=== PATIENT | female | born 2000 | race Caucasian/White ===

== ENCOUNTER 2021-03-28 09:48 | Emergency (ER) | payer BC, SELFPAY ==
--- NOTE | 2021-03-28 09:53 | ED.ABDPAIN ---
HPI - Abdominal Pain General Chief Complaint: Abdominal Pain Stated Complaint: vomitting, diarrhea and bloating of the Stomach Time Seen by Provider: 03/28/21 09:54 Source: patient and RN notes reviewed History of Present Illness HPI narrative: Patient is a 20-year-old female who presents the urgent care with complaints of 4 loose stools, 2 episodes of vomiting, and abdominal bloating since last night. Patient states that she weighs herself daily and has lost 10 pounds since Thursday morning. Patient states she has taken no new supplements and denies of trying to lose weight. Denies of any increase in activity. States that there is no chance of . Patient states that she has not taken anything for her pain. Denies of any blood in the stool or vomit. Denies of any urinary symptoms. No history of abdominal conditions. No other acute complaints. No acute distress noted. Patient read the plan of care. Some parts of this dictation were generated by voice recognition software and may contain typographical and/or grammatical inaccuracies. Related Data Home Medications Medication Instructions Recorded Confirmed cetirizine [Zyrtec] 10 mg PO DAILY 03/28/21 03/28/21 Allergies Allergy/AdvReac Type Severity Reaction Status Date / Time Sulfa (Sulfonamide Allergy Intermediate Rash Verified 03/28/21 10:07 Antibiotics) Review of Systems Review of Systems: CONSTITUTIONAL: Denies fever, chills, or sweats. EYES: Denies visual changes, redness, or discharge. ENT: Denies rhinorrhea, congestion, sore throat, or otalgia. CARDIOVASCULAR: Denies chest pain, palpitations, or edema. RESPIRATORY: Denies cough or dyspnea. GASTROINTESTINAL: Reports of abdominal bloating, vomiting and diarrhea GENITOURINARY: Denies dysuria or hematuria. SKIN: Denies rash or itching. MUSCULOSKELETAL: Denies back pain, joint pain, or myalgia. NEUROLOGIC: Denies headache, numbness, or weakness. All other systems reviewed are negative, except as documented in HPI. PMFSH Comments At the time of my signature, I reviewed and agree with the nursing past medical, surgical, social, and family history. There is no relevant family history pertinent to the patient complaint. Exam Narrative: GENERAL: This is a well-nourished, well-developed patient, in no apparent distress. HEAD: normocephalic, atraumatic. EYES: PERRL. Sclera clear/white. Vision is grossly intact. EARS: External ears normal NOSE: External nose normal with no obvious nasal discharge, nares without redness, no rhinorrhea. THROAT: Mucous membranes moist NECK: Neck supple CARDIOVASCULAR: Regular rate and rhythm without murmurs, gallops, or rubs. RESPIRATORY: Clear to auscultation. Breath sounds equal bilaterally. No wheezes, rales, or rhonchi. GASTROINTESTINAL: Abdomen soft, mild to moderate tenderness to the upper right quadrant/gallbladder, nondistended. Bowel sounds are active. SKIN: warm, intact with no suspicious lesions or rash, good texture and turgor. NEURO: awake, alert, and oriented to person, place and time. There were no obvious focal neurologic abnormalities. EXTREMITIES: No clubbing, cyanosis, or edema. BACK: Negative CVA tenderness Course Vital Signs Vital signs: Vital Signs Temperature 97.8 F 03/28/21 09:58 Pulse Rate 105 H 03/28/21 09:58 Respiratory Rate 18 03/28/21 09:58 Blood Pressure 142/88 H 03/28/21 09:58 Pulse Oximetry 98 03/28/21 09:58 Temperature 97.8 F 03/28/21 09:58 Pulse Rate 105 H 03/28/21 09:58 Respiratory Rate 18 03/28/21 09:58 Blood Pressure 142/88 H 03/28/21 09:58 Pulse Oximetry 98 03/28/21 09:58 Reviewed-patient is informed that they may have pre-hypertension or hypertension based on a blood pressure reading in the department. I recommend the patient call the primary care provider listed on their discharge instructions or a physician of their choice this week to arrange follow-up for further evaluation of possible pre-hyperte
[2021-03-28 09:58] VITALS: BP 142/88; PULSE 105; RESP 18; TEMP 36.6; O2SAT 98
== END 2021-03-28 10:25 | disposition home or self-care (01) ==
PROVIDERS: Emergency Provider Nurse Practitioner Family
DX: R11.2 Nausea with vomiting, unspecified (principal); R19.7 Diarrhea, unspecified
CPT/HCPCS: 81003; 99212; G0463

== ENCOUNTER → 2022-03-20 07:54 | Outpatient (CLI) | payer BC, SELFPAY ==
--- NOTE | ~2022-03-20 | US_ITS ---
EXAMINATION: US OB <=14 wk fetus w TV DATE: 03/20/2022 08:26 INDICATION: First trimester dating and viability assessment TECHNIQUE: Real-time pelvic transabdominal and transvaginal ultrasound was performed. COMPARISON: None. FINDINGS: The uterus measures 8.8 x 2.9 x 3.5 cm. There is an intrauterine gestational sac. A yolk s ac is identified. The pole is not yet identified. The mean sac diameter measures 6 mm , which c orrelates with an estimated gestational age of 5 weeks and 2 day(s) (+/-) 3 day(s). The right ovary measures 2.3 x 1.6 x 1.3 cm. The left ovary measures 2.8 x 1.7 x 2.2 cm. There is nor mal vascular flow in the ovaries. There is no free fluid in the pelvis. IMPRESSION: 1. Live intrauterine with an estimated gestational age of 5 weeks and 2 day(s) (+/-) 3 day( s) and an estimated delivery date of 11/18/2022 based on mean sac diameter. pole not visualized, likely due to early gestation. Reviewed, dictated and finalized at location A. IMPRESSION: 1. Live intrauterine with an estimated gestational age of 5 weeks and 2 day(s) (+/-) 3 day(s) and an estimated delivery date of 11/18/2022 based on m neto sac diameter. pole not visualized, likely due to early gestation.
== END ==
PROVIDERS: PCP Advanced Practice Midwife; Visit Provider Advanced Practice Midwife
DX: Z36.9 Encounter for antenatal screening, unspecified (principal); Z3A.01 Less than 8 weeks gestation of pregnancy
CPT/HCPCS: 76801; 76817

== ENCOUNTER → 2022-03-28 08:51 | Outpatient (CLI) | payer BC, SELFPAY ==
--- NOTE | ~2022-03-28 | US_ITS ---
EXAMINATION: US OB <=14 wk fetus w TV DATE: 03/28/2022 09:22 INDICATION: Gestational dating. Evaluate viability. TECHNIQUE: Real-time transabdominal and transvaginal obstetric ultrasound. FINDINGS: 03/20/2022 The uterus measures 9.1 x 3.9 x 4.5 cm. There is an intrauterine gestational sac, with pole yasmine ntified. The crown rump length measures 0.52 cm. heart tones are identified measuring 110 BPM. The ovaries are within normal limits. No free fluid in the pelvis.. The ovaries are within normal li mits. No free fluid in the pelvis. IMPRESSION: 1. SL IUP with an EGA of 6 weeks, 2 days (EDC by current ultrasound of 11/19/2022). Reviewed, dictated and finalized at location A. IMPRESSION: 1. SL IUP with an EGA of 6 weeks, 2 days (EDC by current ultrasound of 3).
== END ==
PROVIDERS: PCP Obstetrics & Gynecology Gynecology; Visit Provider Obstetrics & Gynecology Gynecology
DX: Z36.9 Encounter for antenatal screening, unspecified (principal); Z3A.01 Less than 8 weeks gestation of pregnancy
CPT/HCPCS: 76801; 76817

== ENCOUNTER → 2022-06-28 09:34 | Outpatient (CLI) | payer BC, SELFPAY ==
--- NOTE | ~2022-06-28 | US_ITS ---
EXAMINATION: US OB /maternal detail DATE: 06/28/2022 11:09 INDICATION: survey TECHNIQUE: Multiple obstetric sonographic images performed. FINDINGS: No prior studies for comparison. There is a single living fetus in breech presentation. The placenta is posterior without placenta pr evia. Placental margin is 6.6 cm to the cervix. Amniotic fluid volume is subjectively normal. cardiac activity and movement is noted with a heart rate of 158 beats per minute. The following anatomy was identified as normal: 4 chamber heart 3 vessel cord cord insertion kidneys urinary bladder stomach spine diaphragm ventricles cisterna magna cerebellum The following biometric data were obtained: BPD: 44mm corresponds to gestational age 19 weeks 2 days. Head circumference: 169 mm corresponds to gestational age 19 weeks 4 days. Abdominal circumference: 147 mm corresponds to gestational age 20 weeks 0 days. Femur length: 29 mm corresponds to gestational age 20 weeks 0 days. Head circumference to abdominal circumference ratio: 1.15 (normal range for expected gestational age is 1.08-1.26). Estimated weight: 297 grams +/- 44 grams using Hadlock method, 50.9%. IMPRESSION: 1: Single living intrauterine with an estimated gestational age of 19weeks 4days by initial ultrasound measurements, with an EDC of 11/18/2022 in breech presentation. 2. Normal survey. Reviewed, dictated and finalized at location A. RNATIONAL BANKER IMPRESSION: 1: Single living intrauterine with an estimated gestational age of 19 weeks 4days by initial ultrasound measurements, with an EDC of 11/18/2022 in chuckie ech presentation. 2. Normal survey.
== END ==
PROVIDERS: PCP Nurse Practitioner Family; Visit Provider Advanced Practice Midwife
DX: Z36.9 Encounter for antenatal screening, unspecified (principal); Z3A.19 19 weeks gestation of pregnancy
CPT/HCPCS: 76805

== ENCOUNTER 2022-07-11 14:50 | Outpatient (CLI) | payer BC, SELFPAY ==
[2022-07-11] VITALS (26 sets, daily range): BP systolic 110–145; BP diastolic 43–85; PULSE 103–136; RESP 18; TEMP 37.1; O2SAT 98–100
[2022-07-11 16:18] LABS: Appearance Urine Clear (Clear); Bilirubin Urine Negative (Negative); Blood Urine Negative (Negative); Color Urine Yellow (Yellow); Creatinine Urine 37.6 mg/dL; EDCOVIDSCREEN Negative (Negative); Glucose Urine UA Negative (Negative); Ketones Urine Negative (Negative); Leukocyte Esterase Ur Negative LEU/UL (NEGATIVE); Nitrate Urine Negative (Negative); Protein Urine Negative (Negative); Specific Grav Ur 1.015 (1.001-1.035); Total Protein Urine Random 15 mg/dL; Urobilinogen Urine 0.2 mg/dL (<2.0)
[2022-07-11 16:22] LABS: Squamous Epithelial Cell Urine Occasional /hpf (Few); WBC Urine 0-3 /hpf (0-3)
[2022-07-11 16:23] LABS: Basophils Percent Auto 0.2 % (0.2-1.2); Eosinophils Absolute Auto 0.1 K/mm3 (0-0.3); Eosinophils Percent Auto 0.5 % (0-4.4); Hematocrit 35.3 % (37.0-47.0); Hemoglobin 11.7 g/dL (12.0-15.0); Immature Granulocyte Absolute 0.15 K/mm3 (0.00-0.031); Immature Granulocyte Percent A 1.2 % (0-0.5); Lymphocytes Absolute Auto 2.77 K/mm3 (0.9-3.2); Lymphocytes Percent Auto 21.2 % (18.3-44.2); Mean Corpuscular HGB Conc 33.1 g/dl (32-36); Mean Corpuscular Hemoglobin 28.2 pg (26-34); Mean Corpuscular Volume 85.1 fl (80-100); Mean Platelet Volume 9.2 fl (7.4-10.4); Monocytes Absolute Auto 0.7 K/mm3 (0.1-0.6); Neutrophils Absolute Auto 9.4 K/mm3 (1.3-6.7); Neutrophils Percent Auto 71.9 % (45.5-73.1); Platelet Count Result 255 k/mm3 (150-375); Red Blood Count 4.15 M/mm3 (4.2-5.4); Red Cell Distribution Width 13.1 % (11.5-14.5)
[2022-07-11 16:25] LABS: Add Urine Microscopic? YES
[2022-07-11] MEDS: LACTATED RINGERS 1,000 ML 999 ML IV CONT (16:30)
[2022-07-11] MEDS: ACETAMINOPHEN 500 MG TABLET 1000 MG PO (16:30)
[2022-07-11 16:35] LABS: Alanine Aminotransferase 22 U/L (6-35); Albumin Level 3.9 g/dL (3.5-5.1); Alkaline Phosphatase 86 U/L (38-126); Anion Gap 5 mmol/L (8-16); Aspartate Amino Transferase 23 U/L (14-36); Bilirubin,Total 0.3 mg/dL (0.2-1.3); Blood Urea Nitrogen 4 mg/dL (7-17); Carbon Dioxide 25 mmol/L (22-30); Chloride 107 mmol/L (98-107); Estimated Glomerular Filt Rate > 60; Glucose 88 mg/dL (65-110); Sodium 137 mmol/L (137-145); Uric Acid 4.1 mg/dL (2.5-7.5)
--- NOTE | 2022-07-11 16:47 | PC.NURSE ---
1646- Spoke with Carley Nieves, AILYN, labs and HR reviewed. Will come in and evaluate patient shortly.
--- NOTE | 2022-07-11 16:49 | PC.NURSE ---
1542- Spoke with Carley Nieves CNM, orders for PIH workup, iv access, LR 1 L bolus, Tylenol 1 gm PO.
[2022-07-11] MEDS: PROCHLORPERAZINE MALEATE 5 MG TABLET 10 MG PO (18:01)
--- NOTE | 2022-07-11 18:05 | PC.NURSE ---
1745- Per Carley Nieves CNM, orders to give compazine 10 mg PO once now since headache is unresolved.
--- NOTE | 2022-07-11 18:35 | PC.NURSE ---
Headache is decreasing, but pt having some dizziness since taking compazine. No nausea at present. Denies changes in vision, epigastric/RUQ pain. No edema. DTR's 2+ and no clonus. Panaca, fruit cup, and soda given.
--- NOTE | 2022-07-11 19:39 | PC.NURSE ---
Carley Nieves [facility] informed pt's headache is down to a 2 out of 10. Pt had some dizziness after the Compazine that has resolved after eating and pt would like to go home. OK to discharge to home.
--- NOTE | 2022-07-11 20:37 | PM.OBTRLD ---
OB - Triage/Final Diagnosis Visit Information Date of evaluation: 07/11/22 Reason for evaluation: other (headache) Comments/Additional reasons for admission: I have assessed the risk for this patient, Anna Salguero, and determined that she would benefit from observation care. Evaluation Laboratory results: Laboratory Tests 07/11/22 07/11/22 07/11/22 15:53 15:53 15:53 WBC 13.0 H RBC 4.15 L Hgb 11.7 L Hct 35.3 L MCV 85.1 MCH 28.2 MCHC 33.1 RDW 13.1 Plt Count 255 MPV 9.2 Immature Gran % (Auto) 1.2 H Neut % (Auto) 71.9 Lymph % (Auto) 21.2 [place] % (Auto) 5.0 Eos % (Auto) 0.5 Baso % (Auto) 0.2 Lymph # (Auto) 2.77 [place] # (Auto) 0.7 H Eos # (Auto) 0.1 Baso # (Auto) 0.0 Abs Immat Gran (auto) 0.15 H Absolute Neuts (auto) 9.4 H Absolute Nucleated RBC 0.0 Nucleated RBC % 0.0 Sodium Potassium Chloride Carbon Dioxide Anion Gap BUN Creatinine Estim Creat Clear Calc Estimated GFR Glucose Uric Acid Calcium Total Bilirubin AST ALT Alkaline Phosphatase Total Protein Albumin Urine Color Yellow Urine Appearance Clear Urine pH 7.0 Ur Specific [place] 1.015 Urine Protein Negative Urine Glucose (UA) Negative Urine Ketones Negative Ur Blood (Man) Negative Urine Nitrate Negative Urine Bilirubin Negative Urine Urobilinogen 0.2 Ur Leukocyte Esterase Negative Urine WBC 0-3 Ur Squamous Epith Cells Occasional U Random Total Protein 15 Urine Creatinine 37.6 Protein/Creat Ratio 2 0.40 H SARS-CoV-2 IgG/IgM Ag?Rapid 07/11/22 07/11/22 15:53 15:53 WBC RBC Hgb Hct MCV MCH MCHC RDW Plt Count MPV Immature Gran % (Auto) Neut % (Auto) Lymph % (Auto) [place] % (Auto) Eos % (Auto) Baso % (Auto) Lymph # (Auto) [place] # (Auto) Eos # (Auto) Baso # (Auto) Abs Immat Gran (auto) Absolute Neuts (auto) Absolute Nucleated RBC Nucleated RBC % Sodium 137 Potassium 4.0 Chloride 107 Carbon Dioxide 25 Anion Gap 5 L BUN 4 L Creatinine 0.40 L Estim Creat Clear Calc Not Reportable Estimated GFR > 60 Glucose 88 Uric Acid 4.1 Calcium 9.0 Total Bilirubin 0.3 AST 23 ALT 22 Alkaline Phosphatase 86 Total Protein 7.0 Albumin 3.9 Urine Color Urine Appearance Urine pH Ur Specific [place] Urine Protein Urine Glucose (UA) Urine Ketones Ur Blood (Man) Urine Nitrate Urine Bilirubin Urine Urobilinogen Ur Leukocyte Esterase Urine WBC Ur Squamous Epith Cells U Random Total Protein Urine Creatinine Protein/Creat Ratio 2 SARS-CoV-2 IgG/IgM Ag?Rapid Negative Vital signs: Vital Signs - 24 hr 07/11/22 15:16 07/11/22 15:31 07/11/22 15:47 Temperature Pulse Rate 128 H 126 H 132 H Respiratory Rate Blood Pressure 145/65 H 121/85 110/43 L Pulse Oximetry 07/11/22 15:56 07/11/22 16:01 07/11/22 16:06 Temperature Pulse Rate Respiratory Rate Blood Pressure Pulse Oximetry 99 98 99 07/11/22 16:08 07/11/22 16:13 07/11/22 16:18 Temperature Pulse Rate Respiratory Rate Blood Pressure Pulse Oximetry 99 99 98 07/11/22 16:23 07/11/22 16:28 07/11/22 16:33 Temperature Pulse Rate Respiratory Rate Blood Pressure Pulse Oximetry 98 99 99 07/11/22 16:38 07/11/22 16:41 07/11/22 16:46 Temperature Pulse Rate Respiratory Rate Blood Pressure Pulse Oximetry 98 100 100 07/11/22 16:51 07/11/22 16:56 07/11/22 17:01 Temperature Pulse Rate Respiratory Rate Blood Pressure Pulse Oximetry 100 100 100 07/11/22 17:06 07/11/22 17:11 07/11/22 17:16 Temperature Pulse Rate Respiratory Rate Blood Pressure Pulse Oximetry 100 100 100 07/11/22 17:21 07/11/22 17:26 07/11/22 17:31 Temperature Pulse Rate Respiratory Rate Blood Pressu
== END 2022-07-11 19:49 | disposition home or self-care (01) ==
LOC: ANHOBOP 14:58 → ANHOBPP 15:03
PROVIDERS: PCP Nurse Practitioner Family; Visit Provider Advanced Practice Midwife
DX: O13.9 Gestational [pregnancy-induced] hypertension without significant proteinuria, unspecified trimester (principal); Z3A.00 Weeks of gestation of pregnancy not specified
CPT/HCPCS: 80053; 81001; 82570; 84156; 84550; 85025; 87086; 87426; 96360; 99199; A9270; C9803; J7120

== ENCOUNTER 2022-07-25 14:11 | Emergency (ER) | payer BC, SELFPAY ==
--- NOTE | ~2022-07-25 | CT_ITS ---
EXAMINATION: CTA chest PE protocol DATE: 07/25/2022 20:08 INDICATION: Shortness of breath. Elevated d-dimer. TECHNIQUE: Computed tomography angiography (CTA) of the chest was performed with 100 mL Omnipaque-350 intravenous contrast timed to evaluate the pulmonary arteries. Coronal maximum intensity projection 3D-reconstructions were created by the technologist. Automated exposure control and iterative reconst ruction technique were employed. Exam dose: 841.09 mGy-cm total exam DLP. COMPARISON: 07/25/2022 portable AP chest FINDINGS: There is diagnostic contrast enhancement of the pulmonary arteries and no evidence of pulmo nary embolism. No thoracic aortic aneurysm. No hilar or mediastinal mass lesion or lymphadenopathy. Normal heart siz e. No pericardial or pleural effusion. No pulmonary infiltrate or consolidation. Normal morphology of the adrenal glands. Included skeletal structures are unremarkable. IMPRESSION: No pulmonary embolus Reviewed, dictated and finalized at [facility]. Reviewed, dictated and finalized at location A. ZING ROOM WORKER IMPRESSION: No pulmonary embolus
--- NOTE | ~2022-07-25 | XR_ITS ---
Portable chest x-ray Comparison: None Clinical History: Shortness of breath, Covid 19 positive Findings: Lungs are clear, without focal consolidation or pleural effusion. Cardiomediastinal silho uette is unremarkable. Bones and soft tissues are unremarkable. Impression: Normal chest. Reviewed, dictated and finalized at location . LING SUPERVISOR Impression: Normal chest.
[2022-07-25 14:30] VITALS: BP 140/87; PULSE 109; RESP 20; TEMP 36.8; O2SAT 98
--- NOTE | 2022-07-25 14:33 | ECG_ITS ---
Measurements Intervals [place] Rate: 111 P: 28 NC: 133 QRS: 28 QRSD: 85 T: 14 QT: 299 QTc: 408 Interpretive Statements SINUS TACHYCARDIA NONSPECIFIC T-WAVE ABNORMALITY ABNORMAL RHYTHM ECG NO PREVIOUS ECG AVAILABLE FOR COMPARISON Electronically Signed On 07-25-2022 20:07:28 WEB CONTENT COORDINATOR by Colin Bardales M.D.
[2022-07-25 14:47] LABS: Basophils Percent Auto 0.2 % (0.2-1.2); Eosinophils Absolute Auto 0.1 K/mm3 (0-0.3); Eosinophils Percent Auto 1.1 % (0-4.4); Hematocrit 38.3 % (37.0-47.0); Hemoglobin 12.6 g/dL (12.0-15.0); Immature Granulocyte Absolute 0.12 K/mm3 (0.00-0.031); Immature Granulocyte Percent A 1.4 % (0-0.5); Lymphocytes Absolute Auto 2.18 K/mm3 (0.9-3.2); Lymphocytes Percent Auto 24.5 % (18.3-44.2); Mean Corpuscular HGB Conc 32.9 g/dl (32-36); Mean Corpuscular Hemoglobin 28.5 pg (26-34); Mean Corpuscular Volume 86.7 fl (80-100); Mean Platelet Volume 8.9 fl (7.4-10.4); Monocytes Absolute Auto 0.6 K/mm3 (0.1-0.6); Monocytes Percent Auto 7.2 % (2.6-8.5); Neutrophils Absolute Auto 5.8 K/mm3 (1.3-6.7); Neutrophils Percent Auto 65.6 % (45.5-73.1); Platelet Count Result 279 k/mm3 (150-375); Red Blood Count 4.42 M/mm3 (4.2-5.4); Red Cell Distribution Width 13.3 % (11.5-14.5); White Blood Count 8.9 K/mm3 (4.5-10.0)
[2022-07-25 15:00] LABS: Alanine Aminotransferase 26 U/L (6-35); Albumin Level 3.9 g/dL (3.5-5.1); Alkaline Phosphatase 95 U/L (38-126); Anion Gap 7 mmol/L (8-16); Aspartate Amino Transferase 25 U/L (14-36); Bilirubin,Total 0.3 mg/dL (0.2-1.3); Blood Urea Nitrogen 8 mg/dL (7-17); Calcium 9.4 mg/dL (8.4-10.2); Carbon Dioxide 25 mmol/L (22-30); Chloride 105 mmol/L (98-107); Estimated CRCL calculation 185 ml/min; Estimated Glomerular Filt Rate > 60; Glucose 102 mg/dL (65-110); Potassium 3.5 mmol/L (3.4-5.0); Sodium 137 mmol/L (137-145)
--- NOTE | 2022-07-25 17:28 | ED.GENADULT ---
HPI - General Adult General Chief complaint: Shortness of Breath/Dyspnea <Michaela Brandon PA-C - Last Filed: 07/26/22 00:36> Stated complaint: 23 weeks , SOB, COVID+ <Michaela Brandon PA-C - Last Filed: 07/26/22 00:36> Time Seen by Provider: 07/25/22 17:05 <Michaela Brandon PA-C - Last Filed: 07/26/22 00:36> History of Present Illness HPI narrative: Patient is a 22-year-old female who is currently 23 weeks here for evaluation of shortness of breath and cough for the past 3 days. She is COVID-positive. She also notes that her heart rate has been elevated at home. She was seen by OB upon symptom onse; fetus was evaluated and was reassuring. Presents today due to continuation of symptoms. She is a patient of Dr. Shahid. No abdominal pain, vaginal bleeding, decrease in motions, sudden gush of fluids, chest pain, leg swelling or calf pain. <Michaela Brandon PA-C - Last Filed: 07/26/22 00:36> Related Data Home medications: Home Medications Medication Instructions Recorded Confirmed cetirizine 10 mg tablet (Zyrtec) 10 mg PO DAILY 03/28/21 07/11/22 <MADHU Bañuelos Last Filed: 07/26/22 00:36> Allergies/adverse reactions: Allergies Allergy/AdvReac Type Severity Reaction Status Date / Time Sulfa (Sulfonamide Allergy Intermediate Rash Verified 03/28/21 10:07 Antibiotics) <MADHU Bañuelos Last Filed: 07/26/22 00:36> Review of Systems Review of Systems: Gen: Denies fevers or chills Eyes: Denies eye pain or visual change ENT: Denies congestion Respiratory: Reports shortness of breath and cough CV: Denies chest pain or palpitations GI: Denies abdominal pain nausea, emesis or diarrhea : denies burning, urgency, frequency or hematuria Musculoskeletal: Denies back pain or muscle pain Neuro: Denies numbness, tingling, weakness or focal weakness Skin: Denies rash Except as documented, all other systems reviewed and negative <Michaela Brandon PA-C - Last Filed: 07/26/22 00:36> Exam Narrative: APPEARANCE: Well appearing, no pain in distress, well-nourished. Head: Normocephalic and atraumatic. EYES: PERRLA/EOMI, conjunctivae clear NOSE: No nasal drainage EARS: External ear normal in appearance THROAT: Oropharynx is clear. Mucous membranes are moist. NECK: Supple. No adenopathy, no masses. RESPIRATORY: Airway patent, respirations nonlabored. Clear to auscultation bilaterally, no rales, rhonchi, wheezing. CARDIOVASCULAR: Regular rate and rhythm without murmurs, rubs, or gallops. ABDOMINAL: Normoactive bowel sounds. Soft, nontender, nondistended. No rebound tenderness or guarding. MUSCULOSKELETAL: Extremities are warm and well-perfused. Moves all extremities well. No edema. NEURO: Normal speech. No focal neurologic deficits. SKIN: Skin is warm and dry. No rashes. PSYCHIATRIC: Normal affect/mood.. <Michaela Brandon PA-C - Last Filed: 07/26/22 00:36> Course PLUSH DRESSER/PA Physician Supervision For this encounter, I have reviewed the PA documentation, treatment plan and medical decision making: And I have had [id number] time with the patient. Patient tested positive for COVID on Thursday. At this time lungs clear to auscultation bilaterally the heart is regular rate and rhythm without murmur discussed with patient need for follow-up all questions answered patient agreement at this time <Brian Mujica DO - Last Filed: 07/25/22 20:39> Vital Signs Vital signs: Vital Signs Temperature 98.3 F 07/25/22 14:30 Pulse Rate 109 H 07/25/22 14:30 Respiratory Rate 20 07/25/22 14:30 Blood Pressure 140/87 07/25/22 14:30 Pulse Oximetry 98 07/25/22 14:30 Oxygen Delivery Room Air 07/25/22 14:30 Temperature 99.0 F 07/25/22 20:42 Pulse Rate 91 07/25/22 20:42 Respiratory Rate 18 07/25/22 20:42 Blood Pressure 124/79 07/25/22 20:42 Pulse Oximetry 98 07/25/22 20:42 Oxygen Del
[2022-07-25 17:59] LABS: Troponin I < 0.012 ng/mL (0.000-0.034)
[2022-07-25 18:00] VITALS: O2SAT 98
[2022-07-25 18:02] LABS: D Dimer 0.63 ug/mL (<0.48)
[2022-07-25 19:18] VITALS: BP 118/65; PULSE 70; RESP 12; O2SAT 98
[2022-07-25 19:30] VITALS: BP 119/79; PULSE 84; RESP 18; TEMP 36.9; O2SAT 97
[2022-07-25 20:42] VITALS: BP 124/79; PULSE 91; RESP 18; TEMP 37.2; O2SAT 98
== END 2022-07-25 20:44 | disposition home or self-care (01) ==
PROVIDERS: Physician Assistant; Emergency Provider Emergency Medicine; PCP Nurse Practitioner Family
DX: O98.512 Other viral diseases complicating pregnancy, second trimester (principal); U07.1 COVID-19; Z3A.23 23 weeks gestation of pregnancy; O99.891 Other specified diseases and conditions complicating pregnancy; R00.0 Tachycardia, unspecified; R94.31 Abnormal electrocardiogram [ECG] [EKG]
CPT/HCPCS: 36415; 71045; 71275; 80053; 84484; 85025; 85380; 93005; 99284; Q9967

== ENCOUNTER 2022-08-26 18:24 | Observation (INO) | payer BC, SELFPAY ==
[2022-08-26] VITALS (22 sets, daily range): BP systolic 113–171; BP diastolic 51–128; PULSE 60–120; RESP 16–18; TEMP 36.9–37.4; O2SAT 95–98
--- NOTE | 2022-08-26 19:30 | PC.NURSE ---
Pt to hospital with complaints of feelings week/dizzy, anxious and high BP at home wit readings of 168/110 and 178/105. Pt denies HS, blurred vision, RUQ pain, n/v. Pt reports bilateral general leg swelling. Pts T was 99.4 but denies any s/s of sickness, leaking of lfuid/gushes of fluid.
--- NOTE | 2022-08-26 19:36 | PC.NURSE ---
Called Dr. Shahid. Informed her of patients s/s, BPS at home and here at the hospital, and Temperature. Orders for PIH labs and to start a 24 hour urine.
[2022-08-26 20:12] LABS: Basophils Percent Auto 0.3 % (0.2-1.2); Eosinophils Percent Auto 0.3 % (0-4.4); Hematocrit 32.9 % (37.0-47.0); Hemoglobin 11.1 g/dL (12.0-15.0); Immature Granulocyte Absolute 0.13 K/mm3 (0.00-0.031); Lymphocytes Absolute Auto 2.82 K/mm3 (0.9-3.2); Lymphocytes Percent Auto 20.9 % (18.3-44.2); Mean Corpuscular HGB Conc 33.7 g/dl (32-36); Mean Corpuscular Hemoglobin 28.5 pg (26-34); Mean Corpuscular Volume 84.4 fl (80-100); Mean Platelet Volume 9.2 fl (7.4-10.4); Monocytes Absolute Auto 0.6 K/mm3 (0.1-0.6); Monocytes Percent Auto 4.5 % (2.6-8.5); Neutrophils Absolute Auto 9.9 K/mm3 (1.3-6.7); Platelet Count Result 261 k/mm3 (150-375); Red Cell Distribution Width 13.2 % (11.5-14.5); White Blood Count 13.5 K/mm3 (4.5-10.0)
[2022-08-26 20:16] LABS: Appearance Urine Clear (Clear); Bilirubin Urine Negative (Negative); Blood Urine Negative (Negative); Glucose Urine UA Negative (Negative); Ketones Urine Negative (Negative); Leukocyte Esterase Ur 1+ LEU/UL (NEGATIVE); Nitrate Urine Negative (Negative); Protein Urine Negative (Negative); Urobilinogen Urine 0.2 mg/dL (<2.0)
[2022-08-26 20:19] LABS: Creatinine Urine 47.6 mg/dL; Total Protein Urine Random 17 mg/dL; Ur Ttl Prot Creatinine Ratio 0.36 mg/mg (0-0.20)
[2022-08-26 20:22] LABS: Alanine Aminotransferase 17 U/L (6-35); Albumin Level 3.5 g/dL (3.5-5.1); Alkaline Phosphatase 111 U/L (38-126); Anion Gap 6 mmol/L (8-16); Aspartate Amino Transferase 20 U/L (14-36); Bilirubin,Total 0.3 mg/dL (0.2-1.3); Blood Urea Nitrogen 5 mg/dL (7-17); Calcium 8.7 mg/dL (8.4-10.2); Carbon Dioxide 24 mmol/L (22-30); Chloride 103 mmol/L (98-107); Estimated Glomerular Filt Rate > 60; Glucose 113 mg/dL (65-110); Potassium 3.3 mmol/L (3.4-5.0); Sodium 133 mmol/L (137-145); Uric Acid 4.2 mg/dL (2.5-7.5)
[2022-08-26 20:26] LABS: Add Urine Microscopic? YES; Color Urine Light Yellow (Yellow)
[2022-08-26 20:35] LABS: Bacteria Urine Trace /hpf; Squamous Epithelial Cell Urine Few /hpf (Few)
--- NOTE | 2022-08-26 20:49 | PC.NURSE ---
!78/128 Blood pressure, I was at bedside and patient was laughing, talking and moving.
--- NOTE | 2022-08-26 20:52 | PC.NURSE ---
Called Dr. Shahid with lab results and recent BP. Orders to dsicharge patient and have her do a 24 hour urine. Also, orders for patient to come back on Thursday to Dr. Shahid's office for a BP check and to bring her home BP ciff. Orders for patient to be on light duty until Thursday appointment.
--- NOTE | 2022-08-26 21:30 | PC.NURSE ---
Discharge instructions reviewed with patient including when to return, 24 hour urine instructions, and follow up appointment instructions
--- NOTE | 2022-08-28 07:38 | PM.OBTRLD ---
OB - Triage/Final Diagnosis Visit Information Reason for evaluation: other (elevated BP) Comments/Additional reasons for admission: I have assessed the risk for this patient, Anna Salguero, and determined that she would benefit from observation care. Evaluation Laboratory results: Laboratory Tests 08/26/22 08/26/22 08/26/22 20:02 20:02 20:02 WBC 13.5 H RBC 3.90 L Hgb 11.1 L Hct 32.9 L MCV 84.4 MCH 28.5 MCHC 33.7 RDW 13.2 Plt Count 261 MPV 9.2 Immature Gran % (Auto) 1.0 H Neut % (Auto) 73.0 Lymph % (Auto) 20.9 [place] % (Auto) 4.5 Eos % (Auto) 0.3 Baso % (Auto) 0.3 Lymph # (Auto) 2.82 [place] # (Auto) 0.6 Eos # (Auto) 0.0 Baso # (Auto) 0.0 Abs Immat Gran (auto) 0.13 H Absolute Neuts (auto) 9.9 H Absolute Nucleated RBC 0.0 Nucleated RBC % 0.0 Sodium Potassium Chloride Carbon Dioxide Anion Gap BUN Creatinine Estim Creat Clear Calc Estimated GFR Glucose Uric Acid Calcium Total Bilirubin AST ALT Alkaline Phosphatase Total Protein Albumin Urine Color Light yellow Urine Appearance Clear Urine pH 7.0 Ur Specific [place] 1.020 Urine Protein Negative Urine Glucose (UA) Negative Urine Ketones Negative Ur Blood (Man) Negative Urine Nitrate Negative Urine Bilirubin Negative Urine Urobilinogen 0.2 Ur Leukocyte Esterase 1+ H Urine RBC 6-10 H Urine WBC 4-6 H Ur Squamous Epith Cells Few Urine Bacteria Trace U Random Total Protein 17 Urine Creatinine 47.6 Protein/Creat Ratio 2 0.36 H 08/26/22 20:02 WBC RBC Hgb Hct MCV MCH MCHC RDW Plt Count MPV Immature Gran % (Auto) Neut % (Auto) Lymph % (Auto) [place] % (Auto) Eos % (Auto) Baso % (Auto) Lymph # (Auto) [place] # (Auto) Eos # (Auto) Baso # (Auto) Abs Immat Gran (auto) Absolute Neuts (auto) Absolute Nucleated RBC Nucleated RBC % Sodium 133 L Potassium 3.3 L Chloride 103 Carbon Dioxide 24 Anion Gap 6 L BUN 5 L Creatinine 0.40 L Estim Creat Clear Calc Not Reportable Estimated GFR > 60 Glucose 113 H Uric Acid 4.2 Calcium 8.7 Total Bilirubin 0.3 AST 20 ALT 17 Alkaline Phosphatase 111 Total Protein 7.0 Albumin 3.5 Urine Color Urine Appearance Urine pH Ur Specific [place] Urine Protein Urine Glucose (UA) Urine Ketones Ur Blood (Man) Urine Nitrate Urine Bilirubin Urine Urobilinogen Ur Leukocyte Esterase Urine RBC Urine WBC Ur Squamous Epith Cells Urine Bacteria U Random Total Protein Urine Creatinine Protein/Creat Ratio 2
== END 2022-08-26 21:30 | disposition home or self-care (01) ==
PROVIDERS: Admitting Provider Obstetrics & Gynecology Gynecology; PCP Nurse Practitioner Family; Referring Provider Advanced Practice Midwife; Visit Provider Obstetrics & Gynecology Gynecology
DX: O16.9 Unspecified maternal hypertension, unspecified trimester (principal); Z3A.00 Weeks of gestation of pregnancy not specified
CPT/HCPCS: 36415; 59025; 80053; 81001; 82570; 84156; 84550; 85025; 87086; G0378; G0379

== ENCOUNTER 2022-08-27 20:15 | Outpatient (NON) | payer BC, SELFPAY ==
[2022-08-27 21:09] LABS: Collection Time Urine 24 HOURS
[2022-08-27 21:41] LABS: Total Volume 24 Hour Urine 3900 ml
[2022-08-27 21:48] LABS: Patient Weight 286 Lbs
[2022-08-27 21:57] LABS: Creatinine Clearance Urine 248.4 ml/min (75-125); Creatinine Urine 41.4 mg/dL; Total Protein Urine Random 15 mg/dL
[2022-08-27 22:04] LABS: Total Protein Urine 24 Hr 585 mg/24hr (28-141)
== END 2022-08-27 20:16 | disposition home or self-care (01) ==
LOC: ANHOBOP 20:26
PROVIDERS: Advanced Practice Midwife; Visit Provider Obstetrics & Gynecology Gynecology
DX: O13.9 Gestational [pregnancy-induced] hypertension without significant proteinuria, unspecified trimester (principal); Z3A.00 Weeks of gestation of pregnancy not specified
CPT/HCPCS: 81050; 82575; 84156

== ENCOUNTER 2022-08-29 14:05 | Outpatient (RCR) | payer BC, SELFPAY ==
[2022-08-28] MEDS: BETAMETHASONE SOD PHOS/ACETATE 30 MG/5 ML VIAL 12 MG IM (15:11)
[2022-08-29] MEDS: BETAMETHASONE SOD PHOS/ACETATE 30 MG/5 ML VIAL 12 MG IM (14:49)
== END 2022-11-26 23:59 | disposition home or self-care (01) ==
LOC: ANHOBOP 14:05
PROVIDERS: Visit Provider Obstetrics & Gynecology Gynecology
DX: O36.8990 Maternal care for other specified fetal problems, unspecified trimester, not applicable or unspecified (principal); Z3A.00 Weeks of gestation of pregnancy not specified
CPT/HCPCS: 96372; J0702

== ENCOUNTER 2022-09-01 14:19 | Outpatient (CLI) | payer BC, SELFPAY ==
[2022-09-01] VITALS (36 sets, daily range): BP systolic 103–141; BP diastolic 51–75; PULSE 98–119; RESP 14; TEMP 36.8; O2SAT 97–100; BMI 50.5
--- NOTE | ~2022-09-01 | XR_ITS ---
EXAMINATION: XR chest 2V DATE: 09/01/2022 14:49 INDICATION: Shortness of breath TECHNIQUE: PA and lateral views of the chest are obtained. COMPARISON: 07/25/2022 FINDINGS: The lungs are free of acute opacities. No pleural effusion or pneumothorax. The cardiomedia stinal silhouette is normal. The visualized bones and soft tissues are unremarkable. IMPRESSION: 1. No acute cardiopulmonary abnormality. Reviewed, dictated and finalized at location B. ITE DESIGNER
--- NOTE | 2022-09-01 15:07 | OBADM ---
This patient, Anna Salguero, admitted to the OB room OB Post 116 for observation. Patient/family oriented to hospital policies and general routines including ID bracelet, bed and alarms, visiting hours, pain management, procedures, bathroom and other care routines, personal items, smoking policy, room service/diet, and visiting hours. Patient/Family are encouraged to report perceived risks to care and to ask questions if they do not understand what they are told or what they should do.
[2022-09-01 15:16] LABS: Creatinine Urine 45.6 mg/dL; Total Protein Urine Random 18 mg/dL; Ur Ttl Prot Creatinine Ratio 0.39 mg/mg (0-0.20)
[2022-09-01 15:45] LABS: Basophils Absolute Auto 0.1 K/mm3 (0.0-0.1); Basophils Percent Auto 0.4 % (0.2-1.2); Eosinophils Absolute Auto 0.1 K/mm3 (0-0.3); Eosinophils Percent Auto 0.3 % (0-4.4); Hematocrit 36.9 % (37.0-47.0); Immature Granulocyte Absolute 0.42 K/mm3 (0.00-0.031); Immature Granulocyte Percent A 2.3 % (0-0.5); Lymphocytes Absolute Auto 3.38 K/mm3 (0.9-3.2); Lymphocytes Percent Auto 18.9 % (18.3-44.2); Mean Corpuscular HGB Conc 32.5 g/dl (32-36); Mean Corpuscular Volume 86.2 fl (80-100); Mean Platelet Volume 9.1 fl (7.4-10.4); Monocytes Percent Auto 5.4 % (2.6-8.5); Neutrophils Percent Auto 72.7 % (45.5-73.1); Platelet Count Result 303 k/mm3 (150-375); Red Blood Count 4.28 M/mm3 (4.2-5.4); Red Cell Distribution Width 13.4 % (11.5-14.5); White Blood Count 17.9 K/mm3 (4.5-10.0)
[2022-09-01 15:51] LABS: Alanine Aminotransferase 18 U/L (6-35); Albumin Level 4.1 g/dL (3.5-5.1); Alkaline Phosphatase 127 U/L (38-126); Anion Gap 5 mmol/L (8-16); Aspartate Amino Transferase 19 U/L (14-36); Bilirubin,Total 0.4 mg/dL (0.2-1.3); Blood Urea Nitrogen 7 mg/dL (7-17); Calcium 9.1 mg/dL (8.4-10.2); Carbon Dioxide 27 mmol/L (22-30); Chloride 101 mmol/L (98-107); Estimated CRCL calculation 185 ml/min; Estimated Glomerular Filt Rate > 60; Glucose 81 mg/dL (65-110); Potassium 3.6 mmol/L (3.4-5.0); Sodium 133 mmol/L (137-145); Uric Acid 4.1 mg/dL (2.5-7.5)
[2022-09-01] MEDS: ACETAMINOPHEN/BUTALBITAL/CAFFEINE 325-50-40 MG TABLET (FIORICET) 2 TAB PO (16:26)
[2022-09-01] MEDS: FAMOTIDINE 20 MG/2 ML VIAL IV PUSH (16:29)
[2022-09-01 16:40] LABS: Amylase 57 U/L (30-110); Lipase 95 U/L (23-300)
--- NOTE | 2022-09-01 17:29 | PC.NURSE ---
1725--Carley Nieves CNM at to evaluate pt. and discuss POC. Orders for a dose of compazine 10mg po at this time.
[2022-09-01] MEDS: PROCHLORPERAZINE MALEATE 5 MG TABLET 10 MG PO (17:33)
--- NOTE | 2022-09-01 18:19 | PM.OBPNLAB ---
Pain Control Date/time seen: 09/01/22 18:00 Comments: Headache present. Frontal. Denies visual changes. Substernal pain/RUQ pain remains unchanged. Status Comments: NST WNL for gestational age. Baseline 135, moderate variability, 10x10 accels, occasional (rare) variable decelerations consistent with early gestational age. Assessment and Plan Comments: 1. 22 y.o. at 28 weeks 6 days 2. Preeclampsia (diagnosed last week by 24 hour urine protein- 585 on 08/27/22) - BPs WNL/mild range - labs stable. Platelets 303, Creatinine 0.5, AST 19, ALT 18 3. Headache -unrelieved with Tylenol, Fioricet, Compazine. Reports splitting -no visual changes 4. RUQ/substernal pain -liver enzymes WNL -Amylase/lipase WNL 5. Marginal Cord insertion 6. GERD 7. Anxiety and depression 8. 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 Hx Left knee reconstruction
--- NOTE | 2022-09-01 19:06 | PM.TDS ---
Transfer Discharge Sum: Prov Provider Date of admission: 09/01/22 Primary care physician: MID LEVEL NET DEVELOPER PHYSICIAN Attending physician on admission: Jasiel Estevez Attending physician on discharge: Jasiel Estevez Discharging clinician: Sinai Nieves Anticipated date of transfer: 09/01/22 Receiving physician/facility: Dr. Matos at [facility] DS: Admitting Diagnosis Discharge Date 09/01/22 Admitting Diagnosis preeclampsia headache RUQ pain SOB DS: Discharge Diagnosis Discharge Diagnosis (1) Pre-eclampsia affecting , antepartum: Code(s): O14.90 - Unspecified pre-eclampsia, unspecified trimester Status: Acute (2) Headache: Code(s): R51.9 - Headache, unspecified Status: Acute (3) Chest pain: Code(s): R07.9 - Chest pain, unspecified Status: Acute Transfer Discharge Sum: Med Medications Active and Home Medications: Home Medications acetaminophen 325 mg tablet (Tylenol) 650 mg PO Q6H PRN Headache 09/01/22 [History Confirmed 09/01/22] cholecalciferol (vitamin D3) 1,250 mcg (50,000 unit) tablet See Rx Instructions .Route .COMPLEX 09/01/22 [History Confirmed 09/01/22] omeprazole 20 mg capsule,delayed release 20 mg PO DAILY 09/01/22 [History Confirmed 09/01/22] vit no.133-ferrous fumarate 28 mg-folic acid 800 mcg tablet () 1 tablet PO DAILY 09/01/22 [History Confirmed 09/01/22] Active Medications Acetaminophen/Butalbital/Caffeine (Acetaminophen/Butalbital/Caffeine 325-50-40 Mg Tablet (Fioricet)) 2 tab PO Q4H PRN PRN Reason: Pain Rated 4-6 Last Admin: 09/01/22 16:26 Dose: 2 tab Magnesium Sulfate/Dextrose (Magnesium Sulf 1 Gm/D5w 100 Ml) 1 gm in 100 mls @ 100 mls/hr IVPB ONCE ONE Stop: 09/01/22 19:49 Lactated Ringer's (Lr - Lactated Ringers Iv) 1,000 mls @ 125 mls/hr IV CONT .Q8H OREN Transfer Discharge Sum: Hosp Hospital Course Hospital course: Anna Salguero is a 22 year old female Time Spent with Patient Time attestation: Total time spent providing and/or coordinating transfer services: Exam Const: General: no acute distress Resp: Effort & Inspection: normal respiratory effort Auscultation: clear to auscultation bilaterally Cardio: Rate: regular rate GI: GI Palp: Yes Soft to palpation Skin: General skin exam: normal color and no rashes or lesions noted Neuro: General: deep tendon reflexes 2+ bilaterally Speech: normal speech Other: no clonus Extrem: General: normal to inspection and edema Other: trace BLE edema Psych: Mental Status: mental status grossly normal DS: Data Data Completed and Pending Labs on day of discharge: Labs from last 24 hours 09/01/22 09/01/22 09/01/22 14:39 14:39 14:39 WBC RBC Hgb Hct MCV MCH MCHC RDW Plt Count MPV Immature Gran % (Auto) Neut % (Auto) Lymph % (Auto) [place] % (Auto) Eos % (Auto) Baso % (Auto) Lymph # (Auto) [place] # (Auto) Eos # (Auto) Baso # (Auto) Abs Immat Gran (auto) Absolute Neuts (auto) Absolute Nucleated RBC Nucleated RBC % Sodium 133 L Potassium 3.6 Chloride 101 Carbon Dioxide 27 Anion Gap 5 L BUN 7 Creatinine 0.50 L Estim Creat Clear Calc 185 Estimated GFR > 60 Glucose 81 Uric Acid 4.1 Calcium 9.1 Total Bilirubin 0.4 AST 19 ALT 18 Alkaline Phosphatase 127 H Total Protein 8.0 Albumin 4.1 Amylase 57 Lipase 95 U Random Total Protein 18 Urine Creatinine 45.6 Protein/Creat Ratio 2 0.39 H 09/01/22 14:39 WBC 17.9 H RBC 4.28 Hgb 12.0 Hct 36.9 L MCV 86.2 MCH 28.0 MCHC 32.5 RDW 13.4 Plt Count 303 MPV 9.1 Immature Gran % (Auto) 2.3 H Neut % (Auto) 72.7 Lymph % (Auto) 18.9 [place] % (Auto) 5.4 Eos % (Auto) 0.3 Baso % (Auto) 0.4 Lymph # (Auto) 3.38 H [place] # (Auto) 1.0 H Eos # (Auto) 0.1 Baso # (Auto) 0.1 Abs Immat Gran (auto) 0.42 H Absolute Neuts (auto)
--- NOTE | 2022-09-01 19:11 | PM.OBPNLAB ---
Pain Control Date/time seen: 09/01/22 4533 Comments: Spoke with Dr. Matos from [facility] on the telephone. Discussed pt history, and current symptoms/findings. Plan for transfer this evening. Discusses plan of care and pt agreeable.
[2022-09-01] MEDS: MAGNESIUM SULF 1 GM/D5W 100 ML 1 GM/100 ML BAG IVPB (19:30)
[2022-09-01] MEDS: LACTATED RINGERS 1,000 ML 125 ML IV CONT (19:31)
--- NOTE | 2022-09-01 20:35 | PC.NURSE ---
Transport team arrived at 2019. Pt ambulated to [facility]. Report given to and all /medical records given to Ward ONTIVEROS.
== END 2022-09-01 20:30 | disposition home or self-care (01) ==
LOC: ANHOBOP 14:23 → ANHOBPP 14:24
PROVIDERS: Visit Provider Advanced Practice Midwife
DX: O14.90 Unspecified pre-eclampsia, unspecified trimester (principal); R51.9 Headache, unspecified; R07.9 Chest pain, unspecified; Z3A.00 Weeks of gestation of pregnancy not specified
CPT/HCPCS: 36415; 71046; 80053; 82150; 82570; 83690; 84156; 84550; 85025; 96365; 96375; 99199; A9270; J3475; J7120

== ENCOUNTER 2022-09-09 17:54 | Outpatient (CLI) | payer BC, SELFPAY ==
[2022-09-09] VITALS (12 sets, daily range): BP systolic 124–141; BP diastolic 67–82; PULSE 98–111; O2SAT 99–100
[2022-09-09 18:47] LABS: Basophils Percent Auto 0.3 % (0.2-1.2); Eosinophils Absolute Auto 0.1 K/mm3 (0-0.3); Eosinophils Percent Auto 0.4 % (0-4.4); Hematocrit 34.2 % (37.0-47.0); Hemoglobin 11.5 g/dL (12.0-15.0); Immature Granulocyte Absolute 0.13 K/mm3 (0.00-0.031); Lymphocytes Absolute Auto 2.75 K/mm3 (0.9-3.2); Lymphocytes Percent Auto 22.2 % (18.3-44.2); Mean Corpuscular HGB Conc 33.6 g/dl (32-36); Mean Corpuscular Hemoglobin 28.4 pg (26-34); Mean Corpuscular Volume 84.4 fl (80-100); Mean Platelet Volume 9.2 fl (7.4-10.4); Monocytes Absolute Auto 0.7 K/mm3 (0.1-0.6); Monocytes Percent Auto 5.7 % (2.6-8.5); Neutrophils Absolute Auto 8.7 K/mm3 (1.3-6.7); Neutrophils Percent Auto 70.4 % (45.5-73.1); Platelet Count Result 266 k/mm3 (150-375); Red Blood Count 4.05 M/mm3 (4.2-5.4); Red Cell Distribution Width 13.2 % (11.5-14.5); White Blood Count 12.4 K/mm3 (4.5-10.0)
[2022-09-09 18:55] LABS: Alanine Aminotransferase 18 U/L (6-35); Albumin Level 3.7 g/dL (3.5-5.1); Alkaline Phosphatase 120 U/L (38-126); Anion Gap 3 mmol/L (8-16); Appearance Urine Slightly Cloudy (Clear); Aspartate Amino Transferase 18 U/L (14-36); Bilirubin Urine Negative (Negative); Bilirubin,Total 0.3 mg/dL (0.2-1.3); Blood Urea Nitrogen 7 mg/dL (7-17); Blood Urine Negative (Negative); Calcium 9.4 mg/dL (8.4-10.2); Carbon Dioxide 26 mmol/L (22-30); Chloride 100 mmol/L (98-107); Color Urine Light Yellow (Yellow); Estimated Glomerular Filt Rate > 60; Glucose 91 mg/dL (65-110); Glucose Urine UA Negative (Negative); Ketones Urine Negative (Negative); Leukocyte Esterase Ur 1+ LEU/UL (NEGATIVE); Nitrate Urine Negative (Negative); Potassium 3.7 mmol/L (3.4-5.0); Protein Urine Negative (Negative); Sodium 129 mmol/L (137-145); Specific Grav Ur 1.015 (1.001-1.035); Uric Acid 4.3 mg/dL (2.5-7.5); Urobilinogen Urine 0.2 mg/dL (<2.0)
[2022-09-09] MEDS: ACETAMINOPHEN 500 MG TABLET 1000 MG PO (18:55)
[2022-09-09 19:02] LABS: Amorphous Sediment Urine Few; Bacteria Urine Trace /hpf; Squamous Epithelial Cell Urine Moderate /hpf (Few)
[2022-09-09 19:06] LABS: Add Urine Microscopic? YES
--- NOTE | 2022-09-09 19:19 | PC.NURSE ---
called Dr. Shahid notified pt visit for elevated BP. PIH lab and BP reported. discharge order received
[2022-09-09 19:32] LABS: Creatinine Urine 47.6 mg/dL; Total Protein Urine Random 12 mg/dL; Ur Ttl Prot Creatinine Ratio 0.25 mg/mg (0-0.20)
== END 2022-09-09 19:24 | disposition home or self-care (01) ==
LOC: ANHOBOP 18:00 → ANHOBPP 18:02
PROVIDERS: Visit Provider Obstetrics & Gynecology Gynecology
DX: O13.9 Gestational [pregnancy-induced] hypertension without significant proteinuria, unspecified trimester (principal); Z3A.00 Weeks of gestation of pregnancy not specified
CPT/HCPCS: 36415; 59025; 80053; 81001; 82570; 84156; 84550; 85025; 87086; 99199; A9270

== ENCOUNTER 2022-09-12 22:04 | Outpatient (CLI) | payer BC, SELFPAY ==
[2022-09-12 22:30] VITALS: BP 138/78; PULSE 107
[2022-09-12 22:41] LABS: Basophils Absolute Auto 0.1 K/mm3 (0.0-0.1); Basophils Percent Auto 0.4 % (0.2-1.2); Eosinophils Absolute Auto 0.1 K/mm3 (0-0.3); Eosinophils Percent Auto 0.5 % (0-4.4); Hematocrit 34.3 % (37.0-47.0); Hemoglobin 11.4 g/dL (12.0-15.0); Immature Granulocyte Percent A 0.8 % (0-0.5); Lymphocytes Absolute Auto 3.21 K/mm3 (0.9-3.2); Lymphocytes Percent Auto 24.4 % (18.3-44.2); Mean Corpuscular HGB Conc 33.2 g/dl (32-36); Mean Corpuscular Hemoglobin 27.8 pg (26-34); Mean Corpuscular Volume 83.7 fl (80-100); Mean Platelet Volume 9.1 fl (7.4-10.4); Monocytes Absolute Auto 0.8 K/mm3 (0.1-0.6); Monocytes Percent Auto 5.7 % (2.6-8.5); Neutrophils Percent Auto 68.2 % (45.5-73.1); Platelet Count Result 240 k/mm3 (150-375); Red Cell Distribution Width 13.2 % (11.5-14.5); White Blood Count 13.2 K/mm3 (4.5-10.0)
[2022-09-12 22:42] LABS: Appearance Urine Clear (Clear); Bilirubin Urine Negative (Negative); Blood Urine Negative (Negative); Color Urine Yellow (Yellow); Glucose Urine UA Negative (Negative); Ketones Urine Negative (Negative); Leukocyte Esterase Ur 1+ LEU/UL (NEGATIVE); Nitrate Urine Negative (Negative); Protein Urine Negative (Negative); Urobilinogen Urine 0.2 mg/dL (<2.0)
[2022-09-12 22:46] VITALS: BP 133/69; PULSE 96
[2022-09-12 22:48] LABS: Bacteria Urine Trace /hpf; Mucus Urine Rare /lpf; Squamous Epithelial Cell Urine Few /hpf (Few)
[2022-09-12 22:49] LABS: Add Urine Microscopic? YES
[2022-09-12 23:01] VITALS: BP 123/61; PULSE 98
[2022-09-12 23:05] LABS: Creatinine Urine 54.6 mg/dL; Total Protein Urine Random 16 mg/dL; Ur Ttl Prot Creatinine Ratio 0.29 mg/mg (0-0.20)
[2022-09-12 23:08] LABS: Alanine Aminotransferase 16 U/L (6-35); Albumin Level 3.6 g/dL (3.5-5.1); Alkaline Phosphatase 123 U/L (38-126); Anion Gap 4 mmol/L (8-16); Aspartate Amino Transferase 16 U/L (14-36); Bilirubin,Total 0.3 mg/dL (0.2-1.3); Blood Urea Nitrogen 6 mg/dL (7-17); Calcium 9.3 mg/dL (8.4-10.2); Carbon Dioxide 24 mmol/L (22-30); Chloride 106 mmol/L (98-107); Estimated Glomerular Filt Rate > 60; Glucose 90 mg/dL (65-110); Potassium 3.7 mmol/L (3.4-5.0); Sodium 134 mmol/L (137-145)
[2022-09-12 23:16] VITALS: BP 126/68; PULSE 94
[2022-09-12 23:31] VITALS: BP 122/72; PULSE 97
[2022-09-12 23:46] VITALS: BP 109/76; PULSE 96
== END 2022-09-13 | disposition home or self-care (01) ==
LOC: ANHOBOP 22:08 → ANHOBPP 09-17 06:29
PROVIDERS: Visit Provider Obstetrics & Gynecology Gynecology
DX: H53.8 Other visual disturbances (principal)
CPT/HCPCS: 36415; 80053; 81001; 82570; 84156; 84550; 85025; 87086; 87088; 99199

== ENCOUNTER 2022-09-22 12:09 | Outpatient (CLI) | payer BC, SELFPAY ==
[2022-09-22 13:18] LABS: Hematocrit 34.9 % (37.0-47.0); Hemoglobin 11.5 g/dL (12.0-15.0); Mean Corpuscular Hemoglobin 27.5 pg (26-34); Mean Corpuscular Volume 83.5 fl (80-100); Mean Platelet Volume 9.5 fl (7.4-10.4); Platelet Count Result 252 k/mm3 (150-375); Red Blood Count 4.18 M/mm3 (4.2-5.4); Red Cell Distribution Width 13.3 % (11.5-14.5); White Blood Count 10.5 K/mm3 (4.5-10.0)
[2022-09-22 13:30] LABS: Alanine Aminotransferase 16 U/L (6-35); Albumin Level 3.7 g/dL (3.5-5.1); Alkaline Phosphatase 129 U/L (38-126); Anion Gap 6 mmol/L (8-16); Aspartate Amino Transferase 17 U/L (14-36); Bilirubin,Total 0.3 mg/dL (0.2-1.3); Blood Urea Nitrogen 6 mg/dL (7-17); Calcium 8.8 mg/dL (8.4-10.2); Carbon Dioxide 22 mmol/L (22-30); Chloride 106 mmol/L (98-107); Estimated Glomerular Filt Rate > 60; Glucose 114 mg/dL (65-110); Lactate Dehydrogenase 181 U/L (120-246); Potassium 3.4 mmol/L (3.4-5.0); Sodium 134 mmol/L (137-145); Uric Acid 4.2 mg/dL (2.5-7.5)
== END 2022-09-22 12:10 | disposition home or self-care (01) ==
PROVIDERS: Visit Provider Obstetrics & Gynecology Gynecology
DX: O14.03 Mild to moderate pre-eclampsia, third trimester (principal)
CPT/HCPCS: 36415; 80053; 83615; 84550; 85027

== ENCOUNTER 2022-09-24 19:12 | Observation (INO) | payer BC, SELFPAY ==
[2022-09-24 19:46] VITALS: BP 131/50; PULSE 107
[2022-09-24 19:48] VITALS: BP 131/51; PULSE 107
[2022-09-24 20:01] VITALS: BP 138/75; PULSE 109
[2022-09-24 20:35] VITALS: BP 138/75; PULSE 109
--- NOTE | 2022-09-24 21:35 | OBADM ---
This patient, Anna Salguero, admitted to the OB room OB Post 117 for observation. Patient/family oriented to hospital policies and general routines including ID bracelet, bed and alarms, visiting hours, pain management, procedures, bathroom and other care routines, personal items, smoking policy, room service/diet, and visiting hours. Patient/Family are encouraged to report perceived risks to care and to ask questions if they do not understand what they are told or what they should do.
--- NOTE | 2022-09-26 07:46 | PM.OBTRLD ---
OB - Triage/Final Diagnosis Visit Information Reason for evaluation: other (r/o ROM) Comments/Additional reasons for admission: I have assessed the risk for this patient, Anna Misael Salguero, and determined that she would benefit from observation care.
== END 2022-09-24 21:05 | disposition home or self-care (01) ==
PROVIDERS: Admitting Provider Advanced Practice Midwife; PCP Nurse Practitioner Family; Visit Provider Advanced Practice Midwife
DX: O42.913 Preterm premature rupture of membranes, unspecified as to length of time between rupture and onset of labor, third trimester (principal); Z3A.32 32 weeks gestation of pregnancy
CPT/HCPCS: 59025; G0378; G0379

== ENCOUNTER → 2022-09-27 09:36 | Outpatient (CLI) | payer BC, SELFPAY ==
--- NOTE | ~2022-09-27 | US_ITS ---
EXAMINATION: US OB follow up DATE: 09/27/2022 10:23 INDICATION: Size greater than dates. TECHNIQUE: Real-time ultrasound of the pelvis was performed. COMPARISON: Ultrasound 06/28/2022, 03/28/2022, 03/20/2022 FINDINGS: There is a single living fetus in vertex presentation. The placenta is posterior. heart rate i s 141 beats per minute (bpm). The amniotic fluid index is 29.1, which is high (95th percentile is 24. 2 cm). The following biometric data were obtained: Biparietal diameter (BPD): 8.5 cm; head circumference (HC): 29.4 cm; abdominal circumference (AC): 29 .7 cm; femur length (FL): 6.0 cm. These measurements are discordant with high cephalic index and low FL/BPD. Estimated weight is 2067 g +/- 310 g, which correlates with the 49th percentile when 11/18/22 is used as estimated date of delivery. As single measurements, these parameters are each equal to the following estimated gestational ages: BPD: 34 weeks 3 days. HC: 32 weeks 3 days. AC: 33 weeks 5 days. FL: 31 weeks 0 days. estimated gestational age based solely on measurements from this exam is 32 weeks 6 days +/- 2 weeks 2 days. IMPRESSION: 1. Single living fetus in vertex presentation. 2. Estimated weight is 2067 g +/- 310 g, which correlates with the 49th percentile when 3 is used as estimated date of delivery. Note that estimated date of delivery based on the ultrasound from 03/28/2022 would be 11/19/22. 3. Discordant biometrics with high cephalic index and low FL/BPD. 4. Polyhydramnios. Reviewed, dictated and finalized at location A. ONOMY INSTRUCTOR IMPRESSION: 1. Single living fetus in vertex presentation. 2. Estimated weight is 2067 g +/- 310 g, which correlates with the 49th percentile when 11/18/22 is used as estimated date of delivery. Note that estima noman date of delivery based on the ultrasound from 03/28/2022 would be 11/19/22. 3. Discordant biometrics with high cephalic index and low FL/BPD. 4. Polyhydramnios.
== END ==
PROVIDERS: PCP Obstetrics & Gynecology Gynecology; Visit Provider Obstetrics & Gynecology Gynecology
DX: O36.63X0 Maternal care for excessive fetal growth, third trimester, not applicable or unspecified (principal); Z3A.32 32 weeks gestation of pregnancy
CPT/HCPCS: 76816

== ENCOUNTER 2022-09-30 16:01 | Outpatient (CLI) | payer BC, SELFPAY ==
[2022-09-30] VITALS (45 sets, daily range): BP systolic 95–135; BP diastolic 48–95; PULSE 82–133; RESP 18; TEMP 37.2; O2SAT 97–100; BMI 51.6
[2022-09-30 16:38] LABS: Basophils Percent Auto 0.3 % (0.2-1.2); Eosinophils Percent Auto 0.2 % (0-4.4); Hematocrit 36.6 % (37.0-47.0); Hemoglobin 12.1 g/dL (12.0-15.0); Immature Granulocyte Absolute 0.12 K/mm3 (0.00-0.031); Lymphocytes Absolute Auto 2.36 K/mm3 (0.9-3.2); Lymphocytes Percent Auto 19.9 % (18.3-44.2); Mean Corpuscular HGB Conc 33.1 g/dl (32-36); Mean Corpuscular Hemoglobin 27.9 pg (26-34); Mean Corpuscular Volume 84.5 fl (80-100); Mean Platelet Volume 9.4 fl (7.4-10.4); Monocytes Absolute Auto 0.6 K/mm3 (0.1-0.6); Monocytes Percent Auto 5.1 % (2.6-8.5); Neutrophils Absolute Auto 8.7 K/mm3 (1.3-6.7); Neutrophils Percent Auto 73.5 % (45.5-73.1); Platelet Count Result 246 k/mm3 (150-375); Red Blood Count 4.33 M/mm3 (4.2-5.4); Red Cell Distribution Width 13.3 % (11.5-14.5); White Blood Count 11.9 K/mm3 (4.5-10.0)
[2022-09-30 16:48] LABS: Alanine Aminotransferase 17 U/L (6-35); Albumin Level 3.8 g/dL (3.5-5.1); Alkaline Phosphatase 146 U/L (38-126); Anion Gap 7 mmol/L (8-16); Aspartate Amino Transferase 19 U/L (14-36); Bilirubin,Total 0.4 mg/dL (0.2-1.3); Blood Urea Nitrogen 4 mg/dL (7-17); Calcium 9.8 mg/dL (8.4-10.2); Carbon Dioxide 23 mmol/L (22-30); Chloride 104 mmol/L (98-107); Estimated CRCL calculation 228 ml/min; Estimated Glomerular Filt Rate > 60; Glucose 75 mg/dL (65-110); Potassium 3.7 mmol/L (3.4-5.0); Sodium 134 mmol/L (137-145); Uric Acid 4.5 mg/dL (2.5-7.5)
--- NOTE | 2022-09-30 16:48 | PC.NURSE ---
Dr. Shahid on unit and informed of BP's, lab results, NST reactive, but having contractions. informed pt has gotten dizzy and fallen twice this week. informs me pt has also had nausea and vomiting today.
--- NOTE | 2022-09-30 16:54 | PC.NURSE ---
Dr. Shahid in to see pt. offered pt something more for her headache and nausea. OK to send UA.
--- NOTE | 2022-09-30 17:06 | PC.NURSE ---
OK for U/S transducer to come off since NST is reactive. Leaving toco on to monitor contractions. Pt does also have polyhydramnios with an BELLE of 29. Orders received for Demerol and Compazine.
[2022-09-30 17:18] LABS: Appearance Urine Clear (Clear); Bilirubin Urine Negative (Negative); Blood Urine Negative (Negative); Color Urine Yellow (Yellow); Glucose Urine UA Negative (Negative); Ketones Urine 1+ mg/dL (Negative); Leukocyte Esterase Ur Trace LEU/UL (Negative); Nitrate Urine Negative (Negative); Protein Urine Negative (Negative); Urobilinogen Urine 0.2 mg/dL (<2.0)
[2022-09-30 17:29] LABS: Add Urine Microscopic? YES; Bacteria Urine Trace /hpf; Squamous Epithelial Cell Urine Occasional /hpf (Few); WBC Urine 0-3 /hpf
--- NOTE | 2022-09-30 17:30 | PC.NURSE ---
Pt instructed in absolutely no ambulation on own after Demerol and Compazine injection given. Pt verbalizes understanding. Call light within reach.
[2022-09-30] MEDS: MEPERIDINE HCL INJ (*CRX) 50 MG/ML AMPUL IM ×2 (17:34→19:15)
[2022-09-30] MEDS: PROCHLORPERAZINE EDISYLATE 10 MG/2 ML VIAL IM (17:34)
--- NOTE | 2022-09-30 18:05 | PC.NURSE ---
Patient calls out to nurses station and states she is having trouble breathing. This RN and CWeber RN to bedside. Pulse oximeter applied and WNL. Lung sounds clear and equal bilaterally. Patient states that she feels like her air is getting stuck at her chest when she breathes. Patient states that she is starting to feel anxious and TV volume turned down. Patient states she is still having her headache and the floater in her right eye.
--- NOTE | 2022-09-30 18:20 | PC.NURSE ---
[place], chips, jello, apple sause, slice of cheese, and pudding brought to patient at this time with water refill
--- NOTE | 2022-09-30 18:54 | PC.NURSE ---
Dr Shahid called via mortgage or loan underwriter and informed of patient's pain going from 5/10 to 3/10 with her headache but contractions have remained at 5/10 and are more regular now every 2-6 minutes with irritability, after getting up to bathroom they space out. Lab results given to provider and update on patient eating and drinking and stating that it isn't helping. Orders received for a second dose of Demerol 50mg IM and to perform a SVE
--- NOTE | 2022-09-30 19:15 | PC.NURSE ---
SVE closed/thick/high
--- NOTE | 2022-09-30 20:24 | PC.NURSE ---
Dr. Shahid called via telegraphic typewriter installer and informed of patient rating headache pain 1/10 and contractions feel further apart but still the same strength when she feels them , monitor picking up 2-3 in the last hour. Dr Shahid orders for patient to be discharged to home and to keep her regularly scheduled NST.
--- NOTE | 2022-09-30 20:29 | PC.NURSE ---
Pre-eclampsia and labor precautions give to patient at this time and questions are asked and answered. Patient is laughing with visitors and seems to feel much better at this time. Patient discharged to home.
== END 2022-09-30 20:30 | disposition home or self-care (01) ==
LOC: ANHOBOP 16:04 → ANHLDR 16:06
PROVIDERS: Visit Provider Obstetrics & Gynecology Gynecology
DX: O14.90 Unspecified pre-eclampsia, unspecified trimester (principal)
CPT/HCPCS: 36415; 59025; 80053; 81001; 84550; 85025; 96372; 99199; J0780; J2175

== ENCOUNTER 2022-10-02 11:24 | Observation (INO) | payer BC, SELFPAY ==
--- NOTE | ~2022-10-02 | US_ITS ---
US OB limited 10/02/2022 10:22 Indication: Evaluate placenta. Status post fall. Procedure: High-resolution Limited obstetrical ultrasound Comparison: Ultrasound dated 09/27/2022 Findings: There is a single living intrauterine in vertex presentation. Placenta is posteri or. The placenta is grossly normal, without suggestion of placenta abruption. However, ultrasound is not diagnostic of abruption since acute hemorrhage can be isoechoic to be placenta. Recommend clini les correlation. Amniotic fluid volume is subjectively normal. heart rate is 140 BPM. Impression: 1: Single living intrauterine in vertex presentation. 2: The placenta is grossly normal, without suggestion of placenta abruption. However, ultrasound is not diagnostic of abruption since acute hemorrhage can be isoechoic to be placenta. Recommend clinic al correlation. Reviewed, dictated and finalized at location L. ER ASSISTANT Impression: 1: Single living intrauterine in vertex presentation. 2: The placenta is grossly normal, without suggestion of placenta abruption. H owever, ultrasound is not diagnostic of abruption since acute hemorrhage can be isoechoic to be placenta. Recommend clinical correlation.
[2022-10-02 09:46] VITALS: BP 140/87; PULSE 117
--- NOTE | 2022-10-02 09:56 | PC.NURSE ---
Paged Dr. Shahid at [phone]. Returned call at [phone]. Patient fell around 0830 this morning when her legs became tangled in her dog's lead. Patient states she fell on her stomach and hit her head on concrete. Patient's head has no swelling or bruising and is not tender to touch. Patient complains of 3/10 pain with abdominal cramping that started as soon as she stood up from the fall and is persisting. Updated Dr. Sahhid on patient and status. Verbal orders given for placental ultrasound and to monitor baby for a couple hours. NST is reactive so no BPP ordered. Patient's blood type is B+ so no Rhogam necessary.
[2022-10-02 10:01] VITALS: BP 119/69; PULSE 105
[2022-10-02 10:06] VITALS: BMI 51.6
--- NOTE | 2022-10-02 10:07 | LDADM ---
This patient, Anna Salguero, was admitted to OB Post 116 on 10/02/22 at 09:31. Plans for labor, pain management and were discussed with patient. Patient/family oriented to hospital policies and general routines including ID bracelet, bed and alarms, visiting hours, pain management, procedures, bathroom and other care routines, personal items, smoking policy, room service/diet and guest tray routines, security routines, and visiting hours. Patient/Family are encouraged to report perceived risks to care and to ask questions if they do not understand what they are told or what they should do. See OBIX for further documentation.
[2022-10-02 11:31] VITALS: BP 141/82; PULSE 92
[2022-10-02 11:46] VITALS: BP 126/52; PULSE 101
[2022-10-02 12:02] VITALS: BP 108/53; PULSE 100
--- NOTE | 2022-10-02 12:16 | PC.NURSE ---
Spoke with Dr. Shahid at 1206 regarding patient's normal ultrasound results and FHT strip. Per toco and palpation, patient has occasional mild contractions. Patient states she feels occasional contractions in her lower back and rates them 2/10 on the pain scale. Patient states this is a reoccurring event and the contractions always dissipate. Dr. Shahid updated on status and verbal orders for discharge placed. Patient to follow up with Dr. Shahid at her regular scheduled appointment on 10/03/2022.
--- NOTE | 2022-10-06 07:54 | PM.OBTRLD ---
OB - Triage/Final Diagnosis Visit Information Reason for evaluation: other ( status post fall) Comments/Additional reasons for admission: I have assessed the risk for this patient, Anna Misael Salguero, and determined that she would benefit from observation care.
== END 2022-10-02 12:15 | disposition home or self-care (01) ==
PROVIDERS: Admitting Provider Obstetrics & Gynecology Gynecology; PCP Nurse Practitioner Family; Visit Provider Obstetrics & Gynecology Gynecology
DX: Z04.3 Encounter for examination and observation following other accident (principal); Z3A.33 33 weeks gestation of pregnancy
CPT/HCPCS: 76815; G0378; G0379

== ENCOUNTER 2022-10-07 01:48 | Observation (INO) | payer BC, SELFPAY ==
[2022-10-07] VITALS (7 sets, daily range): BP systolic 122–141; BP diastolic 45–69; PULSE 85–113; RESP 18; TEMP 36.7
--- NOTE | 2022-10-07 02:48 | PC.NURSE ---
Spoke with Abilio. She wants to monitor contractions for 1 hour while patient pushes button to note when she is having them. If <5 contractions, she can be discharged. If more than 5 in the hour she would like to be called back with further orders.
--- NOTE | 2022-10-07 03:30 | PC.NURSE ---
Pt reports she has not felt any contractions since 249
--- NOTE | 2022-10-07 04:00 | PC.NURSE ---
Pt. reports she has not been feeling any contractions.
--- NOTE | 2022-10-07 07:58 | PM.OBTRLD ---
OB - Triage/Final Diagnosis Visit Information Reason for evaluation: threatened labor Comments/Additional reasons for admission: I have assessed the risk for this patient, Anna Salguero, and determined that she would benefit from observation care. Evaluation Vital signs: Vital Signs - 24 hr 10/07/22 02:16 10/07/22 02:16 10/07/22 02:31 Temperature Pulse Rate 97 113 H Respiratory Rate Blood Pressure 122/60 130/65 Oxygen Delivery Room Air 10/07/22 02:46 10/07/22 03:02 10/07/22 03:17 Temperature Pulse Rate 92 96 85 Respiratory Rate Blood Pressure 136/45 L 141/68 H 131/56 L Oxygen Delivery 10/07/22 03:31 10/07/22 02:53 Temperature 98.1 F Pulse Rate 91 Respiratory Rate 18 Blood Pressure 127/69 Oxygen Delivery
== END 2022-10-07 04:03 | disposition home or self-care (01) ==
PROVIDERS: Admitting Provider Advanced Practice Midwife; PCP Nurse Practitioner Family; Visit Provider Advanced Practice Midwife
DX: O47.03 False labor before 37 completed weeks of gestation, third trimester (principal); Z3A.33 33 weeks gestation of pregnancy
CPT/HCPCS: G0378; G0379

== ENCOUNTER 2022-10-09 16:23 | Outpatient (RCR) | payer BC, SELFPAY ==
[2022-08-29 14:50] VITALS: BP 115/55; PULSE 97
--- NOTE | ~2022-10-09 | US_ITS ---
EXAMINATION: US OB BPP wo non-stress DATE: 10/09/2022 17:43 INDICATION: Nonreactive nonstress test on in office exam during third trimester TECHNIQUE: Real-time pelvic ultrasound was performed. The interpreting radiologist was not present fo r the study. COMPARISON: 03/12/2023 FINDINGS: There is a single living fetus in vertex presentation. The placenta is posterior. heart rate i s 138 beats per minute (bpm). Amniotic fluid volume appears subjectively normal. The cervix is not vi sualized. Biophysical profile performed by the technologist: breathing (30 sec sustained breathing in 30 minutes): 2 out of 2 movement (3 gross body movements in 30 minutes): 2 out of 2 tone (one episode of cznkzyz-qfkshuccc-coseobd limb movement): 2 out of 2 Amniotic fluid pocket (2 cm): 2 out of 2 Total score: 8 out of 8 IMPRESSION: 1. Single living fetus in vertex presentation with heart rate of 138 bpm. 2. Biophysical profile 8 out of 8. Reviewed, dictated and finalized at location A. RONMENTAL ENGINEER SCIENTIST
[2022-10-09 17:47] VITALS: BP 118/55
== END 2022-11-21 15:11 | disposition home or self-care (01) ==
LOC: ANHOBOP 16:23
PROVIDERS: Visit Provider Obstetrics & Gynecology Gynecology
DX: O14.93 Unspecified pre-eclampsia, third trimester (principal); Z3A.28 28 weeks gestation of pregnancy; O26.893 Other specified pregnancy related conditions, third trimester; Z3A.34 34 weeks gestation of pregnancy
CPT/HCPCS: 59025; 76819

== ENCOUNTER 2022-10-13 16:19 | Outpatient (CLI) | payer BC, SELFPAY ==
[2022-10-13 16:48] LABS: Hemoglobin 11.9 g/dL (12.0-15.0); Mean Corpuscular HGB Conc 33.1 g/dl (32-36); Mean Corpuscular Hemoglobin 27.9 pg (26-34); Mean Corpuscular Volume 84.3 fl (80-100); Mean Platelet Volume 9.6 fl (7.4-10.4); Platelet Count Result 231 k/mm3 (150-375); Red Blood Count 4.27 M/mm3 (4.2-5.4); Red Cell Distribution Width 13.6 % (11.5-14.5); White Blood Count 10.7 K/mm3 (4.5-10.0)
[2022-10-13 16:53] LABS: Alanine Aminotransferase 16 U/L (6-35); Albumin Level 3.8 g/dL (3.5-5.1); Alkaline Phosphatase 162 U/L (38-126); Anion Gap 4 mmol/L (8-16); Aspartate Amino Transferase 17 U/L (14-36); Bilirubin,Total 0.4 mg/dL (0.2-1.3); Blood Urea Nitrogen 4 mg/dL (7-17); Calcium 9.2 mg/dL (8.4-10.2); Carbon Dioxide 23 mmol/L (22-30); Chloride 104 mmol/L (98-107); Estimated Glomerular Filt Rate > 60; Glucose 76 mg/dL (65-110); Potassium 3.6 mmol/L (3.4-5.0); Sodium 131 mmol/L (137-145)
== END 2022-10-13 16:20 | disposition home or self-care (01) ==
PROVIDERS: PCP Nurse Practitioner Family; Visit Provider Obstetrics & Gynecology
DX: O14.03 Mild to moderate pre-eclampsia, third trimester (principal)
CPT/HCPCS: 36415; 80053; 85027

== ENCOUNTER 2022-10-22 06:02 | Inpatient (IN) | payer BC, SELFPAY ==
[2022-10-22] VITALS (76 sets, daily range): BP systolic 96–156; BP diastolic 55–97; PULSE 81–138; TEMP 36.3–37; O2SAT 93–100; BMI 51.6
[2022-10-22] MEDS: miSOPROStol 25 MCG TABLET VAGINAL ×2 (06:59→11:01)
[2022-10-22 07:03] LABS: Basophils Percent Auto 0.2 % (0.2-1.2); Eosinophils Absolute Auto 0.1 K/mm3 (0-0.3); Eosinophils Percent Auto 0.5 % (0-4.4); Hematocrit 32.4 % (37.0-47.0); Hemoglobin 10.9 g/dL (12.0-15.0); Immature Granulocyte Absolute 0.07 K/mm3 (0.00-0.031); Immature Granulocyte Percent A 0.7 % (0-0.5); Lymphocytes Absolute Auto 2.52 K/mm3 (0.9-3.2); Lymphocytes Percent Auto 24.5 % (18.3-44.2); Mean Corpuscular HGB Conc 33.6 g/dl (32-36); Mean Corpuscular Hemoglobin 27.1 pg (26-34); Mean Corpuscular Volume 80.6 fl (80-100); Monocytes Absolute Auto 0.6 K/mm3 (0.1-0.6); Monocytes Percent Auto 5.7 % (2.6-8.5); Neutrophils Percent Auto 68.4 % (45.5-73.1); Platelet Count Result 231 k/mm3 (150-375); Red Blood Count 4.02 M/mm3 (4.2-5.4); Red Cell Distribution Width 13.5 % (11.5-14.5); White Blood Count 10.3 K/mm3 (4.5-10.0)
--- NOTE | 2022-10-22 07:09 | LDADM ---
This patient, Anna Salguero, was admitted to Labor/Delivery/Recovery 105 on 10/22/22 at 06:02. Plans for labor, pain management and were discussed with patient. Patient/family oriented to hospital policies and general routines including ID bracelet, bed and alarms, visiting hours, pain management, procedures, bathroom and other care routines, personal items, smoking policy, room service/diet and guest tray routines, infant security routines, and visiting hours. Patient/Family are encouraged to report perceived risks to care and to ask questions if they do not understand what they are told or what they should do. See OBIX for further documentation.
[2022-10-22 07:15] LABS: Alanine Aminotransferase 17 U/L (6-35); Albumin Level 3.4 g/dL (3.5-5.1); Alkaline Phosphatase 166 U/L (38-126); Anion Gap 4 mmol/L (8-16); Aspartate Amino Transferase 19 U/L (14-36); Bilirubin,Total 0.4 mg/dL (0.2-1.3); Blood Urea Nitrogen 7 mg/dL (7-17); Carbon Dioxide 23 mmol/L (22-30); Chloride 107 mmol/L (98-107); Estimated Glomerular Filt Rate > 60; Glucose 100 mg/dL (65-110); Potassium 3.4 mmol/L (3.4-5.0); Sodium 134 mmol/L (137-145)
--- NOTE | 2022-10-22 08:22 | WPDOBADMIT ---
Obstetrics - Admit Note Admission Note: record reviewed. No pertinent additions to the history and/or any subsequent changes in the physical findings that are not consistent with the expected course of the were found. Additions to the history and/or subsequent changes in the physical findings follow. None.
[2022-10-22 09:25] LABS: Uric Acid 4.8 mg/dL (2.5-7.5)
[2022-10-22 10:33] LABS: Rapid Plasma Reagin Non-Reactive (NonReactive)
[2022-10-22 11:50] LABS: Glucose Point of Care 82 mg/dl (65-105)
[2022-10-22 16:20] LABS: Glucose Point of Care 90 mg/dl (65-105)
[2022-10-22] MEDS: busPIRone HCL 5 MG TABLET PO (16:46)
[2022-10-22] MEDS: LACTATED RINGERS 1,000 ML 125 ML IV CONT ×2 (16:59→19:53)
[2022-10-22] MEDS: OXYTOCIN 30 UNITS/NS 500 ML 30 UNITS/500 ML BAG IV CONT (16:59)
--- NOTE | 2022-10-22 17:01 | PM.OBPNLAB ---
Pain Control Date/time seen: 10/22/22 1640 Pain control: tolerating well Comments: Feeling more consistent contractions but able to tolerate. Pelvic Exam Dilation (cm): 1 Effacement (%): 50 station: -3 Amniotic membrane status: Intact Contractions Monitor mode: External Contraction frequency: 3 Contraction pattern: Irregular Contraction phase: Contraction Contraction intensity: Mild Status status: Category l Assessment and Plan Comments: CNM to bedside. Discussed plan of care with patient and her family. Discussed option to place Ontiveros balloon for cervical ripening prior to rupturing membranes due to current cervical exam. Discussed risks, benefits, expectations. Patient agreeable. Patient placed in lithotomy position, Ontiveros catheter easily inserted through the cervical os using a stylet. Stylet removed and catheter inflated with 60 mL sterile saline. Tubing secured patient's thigh. Patient tolerated procedure very well. Plan to start Pitocin and titrate as needed to achieve adequate contraction pattern. Recommend gentle traction on the Ontiveros catheter at least once hourly. Will consider amniotomy after Ontiveros balloon expelled. Dr. Shahid updated. Anticipate vaginal
--- NOTE | 2022-10-22 17:06 | PM.OBPRVD ---
OB - Delivery Note Procedure Events: Gestational Diabetes, Polyhydramnios and Preeclampsia w/o severe features Induction method: Per Misoprostol Protocol
--- NOTE | 2022-10-22 17:11 | PM.OBDSVD ---
DS: Admitting Diagnosis Admitting Diagnosis 22 y.o. at 36weeks 0 days Preeclampsia [id number] Marginal Cord Insertion Hypothyroidism GERD Anxiety/Depression Covid infection during OB - DS: Summary OB Procedures : NST, PIH Mgmt and Ultrasound Time Spent with Patient Time attestation: Total time spent providing and/or coordinating discharge services: DS: Data Data Completed and Pending Labs on day of discharge: Labs from last 24 hours 10/22/22 10/22/22 10/22/22 16:18 11:47 06:29 WBC RBC Hgb Hct MCV MCH MCHC RDW Plt Count MPV Immature Gran % (Auto) Neut % (Auto) Lymph % (Auto) [place] % (Auto) Eos % (Auto) Baso % (Auto) Lymph # (Auto) [place] # (Auto) Eos # (Auto) Baso # (Auto) Abs Immat Gran (auto) Absolute Neuts (auto) Absolute Nucleated RBC Nucleated RBC % Sodium 134 L Potassium 3.4 Chloride 107 Carbon Dioxide 23 Anion Gap 4 L BUN 7 Creatinine 0.40 L Estim Creat Clear Calc Not Reportable Estimated GFR > 60 Glucose 100 POC Capillary Glucose 90 82 Uric Acid 4.8 Calcium 9.0 Total Bilirubin 0.4 AST 19 ALT 17 Alkaline Phosphatase 166 H Total Protein 6.0 L Albumin 3.4 L RPR Blood Type Antibody Screen 10/22/22 10/22/22 10/22/22 06:26 06:26 06:26 WBC 10.3 H RBC 4.02 L Hgb 10.9 L Hct 32.4 L MCV 80.6 MCH 27.1 MCHC 33.6 RDW 13.5 Plt Count 231 MPV 10.0 Immature Gran % (Auto) 0.7 H Neut % (Auto) 68.4 Lymph % (Auto) 24.5 [place] % (Auto) 5.7 Eos % (Auto) 0.5 Baso % (Auto) 0.2 Lymph # (Auto) 2.52 [place] # (Auto) 0.6 Eos # (Auto) 0.1 Baso # (Auto) 0.0 Abs Immat Gran (auto) 0.07 H Absolute Neuts (auto) 7.0 H Absolute Nucleated RBC 0.0 Nucleated RBC % 0.0 Sodium Potassium Chloride Carbon Dioxide Anion Gap BUN Creatinine Estim Creat Clear Calc Estimated GFR Glucose POC Capillary Glucose Uric Acid Calcium Total Bilirubin AST ALT Alkaline Phosphatase Total Protein Albumin RPR Non-reactive Blood Type B Positive Antibody Screen Negative Discharge Plan Discharge Attending physician on discharge: Elsy Shahid Discharging Clinician: Sinai Nieves Patient Disposition: Home, Self-Care Activity: may shower Diet: regular Wound Care Instructions: follow printed instructions Discharge Instructions: Continue taking your vitamin and any other supplements as previously directed (Examples: Iron, Vitamin D). You may take Tylenol 1000mg over the counter every 6 hours as needed for pain. Do not exceed 4000mg of Tylenol daily. You may continue using tucks pads and dermoplast spray if needed for a few more days. Patient Instructions: Antibiotic Form Stand Alone Forms: General Discharge Information Follow-up/Referrals: Sinai Nieves, CNM [Certified Nurse Microbiology Analyst] - (1 week BP check in the office 6 week post exam (Call to make these appointments)) Discharge Medications: No Action aspirin 81 mg Tablet 81 mg PO DAILY omeprazole 20 mg Capsule,Delayed Release(Dr/Ec) 20 mg PO DAILY cholecalciferol (vitamin D3) 1,250 mcg (50,000 unit) Tablet 50,000 unit PO WEEKLY Rx Instructions: Takes every Thursday 28-800 mg-mcg Tablet 1 tablet PO DAILY buspirone 5 mg tablet 5 mg PO BID acetaminophen 500 mg Tablet 1,000 mg PO Q6H PRN (Reason: Headache or Pain) levothyroxine 125 mcg tablet 125 mcg PO DAILY metoclopramide HCl 10 mg tablet 10 mg PO Q6H PRN (Reason: Nausea) atenhdpopa-fnklvqrknsgih-aekr 50-300-40 mg capsule 1 cap PO PRN Date of admission: 10/22/22 06:02 Primary Care Provider: Lauren,Marianne Barber Admitting Provider: Elsy Shahid Attending physician on admission: Mario
--- NOTE | 2022-10-22 19:19 | WPDANESEPP ---
Anes - Eval Pre Procedure Procedure: Labor epidural Date/Time: 10/22/22 19:19 Pre Op Diagnosis: IOL Patient Data Age: 22 Gender: F Height: 1.57 m Weight: 128 kg Last Vital Signs Temp 36.5 C 10/22/22 17:30 Pulse 91 10/22/22 17:04 BP 155/88 H 10/22/22 17:04 O2 Del Method Room Air 10/22/22 07:07 Allergies Allergy/AdvReac Type Severity Reaction Status Date / Time Sulfa (Sulfonamide Allergy Intermediate Rash Verified 10/07/22 02:11 Antibiotics) Home Medications Medication Instructions Recorded Confirmed Type cholecalciferol (vitamin D3) 1,250 50,000 unit PO WEEKLY 09/01/22 10/17/22 History mcg (50,000 unit) tablet omeprazole 20 mg capsule,delayed 20 mg PO DAILY 09/01/22 10/22/22 History release vit no.133-ferrous 1 tablet PO DAILY 09/01/22 10/07/22 History fumarate 28 mg-folic acid 800 mcg tablet () acetaminophen 500 mg tablet 1,000 mg PO Q6H PRN Headache or 09/30/22 10/22/22 History Pain buspirone 5 mg tablet 5 mg PO BID 09/30/22 10/17/22 History levothyroxine 125 mcg tablet 125 mcg PO DAILY 09/30/22 10/17/22 History metoclopramide HCl 10 mg tablet 10 mg PO Q6H PRN Nausea 09/30/22 10/22/22 History aspirin 81 mg tablet 81 mg PO DAILY 10/02/22 10/17/22 History qucvjhutza-tonfliderthgv-icastzic 1 cap PO PRN headache 10/07/22 10/22/22 History 50 mg-300 mg-40 mg capsule Laboratory Tests 10/22/22 10/22/22 10/22/22 06:26 06:26 06:26 WBC 10.3 K/mm3 H K/mm3 (4.5-10.0) RBC 4.02 M/mm3 L M/mm3 (4.2-5.4) Hgb 10.9 g/dL L g/dL (12.0-15.0) Hct 32.4 % L % (37.0-47.0) MCV 80.6 fl fl (80-100) MCH 27.1 pg pg (26-34) MCHC 33.6 g/dl g/dl (32-36) RDW 13.5 % % (11.5-14.5) Plt Count 231 k/mm3 k/mm3 (150-375) MPV 10.0 fl fl (7.4-10.4) Immature Gran % (Auto) 0.7 % H % (0-0.5) Neut % (Auto) 68.4 % % (45.5-73.1) Lymph % (Auto) 24.5 % % (18.3-44.2) [place] % (Auto) 5.7 % % (2.6-8.5) Eos % (Auto) 0.5 % % (0-4.4) Baso % (Auto) 0.2 % % (0.2-1.2) Lymph # (Auto) 2.52 K/mm3 K/mm3 (0.9-3.2) [place] # (Auto) 0.6 K/mm3 K/mm3 (0.1-0.6) Eos # (Auto) 0.1 K/mm3 K/mm3 (0-0.3) Baso # (Auto) 0.0 K/mm3 K/mm3 (0.0-0.1) Abs Immat Gran (auto) 0.07 K/mm3 H K/mm3 (0.00-0.031) Absolute Neuts (auto) 7.0 K/mm3 H K/mm3 (1.3-6.7) Absolute Nucleated RBC 0.0 K/mm3 K/mm3 (0.0-0.012) Nucleated RBC % 0.0 % % (0.0-0.2) Sodium Potassium Chloride Carbon Dioxide Anion Gap BUN Creatinine Estim Creat Clear Calc Estimated GFR Glucose POC Capillary Glucose Uric Acid Calcium Total Bilirubin AST ALT Alkaline Phosphatase Total Protein Albumin RPR Non-reactive (NonReactive) Blood Type B Positive Antibody Screen Negative 10/22/22 10/22/22 10/22/22 06:29 11:47 16:18 WBC RBC Hgb Hct MCV MCH MCHC RDW Plt Count MPV Immature Gran % (Auto) Neut % (Auto) Lymph % (Auto) [place] % (Auto) Eos % (Auto) Baso % (Auto) Lymph # (Auto) [place] # (Auto) Eos # (Auto) Baso # (Auto) Abs Immat Gran (auto) Absolute Neuts (auto) Absolute Nucleated RBC Nucleated RBC % Sodium 134 mmol/L L mmol/L (137-145) Potassium 3.4 mmol/L mmol/L (3.4-5.0) Chloride 107 mmol/L mmol/L (98-
[2022-10-22] MEDS: fentaNYL CITRATE INJ (*CRX) 100 MCG/2 ML VIAL 50 MCG IV PUSH (19:40)
[2022-10-22 21:00] LABS: Glucose Point of Care 87 mg/dl (65-105)
[2022-10-22] MEDS: FAMOTIDINE 20 MG/2 ML VIAL (23:20)
[2022-10-23] VITALS (234 sets, daily range): BP systolic 101–161; BP diastolic 49–123; PULSE 75–170; RESP 18–19; TEMP 36.3–38.5; O2SAT 96–100
[2022-10-23 00:46] LABS: Glucose Point of Care 95 mg/dl (65-105)
[2022-10-23 03:37] LABS: Glucose Point of Care 90 mg/dl (65-105)
--- NOTE | 2022-10-23 04:02 | PM.OBPNLAB ---
Pain Control Date/time seen: 10/23/22 0355 Pain control: tolerating well and epidural Comments: Denies pain Pelvic Exam Dilation (cm): 4 Effacement (%): 70 station: -3 Amniotic membrane status: Intact Comments: Cervix positioned to pt's right side. Contractions Monitor mode: External Contraction frequency: 2 Contraction pattern: Regular Contraction phase: Contraction Contraction intensity: Moderate Status status: Category l Assessment and Plan Assessment: induction ongoing Plan: continuous present management Comments: CNM to bedside. Discussed plan of care an option for amniotomy and IUPC placement. Discussed risks, benefits, and expectations of breaking water. Patient is agreeable. Amniotomy performed and there was a moderate return of clear amniotic fluid. An IUPC was easily inserted and clear fluid was returned in the catheter. Patient tolerated procedure well. Plan to titrate pitocin as needed to achieve adequate contraction pattern. Encouraged frequent repositioning due to the position of her cervix. Anticipate vaginal .
[2022-10-23] MEDS: LACTATED RINGERS 1,000 ML 125 ML IV CONT ×2 (04:09→15:33)
[2022-10-23] MEDS: ACETAMINOPHEN 500 MG TABLET 1000 MG PO ×3 (05:40→20:30)
--- NOTE | 2022-10-23 07:10 | PM.OBPNLAB ---
Pain Control Date/time seen: 10/23/22 07:10 Pelvic Exam Dilation (cm): 4 Effacement (%): 70 station: -3 Amniotic membrane status: Intact Comments: Cervix remains far to pt's right side. Contractions Monitor mode: Internal Contraction frequency: 2 (1.5-3) Contraction pattern: Regular Contraction phase: Contraction Contraction intensity: Moderate Intrauterine tone measurement: 150 Status status: Category l Assessment and Plan Assessment: induction ongoing Plan: continuous present management Comments: Bedside ultrasound performed due to asymetric SVE. Fetus is vertex presentation, OP position. Recommend increasing pitocin as needed to achieve adequate contraction pattern. Recommend frequent position changes to allow for optimal positioning.
[2022-10-23 09:02] LABS: Glucose Point of Care 81 mg/dl (65-105)
[2022-10-23] MEDS: busPIRone HCL 5 MG TABLET PO (09:02)
[2022-10-23] MEDS: LEVOTHYROXINE SODIUM 125 MCG TABLET PO (09:02)
[2022-10-23 11:45] LABS: Glucose Point of Care 68 mg/dl (65-105)
[2022-10-23] MEDS: ONDANSETRON INJ 4 MG/2 ML VIAL IV PUSH ×2 (11:52→20:31)
[2022-10-23 12:47] LABS: Glucose Point of Care 71 mg/dl (65-105)
[2022-10-23 16:55] LABS: Glucose Point of Care 63 mg/dl (65-105)
[2022-10-23] MEDS: fentaNYL CITRATE INJ (*CRX) 100 MCG/2 ML VIAL IV PUSH (17:26)
[2022-10-23] MEDS: OXYTOCIN 30 UNITS/NS 500 ML 30 UNITS/500 ML BAG IV CONT (17:27)
[2022-10-23 18:22] LABS: Glucose Point of Care 93 mg/dl (65-105)
[2022-10-23] MEDS: CALCIUM CARBONATE (TUMS) 500 MG (200 MG ELEMENTAL) 400 MG PO (20:00)
[2022-10-23 20:26] LABS: Glucose Point of Care 64 mg/dl (65-105)
[2022-10-23] MEDS: AMPICILLIN 2 GM/NS 100 ML 2 GM/100 ML BAG IVPB (21:33)
--- NOTE | 2022-10-23 21:49 | PM.IMHP ---
H&P: HPI History of Present Illness Date/Time: 10/23/22 21:49 Chief Complaint: failure to progress Narrative: 22 yo G1 at 36 2/7 wks here for MIL secondary to preeclampsia. Patient with no change for last 5 hours. Recommend as soon as able with staffing to proceed with primary csection. Patient agrees. Now with chorioamnionitis and Amp/Gent and Tylenol ordered at time of fever spike. complicated by preeclampsia diagnosed at 28 weeks, GDMA1, polyhydramnios, and +COVID at 24 wks. labs: B+, Rubella immune, RPR -, HIV -, HBSAg -, GBS -. Review of Systems Review of Systems: not repeated day of surgery; patient states no changes in status [facility] Past Medical History Medical History (Updated 10/23/22 @ 22:00 by Elsy Shahid MD) Anxiety and depression GERD (gastroesophageal reflux disease) Hypothyroid Morbid obesity Surgical History Surgical History (Updated 10/23/22 @ 21:57 by Elsy Shahid MD) H/O left knee surgery History of strabismus surgery Family History Family History (Updated 10/23/22 @ 21:57 by Elsy Shahid MD) Father Hypertension Mother Hypertension Social History Social History Smoking status: Never smoker Substance use: never Lack of Transportation: No Lack of Food: Never True Current Housing: I Have Housing Concerned About Future Housing: No Difficulty Paying Gas/Electric Bills: No Difficulty Paying for Meds: No Currently Unemployed: No Education: Associate Degree Difficulty w/ Childcare or Family Care: No Spiritual care concerns: No Meds Home Medications and Allergies Home Medications Medication Instructions Recorded Confirmed Type cholecalciferol (vitamin D3) 1,250 50,000 unit PO WEEKLY 09/01/22 10/17/22 History mcg (50,000 unit) tablet omeprazole 20 mg capsule,delayed 20 mg PO DAILY 09/01/22 10/22/22 History release vit no.133-ferrous 1 tablet PO DAILY 09/01/22 10/23/22 History fumarate 28 mg-folic acid 800 mcg tablet () acetaminophen 500 mg tablet 1,000 mg PO Q6H PRN Headache or 09/30/22 10/22/22 History Pain buspirone 5 mg tablet 5 mg PO BID 09/30/22 10/17/22 History levothyroxine 125 mcg tablet 125 mcg PO DAILY 09/30/22 10/17/22 History metoclopramide HCl 10 mg tablet 10 mg PO Q6H PRN Nausea 09/30/22 10/22/22 History aspirin 81 mg tablet 81 mg PO DAILY 10/02/22 10/17/22 History daxxpjyhmo-wchgqyuxiqdlc-mvrclmyg 1 cap PO PRN headache 10/07/22 10/22/22 History 50 mg-300 mg-40 mg capsule Allergies Allergy/AdvReac Type Severity Reaction Status Date / Time Sulfa (Sulfonamide Allergy Intermediate Rash Verified 10/07/22 02:11 Antibiotics) Vital Signs Vital Signs - 24 hr 10/22/22 21:51 10/22/22 21:56 10/22/22 22:01 Temperature Pulse Rate 106 H Blood Pressure 115/69 Pulse Oximetry 96 97 98 10/22/22 22:06 10/22/22 22:11 10/22/22 22:16 Temperature Pulse Rate 94 Blood Pressure 123/70 Pulse Oximetry 96 96 96 10/22/22 22:21 10/22/22 22:26 10/22/22 22:31 Temperature Pulse Rate 88 Blood Pressure 117/76 Pulse Oximetry 95 95 95 10/22/22 22:36 10/22/22 22:39 10/22/22 22:44 Temperature Pulse Rate Blood Pressure Pulse Oximetry 94 100 99 10/22/22 22:46 10/22/22 22:00 10/22/22 22:49 Temperature 97.6 F Pulse Rate 88 Blood Pressure 115/58 L Pulse Oximetry 99 10/22/22 22:54 10/22/22 22:59 10/22/22 23:01 Temperature Pulse Rate 91 Blood Pressure 96/55 L Pulse Oximetry 98 97 10/22/22 23:04 10/22/22 23:09 10/22/22 23:14 Temperature Pulse Rate Blood Pressure Pulse Oximetry 98 97 100 10/22/22 23:15 10/22/22 23:31 10/22/22 23:46 Temperature Pulse Rate 110 H 107 H 102 H Blood Pressure 115/73 121/74 120/73 Pulse Oximetry 10/23/22 00:01 10/23/22 00:16 10/23/22 00:31 Temperature Pulse Rate 98 104 H 102 H Blood Pressure 123/68 111/64 114/61 Pulse Oximetry
[2022-10-23] MEDS: GENTAMICIN 80MG/SOD CHL 50 ML 80 MG/50 ML BAG 100 MG IVPB (21:50)
--- NOTE | 2022-10-23 23:07 | P.OP_ITS ---
Procedure Note - Detailed Date of Procedure 10/23/22 Pre-op Diagnosis at 36 and 2 7th weeks preeclampsia failure to progress chorioamnionitis tachycardia Post-op Diagnosis Same Procedure Performed primary low-transverse section Surgeon Elsy Shahid MD Anesthesia Epidural Findings female infant 6lb 3oz with asynclitic presentation normal-appearing tubes, ovaries mid fundal fibroid 2cm Description of Procedure The patient is taken to the operating room and placed under anesthesia in the dorsal supine position with a leftward tilt. Once anesthesia was deemed adequate, she was prepped and draped in the usual sterile fashion. Trexi retractor was placed. A Pfannenstiel skin incision was made with a scalpel and carried down to the underlying layer of fascia which was nicked in the midline. The incision was extended laterally using Reddy scissors. Ochsner was used to tent the fascia which was then dissected off using sharp and blunt dissection. The peritoneum was tented and entered with Metzenbaum scissors. The incision was extended with blunt traction. The bladder blade is placed and the vesicouterine peritoneum grasped with a Peon. The bladder flap was created with Metzenbaum and blunt dissection. The lower uterine segment was incised in a transverse fashion with the scalpel and extended laterally with blunt traction. The membranes had previously been ruptured and clear fluid is noted. The infant's head was brought up into the incision and delivered while the assistant import manager applied fundal pressure. Once the infant was fully delivered the delayed cord clamping for [id number] was performed. The cord was then clamped and cut and the infant handed to the waiting nursery nurse. The had heart tones in the 150s, good tone, color, and crying on the abdomen. The plac enta was removed using manual traction after cord gases and cord blood were taken. The uterus is cleared of all clots and debris and exteriorized. The uterine incision was closed using 0 Monocryl in a running locked fashion. Same suture was used to imbricate. Good hemostasis is noted. The cul-de-sac is irrigated and the uterus was returned to the abdomen. The gutters were irrigated. The incision was again inspected noted to be hemostatic. The fascia was closed using 0 Vicryl in a running fashion. Subcutaneous tissues were irrigated and made hemostatic using Bovie cautery. Skin is closed using 4-0 Vicryl in a subcuticular fashion. Dermaflex and Mepilex dressing are placed. Sponge, needle, and instrument counts are correct per the OR staff. The patient was taken to recovery in stable condition. The patient had just been given ampicillin and gentamicin prior to arriving in the operating room for a temperature to 101.3. Estimated Blood Loss 360 Drains Yes ( Ontiveros catheter) Packing No Pathology Yes ( placenta) Complications No immediate complications Condition Stable Disposition Floor
--- NOTE | 2022-10-23 23:13 | PM.OBDSVD ---
DS: Admitting Diagnosis Discharge Date 10/26/2022 <Jasiel Estevez MD - Last Filed: 10/26/22 11:32> Admitting Diagnosis intrauterine at 36 weeks for medical induction of labor preeclampsia gestational diabetes diet controlled polyhydramnios <Elsy Shahid MD - Last Filed: 10/27/22 08:03> intrauterine at 36 weeks for medical induction of labor preeclampsia gestational diabetes diet controlled polyhydramnios <Jasiel Estevez MD - Last Filed: 10/26/22 11:32> DS: Discharge Diagnosis Discharge Diagnosis (1) delivery delivered: Code(s): O82 - Encounter for delivery without indication <Elsy Shahid MD - Last Filed: 10/27/22 08:03> Status: Acute <Elsy Shahid MD - Last Filed: 10/27/22 08:03> (2) Preeclampsia: Code(s): O14.90 - Unspecified pre-eclampsia, unspecified trimester <Elsy Shahid MD - Last Filed: 10/27/22 08:03> Status: Acute <Elsy Shahid MD - Last Filed: 10/27/22 08:03> (3) Chorioamnionitis: Code(s): O41.1290 - Chorioamnionitis, unspecified trimester, not applicable or unspecified <Elsy Shahid MD - Last Filed: 10/27/22 08:03> Status: Acute <Elsy Shahid MD - Last Filed: 10/27/22 08:03> (4) Failure to progress in first stage of labor: Status: Acute <Elsy Shahid MD - Last Filed: 10/27/22 08:03> (5) GDM, class A1: Code(s): O24.410 - Gestational diabetes mellitus in , diet controlled <Elsy Shahid MD - Last Filed: 10/27/22 08:03> Status: Acute <Elsy Shahid MD - Last Filed: 10/27/22 08:03> (6) Tachycardia: Code(s): R00.0 - Tachycardia, unspecified <Elsy Shahid MD - Last Filed: 10/27/22 08:03> Status: Acute <Elsy Shahid MD - Last Filed: 10/27/22 08:03> OB - DS: Summary OB Procedures : NST and PIH Mgmt <Elsy Shahid MD - Last Filed: 10/27/22 08:03> OB Procedures Intrapartum: low cervical, transverse <Elsy Shahid MD - Last Filed: 10/27/22 08:03> OB Procedures: : None <Elsy Shahid MD - Last Filed: 10/27/22 08:03> Peripartum Data Infant Delivery Method: Section <Elsy Shahid MD - Last Filed: 10/27/22 08:03> Procedures: Procedures Operation Date: 10/23/22 22:00 <No data on this case meets the specified criteria> <Elsy Shahid MD - Last Filed: 10/27/22 08:03> complications: none <Elsy Shahid MD - Last Filed: 10/27/22 08:03> Status at Discharge Functional status at discharge: independent ambulation <Elsy Shahid MD - Last Filed: 10/27/22 08:03> Overall status at discharge: patient is progressing back to baseline <Elsy Shahid MD - Last Filed: 10/27/22 08:03> Time Spent with Patient Time attestation: Total time spent providing and/or coordinating discharge services: <Elys Shahid MD - Last Filed: 10/27/22 08:03> Exam Const: General: cooperative <Jasiel Estevez MD - Last Filed: 10/26/22 11:32> Orientation/consciousness: oriented to person, oriented to place and oriented to time <Jasiel Estevez MD - Last Filed: 10/26/22 11:32> HENMT: Face/Nose/Sinus: Normal external nose present <Jasiel Estevez MD - Last Filed: 10/26/22 11:32> Eyes: General: appearance normal, both eyes and all related structures <Jasiel Estevez MD - Last Filed: 10/26/22 11:32> Resp: Effort & Inspection: normal respiratory effort <Jasiel Estevez MD - Last Filed: 10/26/22 11:32> GI: Inspection: normal to inspection <Jasiel Estevez MD - Last Filed: 10/26/22 11:32> Other: dressing intact <Jasiel Estevez MD - Last Filed: 10/26/22 11:32> Skin: General skin exam: normal color <MD Jd Cassidy La
[2022-10-23] MEDS: MORPHINE SULFATE INJ (*CRX) 10 MG/ML AMP 3 MG IV PUSH (23:51)
[2022-10-24] VITALS (43 sets, daily range): BP systolic 109–139; BP diastolic 57–77; PULSE 95–133; RESP 18–20; TEMP 36.4–37.6; O2SAT 95–100
[2022-10-24] MEDS: MORPHINE SULFATE INJ (*CRX) 10 MG/ML AMP 3 MG IV PUSH (00:39)
--- NOTE | 2022-10-24 01:56 | PC.NURSE ---
Report given to RAMA Obrien
--- NOTE | 2022-10-24 02:09 | OBPPTRN ---
Patient transferred to post room #278 via stretcher. Support person present. Oriented to unit, room, information board, rooming in, admission packet and security measures. Patient verbalizes understanding.
[2022-10-24] MEDS: HYDROcodone/acetaminophen (*CRX) 10-325 MG TABLET 1 TAB PO ×3 (03:22→17:21)
[2022-10-24 05:06] LABS: Basophils Percent Auto 0.2 % (0.2-1.2); Immature Granulocyte Absolute 0.14 K/mm3 (0.00-0.031); Immature Granulocyte Percent A 0.6 % (0-0.5); Lymphocytes Percent Auto 7.8 % (18.3-44.2); Mean Corpuscular HGB Conc 32.4 g/dl (32-36); Mean Corpuscular Volume 83.5 fl (80-100); Mean Platelet Volume 10.5 fl (7.4-10.4); Monocytes Absolute Auto 1.1 K/mm3 (0.1-0.6); Monocytes Percent Auto 4.9 % (2.6-8.5); Neutrophils Absolute Auto 18.8 K/mm3 (1.3-6.7); Neutrophils Percent Auto 86.5 % (45.5-73.1); Platelet Count Result 218 k/mm3 (150-375); Red Blood Count 4.07 M/mm3 (4.2-5.4); Red Cell Distribution Width 13.4 % (11.5-14.5); White Blood Count 21.7 K/mm3 (4.5-10.0)
[2022-10-24] MEDS: LEVOTHYROXINE SODIUM 125 MCG TABLET PO (06:05)
[2022-10-24] MEDS: IBUPROFEN 600 MG TABLET PO ×3 (06:05→19:35)
[2022-10-24] MEDS: DEXTROSE 5%/0.45% SOD CHL 1,000 ML 125 ML IV CONT (06:59)
--- NOTE | 2022-10-24 07:53 | P.PNOB_ITS ---
OB - PN: Subj Subjective Date/time seen: 10/24/22 07:53 Patient comments: no complaints and pain well controlled baby status: doing well (had choking episode with feeding last pm so in nursery) OB - PN: Obj Data Labs 10/24/22 03:43 10/22/22 06:29 Labs: Laboratory Results - last 24 hr 10/23/22 10/23/22 10/23/22 08:03 11:42 12:44 WBC RBC Hgb Hct MCV MCH MCHC RDW Plt Count MPV Immature Gran % (Auto) Neut % (Auto) Lymph % (Auto) [place] % (Auto) Eos % (Auto) Baso % (Auto) Lymph # (Auto) [place] # (Auto) Eos # (Auto) Baso # (Auto) Abs Immat Gran (auto) Absolute Neuts (auto) Absolute Nucleated RBC Nucleated RBC % POC Capillary Glucose 81 68 71 10/23/22 10/23/22 10/23/22 16:52 18:17 20:18 WBC RBC Hgb Hct MCV MCH MCHC RDW Plt Count MPV Immature Gran % (Auto) Neut % (Auto) Lymph % (Auto) [place] % (Auto) Eos % (Auto) Baso % (Auto) Lymph # (Auto) [place] # (Auto) Eos # (Auto) Baso # (Auto) Abs Immat Gran (auto) Absolute Neuts (auto) Absolute Nucleated RBC Nucleated RBC % POC Capillary Glucose 63 L 93 64 L 10/24/22 03:43 WBC 21.7 H RBC 4.07 L Hgb 11.0 L Hct 34.0 L MCV 83.5 MCH 27.0 MCHC 32.4 RDW 13.4 Plt Count 218 MPV 10.5 H Immature Gran % (Auto) 0.6 H Neut % (Auto) 86.5 H Lymph % (Auto) 7.8 L [place] % (Auto) 4.9 Eos % (Auto) 0.0 Baso % (Auto) 0.2 Lymph # (Auto) 1.70 [place] # (Auto) 1.1 H Eos # (Auto) 0.0 Baso # (Auto) 0.0 Abs Immat Gran (auto) 0.14 H Absolute Neuts (auto) 18.8 H Absolute Nucleated RBC 0.0 Nucleated RBC % 0.0 POC Capillary Glucose OB - PN A/P Assessment and Plan (1) Preeclampsia: Code(s): O14.90 - Unspecified pre-eclampsia, unspecified trimester Status: Acute Assessment and Plan: VSS no symptoms i/o's matched overnight Plan day: 1 Plan: routine care Time Spent With Patient Time: Total time spent is greater than 50% in coordination of care (as documented) at patient's floor/unit and/or counseling patient: Exam Narrative: bandage intact : Bimanual exam- vagina & uterus: other (Uterus firm, nt @U)
[2022-10-24] MEDS: DOCUSATE SODIUM 100 MG CAPSULE PO ×2 (09:20→17:20)
[2022-10-24] MEDS: MULTIVIT/MIN/PREN/FOL AC/IRON TABLET 1 TAB PO (09:20)
[2022-10-24] MEDS: busPIRone HCL 5 MG TABLET PO ×2 (09:20→17:20)
--- NOTE | 2022-10-24 09:59 | WPDANLDPN2 ---
Anes-Prog Note L&D Date/Time: 10/24/22 09:59 Comfortable throughout: labor and section Neuraxial method: epidural Epidural/Spinal procedure site: clean & non-tender Neuro status: Neuro function grossly intact. Cardiovascular status: normal Respiratory status: normal Airway patency: baseline Mental status: baseline Post-Op hydration status: normal Vital Signs: Last Vital Signs Temp 97.6 F 10/24/22 07:25 Pulse 125 H 10/24/22 07:30 Resp 18 10/24/22 07:30 BP 121/64 10/24/22 07:25 Pulse Ox 96 10/24/22 07:30 O2 Del Method Room Air 10/24/22 07:30 Pain score (VAS): 0 I/O: Intake & Output 10/23/22 10/24/22 10/24/22 23:59 07:59 15:59 Intake Total 500 540 Output Total 360 1965 Balance 140 -1425 Post-procedural complaints: none Patient feedback: Patient satisfied with anesthetic care.
--- NOTE | 2022-10-24 10:01 | WPDANLDNPN2 ---
Anes-Prog Note L&D-Neuraxial Date/Time: 10/24/22 10:01 Neuraxial medications: epidural PF morphine Opiod-related complaints: none Patient feedback: Patient satisfied with post-operative pain management.
[2022-10-24] MEDS: SIMETHICONE 80 MG TAB.CHEW PO ×2 (12:02→17:21)
--- NOTE | 2022-10-24 12:49 | PC.NURSE ---
[id number] Introductions were made, then consulted with patient to assess needs related to pumping related to separation with her infant. Mother led the conversation with her?plans to feed?her infant and the?experience so far. Resources provided for inpatient and outpatient services with the feeding sheet, mom/baby guide, business card and name written on the white board. Mother voiced understanding of information and is pumping now with her personal pump. RN visualizes that the right flange is too small and the left flange barrel is not centered on the nipple. Pumping session was interrupted. 1200 - Patient was brought a Symphony pump to use here at the hospital. Breast pump provided due to separation. Instructions given on cleaning, care, usage, that there should be no pain, pumping schedule for milk production, collection, and storage of human milk. Mother is encouraged to record pumping schedule on the pumping log. Patient was assessed for correct placement, flange size (28mm), to pump for comfort and nipple stretching/stimulation for adequate milk production every 3 hours (8 times in 24 hours) 1-2 times at night. Mother voiced understanding of the education shared along with mom and baby guide for additional resource information. Reported to the primary RN.
[2022-10-25] MEDS: HYDROcodone/acetaminophen (*CRX) 5-325 MG TABLET 1 TAB PO ×3 (00:20→08:00)
[2022-10-25] MEDS: IBUPROFEN 600 MG TABLET PO ×3 (00:21→15:47)
[2022-10-25 00:34] VITALS: BP 127/51
[2022-10-25] MEDS: SIMETHICONE 80 MG TAB.CHEW PO ×4 (03:59→20:20)
[2022-10-25] MEDS: LEVOTHYROXINE SODIUM 125 MCG TABLET PO (08:00)
[2022-10-25] MEDS: DOCUSATE SODIUM 100 MG CAPSULE PO ×2 (08:00→17:15)
[2022-10-25] MEDS: busPIRone HCL 5 MG TABLET PO ×2 (08:00→20:20)
[2022-10-25] MEDS: MULTIVIT/MIN/PREN/FOL AC/IRON TABLET 1 TAB PO (09:00)
[2022-10-25 10:00] VITALS: BP 129/82; PULSE 121; RESP 14; TEMP 36.6; O2SAT 96
--- NOTE | 2022-10-25 11:58 | PM.OBPNVD ---
OB - PN: Subj Subjective Date/time seen: 10/25/22 11:58 Interval history: She states adequate pain control, tolerating regular food, no nausea, no flatus, no leg pain. She is ambulating without problems. Denies headache, scotomata or RUQ pain. baby status: doing well OB - PN: Obj Data Labs 10/24/22 03:43 10/22/22 06:29 OB - PN A/P Assessment and Plan (1) delivery delivered: Code(s): O82 - Encounter for delivery without indication Status: Acute Assessment and Plan: POD2-s/p c/s induced for pre-e. Blood pressures stable, no pre- e symptoms, good diuresis. Encourage ambulation. Continue routine post c/s care. Time Spent With Patient Time: Total time spent is greater than 50% in coordination of care (as documented) at patient's floor/unit and/or counseling patient: Exam Const: General: comfortable and no acute distress Resp: Effort & Inspection: normal respiratory effort Auscultation: clear to auscultation bilaterally Cardio: Rate: regular rate Rhythm: regular rhythm GI: Inspection: normal to inspection Other: hypoactive bowel sounds present, dressing clean dry Extrem: General: normal to inspection and no calf tenderness bilaterally Psych: Mental Status: mental status grossly normal Affect: normal affect
[2022-10-25] MEDS: HYDROcodone/acetaminophen (*CRX) 10-325 MG TABLET 1 TAB PO ×3 (12:15→20:20)
[2022-10-25 17:43] VITALS: BP 117/63; PULSE 130; RESP 18; TEMP 36.6; O2SAT 99
[2022-10-25 20:20] VITALS: BP 135/84; PULSE 130; RESP 18; TEMP 36.7; O2SAT 99
[2022-10-25] MEDS: BISACODYL 10 MG SUPPOSITORY RECTAL (21:10)
[2022-10-26 00:05] VITALS: BP 126/85; PULSE 124
[2022-10-26] MEDS: HYDROcodone/acetaminophen (*CRX) 5-325 MG TABLET 1 TAB PO ×3 (00:05→09:15)
[2022-10-26] MEDS: SIMETHICONE 80 MG TAB.CHEW PO ×3 (00:05→09:15)
[2022-10-26] MEDS: IBUPROFEN 600 MG TABLET PO ×2 (00:05→09:15)
[2022-10-26 05:00] VITALS: BP 115/72; PULSE 120
[2022-10-26 09:15] VITALS: BP 123/73; PULSE 132; RESP 18; TEMP 36.9; O2SAT 100
[2022-10-26] MEDS: MULTIVIT/MIN/PREN/FOL AC/IRON TABLET 1 TAB PO (09:15)
[2022-10-26] MEDS: LEVOTHYROXINE SODIUM 125 MCG TABLET PO (09:15)
[2022-10-26] MEDS: busPIRone HCL 5 MG TABLET PO (09:15)
[2022-10-26] MEDS: DOCUSATE SODIUM 100 MG CAPSULE PO (09:15)
--- NOTE | 2022-10-26 11:06 | PM.OBPNVD ---
OB - PN: Subj Subjective Date/time seen: 10/26/22 11:06 Interval history: She states adequate pain control, tolerating regular food, no nausea, pos flatus, pos BM. Denies chest pain. She is ambulating well. OB - PN: Obj Data Labs 10/24/22 03:43 10/22/22 06:29 OB - PN A/P Assessment and Plan (1) delivery delivered: Code(s): O82 - Encounter for delivery without indication Status: Acute Assessment and Plan: POD3. She is doing well post op. Discharge precautions discussed. (2) Preeclampsia: Code(s): O14.90 - Unspecified pre-eclampsia, unspecified trimester Status: Acute Assessment and Plan: No pre-e symptoms. Blood pressures stable. (3) Tachycardia: Code(s): R00.0 - Tachycardia, unspecified Status: Acute Assessment and Plan: EKG reviewed from Jul. Pulse consistent 120 -130. Will order EKG. I discussed her with Cardiology, Dr. Bardales and if EKG shows arrhythmia then will get consult, if just tachycardia, then she can be further evaluated outpatient. Time Spent With Patient Time: Total time spent is greater than 50% in coordination of care (as documented) at patient's floor/unit and/or counseling patient: Exam Const: General: comfortable and no acute distress Eyes: General: appearance normal, both eyes and all related structures Resp: Effort & Inspection: normal respiratory effort Auscultation: clear to auscultation bilaterally Cardio: Rate: tachycardic GI: Other: soft, nontender, dressing intact
--- NOTE | 2022-10-26 11:07 | ECG_ITS ---
Measurements Intervals [place] Rate: 137 P: 43 NE: 138 QRS: 22 QRSD: 88 T: 34 QT: 369 QTc: 558 Interpretive Statements SINUS TACHYCARDIA VOLTAGE CRITERIA FOR LVH MINIMAL Q WAVES- INF/LAT LEADS NONSPECIFIC ST & T-WAVE ABNORMALITY- INFERIOR LEADS BASELINE WANDER- AVF, V1-V3, V5-V6 ABNORMAL ECG COMPARED TO ECG 07/25/2022 14:42:02 HEART RATE HAS INCREASED Electronically Signed On 10-26-2022 15:51:43 CDT by Omar Downey D.O.
--- NOTE | 2022-10-26 11:25 | ECG_ITS ---
Measurements Intervals [place] Rate: 120 P: 60 DE: 133 QRS: 64 QRSD: 91 T: 2 QT: 299 QTc: 423 Interpretive Statements SINUS TACHYCARDIA NONSPECIFIC ST & T-WAVE ABNORMALITY- ANT/INF LEADS BASELINE WANDER- II, III, AVR, AVF, V1-V3, V5-V6 ABNORMAL ECG COMPARED TO ECG 10/26/2022 11:21:22 NO SIGNIFICANT CHANGES Electronically Signed On 10-26-2022 15:53:27 CDT by Omar Downey D.O.
[2022-10-27 10:35] VITALS: BP 107/60; PULSE 134; RESP 18; TEMP 38.7; O2SAT 100
== END 2022-10-26 12:05 | disposition home or self-care (01) | DRG 786 ==
LOC: ANHLDR 17:15 → ANHOB2 10-24 02:25
PROVIDERS: Advanced Practice Midwife; Admitting Provider Obstetrics & Gynecology Gynecology; PCP Nurse Practitioner Family; Visit Provider Obstetrics & Gynecology Gynecology
PROC: 10D00Z1 Extraction of Products of Conception, Low, Open Approach (ICD-10-PCS; CPT 59514; principal; 2022-10-23 22:00)
DX: O14.94 Unspecified pre-eclampsia, complicating childbirth (principal); O41.1230 Chorioamnionitis, third trimester, not applicable or unspecified; Z37.0 Single live birth; Z3A.36 36 weeks gestation of pregnancy; O24.420 Gestational diabetes mellitus in childbirth, diet controlled; O40.3XX0 Polyhydramnios, third trimester, not applicable or unspecified; O99.344 Other mental disorders complicating childbirth; F41.8 Other specified anxiety disorders; O99.284 Endocrine, nutritional and metabolic diseases complicating childbirth; E03.9 Hypothyroidism, unspecified; O62.0 Primary inadequate contractions
CPT/HCPCS: 36415; 80053; 82948; 84550; 85025; 86592; 86850; 86900; 86901; 88307; 93005; A9270; J0290; J1580; J2270; J2274; J2405; J2590; J2795; J3010; J7120

== ENCOUNTER 2022-10-30 09:52 | Inpatient (IN) | payer BC, SELFPAY ==
[2022-10-30] VITALS (37 sets, daily range): BP systolic 92–151; BP diastolic 43–83; PULSE 114–144; RESP 16–32; TEMP 36.5–36.9; O2SAT 91–100
--- NOTE | ~2022-10-30 | CT_ITS ---
EXAMINATION: CT abdomen pelvis w con DATE: 10/30/2022 11:11 INDICATION: Abdominal wall wound. TECHNIQUE: Computed tomography (CT) of the abdomen and pelvis was performed with 100 mL Omnipaque 350 intravenous contrast. Automated exposure control and iterative reconstruction technique were employe d. The dose-length product was 1645.65 mGy-cm. COMPARISON: None. FINDINGS: The visualized portions of the lung bases demonstrate mild atelectasis. No pleural effusion . The heart size is normal. No pericardial effusion. There is periportal edema in the liver. The gall bladder is distended, likely secondary to fasting. The spleen, pancreas, adrenal glands, and right ki dney are normal. There are 2 stones in left kidney measuring up to 3 mm. There are no dilated loops o f bowel. The appendix is not visualized. There are changes of recent section with gas and fa t stranding in the incision site in the lower anterior uterine segment. The endometrial complex is th ickened at 15 mm, and there is gas in the endometrial complex. There is gas and fat stranding extendi ng from the low anterior uterine segment superiorly in the retroperitoneum. There is extensive fat st randing and skin thickening in the lower anterior abdominal wall with infiltrating soft tissue gas. T here is mild retroperitoneal lymphadenopathy. There is trace ascites. There is mild chronic height lo ss of multiple thoracic vertebral bodies. There are Schmorl's nodes at multiple levels. There is a be nign bone island in T9. IMPRESSION: 1. Soft tissue inflammation/infection involving the lower anterior abdominal wall, area of the low an terior uterine incision, and in the retroperitoneum. No drainable abscess. Infiltrating soft tissue g as may be secondary to recent surgery, but necrotizing fasciitis cannot be excluded. I discussed this result with Dr. Matos at 11:20 AM. 2. Thickened endometrial complex suspicious for endometritis and/or retained products of conception. 3. Mild retroperitoneal lymphadenopathy, likely reactive. Reviewed, dictated and finalized at location A. IMPRESSION: 1. Soft tissue inflammation/infection involving the lower anterior abdominal wa ll, area of the low anterior uterine incision, and in the retroperitoneum. No d rainable abscess. Infiltrating soft tissue gas may be secondary to recent surge ry, but necrotizing fasciitis cannot be excluded. I discussed this result with Dr. Matos at 11:20 AM. 2. Thickened endometrial complex suspicious for endometritis and/or retained pr oducts of conception. 3. Mild retroperitoneal lymphadenopathy, likely reactive.
--- NOTE | ~2022-10-30 | CT_ITS ---
EXAMINATION: CT abdomen pelvis w con DATE: 11/04/2022 09:01 INDICATION: Abdominal infection. TECHNIQUE: Computed tomography (CT) of the abdomen and pelvis was performed with 100 mL Omnipaque 350 intravenous contrast. Automated exposure control and iterative reconstruction technique were employe d. The dose-length product was 1660.88 mGy-cm. COMPARISON: CT abdomen pelvis 10/30/2022 FINDINGS: The visualized portions of the lung bases demonstrate dependent airspace opacities with vol ume loss. There is hypoenhancement of the airspace opacities in right lower lobe, consistent with pne umonia. There are small pleural effusions. The heart size is normal. No pericardial effusion. There i s periportal edema in the liver. The gallbladder, spleen, pancreas, adrenal glands, and right kidney are normal. There are approximately 3 stones in left kidney measuring up to 3 mm. There is a Ontiveros ca theter in expected position. There are no dilated loops of bowel. The appendix is normal. There is a small volume of ascites. There are changes of section. There is gas and fluid adjacent to th e lower uterine segment with tracking of the fluid and gas superiorly in the retroperitoneum. There i s gas in the endometrial complex. There is mild retroperitoneal lymphadenopathy, likely reactive. The re is extensive fat stranding in the anterior abdominal wall. There has been resection of some of the subcutaneous fat with packing. There is mild thoracic and lumbar spondylosis. There is a benign bone island in T9. IMPRESSION: 1. Right lower lobe pneumonia. 2. Small pleural effusions. 3. Endometritis with fluid and gas tracking from the lower uterine segment superiorly in the retroper itoneum. 4. Small volume of ascites. 5. Widespread edema and inflammation of the body wall with large area of resection of anterior subcut aneous fat. Reviewed, dictated and finalized at location A. IMPRESSION: 1. Right lower lobe pneumonia. 2. Small pleural effusions. 3. Endometritis with fluid and gas tracking from the lower uterine segment supe riorly in the retroperitoneum. 4. Small volume of ascites. 5. Widespread edema and inflammation of the body wall with large area of resect ion of anterior subcutaneous fat.
--- NOTE | ~2022-10-30 | XR_ITS ---
CORRECTED REPORT order [id number] added to report 11/03/2022 [facility] [place] This report was recreated on 11/03/2022. Original report was EXAMINATION: XR chest PICC line INDICATION: PICC insertion TECHNIQUE: Portable AP chest at 2057 hours and 2102 hours COMPARISON: 1249 hours FINDINGS: Sequential images demonstrate positioning of a left upper extremity PICC which ends with its tip at the superior cavoatrial junction on the final radiograph. There are patchy opacities throughout all lung zones with slight improvement in the upper lung zones. No pleural effusion or pneumothorax. The cardiomediastinal silhouette is normal. IMPRESSION: 1. Left upper showed a PICC ending with its tip in the distal superior vena cava. 2. Diffuse lung disease with slight improvement in the upper lung zones, consistent with atelectasis versus pneumonia. Reviewed, dictated and finalized at location F. MTDD IMPRESSION: 1. Left upper showed a PICC ending with its tip in the distal superior vena cav a. 2. Diffuse lung disease with slight improvement in the upper lung zones, consis tent with atelectasis versus pneumonia.
--- NOTE | ~2022-10-30 | XR_ITS ---
EXAMINATION: XR chest 1V portable DATE: 10/31/2022 12:57 INDICATION: Shortness of breath. Cough. TECHNIQUE: A single frontal view of the chest was obtained. COMPARISON: Chest 2 views 09/01/22, CT abdomen and pelvis 10/30/2022 FINDINGS: The chest demonstrates clear lungs without pneumonia, pleural effusion, or pneumothorax. Th e heart size is normal. IMPRESSION: 1. No acute cardiopulmonary disease. Reviewed, dictated and finalized at location A.
[2022-10-30 10:33] LABS: Hematocrit 27.9 % (37.0-47.0); Hemoglobin 8.9 g/dL (12.0-15.0); Mean Corpuscular HGB Conc 31.9 g/dl (32-36); Mean Corpuscular Hemoglobin 26.6 pg (26-34); Mean Corpuscular Volume 83.5 fl (80-100); Mean Platelet Volume 9.5 fl (7.4-10.4); Platelet Count Result 297 k/mm3 (150-375); Red Blood Count 3.34 M/mm3 (4.2-5.4); Red Cell Distribution Width 14.2 % (11.5-14.5)
[2022-10-30] MEDS: SODIUM CHLORIDE 0.9% IV 1,000 ML 999 ML IV CONT ×2 (10:33→12:09)
[2022-10-30] MEDS: MORPHINE SULFATE (*CRX) 4 MG/ML INJ IV PUSH ×2 (10:33→11:47)
--- NOTE | 2022-10-30 10:38 | ECG_ITS ---
Measurements Intervals [place] Rate: 131 P: 40 NC: 147 QRS: 28 QRSD: 96 T: -3 QT: 256 QTc: 378 Interpretive Statements SINUS TACHYCARDIA NONSPECIFIC ST & T-WAVE ABNORMALITY- DIFFUSE LEADS ABNORMAL ECG COMPARED TO ECG 10/26/2022 11:33:23 NO SIGNIFICANT CHANGES Electronically Signed On 10-30-2022 11:15:06 CDT by Omar Downey D.O.
[2022-10-30 10:40] LABS: Lactic Acid Reflex 1.4 mmol/L (0.7-2.0)
[2022-10-30 10:46] LABS: Alanine Aminotransferase 15 U/L (6-35); Albumin Level 2.8 g/dL (3.5-5.1); Alkaline Phosphatase 205 U/L (38-126); Anion Gap 13 mmol/L (8-16); Aspartate Amino Transferase 24 U/L (14-36); Bilirubin,Total 0.8 mg/dL (0.2-1.3); Blood Urea Nitrogen 32 mg/dL (7-17); Calcium 8.2 mg/dL (8.4-10.2); Carbon Dioxide 21 mmol/L (22-30); Chloride 99 mmol/L (98-107); Estimated CRCL calculation 99 ml/min; Estimated Glomerular Filt Rate > 60; Glucose 76 mg/dL (65-110); Lipase 12 U/L (23-300); Potassium 3.3 mmol/L (3.4-5.0); Sodium 133 mmol/L (137-145)
[2022-10-30 11:09] LABS: Band Neutrophils Percent 29 % (0-6); Monocytes Percent Manual 4 % (3-9); Neutrophils Percent Manual 61 % (46-73); Schistocytes None Seen (NORMAL); Total Cells Counted 100
[2022-10-30 11:10] LABS: Burr Cells 1+ (NORMAL); Platelet Estimate Adequate (Adequate)
--- NOTE | 2022-10-30 11:24 | ED.WOUNDLAC ---
HPI - Wound/Laceration General Chief Complaint: Wound/Laceration Stated Complaint: post op complications - Time Seen by Provider: 10/30/22 10:00 History of Present Illness HPI narrative: Patient is a 22-year-old female who presents ER with abdominal wall infection. Patient underwent a section 1 week ago. She began having a fever 4 days ago with subsequent redness of her scar. She was placed on Keflex. Her fever increased on 10/28/2022 and patient was on clarithromycin as well. Patient was evaluated in office today and referred to the ER for further evaluation. Patient has an area of necrosis over central abdomen and a lot of drainage from around her surgical incision. She has pain and edema to her abdomen. Patient is currently breast-feeding. Pain is worsened with any type of movement. Prior to having her baby patient's was complicated by preeclampsia. Related Data Home Medications Medication Instructions Recorded Confirmed omeprazole 20 mg capsule,delayed 20 mg PO DAILY 09/01/22 10/30/22 release vit no.133-ferrous 1 tablet PO DAILY 09/01/22 10/30/22 fumarate 28 mg-folic acid 800 mcg tablet () acetaminophen 500 mg tablet 1,000 mg PO Q6H PRN Pain (Scale 09/30/22 10/30/22 Score 1-3) buspirone 5 mg tablet 5 mg PO BID 09/30/22 10/30/22 levothyroxine 125 mcg tablet 125 mcg PO DAILY 09/30/22 10/30/22 vjadgbeknv-dbfxowvzrtmca-kvfalwid 1 cap PO PRN headache 10/07/22 10/30/22 50 mg-300 mg-40 mg capsule Allergies Allergy/AdvReac Type Severity Reaction Status Date / Time Sulfa (Sulfonamide Allergy Intermediate Rash Verified 10/07/22 02:11 Antibiotics) Review of Systems Review of Systems: All systems reviewed & are unremarkable except as noted in HPI and below Constitutional: Constitutional: Reports chills, Reports fatigue and Reports fever(s) ENT: Denies nasal congestion and Denies sore throat Cardiovascular: Cardiovascular: Denies chest pain and Denies rapid heart rate Respiratory: Respiratory: Denies cough and Denies dyspnea Gastrointestinal: Gastrointestinal: Reports abdominal pain, Denies diarrhea, Denies nausea and Denies vomiting Genitourinary: Genitourinary: Denies abnormal vaginal bleeding, Denies nocturia, Denies dysuria, Denies flank pain and Denies vaginal discharge Integumentary/Breasts: Skin/Breast: Reports erythema and Reports skin ulcer PMFSH Past Medical History Medical History Anxiety and depression GERD (gastroesophageal reflux disease) Hypothyroid Morbid obesity Surgical History Surgical History H/O left knee surgery History of strabismus surgery Family History Family History Father Hypertension Mother Hypertension Social History Social History Smoking status: Never smoker Alcohol intake: current Drinks per week: 1 Substance use: never Lack of Transportation: No Lack of Food: Never True Current Housing: I Have Housing Concerned About Future Housing: No Difficulty Paying Gas/Electric Bills: No Difficulty Paying for Meds: No Currently Unemployed: No Education: Associate Degree Difficulty w/ Childcare or Family Care: No Spiritual care concerns: No Exam Narrative: GENERAL: Uncomfortable-appearing, well-nourished, and in no acute distress. HEAD: Normocephalic, atraumatic. EYES: PERRL and EOMI. ENT: Mucous membranes moist. NECK: Supple. CHEST: Clear to auscultation. No respiratory distress. HEART: Tachycardic and regular. No murmur. Normal peripheral pulses. ABDOMEN: Soft, nondistended. Lower abdomen location pannus indurated. There is a central area of black necrotic appearing tissue. When the pannus is lifted up the surgical site along the abdominal fol
[2022-10-30 11:25] LABS: CRP 44.5 mg/dL (<1.0)
[2022-10-30 11:37] LABS: Erythrocyte Sedimentation Rate > 140 mm/hr (0-20)
[2022-10-30] MEDS: CLINDAMYCIN 900 MG/D5W 50 ML 900 MG/50 ML PIGGYBACK 50 MG IVPB ×2 (11:38→22:50)
--- NOTE | 2022-10-30 14:12 | ADMGEN ---
This patient, Anna Salguero, was admitted to IMU Room 214-01. Patient/family oriented to hospital policies and general routines including ID bracelet, bed and alarms, visiting hours, pain management, procedures, bathroom and other care routines, personal items, smoking policy, room service/diet, and visiting hours. Information on how to activate the Rapid Response Team has been discussed. Patient/Family are encouraged to report perceived risks to care and to ask questions if they do not understand what they are told or what they should do.
[2022-10-30] MEDS: SODIUM CHLORIDE 0.9% IV 1,000 ML 125 ML IV CONT (14:33)
--- NOTE | 2022-10-30 16:28 | WPDHPUPDATE1 ---
History and Physical Update Update Date/Time: 10/30/22 16:28 History and Physical has been reviewed, including an updated exam of the patient. Patient discharged post csection and had temp at her hospital visit of 101 so she was sent to office where I evaluated her for infection. Her exam at that itme was normal except for a mild errythema of her midabdomen on top of her pannus. She was given Keflex 500 mg TID and told to call if any new symptoms developed. Patient paged me at 0300 on 10/29 with complaint of darker pink and spread up higher on her abdomen and continued fever. She had clarithromycin 500 mg BID added to her regimen. Patient called this am for an update and she said hematoma had developed and was draining foul odor. She was brought to office and seen. PE: general-tearful abdomen- central skin on top of panus with 3 necrotic area open with foul odor. Surrounding black tissue of about 5 cm. Panus with continued edema and orange peel effect. A/P 1. Post op infection with necrosis-started on Imipenem, clinda, and Vanc. IV hydrated. Dr. Norwood consulted and called by me with details of case. may need debridement. He will also have wound nurse evaluate. 2. Tachycardia-upon review of labs, noted anemia new from discharge Hb down 2 points. Will discuss blood with patient and consult hospitalist. 3. Preeclampsia diagnosed at 28 weeks now delivered. May need ECHO.
--- NOTE | 2022-10-30 17:42 | PM.CNGS ---
Assessment and Plan Assessment and plan (1) Necrotizing soft tissue infection: Code(s): M79.89 - Other specified soft tissue disorders Status: Acute Assessment and Plan: the patient has evidence of a severe infection involving her suprapubic and lower abdominal region. She appears to have a dehiscence of the scar with purulence drainage coming from the wound and also has necrotic soft tissue developing in the subcutaneous region of her lower abdomen and pannus. She is in need of emergent incision and drainage and debridement of the infection. She has been placed on clindamycin and imipenem which should cover most of the likely infectious organisms. Discussed with patient that this will be a large open wound and will take time to gain control of the infection. I am not sure if there is any further deep organ space infection yet but this could possibly even require deeper exploration to clean out any deeper infection. I have discussed this with Dr. Shahid and will be planning to proceed with surgery emergently. (2) Sepsis: Code(s): A41.9 - Sepsis, unspecified organism Status: Acute (3) Post-operative infection: Code(s): T81.40XA - Infection following a procedure, unspecified, initial encounter Status: Acute History of Present Illness Consult details Consult date: 10/30/22 Reason for consult: other (wound care) Requesting physician: Elsy Shahid MD Narrative: This is a 22-year-old woman who I am asked to see for a wound infection near her scar. She just had a 1 week ago and states that about 4 days ago she began experiencing fevers. She was placed on Keflex but she has now noticed worsening swelling and drainage from her wound and just above that area. She has an area of black skin on her abdominal skin just superior to the scar. She presented to the emergency department today and was found to have a very high white blood count and tachycardia. A CT of her abdomen and pelvis was obtained which showed signs concerning for wound infection. She was then admitted and placed on broad-spectrum IV antibiotics. Review of Systems Review of Systems: All systems reviewed & are unremarkable except as noted in HPI and below Constitutional: Constitutional: Reports fever(s) Eyes: Eyes: Denies change in vision ENT: Denies hearing loss, Denies neck pain and Denies sore throat Cardiovascular: Cardiovascular: Denies chest pain and Denies dyspnea Respiratory: Respiratory: Denies cough, Denies dyspnea and Denies wheezing Gastrointestinal: Gastrointestinal: Reports as per HPI Genitourinary: Genitourinary: Denies hematuria and Denies dysuria Musculoskeletal: Musculoskeletal: Denies arthralgias, Denies joint swelling and Denies neck pain Integumentary/Breasts: Skin/Breast: Reports as per HPI Allergic/Immunologic: Allergic/Immunologic: Denies wheezing FOR[facility]LY [facility] Past Medical History Medical History Anxiety and depression GERD (gastroesophageal reflux disease) Hypothyroid Morbid obesity Surgical History Surgical History H/O left knee surgery History of strabismus surgery Family History Family History Father Hypertension Mother Hypertension Social History Social History Smoking status: Never smoker Alcohol intake: current Drinks per week: 1 Substance use: never Lack of Transportation: No Lack of Food: Never True Current Housing: I Have Housing Concerned About Future Housing: No Difficulty Paying Gas/Electric Bills: No Difficulty Paying for Meds: No Currently Unemployed: No Education: Associate Degree Difficulty w/ Childcare or Family Care: No Spiritual care concerns: No Me
--- NOTE | 2022-10-30 19:07 | WPDHPUPDATE1 ---
History and Physical Update Update Date/Time: 10/30/22 19:07 History and Physical has been reviewed, including an updated exam of the patient. There are NO changes in the patient's condition. Risks, benefits, and alternatives have been discussed and questions answered. Patient agrees to proceed with procedure.
[2022-10-30] MEDS: LACTATED RINGERS 1,000 ML 30 ML IV CONT ×2 (20:22→20:23)
--- NOTE | 2022-10-30 20:24 | WPDANESEPPF ---
Anes - Initial Pre Proc Eval Procedure: Operation Date: 10/30/22 19:30 Proposed Procedures p Incision and Drainage of Abdominal Wall with Debridement of Necrotizing Soft Tissue - Lawrence Norwood DO Date/Time: 10/30/22 20:24 Surgeon: Elsy Shahid MD Pre Op Diagnosis: Post-operative Wound Infection Patient Data Age: 22 Gender: F Height: 1.57 m Weight: 128.3 kg Last Vital Signs Temp 36.5 C 10/30/22 16:00 Pulse 137 H 10/30/22 18:00 Resp 16 10/30/22 16:00 BP 123/62 10/30/22 16:00 Pulse Ox 95 10/30/22 16:00 O2 Del Method Room Air 10/30/22 16:00 Allergies Allergy/AdvReac Type Severity Reaction Status Date / Time Sulfa (Sulfonamide Allergy Intermediate Rash Verified 10/07/22 02:11 Antibiotics) Home Medications Medication Instructions Recorded Confirmed Type omeprazole 20 mg capsule,delayed 20 mg PO DAILY 09/01/22 10/30/22 History release vit no.133-ferrous 1 tablet PO DAILY 09/01/22 10/30/22 History fumarate 28 mg-folic acid 800 mcg tablet () acetaminophen 500 mg tablet 1,000 mg PO Q6H PRN Pain (Scale 09/30/22 10/30/22 History Score 1-3) buspirone 5 mg tablet 5 mg PO BID 09/30/22 10/30/22 History levothyroxine 125 mcg tablet 125 mcg PO DAILY 09/30/22 10/30/22 History nleqrtahqz-drsniutlerruc-zvkqalaf 1 cap PO PRN headache 10/07/22 10/30/22 History 50 mg-300 mg-40 mg capsule hydrocodone 5 mg-acetaminophen 325 1 tablet PO Q4H PRN pain #14 tabs 10/26/22 10/30/22 Rx mg tablet Laboratory Tests 10/30/22 10/30/22 10/30/22 10:21 10:21 10:21 WBC 30.0 K/mm3 H K/mm3 (4.5-10.0) RBC 3.34 M/mm3 L M/mm3 (4.2-5.4) Hgb 8.9 g/dL L g/dL (12.0-15.0) Hct 27.9 % L % (37.0-47.0) MCV 83.5 fl fl (80-100) MCH 26.6 pg pg (26-34) MCHC 31.9 g/dl L g/dl (32-36) RDW 14.2 % % (11.5-14.5) Plt Count 297 k/mm3 k/mm3 (150-375) MPV 9.5 fl fl (7.4-10.4) Immature Gran % (Auto) Not Reportable Neut % (Auto) Not Reportable Lymph % (Auto) Not Reportable Pitt % (Auto) Not Reportable Eos % (Auto) Not Reportable Baso % (Auto) Not Reportable Lymph # (Auto) Not Reportable Pitt # (Auto) Not Reportable Eos # (Auto) Not Reportable Baso # (Auto) Not Reportable Abs Immat Gran (auto) Not Reportable Absolute Neuts (auto) Not Reportable Absolute Nucleated RBC Not Reportable Total Counted 100 Neutrophils % (Manual) 61 % % (46-73) Band Neutrophils % 29 % H % (0-6) Lymphocytes % (Manual) 6.0 % L % (18-44) Monocytes % (Manual) 4 % % (3-9) Nucleated RBC % Not Reportable Abs Neuts (Manual) 27.00 K/mm3 H K/mm3 (1.7-7.2) Abs Lymphs (Manual) 1.80 K/mm3 K/mm3 (1.1-4.5) Abs Monocytes (Manual) 1.20 K/mm3 H K/mm3 (0.1-0.90) Platelet Estimate Adequate (Adequate) York Cells 1+ (NORMAL) Schistocytes None seen (NORMAL) ESR > 140 mm/hr H mm/hr (0-20) Sodium 133 mmol/L L mmol/L (137-145) Potassium 3.3 mmol/L L mmol/L (3.4-5.0) Chloride 99 mmol/L mmol/L (98-107) Carbon Dioxide 21 mmol/L L mmol/L (22-30) Anion Gap 13 mmol/L mmol/L (8-16) BUN 32 mg/dL H D mg/dL (7-17) Creatinine 1.00 mg/dL mg/dL (0.7-1.0) Estim Creat Clear Calc 99 ml/min ml/min Estimated GFR > 60 (59 - ) Glucose 76 mg/dL mg/dL (65-110) Lactic Acid 1.4 mmol/L mmol/L (0.7-2.0) Calcium 8.2 mg/dL L mg/dL (8.4-10.2) Total Bilirubin 0.8 mg/dL mg/dL (0.2-1.3) AST 24 U/L U/L (14-36) ALT 15 U/L U/L (6-35) Alkaline Phosphatase 205 U/L
--- NOTE | 2022-10-30 20:31 | W.PM.PROC2 ---
Procedure Note - Detailed Date of Procedure 10/30/22 Pre-op Diagnosis Necrotizing soft tissue infection of abdominal wall, postoperative wound infection, abdominal wall abscess, sepsis Post-op Diagnosis Same Procedure Performed 1. sharp excisional debridement of necrotizing soft tissue infection of abdomen including skin and subcutaneous adipose tissue measuring 20 cm x 20 cm 2. incision and drainage of complex abdominal wall abscess 3. repair of fascial dehiscence of wound Surgeon Lawrence Norwood DO [employer] Elsy Shahid MD Anesthesia General Indications This is a 22-year-old woman who presented with redness, swelling, and drainage involving her wound from 1 week ago. She had extension of the infection cephalad onto the abdominal wall and this was causing a necrotizing soft tissue infection. She 1st noted fevers about 4 days ago, but was not having any significant signs of wound infection at that time. Since then she has had progressive redness and swelling in the region and also began developing a bruised area just superior to her scar. She presented to the emergency department today with worsening symptoms. Upon assessing the wound this afternoon, there was drainage from the scar and this appeared to be developing a wound dehiscence. She had significant evidence of necrosis to the skin just cephalad to this area and was in need of emergent incision and drainage and debridement. Findings The scar was opened and a significant amount of foul-smelling liquid and purulence fluid was drained. Cultures were taken for aerobic and anaerobic culture and sensitivity. The wound was then extended cephalad to the necrotic area on the more cephalad abdominal wall skin. Sharp excisional debridement was performed using a 10 blade scalpel and curved Reddy scissors. Debridement area measured 20 cm x 20 cm and included skin and subcutaneous adipose tissue. There also appeared to be a fascial dehiscence the anterior rectus sheath with visible rectus muscle. The fascia and muscle appeared healthy and viable. The fascia was closed using 0 PDS running absorbable suture. A Pulsavac was used to irrigate the abdominal infection after adequate debridement. Total of 3 L were used for irrigation. All loculations were broken up and majority of the necrotic tissue was adequately debrided. Wound was then packed with Betadine-soaked Kerlix gauze. Description of Procedure Procedure as well as risks, benefits, and alternatives were discussed with the patient. Written consent was obtained and placed in chart prior to procedure. Patient was brought back to surgical suite. She was placed supine on operating table. Time-out was done to confirm patient and procedure. She was then intubated by the anesthesia department. Her abdomen was prepped and draped in sterile fashion using Betadine prep. There was a 1 cm opening along the scar that had copious amounts of clear liquid foul-smelling drainage. This was opened then throughout the length of the scar using a 10 blade scalpel. The area of infection extended cephalad up to an area of necrotic skin along the lower abdominal wall. An incision was made cephalad from the scar up to the necrotic skin and then the necrotic skin was excised with a 10 blade scalpel. Electrocautery was then used for hemostasis the viable skin edges. Curved Reddy scissors were then used to excise all of the necrotic appearing subcutaneous fat. Sharp excisional debridement with curved Reddy scissors was carried out way to healthy viable appearing bleeding tissue. There were several areas of loculation out to the lateral wall broken up using blunt dissection. Hemostasis was then achieved with electrocautery. Wound bed was then irrigated with a Pulsavac with 3 L of sterile saline. Then carefully inspected the subcutaneous region any further for any signs of further necrotic tiss
[2022-10-30] MEDS: HYDROmorphone HCL INJ (*CRX) 1 MG/ML SYR 0.5 MG IV PUSH ×4 (20:34→22:03)
[2022-10-30] MEDS: MIDAZOLAM HCL (*CRX) 2 MG/2 ML VIAL IV PUSH (20:37)
--- NOTE | 2022-10-30 21:54 | SUR.PHASEI ---
2144: Tried to call report to floor RN and was on hold for 8 minutes.
[2022-10-30] MEDS: hydrOXYzine pamoate 25 MG CAPSULE PO (23:55)
[2022-10-31] VITALS (59 sets, daily range): BP systolic 102–136; BP diastolic 47–102; PULSE 100–122; RESP 7–30; TEMP 35.7–37; O2SAT 95–100
[2022-10-31] MEDS: SODIUM CHLORIDE 0.9% IV 1,000 ML 125 ML IV CONT ×3 (00:09→08:53)
[2022-10-31] MEDS: SODIUM CHLORIDE 0.9% IV 250 ML 30 ML IV CONT (00:10)
[2022-10-31] MEDS: TUBING, BLOOD PLUM PUMP TUBING 1 EACH XX (00:10)
[2022-10-31] MEDS: HYDROmorphone HCL INJ (*CRX) 1 MG/ML SYR IV PUSH ×2 (03:39→16:46)
[2022-10-31] MEDS: CLINDAMYCIN 900 MG/D5W 50 ML 900 MG/50 ML PIGGYBACK 50 MG IVPB ×3 (05:32→21:50)
--- NOTE | 2022-10-31 07:55 | PM.OBPNVD ---
OB - PN: Subj Subjective Date/time seen: 10/31/22 07:55 Interval history: feeling better no complaints Patient comments: pain well controlled [place] baby status: other (pumping) OB - PN: Obj Data Labs 10/30/22 10:21 10/30/22 10:21 Labs: Laboratory Results - last 24 hr 10/30/22 10/30/22 10/30/22 10:21 10:21 10:21 WBC 30.0 H RBC 3.34 L Hgb 8.9 L Hct 27.9 L MCV 83.5 MCH 26.6 MCHC 31.9 L RDW 14.2 Plt Count 297 MPV 9.5 Immature Gran % (Auto) Not Reportable Neut % (Auto) Not Reportable Lymph % (Auto) Not Reportable [place] % (Auto) Not Reportable Eos % (Auto) Not Reportable Baso % (Auto) Not Reportable Lymph # (Auto) Not Reportable [place] # (Auto) Not Reportable Eos # (Auto) Not Reportable Baso # (Auto) Not Reportable Abs Immat Gran (auto) Not Reportable Absolute Neuts (auto) Not Reportable Absolute Nucleated RBC Not Reportable Total Counted 100 Neutrophils % (Manual) 61 Band Neutrophils % 29 H Lymphocytes % (Manual) 6.0 L Monocytes % (Manual) 4 Nucleated RBC % Not Reportable Abs Neuts (Manual) 27.00 H Abs Lymphs (Manual) 1.80 Abs Monocytes (Manual) 1.20 H Platelet Estimate Adequate [place] Cells 1+ Schistocytes None seen ESR > 140 H Sodium 133 L Potassium 3.3 L Chloride 99 Carbon Dioxide 21 L Anion Gap 13 BUN 32 H D Creatinine 1.00 Estim Creat Clear Calc 99 Estimated GFR > 60 Glucose 76 Lactic Acid 1.4 Calcium 8.2 L Total Bilirubin 0.8 AST 24 ALT 15 Alkaline Phosphatase 205 H C-Reactive Protein 44.5 H Total Protein 6.0 L Albumin 2.8 L Lipase 12 L Blood Type Antibody Screen Crossmatch 10/30/22 17:45 WBC RBC Hgb Hct MCV MCH MCHC RDW Plt Count MPV Immature Gran % (Auto) Neut % (Auto) Lymph % (Auto) [place] % (Auto) Eos % (Auto) Baso % (Auto) Lymph # (Auto) [place] # (Auto) Eos # (Auto) Baso # (Auto) Abs Immat Gran (auto) Absolute Neuts (auto) Absolute Nucleated RBC Total Counted Neutrophils % (Manual) Band Neutrophils % Lymphocytes % (Manual) Monocytes % (Manual) Nucleated RBC % Abs Neuts (Manual) Abs Lymphs (Manual) Abs Monocytes (Manual) Platelet Estimate Josiah Cells Schistocytes ESR Sodium Potassium Chloride Carbon Dioxide Anion Gap BUN Creatinine Estim Creat Clear Calc Estimated GFR Glucose Lactic Acid Calcium Total Bilirubin AST ALT Alkaline Phosphatase C-Reactive Protein Total Protein Albumin Lipase Blood Type B Positive Antibody Screen Negative Crossmatch See Detail Imaging Radiologist's impression: Impressions Abdomen/Pelvis CT 10/30/22 12:18 IMPRESSION: 1. Soft tissue inflammation/infection involving the lower anterior abdominal wall, area of the low anterior uterine incision, and in the retroperitoneum. No drainable abscess. Infiltrating soft tissue gas may be secondary to recent surgery, but necrotizing fasciitis cannot be excluded. I discussed this result with Dr. Matos at 11:20 AM. 2. Thickened endometrial complex suspicious for endometritis and/or retained products of conception. 3. Mild retroperitoneal lymphadenopathy, likely reactive. OB - PN A/P Assessment and Plan (1) Necrotizing soft tissue infection: Code(s): M79.89 - Other specified soft tissue disorders Status: Acute Assessment and Plan: wound to be reassessed by Dr. Norwood today continue antibiotics (2) Sepsis: Code(s): A41.9 - Sepsis, unspecified organism Status: Acute Time Spent With Patient Time: Total time spent is greater than 50% in coordination of care (as documented) at patient's floor/unit and/or counseling patient: Exam Narrative: bandage intact Const: General: comfortable and no acute distress
[2022-10-31] MEDS: busPIRone HCL 10 MG TABLET PO ×2 (08:48→21:50)
[2022-10-31] MEDS: HYDROmorphone HCL INJ (*CRX) 1 MG/ML SYR 0.5 MG IV PUSH (08:53)
[2022-10-31 09:27] LABS: Hematocrit 29.6 % (37.0-47.0); Hemoglobin 9.6 g/dL (12.0-15.0); Mean Corpuscular HGB Conc 32.4 g/dl (32-36); Mean Corpuscular Hemoglobin 26.8 pg (26-34); Mean Corpuscular Volume 82.7 fl (80-100); Platelet Count Result 285 k/mm3 (150-375); Red Blood Count 3.58 M/mm3 (4.2-5.4); Red Cell Distribution Width 14.1 % (11.5-14.5); White Blood Count 25.9 K/mm3 (4.5-10.0)
[2022-10-31 09:45] LABS: Anion Gap 10 mmol/L (8-16); Blood Urea Nitrogen 23 mg/dL (7-17); Calcium 7.6 mg/dL (8.4-10.2); Carbon Dioxide 20 mmol/L (22-30); Chloride 107 mmol/L (98-107); Estimated CRCL calculation 122 ml/min; Estimated Glomerular Filt Rate > 60; Glucose 108 mg/dL (65-110); Potassium 2.9 mmol/L (3.4-5.0); Sodium 137 mmol/L (137-145)
--- NOTE | 2022-10-31 10:05 | PM.PNGS ---
Progress Note: A&P Assessment and Plan (1) Necrotizing soft tissue infection: Code(s): M79.89 - Other specified soft tissue disorders Status: Acute Assessment and Plan: Wound gram stain showing gram positive cocci and gram negative bacilli. Continue broad spectrum antibiotics. Will plan to take back to OR today for re-exploration, washout, and possible further debridement. HR improved and WBC slightly better. Will continue local wound care until wound is stable for wound vac placement. (2) Sepsis: Code(s): A41.9 - Sepsis, unspecified organism Status: Acute Subjective Subjective Date/Time Seen: 10/31/22 10:05 Interval history: Patient still having pain. No fevers. Exam GI: Other: Mild erythema around lower abdomen, serous drainage around bandage Objective Data Vital Signs Vital Signs: Vital Signs - 24 hr 10/30/22 10:12 10/30/22 10:15 10/30/22 10:30 Temperature Pulse Rate 131 H 131 H 129 H Respiratory Rate 30 H 29 H 26 H Blood Pressure Pulse Oximetry Oxygen Delivery Oxygen Flow Rate 10/30/22 10:31 10/30/22 10:45 10/30/22 10:47 Temperature Pulse Rate 127 H 139 H 127 H Respiratory Rate 29 H 20 28 H Blood Pressure 117/56 L 121/67 Pulse Oximetry Oxygen Delivery Oxygen Flow Rate 10/30/22 10:48 10/30/22 11:00 10/30/22 11:01 Temperature Pulse Rate 129 H 129 H Respiratory Rate 32 H 28 H Blood Pressure 103/49 L Pulse Oximetry Oxygen Delivery Oxygen Flow Rate 10/30/22 11:23 10/30/22 11:32 10/30/22 11:45 Temperature Pulse Rate 129 H 126 H 131 H Respiratory Rate 29 H 24 H 32 H Blood Pressure Pulse Oximetry Oxygen Delivery Oxygen Flow Rate 10/30/22 11:46 10/30/22 12:00 10/30/22 12:01 Temperature Pulse Rate 132 H 138 H 137 H Respiratory Rate 29 H 20 30 H Blood Pressure 114/44 L 92/80 L Pulse Oximetry Oxygen Delivery Oxygen Flow Rate 10/30/22 12:02 10/30/22 12:15 10/30/22 12:16 Temperature Pulse Rate 139 H 142 H 141 H Respiratory Rate 32 H 29 H 20 Blood Pressure Pulse Oximetry Oxygen Delivery Oxygen Flow Rate 10/30/22 12:35 10/30/22 12:50 10/30/22 13:00 Temperature Pulse Rate 141 H 131 H 132 H Respiratory Rate 24 H 25 H 23 H Blood Pressure 119/68 121/71 Pulse Oximetry Oxygen Delivery Oxygen Flow Rate 10/30/22 13:01 10/30/22 13:27 10/30/22 13:32 Temperature Pulse Rate 132 H 144 H 142 H Respiratory Rate 28 H 32 H 23 H Blood Pressure Pulse Oximetry Oxygen Delivery Oxygen Flow Rate 10/30/22 13:49 10/30/22 16:00 10/30/22 14:00 Temperature Pulse Rate 140 H 140 H Respiratory Rate 18 Blood Pressure 121/71 Pulse Oximetry 99 Oxygen Delivery Room Air Oxygen Flow Rate 10/30/22 16:00 10/30/22 16:00 10/30/22 18:00 Temperature 36.5 C Pulse Rate 129 H 129 H 137 H Respiratory Rate 16 Blood Pressure 123/62 Pulse Oximetry 95 Oxygen Delivery Oxygen Flow Rate 10/30/22 20:22 10/30/22 20:35 10/30/22 20:50 Temperature 36.9 C Pulse Rate 124 H 118 H 121 H Respiratory Rate 20 24 H 25 H Blood Pressure 151/83 H 131/62 124/70 Pulse Oximetry 100 100 100 Oxygen Delivery Simple Face Mask Room Air Simple Face Mask Oxygen Flow Rate 6 6 10/30/22 21:05 10/30/22 21:20 10/30/22 21:35 Temperature Pulse Rate 121 H 119 H 119 H Respiratory Rate 25 H 20 20 Blood Pressure 118/54 L 121/55 L 131/50 L Pulse Oximetry 97 93 91 Oxygen Delivery Nasal Cannula Nasal Cannula Nasal Cannula Oxygen Flow Rate 2 2 2 10/30/22 21:50 10/30/22 22:00 10/31/22 00:05 Temperature 36.4 C Pulse Rate 120 H 114 H 117 H Respiratory Rate 20 19 20 Blood Pressure 127/43 L 131/50 L 116/47 L Pulse Oximetry 93 93 95 Oxygen Delivery Nasal Cannula Nasal Cannula Oxygen Flow Rate 2 2 10/31/22 00:23 10/31/22 00:01 10/31/22 01:23 Temperature 35.7 C L 36.4 C 36.2 C L Pulse Rate 119 H 120 H 117 H Respiratory
[2022-10-31] MEDS: POTASSIUM CHLORIDE 20 MEQ TABLET 40 MEQ PO (10:28)
[2022-10-31] MEDS: BETAMETHASONE/CLOTRIMAZOLE CR 15 GM TUBE 1 APPLIC TOPICAL ×2 (10:28→21:50)
--- NOTE | 2022-10-31 13:21 | PC.NURSE ---
Called Dr. Shahid to clarify some details in her note. At this point she does not want an ECHO, since the patient's heart rate came down after receiving blood. She also does not currently want to consult the hospitalist, since she would rather receive calls with questions considering she has a greater experience with preeclampsia.
[2022-10-31] MEDS: LACTATED RINGERS 1,000 ML 30 ML IV CONT (13:40)
--- NOTE | 2022-10-31 13:43 | WPDHPUPDATE1 ---
History and Physical Update Update Date/Time: 10/31/22 13:43 History and Physical has been reviewed, including an updated exam of the patient. There are NO changes in the patient's condition. Risks, benefits, and alternatives have been discussed and questions answered. Patient agrees to proceed with procedure.
--- NOTE | 2022-10-31 14:02 | PC.NURSE ---
0842 - Kristy RN was called earlier in the day and RN reported findings of the patient's medication as it relates to the patient pumping her breast milk. Resource used https://www.ncbi.nlm.nih.gov/books/LIB658167/ to reviewed the risks and benefits of collecting the breast milk with the medications the patient has had ordered. 1016 - RN made introductions to the unit and Primary RN is in another patient room at this time. Introductions were made to the patient. Patient is having difficulty staying awake. Visitor states she is heavily medicated . Patient is unable to stay awake to have a conversation or have a discussion at this time. Primary RN is in another patient's room and it was offered to have her call the office if she had any further questions regarding patient's medication as it relates to pumping her breast milk. Discussed with my director Noemi.
--- NOTE | 2022-10-31 14:23 | P.PNAN_ITS ---
Anes - Eval Final PreProcedure Day of Procedure 10/31/22 14:23 Patient weight: morbidly obese Heart: tachycardia Lungs: decreased breath sounds Airway: Mallampati scale class II Neurological: alert and oriented ASA classification: IV Emergent: no Anesthetic plan: proceed Anesthesia type and monitoring: general ETT and standard monitoring Results Review: All pre-operative results and documents have been reviewed as part of the pre- operative evaluation. Informed Consent: The patient's anesthetic plan and its attendant risks and benefits were discussed with the patient/family/POA. Questions were solicited and answers p rovided to the satisfaction of the patient/family/POA.
--- NOTE | 2022-10-31 16:15 | PC.NURSE ---
Pt. arrived to ICU 6 from OR via bed accompanied by STUDIO CONTROL OPERATOR and OYSTER SORTER. Bedside report received.
--- NOTE | 2022-10-31 16:29 | W.PM.PROC2 ---
Procedure Note - Detailed Date of Procedure 10/31/22 Pre-op Diagnosis Necrotizing soft tissue infection, sepsis Post-op Diagnosis Same Procedure Performed 1. Sharp excisional debridement of necrotizing soft tissue infection of abdominal wall measuring 40 cm by 20 cm including skin and subcutaneous adipose tissue 2.Placement of wound VAC Surgeon Lawrence Norwood DO Anesthesia General Indications This is a 22-year-old woman who presented to the emergency department on 10/30/2022 with a necrotizing soft tissue infection after undergoing 1 week ago. Surgical debridement was performed yesterday and she now is in need of removal of the packing and re-examination of the wound with further debridement. Findings The abdominal wound was carefully inspected and the packing was removed. Much of the abdominal tissue along the midline portion appeared healthy and viable, but there still appeared to be necrotizing subcutaneous adipose tissue extending laterally on both sides. This extended slightly further to the left lateral abdomen but also extended some to the right. The infection was going down to the fascia, but the fascia appeared healthy and viable. Sharp excisional debridement was performed using a 10 blade scalpel and curved Reddy scissors. The necrotic tissue included skin and subcutaneous adipose tissue and the total area measured about 40 cm x 20 cm. After significant debridement, appeared to be minimal residual tissue. The abdomen was irrigated copiously again with sterile saline and Dakin solution. Decision was then made to place a wound VAC over the open wound. Six pieces of black foam were placed within the subcutaneous space and the wound VAC appliance was secured. No specimens were obtained for pathology. Description of Procedure Procedure as well as risks, benefits, and alternatives were discussed with the patient. Written consent was obtained and placed in chart prior to procedure. Patient was brought back to surgical suite. She was placed supine on operating table. Time-out was done to confirm patient and procedure. She was then intubated by the anesthesia department. Her abdomen was prepped and draped in sterile fashion using Betadine prep. The open abdominal wound was carefully inspected. The lateral edges of the wound were palpated and carefully inspected and there appeared to be further necrotic tissue the lateral edges. The skin incision had to be extended about 10 cm to the left lateral abdomen using a 10 blade scalpel. There was also some necrotic skin and subcutaneous tissue within this area that was excised with the 10 blade scalpel. The necrotic fat was then further excised using curved Reddy scissors. Hemostasis was then achieved with electrocautery. I then dissected further along the right lateral abdomen as well and found further necrotic tissue. The incision was extended about 8-10 cm to the right lateral abdomen and the necrotic tissue was further excised with curved Reddy scissors. There is also was some extension further cephalad towards the umbilicus and this necrotic tissue was also excised with scissors. After most of the necrotic tissue was adequately debrided, I then inspected for hemostasis and hemostasis was achieved with electrocautery. A Pulsavac with sterile saline was then used to irrigate the abdominal wound. I then used Dakin solution to further irrigate out the wound. Inspection was made around the area and no other significant abnormalities were noted. Then chose to place a VAC to wound management. The black sponges were placed along the subcutaneous space and the open and then the clear occlusive dressing was carefully placed over the sponges. The suction tubing was then applied over the dressing and this was secured to device with-125 mm Hg suction. The wound VAC appeared to have an adequate seal. The patient was then awakened from anesthesia, extubated, and transferred to the ICU. Estimated Blo
[2022-10-31] MEDS: LACTATED RINGERS 1,000 ML 100 ML IV CONT ×2 (17:18→23:30)
[2022-10-31 17:46] LABS: Hematocrit 28.9 % (37.0-47.0); Hemoglobin 9.8 g/dL (12.0-15.0); Mean Corpuscular HGB Conc 33.9 g/dl (32-36); Mean Corpuscular Hemoglobin 28.3 pg (26-34); Mean Corpuscular Volume 83.5 fl (80-100); Platelet Count Result 302 k/mm3 (150-375); Red Blood Count 3.46 M/mm3 (4.2-5.4); Red Cell Distribution Width 14.6 % (11.5-14.5); White Blood Count 27.9 K/mm3 (4.5-10.0)
[2022-10-31 18:13] LABS: Anion Gap 11 mmol/L (8-16); Blood Urea Nitrogen 23 mg/dL (7-17); Calcium 7.6 mg/dL (8.4-10.2); Carbon Dioxide 19 mmol/L (22-30); Chloride 109 mmol/L (98-107); Estimated CRCL calculation 138 ml/min; Estimated Glomerular Filt Rate > 60; Glucose 91 mg/dL (65-110); Potassium 3.1 mmol/L (3.4-5.0); Sodium 139 mmol/L (137-145)
[2022-10-31] MEDS: POTASSIUM CHLORIDE INJ 40 MEQ in SODIUM CHLORIDE 0.9% IV 500 ML 130 MEQ IVPB (18:24)
[2022-10-31] MEDS: HYDROmorphon 0.2MG/ML PCA(*CRX 6 MG/30 ML PCA.VIAL IV CONT (18:34)
[2022-11-01] VITALS (37 sets, daily range): BP systolic 110–136; BP diastolic 60–83; PULSE 102–122; RESP 17–26; TEMP 36.2–38.6; O2SAT 92–100
[2022-11-01 00:57] LABS: Vancomycin Trough 11.5 ug/mL (10.0-20.0)
[2022-11-01 04:29] LABS: Hematocrit 24.8 % (37.0-47.0); Hemoglobin 8.2 g/dL (12.0-15.0); Mean Corpuscular HGB Conc 33.1 g/dl (32-36); Mean Corpuscular Volume 84.6 fl (80-100); Mean Platelet Volume 9.3 fl (7.4-10.4); Platelet Count Result 259 k/mm3 (150-375); Red Blood Count 2.93 M/mm3 (4.2-5.4); Red Cell Distribution Width 14.8 % (11.5-14.5); White Blood Count 22.9 K/mm3 (4.5-10.0)
[2022-11-01] MEDS: CLINDAMYCIN 900 MG/D5W 50 ML 900 MG/50 ML PIGGYBACK 50 MG IVPB ×3 (05:14→21:53)
[2022-11-01 05:43] LABS: Alanine Aminotransferase 11 U/L (6-35); Albumin Level 1.9 g/dL (3.5-5.1); Alkaline Phosphatase 82 U/L (38-126); Anion Gap 8 mmol/L (8-16); Aspartate Amino Transferase 18 U/L (14-36); Bilirubin,Total 0.5 mg/dL (0.2-1.3); Blood Urea Nitrogen 19 mg/dL (7-17); Calcium 7.2 mg/dL (8.4-10.2); Carbon Dioxide 19 mmol/L (22-30); Chloride 110 mmol/L (98-107); Estimated CRCL calculation 159 ml/min; Estimated Glomerular Filt Rate > 60; Glucose 92 mg/dL (65-110); Magnesium 2.1 mg/dL (1.6-2.3); Potassium 4.6 mmol/L (3.4-5.0); Sodium 137 mmol/L (137-145)
[2022-11-01 05:54] LABS: Anisocytosis 2+ (NORMAL); Band Neutrophils Percent 18 % (0-6); Blastocytes 1 %; Macrocytosis 2+ (NORMAL); Metamyelocytes Percent 1 %; Microcytosis 2+ (NORMAL); Monocytes Absolute Manual 0.45 K/mm3 (0.1-0.90); Monocytes Percent Manual 2 % (3-9); Neutrophils Absolute Manual 20.38 K/mm3 (1.7-7.2); Neutrophils Percent Manual 71 % (46-73); Platelet Estimate Adequate (Adequate); Poikilocytosis 2+ (NORMAL); Total Cells Counted 100
[2022-11-01 05:55] LABS: Burr Cells 2+ (NORMAL); Crenated RBC 2+ (NORMAL); Hypochromasia 2+ (NORMAL); Schistocytes Rare (NORMAL); Smudge Cells PRESENT; Target Cells 1+ (NORMAL); Tear Drop Cells 1+ (NORMAL)
--- NOTE | 2022-11-01 09:05 | WPDCNINT ---
Assessment and Plan Assessment and plan (1) Sepsis: Code(s): A41.9 - Sepsis, unspecified organism Status: Acute Assessment and Plan: Secondary to necrotizing soft tissue infection in a morbidly base patient CT 10/30 IMPRESSION: 1. Soft tissue inflammation/infection involving the lower anterior abdominal wall, area of the low anterior uterine incision, and in the retroperitoneum. No drainable abscess. Infiltrating soft tissue gas may be secondary to recent surgery, but necrotizing fasciitis cannot be excluded. I discussed this result with Dr. Matos at 11:20 AM. 2. Thickened endometrial complex suspicious for endometritis and/or retained products of conception. 3. Mild retroperitoneal lymphadenopathy, likely reactive. Status post 10/30 1. sharp excisional debridement of necrotizing soft tissue infection of abdomen including skin and subcutaneous adipose tissue measuring 20 cm x 20 cm 2. incision and drainage of complex abdominal wall abscess 3. repair of fascial dehiscence of woun Status post 10/31 1. Sharp excisional debridement of necrotizing soft tissue infection of abdominal wall measuring 40 cm by 20 cm including skin and subcutaneous adipose tissue 2.Placement of wound VAC Wound cultures growing Gram-positive cocci Blood cultures are negative till now Continue vancomycin clindamycin and imipenem WBC improved and patient afebrile overnight Blood pressure adequate. Patient has received good amount of IV fluid Decrease IV fluid but continue for now until p.o. intake is adequate General surgery plans to take patient back to OR in near future for evaluation of the wound (2) Necrotizing soft tissue infection: Code(s): M79.89 - Other specified soft tissue disorders Status: Acute Assessment and Plan: See above (3) Pain: Code(s): R52 - Pain, unspecified Status: Acute Assessment and Plan: Continue Dilaudid PULP MAKING PLANT OPERATOR pump (4) GERD (gastroesophageal reflux disease): Code(s): K21.9 - Gastro-esophageal reflux disease without esophagitis Status: Acute Assessment and Plan: Resume PPI (5) Hypothyroid: Code(s): E03.9 - Hypothyroidism, unspecified Status: Acute Assessment and Plan: Resume levothyroxine Plan DVT prophylaxis -Lovenox Stress ulcer prophylaxis -on PPI for GERD Nutrition -advance diet Code Status - Full Code Incentive spirometry Patient had poor IV access due to morbid obesity. 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 She began having a fever 4 days prior with subsequent redness of her scar.? She was placed on Keflex as an outpatient.? Her fever increased on 10/28/2022 and patient was switched to clarithromycin as well.? Patient was evaluated in office on that day and sent to ER. She was admitted and started on broad-spectrum antibiotics. 10/30 1.?sharp excisional debridement of necrotizing soft tissue infection of abdomen including skin and subcutaneous adipose tissue measuring 20 cm x 20 cm 2. incision and drainage of complex abdominal wall abscess 3. repair of fascial dehiscence of wound Patient was taken back to the operating room on 10/31 1. Sharp excisional debridement of necrotizing soft tissue infection of abdominal wall measuring 40 cm by 20 cm including skin and subcutaneous adipose tissue 2.Placement of wound VAC Postop patient to was admitted to ICU for further evaluation management and better control of pain and closer monitor. She was given fluids, antibiotics were continue, wound VAC was in place, Dilaudid PULP MAKING PLANT OPERATOR was started fo
[2022-11-01] MEDS: busPIRone HCL 10 MG TABLET PO ×2 (09:17→20:09)
[2022-11-01] MEDS: BETAMETHASONE/CLOTRIMAZOLE CR 15 GM TUBE 1 APPLIC TOPICAL ×2 (09:17→20:09)
[2022-11-01] MEDS: ENOXAPARIN 40 MG/0.4 ML SYRINGE SUB-Q (09:17)
[2022-11-01] MEDS: PANTOPRAZOLE 40 MG TABLET PO (09:50)
[2022-11-01] MEDS: LEVOTHYROXINE SODIUM 125 MCG TABLET PO (09:50)
[2022-11-01] MEDS: LACTATED RINGERS 1,000 ML 50 ML IV CONT (10:37)
--- NOTE | 2022-11-01 11:37 | PM.PNGS ---
Progress Note: A&P Assessment and Plan (1) Necrotizing soft tissue infection: Code(s): M79.89 - Other specified soft tissue disorders Status: Acute Assessment and Plan: Wound gram stain showing gram positive cocci and gram negative bacilli. Continue broad spectrum antibiotics. Wound vac functioning. WBC slightly improved and remaining afebrile. Will continue monitoring wound vac over weekend. Probably plan for wound vac change in OR Thursday. Will eventually get Plastic Surgery involved once infection better controlled. (2) Sepsis: Code(s): A41.9 - Sepsis, unspecified organism Status: Acute Subjective Subjective Date/Time Seen: 11/01/22 11:37 Interval history: Pain a little better controlled. No fevers. Exam GI: Other: Wound vac in place with mostly serosanguinous drainage. Mild erythema to surrounding skin. Tender to palpation along lateral abdomen Objective Data Vital Signs Vital Signs: Vital Signs - 24 hr 10/31/22 12:00 10/31/22 12:00 10/31/22 11:51 Temperature 36.3 C L Pulse Rate 113 H 118 H Respiratory Rate 20 Blood Pressure 110/63 Pulse Oximetry 99 98 Oxygen Delivery Nasal Cannula Oxygen Flow Rate 2 10/31/22 14:00 10/31/22 16:15 10/31/22 16:00 Temperature 37.0 C 36.8 C Pulse Rate 100 115 H 112 H Respiratory Rate 16 30 H Blood Pressure 119/54 L 129/79 Pulse Oximetry 96 100 Oxygen Delivery Room Air Oxygen Flow Rate 10/31/22 18:00 10/31/22 17:00 10/31/22 18:00 Temperature 36.6 C Pulse Rate 105 H 107 H 105 H Respiratory Rate 24 H 20 Blood Pressure 129/79 129/77 Pulse Oximetry 100 100 Oxygen Delivery Oxygen Flow Rate 10/31/22 16:57 10/31/22 18:34 10/31/22 19:00 Temperature Pulse Rate 109 H Respiratory Rate 20 19 Blood Pressure 116/57 L Pulse Oximetry 95 99 95 Oxygen Delivery Nasal Cannula Oxygen Flow Rate 2 10/31/22 20:00 11/01/22 00:00 10/31/22 20:00 Temperature Pulse Rate 112 H Respiratory Rate Blood Pressure Pulse Oximetry 99 99 Oxygen Delivery Nasal Cannula Nasal Cannula Oxygen Flow Rate 2 2 11/01/22 00:00 11/01/22 02:00 10/31/22 22:00 Temperature Pulse Rate 105 H 104 H 110 H Respiratory Rate Blood Pressure Pulse Oximetry Oxygen Delivery Oxygen Flow Rate 10/31/22 12:10 10/31/22 13:10 10/31/22 14:01 Temperature Pulse Rate 111 H 103 H 104 H Respiratory Rate Blood Pressure Pulse Oximetry Oxygen Delivery Oxygen Flow Rate 10/31/22 16:29 10/31/22 16:31 10/31/22 17:00 Temperature Pulse Rate 114 H 114 H 108 H Respiratory Rate 17 11 L Blood Pressure 114/102 H Pulse Oximetry 100 100 100 Oxygen Delivery Oxygen Flow Rate 10/31/22 17:01 10/31/22 18:00 10/31/22 18:10 Temperature Pulse Rate 106 H 108 H 105 H Respiratory Rate 9 L 18 17 Blood Pressure 129/77 119/69 Pulse Oximetry 100 100 100 Oxygen Delivery Oxygen Flow Rate 10/31/22 18:16 10/31/22 18:32 10/31/22 18:46 Temperature Pulse Rate 105 H 111 H 111 H Respiratory Rate 19 23 H 18 Blood Pressure 119/74 106/63 114/58 L Pulse Oximetry 99 100 95 Oxygen Delivery Oxygen Flow Rate 10/31/22 19:00 10/31/22 19:01 10/31/22 19:16 Temperature 36.4 C Pulse Rate 108 H 106 H 107 H Respiratory Rate 18 17 17 Blood Pressure 116/57 L 110/55 L Pulse Oximetry 95 95 96 Oxygen Delivery Oxygen Flow Rate 10/31/22 19:31 10/31/22 19:46 10/31/22 20:03 Temperature Pulse Rate 103 H 122 H 118 H Respiratory Rate 17 23 H 7 L Blood Pressure 113/58 L 121/68 Pulse Oximetry 97 98 99 Oxygen Delivery Oxygen Flow Rate 10/31/22 21:00 10/31/22 21:17 10/31/22 21:31 Temperature Pulse Rate 112 H 121 H 114 H Respiratory Rate 25 H 23 H 29 H Blood Pressure 118/75 114/78 Pulse Oximetry 98 98 98 Oxygen Delivery Oxygen Flow Rate 10/31/22 21:46 10/31/22 22:00 10/31/22 22:01 Temperature 36.7 C Pulse Rate 115 H 109
[2022-11-01] MEDS: HYDROmorphon 0.2MG/ML PCA(*CRX 6 MG/30 ML PCA.VIAL IV CONT (12:06)
[2022-11-01] MEDS: CENTRAL LINE FLUSH 10 ML IV PUSH ×2 (13:41→22:03)
--- NOTE | 2022-11-01 16:50 | PC.NURSE ---
This patient, Anna Salguero, was received from ICU6 on 11/01/22 at 1651. Patient/family oriented to unit policies and routines
--- NOTE | 2022-11-01 16:51 | WPDANESPN ---
Anes - Prog Note Post-Op Date/Time: 11/01/22 16:51 Cardiovascular status: normal Respiratory status: normal Airway patency: baseline Mental status: baseline Post-Op hydration status: normal Vital Signs: Last Vital Signs Temp 38.6 C H 11/01/22 14:18 Pulse 116 H 11/01/22 16:00 Resp 0 L 11/01/22 16:00 BP 121/65 11/01/22 16:00 Pulse Ox 97 11/01/22 16:00 O2 Del Method Nasal Cannula 11/01/22 16:00 O2 Flow Rate 2 11/01/22 16:00 Pain Score (VAS): 10/10 I/O: Intake & Output 11/01/22 11/01/22 11/01/22 07:59 15:59 23:59 Intake Total 1050 1330 Output Total 1210 1575 Balance -160 1330 -1575 Laboratory Tests 11/01/22 04:17 11/01/22 04:17 10/31/22 10/31/22 10/31/22 17:38 17:38 23:45 WBC 27.9 H RBC 3.46 L Hgb 9.8 L Hct 28.9 L MCV 83.5 MCH 28.3 D MCHC 33.9 RDW 14.6 H Plt Count 302 MPV 9.0 Immature Gran % (Auto) Neut % (Auto) Lymph % (Auto) Ada % (Auto) Eos % (Auto) Baso % (Auto) Lymph # (Auto) Ada # (Auto) Eos # (Auto) Baso # (Auto) Abs Immat Gran (auto) Absolute Neuts (auto) Absolute Nucleated RBC Total Counted Neutrophils % (Manual) Band Neutrophils % Lymphocytes % (Manual) Monocytes % (Manual) Metamyelocytes % Nucleated RBC % Abs Neuts (Manual) Abs Lymphs (Manual) Abs Monocytes (Manual) Blast Cells Smudge Cells Platelet Estimate Hypochromasia Poikilocytosis Anisocytosis Microcytosis Macrocytosis Target Cells Tear Drop Cells [place] Cells Crenated Cell Schistocytes Sodium 139 Potassium 3.1 L Chloride 109 H Carbon Dioxide 19 L Anion Gap 11 BUN 23 H Creatinine 0.70 Estim Creat Clear Calc 138 Estimated GFR > 60 Glucose 91 Calcium 7.6 L Magnesium Total Bilirubin AST ALT Alkaline Phosphatase Total Protein Albumin Vancomycin Trough 11.5 10/31/22 11/01/22 11/01/22 23:45 04:17 04:17 WBC 22.9 H RBC 2.93 L Hgb 8.2 L Hct 24.8 L MCV 84.6 MCH 28.0 MCHC 33.1 RDW 14.8 H Plt Count 259 MPV 9.3 Immature Gran % (Auto) Not Reportable Neut % (Auto) Not Reportable Lymph % (Auto) Not Reportable Ada % (Auto) Not Reportable Eos % (Auto) Not Reportable Baso % (Auto) Not Reportable Lymph # (Auto) Not Reportable Ada # (Auto) Not Reportable Eos # (Auto) Not Reportable Baso # (Auto) Not Reportable Abs Immat Gran (auto) Not Reportable Absolute Neuts (auto) Not Reportable Absolute Nucleated RBC Not Reportable Total Counted 100 Neutrophils % (Manual) 71 Band Neutrophils % 18 H Lymphocytes % (Manual) 7.0 L Monocytes % (Manual) 2 L Metamyelocytes % 1 Nucleated RBC % Not Reportable Abs Neuts (Manual) 20.38 H Abs Lymphs (Manual) 1.60 Abs Monocytes (Manual) 0.45 Blast Cells 1 Smudge Cells Present Platelet Estimate Adequate Hypochromasia 2+ Poikilocytosis 2+ Anisocytosis 2+ Microcytosis 2+ Macrocytosis 2+ Target Cells 1+ Tear Drop Cells 1+ Josiah Cells 2+ Crenated Cell 2+ Schistocytes Rare Sodium 137 Potassium Pending 4.6 Chloride 110 H Carbon Dioxide 19 L Anion Gap 8 BUN 19 H Creatinine 0.60 L Estim Creat Clear Calc 159 Estimated GFR > 60 Glucose 92 Calcium 7.2 L Magnesium 2.1 Total Bilirubin 0.5 AST 18 ALT 11 Alkaline Phosphatase 82 Total Protein 5.0 L Albumin 1.9 L Vancomycin Trough Microbiology 10/30/22 19:32 Abscess Anaerobic Culture - Preliminary 10/30/22 19:32 Abscess Aerobic Culture - Preliminary Streptococcus anginosus 10/30/22 10:47 Abscess Wound Culture - Preliminary Escherichia Coli Post-procedural complaints: none Patient Feedback: Patient satisfied with anesthetic care.
--- NOTE | 2022-11-01 17:02 | PC.NURSE ---
This patient, Anna Salguero, was transferred to [facility] on 11/01/22 at 1629. Personal belongings sent with patient. Report given to Iris ONTIVEROS. Appropriate documentation sent with patient.
[2022-11-01] MEDS: ONDANSETRON INJ 4 MG/2 ML VIAL IV PUSH (17:49)
[2022-11-02] VITALS (15 sets, daily range): BP systolic 125–156; BP diastolic 59–85; PULSE 102–116; RESP 20–22; TEMP 36.4–37.4; O2SAT 95–100
[2022-11-02] MEDS: HYDROmorphon 0.2MG/ML PCA(*CRX 6 MG/30 ML PCA.VIAL IV CONT ×2 (04:43→18:38)
[2022-11-02] MEDS: HYDROmorphone HCL INJ (*CRX) 1 MG/ML SYR IV PUSH ×2 (04:50→18:12)
[2022-11-02 04:59] LABS: Hematocrit 25.7 % (37.0-47.0); Hemoglobin 8.4 g/dL (12.0-15.0); Mean Corpuscular HGB Conc 32.7 g/dl (32-36); Mean Corpuscular Hemoglobin 27.9 pg (26-34); Mean Corpuscular Volume 85.4 fl (80-100); Mean Platelet Volume 9.1 fl (7.4-10.4); Platelet Count Result 223 k/mm3 (150-375); Red Blood Count 3.01 M/mm3 (4.2-5.4); Red Cell Distribution Width 15.2 % (11.5-14.5); White Blood Count 21.7 K/mm3 (4.5-10.0)
[2022-11-02 05:10] LABS: Alanine Aminotransferase 16 U/L (6-35); Alkaline Phosphatase 79 U/L (38-126); Anion Gap 5 mmol/L (8-16); Aspartate Amino Transferase 31 U/L (14-36); Bilirubin,Total 0.7 mg/dL (0.2-1.3); Blood Urea Nitrogen 14 mg/dL (7-17); Calcium 7.2 mg/dL (8.4-10.2); Carbon Dioxide 24 mmol/L (22-30); Chloride 106 mmol/L (98-107); Estimated CRCL calculation 159 ml/min; Estimated Glomerular Filt Rate > 60; Glucose 72 mg/dL (65-110); Potassium 4.8 mmol/L (3.4-5.0); Sodium 135 mmol/L (137-145)
[2022-11-02] MEDS: CLINDAMYCIN 900 MG/D5W 50 ML 900 MG/50 ML PIGGYBACK 50 MG IVPB ×3 (05:36→22:03)
[2022-11-02] MEDS: CENTRAL LINE FLUSH 10 ML IV PUSH ×3 (05:49→22:03)
[2022-11-02] MEDS: LEVOTHYROXINE SODIUM 125 MCG TABLET PO (06:26)
[2022-11-02] MEDS: ENOXAPARIN 40 MG/0.4 ML SYRINGE SUB-Q (08:38)
[2022-11-02] MEDS: PANTOPRAZOLE 40 MG TABLET PO (08:38)
[2022-11-02] MEDS: busPIRone HCL 10 MG TABLET PO ×2 (08:38→22:03)
[2022-11-02] MEDS: BETAMETHASONE/CLOTRIMAZOLE CR 15 GM TUBE 1 APPLIC TOPICAL ×2 (08:51→22:04)
--- NOTE | 2022-11-02 10:28 | PM.PNGS ---
Progress Note: A&P Assessment and Plan (1) Necrotizing soft tissue infection: Code(s): M79.89 - Other specified soft tissue disorders Status: Acute Assessment and Plan: E coli and Streptococcus culture results. Continue broad spectrum antibiotics to cover multi-organism infection. WBC slowly improving. Plan for wound exploration and wound vac change, possible debridement tomorrow. MiraLax started today to prevent constipation due to immobility and narcotics Will order PT/OT eval for tomorrow. 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 Passing flatus, no BM. Fever yesterday afternoon, but she did not feel feverish. No other new complaints. Exam GI: Other: Wound vac in place and functioning. Serosanguinous output. Minimal surrounding erythema. Objective Data Vital Signs Vital Signs: Vital Signs - 24 hr 11/01/22 11:00 11/01/22 12:06 11/01/22 12:06 Temperature Pulse Rate 119 H Respiratory Rate 24 H 24 H Blood Pressure 134/81 Pulse Oximetry 99 100 100 Oxygen Delivery Oxygen Flow Rate 11/01/22 12:00 11/01/22 12:00 11/01/22 13:00 Temperature Pulse Rate 121 H 120 H Respiratory Rate Blood Pressure 134/71 114/61 Pulse Oximetry 97 98 97 Oxygen Delivery Nasal Cannula Oxygen Flow Rate 2 11/01/22 14:00 11/01/22 14:00 11/01/22 12:00 Temperature Pulse Rate 122 H 117 H 112 H Respiratory Rate Blood Pressure 114/61 Pulse Oximetry 98 Oxygen Delivery Oxygen Flow Rate 11/01/22 12:00 11/01/22 14:18 11/01/22 15:00 Temperature 38.6 C H Pulse Rate 117 H Respiratory Rate Blood Pressure Pulse Oximetry 97 99 Oxygen Delivery Nasal Cannula Oxygen Flow Rate 2 11/01/22 15:01 11/01/22 16:00 11/01/22 16:00 Temperature Pulse Rate 116 H 115 H Respiratory Rate Blood Pressure 110/65 121/65 Pulse Oximetry 99 100 97 Oxygen Delivery Nasal Cannula Oxygen Flow Rate 2 11/01/22 16:00 11/01/22 16:55 11/01/22 18:00 Temperature Pulse Rate 116 H 114 H Respiratory Rate Blood Pressure Pulse Oximetry 100 Oxygen Delivery Nasal Cannula Oxygen Flow Rate 2 11/01/22 18:00 11/01/22 20:00 11/01/22 20:00 Temperature 37.7 C H 36.6 C Pulse Rate 118 H 120 H 118 H Respiratory Rate 26 H 20 Blood Pressure 126/69 136/60 Pulse Oximetry 92 98 Oxygen Delivery Oxygen Flow Rate 11/01/22 20:00 11/01/22 22:00 11/01/22 23:49 Temperature 36.2 C L Pulse Rate 114 H 116 H Respiratory Rate 20 Blood Pressure 124/69 Pulse Oximetry 98 98 Oxygen Delivery Nasal Cannula Oxygen Flow Rate 2 11/02/22 00:00 11/02/22 00:00 11/02/22 02:00 Temperature Pulse Rate 112 H 109 H Respiratory Rate Blood Pressure Pulse Oximetry 100 Oxygen Delivery Nasal Cannula Oxygen Flow Rate 2 11/02/22 04:00 11/02/22 04:00 11/02/22 04:00 Temperature 36.6 C Pulse Rate 108 H 105 H Respiratory Rate 20 Blood Pressure 156/59 H Pulse Oximetry 98 98 Oxygen Delivery Room Air Oxygen Flow Rate 11/02/22 04:43 11/02/22 06:00 11/02/22 08:38 Temperature 36.5 C Pulse Rate 108 H 110 H Respiratory Rate 22 H 20 Blood Pressure 138/74 Pulse Oximetry 98 95 Oxygen Delivery Oxygen Flow Rate 11/02/22 08:00 11/02/22 08:00 Temperature Pulse Rate 113 H Respiratory Rate Blood Pressure Pulse Oximetry Oxygen Delivery Room Air Oxygen Flow Rate Intake/Output Intake/Output: Intake & Output 10/30/22 10/31/22 11/01/22 11/02/22 23:59 23:59 23:59 23:59 Intake Total 5100 6600 3330 1320 Output Total 2850 3700 3085 1200 Balance 2250 2900 245 120 Meds/Results Medications: Active Medications Generic Name Dose Route Start Last Admin Trade Name Freq PRN Reason Stop Dose Admin Hydrocodone Bitart/Acetaminophen 1 tab 10/03
--- NOTE | 2022-11-02 10:56 | PCPTNOTE ---
Patient has order for PT/OT eval, but patient still has bed rest orders and MD note states to start tomorrow 11/03/22
--- NOTE | 2022-11-02 11:17 | PCOTNOTE ---
Patient has order for PT/OT evaluations, but patient still has bed rest orders and MD note states to start tomorrow 11/03/22.
[2022-11-02] MEDS: polyethylene glycoL 3350 17 GM POWD.PACK PO (11:37)
[2022-11-02] MEDS: LACTATED RINGERS 1,000 ML 50 ML IV CONT (12:34)
[2022-11-02 13:25] LABS: Vancomycin Trough 15.4 ug/mL (10.0-20.0)
[2022-11-03] VITALS (19 sets, daily range): BP systolic 132–145; BP diastolic 66–76; PULSE 90–115; RESP 17–32; TEMP 36.8–37.3; O2SAT 93–100
[2022-11-03] MEDS: HYDROmorphone HCL INJ (*CRX) 1 MG/ML SYR IV PUSH ×5 (02:53→21:02)
[2022-11-03] MEDS: CENTRAL LINE FLUSH 10 ML IV PUSH ×3 (06:00→22:09)
[2022-11-03] MEDS: LEVOTHYROXINE SODIUM 125 MCG TABLET PO (07:21)
[2022-11-03] MEDS: CLINDAMYCIN 900 MG/D5W 50 ML 900 MG/50 ML PIGGYBACK 50 MG IVPB ×3 (07:26→22:09)
--- NOTE | 2022-11-03 08:25 | PCPTNOTE ---
Called Dr. Norwood office to get bedrest orders removed. Messaged left. Will see pt once bedrest orders are removed.
[2022-11-03] MEDS: BETAMETHASONE/CLOTRIMAZOLE CR 15 GM TUBE 1 APPLIC TOPICAL ×2 (08:45→21:02)
[2022-11-03] MEDS: LACTATED RINGERS 1,000 ML 50 ML IV CONT (09:05)
[2022-11-03] MEDS: HYDROmorphone HCL INJ (*CRX) 1 MG/ML SYR 0.5 MG IV PUSH ×2 (09:06→11:23)
[2022-11-03] MEDS: LACTATED RINGERS 1,000 ML 30 ML IV CONT (09:15)
[2022-11-03 10:02] LABS: Hematocrit 29.3 % (37.0-47.0); Hemoglobin 9.5 g/dL (12.0-15.0); Mean Corpuscular HGB Conc 32.4 g/dl (32-36); Mean Corpuscular Hemoglobin 28.3 pg (26-34); Mean Corpuscular Volume 87.2 fl (80-100); Mean Platelet Volume 9.5 fl (7.4-10.4); Platelet Count Result 203 k/mm3 (150-375); Red Blood Count 3.36 M/mm3 (4.2-5.4); Red Cell Distribution Width 15.1 % (11.5-14.5); White Blood Count 34.9 K/mm3 (4.5-10.0)
--- NOTE | 2022-11-03 10:14 | PM.OBPNVD ---
OB - PN: Subj Subjective Date/time seen: 11/03/22 10:14 Interval history: feeling better more anxious today- it is all hitting me Patient comments: pain well controlled Upper Tract baby status: doing well OB - PN: Obj Data Labs 11/03/22 09:17 11/02/22 04:44 Labs: Laboratory Results - last 24 hr 11/02/22 11/03/22 13:04 09:17 WBC 34.9 H RBC 3.36 L Hgb 9.5 L Hct 29.3 L MCV 87.2 MCH 28.3 MCHC 32.4 RDW 15.1 H Plt Count 203 MPV 9.5 Vancomycin Trough 15.4 Imaging Radiologist's impression: Impressions Chest X-Ray 10/31/22 21:29 IMPRESSION: 1. Left upper showed a PICC ending with its tip in the distal superior vena cava. 2. Diffuse lung disease with slight improvement in the upper lung zones, consistent with atelectasis versus pneumonia. OB - PN A/P Assessment and Plan (1) Sepsis: Code(s): A41.9 - Sepsis, unspecified organism Status: Acute Assessment and Plan: Continue antibiotics. Wound cultures sensitive to current regimen. Blood cultures negative. (2) Necrotizing soft tissue infection: Code(s): M79.89 - Other specified soft tissue disorders Status: Acute Assessment and Plan: Going for wound vac change and possible debridement per Dr. Mata this am. Time Spent With Patient Time: Total time spent is greater than 50% in coordination of care (as documented) at patient's floor/unit and/or counseling patient: Exam Const: General: no acute distress, alert, awake and anxious (tearful) Orientation/consciousness: patient oriented x3
--- NOTE | 2022-11-03 10:23 | PCOTNOTE ---
Pt. currently has bedrest orders and is in surgery. PT has called regarding activity orders. Pt. to be seen when available and appropriate. Nursing aware.
[2022-11-03] MEDS: ENOXAPARIN 40 MG/0.4 ML SYRINGE SUB-Q (11:24)
[2022-11-03] MEDS: hydrOXYzine pamoate 25 MG CAPSULE PO (11:24)
[2022-11-03] MEDS: busPIRone HCL 10 MG TABLET PO ×2 (11:25→21:02)
[2022-11-03] MEDS: PANTOPRAZOLE 40 MG TABLET PO (11:25)
[2022-11-03 12:36] LABS: Hemoglobin 9.2 g/dL (12.0-15.0); Mean Corpuscular HGB Conc 31.7 g/dl (32-36); Mean Corpuscular Hemoglobin 27.5 pg (26-34); Mean Corpuscular Volume 86.8 fl (80-100); Mean Platelet Volume 9.6 fl (7.4-10.4); Platelet Count Result 195 k/mm3 (150-375); Red Blood Count 3.34 M/mm3 (4.2-5.4); Red Cell Distribution Width 14.6 % (11.5-14.5); White Blood Count 34.7 K/mm3 (4.5-10.0)
--- NOTE | 2022-11-03 13:56 | WPDHPUPDATE1 ---
History and Physical Update Update Date/Time: 11/03/22 13:56 History and Physical has been reviewed, including an updated exam of the patient. There are NO changes in the patient's condition. Risks, benefits, and alternatives have been discussed and questions answered. Patient agrees to proceed with procedure.
[2022-11-03] MEDS: SCOPOLAMINE 1.5 MG PATCH TRANSDERM (14:00)
--- NOTE | 2022-11-03 14:01 | SUR.PREOP ---
1030: SURGERY DELAY UNTIL 1500 OR LATER. PT TAKEN BACK TO IMU TO WAIT IN ROOM R/T EXTENDED DELAY. RAMA KRAUS MADE AWARE. 1330: PT BROUGHT BACK TO [facility] HOLDING FOR SURGERY. NO CHANGES SINCE INITIAL TRANSPORT TO [facility] TODAY.
--- NOTE | 2022-11-03 14:07 | WPDANESEPPF ---
Anes - Initial Pre Proc Eval Procedure: Operation Date: 10/30/22 19:30 Proposed Procedures p Incision and Drainage of Abdominal Wall with Debridement of Necrotizing Soft Tissue - Lawrence Norwood DO Operation Date: 10/31/22 14:30 Proposed Procedures p Abdominal Wound Washout, Possible Debridement - Lawrence Norwood DO Operation Date: 11/03/22 10:30 Proposed Procedures p Abdominal Wound Exploration and Debridement, Wound Vac Change - Lawrence Norwood DO Date/Time: 11/03/22 14:07 Surgeon: Elsy Shahid MD Pre Op Diagnosis: Post-operative Wound Infection Patient Data Age: 22 Gender: F Height: 1.57 m Weight: 128.3 kg Last Vital Signs Temp 37.0 C 11/03/22 08:38 Pulse 113 H 11/03/22 08:38 Resp 20 11/03/22 08:38 BP 145/76 H 11/03/22 08:38 Pulse Ox 94 11/03/22 08:38 O2 Del Method Room Air 11/03/22 12:00 O2 Flow Rate 2 11/02/22 00:00 Allergies Allergy/AdvReac Type Severity Reaction Status Date / Time Sulfa (Sulfonamide Allergy Intermediate Rash Verified 11/03/22 09:45 Antibiotics) Home Medications Medication Instructions Recorded Confirmed Type omeprazole 20 mg capsule,delayed 20 mg PO DAILY 09/01/22 10/30/22 History release vit no.133-ferrous 1 tablet PO DAILY 09/01/22 10/30/22 History fumarate 28 mg-folic acid 800 mcg tablet () acetaminophen 500 mg tablet 1,000 mg PO Q6H PRN Pain (Scale 09/30/22 10/30/22 History Score 1-3) buspirone 5 mg tablet 5 mg PO BID 09/30/22 10/30/22 History levothyroxine 125 mcg tablet 125 mcg PO DAILY 09/30/22 10/30/22 History dfqzoldklc-nirqtjximihgo-bvzhbpnn 1 cap PO PRN headache 10/07/22 10/30/22 History 50 mg-300 mg-40 mg capsule hydrocodone 5 mg-acetaminophen 325 1 tablet PO Q4H PRN pain #14 tabs 10/26/22 10/30/22 Rx mg tablet Laboratory Tests 11/03/22 11/03/22 11/03/22 09:17 11:45 11:52 WBC 34.9 K/mm3 H K/mm3 34.7 K/mm3 H K/mm3 (4.5-10.0) (4.5-10.0) RBC 3.36 M/mm3 L M/mm3 3.34 M/mm3 L M/mm3 (4.2-5.4) (4.2-5.4) Hgb 9.5 g/dL L g/dL 9.2 g/dL L g/dL (12.0-15.0) (12.0-15.0) Hct 29.3 % L % 29.0 % L % (37.0-47.0) (37.0-47.0) MCV 87.2 fl fl 86.8 fl fl (80-100) (80-100) MCH 28.3 pg pg 27.5 pg pg (26-34) (26-34) MCHC 32.4 g/dl g/dl 31.7 g/dl L g/dl (32-36) (32-36) RDW 15.1 % H % 14.6 % H % (11.5-14.5) (11.5-14.5) Plt Count 203 k/mm3 k/mm3 195 k/mm3 k/mm3 (150-375) (150-375) MPV 9.5 fl fl 9.6 fl fl (7.4-10.4) (7.4-10.4) Sodium Pending Potassium Pending Chloride Pending Carbon Dioxide Pending Anion Gap Pending BUN Pending Creatinine Pending Estim Creat Clear Calc Pending Estimated GFR Pending Glucose Pending Calcium Pending Magnesium Pending Total Bilirubin Pending AST Pending ALT Pending Alkaline Phosphatase Pending Total Protein Pending Albumin Pending Patient hx anesthesia problems: none Family hx anesthesia problems: none Results Review: All pre-operative results and documents have been reviewed as part of the pre-operative evaluation. [facility] Past Medical History Medical History (Updated 11/01/22 @ 09:06 by Obey Fuentes MD) Anxiety and depression GERD (gastroesophageal reflux disease) GERD (gastroesophageal reflux disease) Hypothyroid Morbid obesity PCOS (polycystic ovarian syndrome) Sepsis Surgical History Surgical History H/O left knee surgery History of strabismus surgery Family History Family History Father Hypertension Mother Hypertension Grandparent Alcoholism Social History Social History (Reviewed 11/01/22 @ 09:05 b
[2022-11-03 14:13] LABS: Alanine Aminotransferase 29 U/L (6-35); Alkaline Phosphatase 99 U/L (38-126); Anion Gap 4 mmol/L (8-16); Aspartate Amino Transferase 44 U/L (14-36); Bilirubin,Total 0.6 mg/dL (0.2-1.3); Blood Urea Nitrogen 11 mg/dL (7-17); Calcium 7.3 mg/dL (8.4-10.2); Carbon Dioxide 26 mmol/L (22-30); Chloride 104 mmol/L (98-107); Estimated CRCL calculation 159 ml/min; Estimated Glomerular Filt Rate > 60; Glucose 81 mg/dL (65-110); Potassium 3.2 mmol/L (3.4-5.0); Sodium 134 mmol/L (137-145)
[2022-11-03] MEDS: fentaNYL CITRATE INJ (*CRX) 100 MCG/2 ML VIAL 50 MCG IV PUSH (15:20)
--- NOTE | 2022-11-03 15:42 | W.PM.PROC2 ---
Procedure Note - Detailed Date of Procedure 11/03/22 Pre-op Diagnosis Necrotizing soft tissue infection of abdomen, sepsis Post-op Diagnosis Same Procedure Performed 1. Abdominal wound exploration with sharp excisional debridement of skin and subcutaneous adipose tissue measuring 10 cm x 5 cm 2. Placement of wound VAC Surgeon Lawrence Norwood DO Anesthesia General Indications This is a 22-year-old woman with a necrotizing soft tissue infection involving her abdomen. She has previously undergone 2 prior debridements in the OR. She has had a wound VAC on since 10/31/2022. She now was in need of repeat abdominal exploration possible debridement and wound VAC change. Findings The wound VAC was removed and the abdominal wound was carefully explored. Most of the surrounding subcutaneous tissue appeared healthy and viable. I did not identify any new areas of tunneling. There did appear to be some purulent drainage right at the suture line from the . The fascia appeared intact, but the suture line appeared slightly loose along the left anterior rectus sheath. There were a few rectus muscle fibers visible but no evidence of fascial dehiscence. There was 1 small corner of the skin and subcutaneous fat that appeared necrotic measuring about 10 cm x 5 cm that was excised. This was excised with electrocautery. The remaining tissue appeared healthy and viable. The wound was irrigated with sterile saline and a new wound VAC was placed with irrigation. Description of Procedure Procedure as well as risks, benefits, and alternatives were discussed with the patient. Written consent was obtained and placed in chart prior to procedure. Patient was brought back to surgical suite. She was placed supine on operating table. Time-out was done to confirm patient and procedure. She was then intubated by the anesthesia department. The wound VAC was removed along with all of the black foam. Her abdomen was prepped and draped in sterile fashion using Betadine prep. The abdominal wound was carefully inspected. The entire area was inspected for any further signs of necrotic tissue or any loculations. The lower midline did have 1 pocket of purulence fluid within subcutaneous space just superior to the fascial suture line. There did not appear to be any deep tunneling and the fascia appeared to be intact except for a small area of visible rectus muscle along the left rectus sheath. The wound was irrigated with sterile saline. There did appear to be some necrotic tissue within the subcutaneous space along the left lower part of the wound. The skin also appeared dusky in this region. The section of the skin and subcutaneous fat was excised with electrocautery. The remainder of the area appeared about 90-95% healthy and viable. After 1 final inspection was made and the area was irrigated with sterile saline. Decision was then made to replace the wound VAC. white foam was placed over the area of the suture line along the anterior rectus sheath fascia. The Veraflo black foam was then placed along the wound bed and the clear occlusive dressing was placed over top. A hole was then cut in the central portion of the dressing and the suction tubing was applied. This was then attached to the wound VAC system and the wound VAC was turned on to -125 mm Hg. The wound VAC appeared to have adequate function. The patient was then awakened from anesthesia, extubated, and transferred to recovery. Estimated Blood Loss 20 Urine Output 850 Complications No immediate complications Condition Stable Disposition Floor ([facility]) [facility] Billing Surgery - Charge Forward: Surgery Billing
[2022-11-03] MEDS: HYDROmorphon 0.2MG/ML PCA(*CRX 6 MG/30 ML PCA.VIAL IV CONT (21:43)
[2022-11-04] VITALS (12 sets, daily range): BP systolic 140–153; BP diastolic 65–78; PULSE 76–99; RESP 17–20; TEMP 36.1–36.4; O2SAT 96–100
[2022-11-04] MEDS: CENTRAL LINE FLUSH 10 ML IV PUSH ×2 (04:57→15:12)
[2022-11-04] MEDS: CLINDAMYCIN 900 MG/D5W 50 ML 900 MG/50 ML PIGGYBACK 50 MG IVPB ×2 (05:08→15:11)
[2022-11-04] MEDS: LEVOTHYROXINE SODIUM 125 MCG TABLET PO (05:08)
[2022-11-04 05:20] LABS: Hematocrit 25.8 % (37.0-47.0); Hemoglobin 8.1 g/dL (12.0-15.0); Mean Corpuscular HGB Conc 31.4 g/dl (32-36); Mean Corpuscular Hemoglobin 27.1 pg (26-34); Mean Corpuscular Volume 86.3 fl (80-100); Mean Platelet Volume 9.1 fl (7.4-10.4); Platelet Count Result 184 k/mm3 (150-375); Red Blood Count 2.99 M/mm3 (4.2-5.4); Red Cell Distribution Width 14.4 % (11.5-14.5); White Blood Count 39.8 K/mm3 (4.5-10.0)
[2022-11-04 05:33] LABS: Alanine Aminotransferase 44 U/L (6-35); Albumin Level 1.9 g/dL (3.5-5.1); Alkaline Phosphatase 95 U/L (38-126); Anion Gap 5 mmol/L (8-16); Aspartate Amino Transferase 58 U/L (14-36); Bilirubin,Total 0.4 mg/dL (0.2-1.3); Blood Urea Nitrogen 10 mg/dL (7-17); Calcium 6.9 mg/dL (8.4-10.2); Carbon Dioxide 26 mmol/L (22-30); Chloride 103 mmol/L (98-107); Estimated CRCL calculation 188 ml/min; Estimated Glomerular Filt Rate > 60; Glucose 94 mg/dL (65-110); Magnesium 1.9 mg/dL (1.6-2.3); Potassium 3.6 mmol/L (3.4-5.0); Sodium 134 mmol/L (137-145)
--- NOTE | 2022-11-04 07:54 | PM.OBPNVD ---
OB - PN: Subj Subjective Date/time seen: 11/04/22 07:54 Interval history: Feeling better this am. Anxiety is down. No vaginal burning, puritis. Vaginal bleeding stopped a few days ago. Patient comments: pain well controlled baby status: doing well OB - PN: Obj Data Labs 11/04/22 05:07 11/04/22 05:07 Labs: Laboratory Results - last 24 hr 11/03/22 11/03/22 11/03/22 09:17 11:52 12:35 WBC 34.9 H 34.7 H RBC 3.36 L 3.34 L Hgb 9.5 L 9.2 L Hct 29.3 L 29.0 L MCV 87.2 86.8 MCH 28.3 27.5 MCHC 32.4 31.7 L RDW 15.1 H 14.6 H Plt Count 203 195 MPV 9.5 9.6 Sodium 134 L Potassium 3.2 L Chloride 104 Carbon Dioxide 26 Anion Gap 4 L BUN 11 Creatinine 0.60 L Estim Creat Clear Calc 159 Estimated GFR > 60 Glucose 81 Calcium 7.3 L Magnesium 2.0 Total Bilirubin 0.6 AST 44 H ALT 29 Alkaline Phosphatase 99 Total Protein 5.0 L Albumin 2.0 L 11/04/22 11/04/22 05:07 05:07 WBC 39.8 H RBC 2.99 L Hgb 8.1 L Hct 25.8 L MCV 86.3 MCH 27.1 MCHC 31.4 L RDW 14.4 Plt Count 184 MPV 9.1 Sodium 134 L Potassium 3.6 Chloride 103 Carbon Dioxide 26 Anion Gap 5 L BUN 10 Creatinine 0.50 L Estim Creat Clear Calc 188 Estimated GFR > 60 Glucose 94 Calcium 6.9 L Magnesium 1.9 Total Bilirubin 0.4 AST 58 H ALT 44 H Alkaline Phosphatase 95 Total Protein 4.0 L Albumin 1.9 L Imaging Radiologist's impression: Impressions Chest X-Ray 10/31/22 21:29 IMPRESSION: 1. Left upper showed a PICC ending with its tip in the distal superior vena cava. 2. Diffuse lung disease with slight improvement in the upper lung zones, consistent with atelectasis versus pneumonia. OB - PN A/P Assessment and Plan (1) Necrotizing soft tissue infection: Code(s): M79.89 - Other specified soft tissue disorders Status: Acute Assessment and Plan: s/p 3 debridements with significant improvement at yesterdays surgery. WBC continue to increase. Consider repeat CT scan to look for intraabdominal signs of infection (2) Sepsis: Code(s): A41.9 - Sepsis, unspecified organism Status: Acute Assessment and Plan: continue current antibiotics Time Spent With Patient Time: Total time spent is greater than 50% in coordination of care (as documented) at patient's floor/unit and/or counseling patient: Exam : External Female Exam: normal external appearance (except edema) Speculum Exam - Vagina: other (Discharge on internal exam consistent with lochia-no foul odor, nontender)
[2022-11-04] MEDS: PANTOPRAZOLE 40 MG TABLET PO (10:11)
[2022-11-04] MEDS: polyethylene glycoL 3350 17 GM POWD.PACK PO (10:12)
[2022-11-04] MEDS: busPIRone HCL 10 MG TABLET PO (10:12)
[2022-11-04] MEDS: ENOXAPARIN 40 MG/0.4 ML SYRINGE SUB-Q (10:12)
[2022-11-04] MEDS: BETAMETHASONE/CLOTRIMAZOLE CR 15 GM TUBE 1 APPLIC TOPICAL (10:12)
[2022-11-04] MEDS: LACTATED RINGERS 1,000 ML 50 ML IV CONT (10:25)
--- NOTE | 2022-11-04 10:55 | PCPTNOTE ---
Attempted PT evaluation, per wound care pt is not able to get out of bed at this time due to wound vac. Pt refused also due to pain. Will contact Dr. Norwood office to verify
[2022-11-04] MEDS: HYDROmorphon 0.2MG/ML PCA(*CRX 6 MG/30 ML PCA.VIAL IV CONT (12:06)
--- NOTE | 2022-11-04 12:14 | WPDCN ---
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 Will follow for planned reconstruction in the future. Today I had a lengthy discussion about options, the process. Made sure I answered all her and her family's questions. Will follow. Plan Today's visit including review of records, discussion, and charting was 48 minutes. HPI Data of Consult Date/Time: 11/04/22 12:14 Requesting Physician: Elsy Shahid MD Primary Care Provider: Marianne Aguilar, MILK VENDOR Consult Narrative Reason for consult: Open wound abdomen. Narrative: This is a 22 year old woman who I was consulted by general surgery regarding an abdominal wound infection.? She had a section on 10/23/2022 and approximately 4 days post-operatively began experience fevers.? Was placed on Keflex; however, had increasing drainage for her wound with black skin on her abdomen just superior to the scar.? She was admitted and placed on broad spectrum IV antibiotics and taken to the operating room on 10/30/2022 for debridement of necrotizing infection of abdominal wall and repair of fascial dehiscence of wound.? Returned to OR for additional debridement on 10/31/2022.? On 11/03/2022 returned to the OR for additional debridement and placement of VAC with anticipated return to OR on 11/05/2022 for VAC evaluation / VAC changing. WBC was decreased to 21.7 now increased to 39.8. Review of Systems Review of Systems: All systems reviewed & are unremarkable except as noted in HPI and below PMFSH Past Medical History Medical History (Updated 11/01/22 @ 09:06 by Obey Fuentes MD) Anxiety and depression GERD (gastroesophageal reflux disease) GERD (gastroesophageal reflux disease) Hypothyroid Morbid obesity PCOS (polycystic ovarian syndrome) Sepsis Surgical History Surgical History H/O left knee surgery History of strabismus surgery Family History Family History Father Hypertension Mother Hypertension Grandparent Alcoholism Social History Social History Smoking status: Never smoker Alcohol intake: current Drinks per week: 1 Substance use: never Lack of Transportation: No Lack of Food: Never True Current Housing: I Have Housing Concerned About Future Housing: No Difficulty Paying Gas/Electric Bills: No Difficulty Paying for Meds: No Currently Unemployed: No Education: Associate Degree Difficulty w/ Childcare or Family Care: No Spiritual care concerns: No Meds Home Medications and Allergies Home Medications Medication Instructions Recorded Confirmed Type omeprazole 20 mg capsule,delayed 20 mg PO DAILY 09/01/22 10/30/22 History release vit no.133-ferrous 1 tablet PO DAILY 09/01/22 10/30/22 History fumarate 28 mg-folic acid 800 mcg tablet () acetaminophen 500 mg tablet 1,000 mg PO Q6H PRN Pain (Scale 09/30/22 10/30/22 History Score 1-3) buspirone 5 mg tablet 5 mg PO BID 09/30/22 10/30/22 History levothyroxine 125 mcg tablet 125 mcg PO DAILY 09/30/22 10/30/22 History lshcinojkr-vwoxccqjlbssk-mwiaqwmn 1 cap PO PRN headache 10/07/22 10/30/22 History 50 mg-300 mg-40 mg capsule hydrocodone 5 mg-acetaminophen 325 1 tablet PO Q4H PRN pain #14 tabs 10/26/22 10/30/22 Rx mg tablet Allergies Allergy/AdvReac Type Severity Reaction Status Date / Time Sulfa (Sulfonamide Allergy Intermediate Rash Verified 11/03/22 09:45 Antibiotics) Vital Signs Vital Signs - 24 hr 11/03/22 15:14 11/03/22 15:30 11/03/22 15:45 Temperature 37.1 C Pulse Rate 106 H 101 H 97 Respiratory Rate 32 H 25 H 24 H Blood Pressure
--- NOTE | 2022-11-04 12:58 | PM.OBPNVD ---
OB - PN: Subj Subjective Date/time seen: 11/04/22 12:58 Interval history: OB - PN: Obj Data Labs 11/04/22 05:07 11/04/22 05:07 Labs: Laboratory Results - last 24 hr 11/03/22 11/04/22 11/04/22 12:35 05:07 05:07 WBC 39.8 H RBC 2.99 L Hgb 8.1 L Hct 25.8 L MCV 86.3 MCH 27.1 MCHC 31.4 L RDW 14.4 Plt Count 184 MPV 9.1 Sodium 134 L 134 L Potassium 3.2 L 3.6 Chloride 104 103 Carbon Dioxide 26 26 Anion Gap 4 L 5 L BUN 11 10 Creatinine 0.60 L 0.50 L Estim Creat Clear Calc 159 188 Estimated GFR > 60 > 60 Glucose 81 94 Calcium 7.3 L 6.9 L Magnesium 2.0 1.9 Total Bilirubin 0.6 0.4 AST 44 H 58 H ALT 29 44 H Alkaline Phosphatase 99 95 Total Protein 5.0 L 4.0 L Albumin 2.0 L 1.9 L Imaging Radiologist's impression: Impressions Abdomen/Pelvis CT 11/04/22 09:05 IMPRESSION: 1. Right lower lobe pneumonia. 2. Small pleural effusions. 3. Endometritis with fluid and gas tracking from the lower uterine segment superiorly in the retroperitoneum. 4. Small volume of ascites. 5. Widespread edema and inflammation of the body wall with large area of resection of anterior subcutaneous fat. OB - PN A/P Assessment and Plan (1) Sepsis: Code(s): A41.9 - Sepsis, unspecified organism Status: Acute (2) Necrotizing soft tissue infection: Code(s): M79.89 - Other specified soft tissue disorders Status: Acute Assessment and Plan: CT scan reviewed with Dr. Mata and with patient (and her aunt). Discussed with more complications and possible need for hysterectomy, recommend transfer to tertiary care center. Case discussed with Dr. Nazario Martell, ASSOCIATE DIRECTOR OF NURSING-ONC at [facility] and he is willing to accept patient. [facility] transfer call center notified and will call nursing staff on IMU floor when bed ready and to arrange transport with staffing. Time Spent With Patient Time: Total time spent is greater than 50% in coordination of care (as documented) at patient's floor/unit and/or counseling patient:
--- NOTE | 2022-11-04 13:02 | PM.DS ---
DS: Admitting Diagnosis Discharge Date 11/04/22 Admitting Diagnosis Post op csection preeclampsia-delivered Sepsis necrotizing subcutaneous infection DS: Discharge Diagnosis Discharge Diagnosis (1) Sepsis: Code(s): A41.9 - Sepsis, unspecified organism Status: Acute (2) Necrotizing soft tissue infection: Code(s): M79.89 - Other specified soft tissue disorders Status: Acute DS: Summary Hospital Course Reason for hospitalization: post op infection with necrotizing subcutaneous infection and sepsis Hospital Course: The patient was admitted after being seen in the office and sent to the emergency room for necrotic superficial tissue and infection of the subcutaneous tissue. The patient underwent a section on 10/23 for failure to progress after protracted labor. Patient did have 1 temp during labor consistent with chorioamnionitis and was given gentamicin and ampicillin. The patient shortly thereafter went for delivery. Patient did well postoperatively and had no further fevers so antibiotics were discontinued. The patient was seen at [facility] for her postop visit 10/27 where her pannus had a very slight pink discoloration and an otherwise normal exam. Patient was given Keflex 500mg 3 times daily for 7 days. The patient called [id number] later with complaint of the pannus having a deeper red color. Biaxin was added. The patient was called the following morning to update and she noted a hemorrhagic area on her abdomen that was now open and draining. Patient was brought back to the office and was noted to have a necrotizing skin infection and with foul odor. She was sent to the emergency room with a request for a surgical consult. Dr. Mata evaluated the patient and decision was made to proceed with debridement in the operating room. Please see the operative note for the extensive debridement done on 10/30, 10/31, and for 11/03. The wound VAC was placed on 10/31 and replaced on 11/03. since arriving at the emergency room the patient was started on clindamycin, Imipenem, and vancomycin. The patient's white count initially was trending down but now has elevated. Given the improvement of the wound on 11/03 yet continuing to have an significantly elevated white count a CT scan was ordered this morning. CT scan reveals an area in the right upper quadrant suspicious for a spread of her subcutaneous infection. CT scan also reveals gas and fluid in the uterine cavity suspicious for infection. Given the new findings on CT scan, it was discussed with that a tertiary care center transfer may now be in order. He was in agreement. Discussions with the patient and her aunt and she was also in agreement with the plan. The case was discussed with Dr. Nazario Martell, gynecological oncologist at [facility], and he has agreed to accept the patient in transfer. [facility] transfer call center was notified and they will arrange transfer with the IMU floor staff. Status at Discharge Functional status at discharge: bed bound Overall status at discharge: patient is not back to baseline Time Spent with Patient Time attestation: Total time spent providing and/or coordinating discharge services: Time spent: Less than 30 minutes DS: Data Data Completed and Pending Completed studies during hospitalization: Pending at discharge 10/30/22 19:52 Surgical [PTH] Routine Labs on day of discharge: Labs from last 24 hours 11/04/22 11/04/22 11/03/22 05:07 05:07 12:35 WBC 39.8 H RBC 2.99 L Hgb 8.1 L Hct 25.8 L MCV 86.3 MCH 27.1 MCHC 31.4 L RDW 14.4 Plt Count 184 MPV 9.1 Sodium 134 L 134 L Potassium 3.6 3.2 L Chloride 103 104 Carbon Dioxide 26 26 Anion Gap 5 L 4 L BUN 10 11 Creatinine 0.50 L 0.60 L Estim Creat Clear Calc 188 159 Estimated GFR > 60 > 60 Glucose 94 81 Calcium 6.9 L 7.3 L
--- NOTE | 2022-11-04 13:11 | PM.PNGS ---
Progress Note: A&P Assessment and Plan (1) Necrotizing soft tissue infection: Code(s): M79.89 - Other specified soft tissue disorders Status: Acute Assessment and Plan: WBC trending up to 39k today. Repeat CT abdomen/pelvis w contrast ordered this morning. Reviewed the CT with the Radiologist. There is a significant amount of inflammation up along the right body wall away from the area that was previously debrided. This is concerning for a new additional area of infection and possible abscess. CT also showed RLL pneumonia. Discussed CT and plan with Dr. Norwood who has also spoke with RIVET PASSER. Plan is to transfer patient to a tertiary care facility for further management. She has been accepted to [facility]. In the meantime, I also discussed the case with our ID pharmacist who recommended adding doxycycline to cover for atypical pathogens in case this is hospital-acquired pneumonia rather than CAP. Continue broad-spectrum IV antibiotics and irrigating wound vac for now. Hopefully, the patient will have bed placement and transfer this afternoon, but if she does not transfer tonight, then she will need to be taken to the OR for wound exploration, possible debridement, and wound vac change tomorrow. (2) Sepsis: Code(s): A41.9 - Sepsis, unspecified organism Status: Acute Plan I have discussed the patient's case and plan of care with Dr. Norwood. Subjective Subjective Date/Time Seen: 11/04/22 11:11 Patient reports: still having pain, tolerating a regular diet (in small amounts), flatus, no bowel movement (since ) and afebrile Interval history: Patient seen this morning with the wound care nurse. Nursing was having issues with her irrigating wound vac and the wound care nurse was exchanging the wound vac device to try and troubleshoot the problem. The new wound vac is working while I am in the room now. The patient is having some more pain at this time while they are working with the wound vac. She otherwise has no new complaints overnight. Patient reports a productive cough. Denies chest pain or shortness of breath and O2 sats are stable on room air. Review of Systems Constitutional: Constitutional: Reports no additional constitutional complaints and Denies fever(s) Respiratory: Respiratory: Reports as per HPI, Reports no additional respiratory complaints and Reports cough Gastrointestinal: Gastrointestinal: Reports no additional gastrointestinal complaints, Reports abdominal pain (lower abdomen at the location of the wound vac), Reports constipation (last BM but passing lots of flatus today), Denies nausea (was having some nausea but this has improved) and Denies vomiting Exam Const: General: no acute distress and awake Nutritional Appearance: obese Orientation/consciousness: patient oriented x3 GI: Inspection: obesity GI Palp: Yes Tenderness to palpation present (GI) (across the lower abdomen near wound) Auscultation: normal bowel sounds Other: Irrigating wound vac in place with dressing dry and intact, serosanguineous drainage in canister Objective Data Vital Signs Vital Signs: Vital Signs - 24 hr 11/03/22 15:14 11/03/22 15:30 11/03/22 15:45 Temperature 98.7 F Pulse Rate 106 H 101 H 97 Respiratory Rate 32 H 25 H 24 H Blood Pressure 135/69 141/74 H 142/74 H Pulse Oximetry 100 100 100 Oxygen Delivery Simple Face Mask Simple Face Mask Simple Face Mask Oxygen Flow Rate 8 8 8 11/03/22 16:00 11/03/22 16:16 11/03/22 14:00 Temperature Pulse Rate 96 101 H 106 H Respiratory Rate 21 H 17 Blood Pressure 132/75 134/66 Pulse Oximetry 100 93 Oxygen Delivery Simple Face Mask Room Air Oxygen Flow Rate 8 11/03/22 18:00 11/03/22 20:00 11/03/22 20:34 Temperature 98.2 F Pulse Rate 99 104 H Respiratory Rate 20 Blood Pressure 138/76 Pulse Oximetry 98 98 Oxygen Delivery Room Air Oxygen Flow Rate 11/03/22 21:43 11/03/22 21:43 11/03/22 20:00 Temperatu
--- NOTE | 2022-11-04 13:21 | WPDANESPN ---
Anes - Prog Note Post-Op Date/Time: 11/04/22 13:21 Cardiovascular status: normal Respiratory status: normal Airway patency: baseline Mental status: baseline Post-Op hydration status: normal Vital Signs: Last Vital Signs Temp 36.4 C L 11/04/22 12:52 Pulse 87 11/04/22 12:52 Resp 17 11/04/22 12:52 BP 140/67 11/04/22 12:52 Pulse Ox 99 11/04/22 12:52 O2 Del Method Room Air 11/04/22 12:00 O2 Flow Rate 8 11/03/22 16:00 Pain Score (VAS): 3 I/O: Intake & Output 11/03/22 11/04/22 11/04/22 23:59 07:59 15:59 Intake Total 1580 1000 1030 Output Total 880 2225 1000 Balance 700 -1225 30 Laboratory Tests 11/04/22 05:07 11/04/22 05:07 11/03/22 11/04/22 11/04/22 12:35 05:07 05:07 WBC 39.8 H RBC 2.99 L Hgb 8.1 L Hct 25.8 L MCV 86.3 MCH 27.1 MCHC 31.4 L RDW 14.4 Plt Count 184 MPV 9.1 Sodium 134 L 134 L Potassium 3.2 L 3.6 Chloride 104 103 Carbon Dioxide 26 26 Anion Gap 4 L 5 L BUN 11 10 Creatinine 0.60 L 0.50 L Estim Creat Clear Calc 159 188 Estimated GFR > 60 > 60 Glucose 81 94 Calcium 7.3 L 6.9 L Magnesium 2.0 1.9 Total Bilirubin 0.6 0.4 AST 44 H 58 H ALT 29 44 H Alkaline Phosphatase 99 95 Total Protein 5.0 L 4.0 L Albumin 2.0 L 1.9 L Microbiology 10/30/22 19:32 Abscess Anaerobic Culture - Preliminary 10/30/22 19:32 Abscess Aerobic Culture - Final Streptococcus anginosus Post-procedural complaints: none Patient Feedback: Patient satisfied with anesthetic care.
[2022-11-04] MEDS: DOXYCYCLINE 100 MG/NS 100 ML 100 MG/100 ML BAG IVPB (15:11)
[2022-11-04] MEDS: HYDROmorphone HCL INJ (*CRX) 1 MG/ML SYR IV PUSH (16:20)
--- NOTE | 2022-11-04 16:39 | PCOTNOTE ---
Per PT and nursing, wound care stated, pt. is not able to get out of bed at this time due to wound vac. Will contact Dr. Norwood office to verify.
--- NOTE | 2022-11-04 17:02 | PC.NURSE ---
Pt transferred to [facility] room 5210 via [facility]. Wound vac clamped at 1700. RAMA Bernal notified at 1703 of wound vac being clamped at 1700. Family at bedside
== END 2022-11-04 17:00 | disposition short-term general hospital (02) | DRG 769 ==
LOC: ANHED 10:31 → ANHIMU 13:28 → ANHICU 10-31 16:03 → ANHIMU 11-01 16:14
PROVIDERS: Internal Medicine; Surgery; Admitting Provider Obstetrics & Gynecology Gynecology; Emergency Provider Emergency Medicine; PCP Nurse Practitioner Family; Visit Provider Obstetrics & Gynecology Gynecology
PROC: 0JB80ZZ Excision of Abdomen Subcutaneous Tissue and Fascia, Open Approach (ICD-10-PCS; principal; 2022-10-30 19:30)
DX: O86.03 Infection of obstetric surgical wound, organ and space site (principal); O86.04 Sepsis following an obstetrical procedure; J18.9 Pneumonia, unspecified organism; I96 Gangrene, not elsewhere classified; L02.211 Cutaneous abscess of abdominal wall; O90.0 Disruption of cesarean delivery wound; F41.9 Anxiety disorder, unspecified; K21.9 Gastro-esophageal reflux disease without esophagitis; E03.9 Hypothyroidism, unspecified; Z88.2 Allergy status to sulfonamides
CPT/HCPCS: 36415; 36430; 36569; 71045; 74177; 80048; 80053; 80202; 83605; 83690; 83735; 84132; 85025; 85027; 85652; 86140; 86850; 86900; 86901; 86923; 87040; 87070; 87075; 87077; 87186; 87205; 88304; 93005; 96361; 96365; 96367; 96375; 96376; 99284; A9270; C1751; J0131; J0171; J0330; J0743; J1100; J1170; J1650; J2250; J2270; J2405; J2704; J3010; J3370; J3480; J7030; J7040; J7050; J7120; P9016; Q9967

== ENCOUNTER 2022-11-28 11:56 | Emergency (ER) | payer BC, SELFPAY ==
[2022-11-28] VITALS (11 sets, daily range): BP systolic 138–154; BP diastolic 87–97; PULSE 67–102; RESP 13–24; O2SAT 94–98
--- NOTE | ~2022-11-28 | CT_ITS ---
EXAMINATION: CT abdomen pelvis w con INDICATION: Abdominal pain TECHNIQUE: Computed tomographic images of the abdomen and pelvis were obtained after the administrati on of 100 cc of Omnipaque 350 intravenous contrast. The dose-length product (DLP) was 1372.00 mGy-cm. Automated exposure control and iterative reconstruction technique were employed. COMPARISON: 11/04/2022 FINDINGS: The previously described right lower lobe pneumonia has resolved. No pleural effusion or pn eumothorax. The heart size is normal. The spleen, pancreas, gallbladder, and adrenal glands are isabel l. There is persistent but improved periportal edema of the liver. Again noted are three nonobstructi ng stones of the left kidney measuring up to 3 mm. The right kidney is unremarkable. The Ontiveros cathet er is been removed. A moderate volume of colonic stool is present. The appendix is normal. There is a persistent but decreased volume of ascites. Previously described endometritis is no longer evident. Diffuse anasarca persists but has also improved. A large area of resection of the anterior subcutaneo us fat is again noted. There is an approximately 5.8 x 1.9 cm fluid collection in the subcutaneous ti ssues in the low left lower quadrant (image 153). A bone island is again noted and T9. IMPRESSION: 1. Persistent but improved diffuse anasarca. 2. Small fluid collection in the subcutaneous tissues of the left lower anterior abdominal wall. 3. Resolved right lower lobe pneumonia. 4. Resolved endometritis. 5. Small volume of persistent ascites. Reviewed, dictated and finalized at location B. IMPRESSION: 1. Persistent but improved diffuse anasarca. 2. Small fluid collection in the subcutaneous tissues of the left lower anterio r abdominal wall. 3. Resolved right lower lobe pneumonia. 4. Resolved endometritis. 5. Small volume of persistent ascites.
--- NOTE | 2022-11-28 12:07 | ECG_ITS ---
Measurements Intervals [place] Rate: 77 P: 34 [place]: 161 QRS: 36 QRSD: 93 T: 41 QT: 397 QTc: 450 Interpretive Statements SINUS RHYTHM NONSPECIFIC ST AND T WAVE ABNORMALITY COMPARED TO ECG 10/30/2022 10:23:10 SINUS RHYTHM NOW PRESENT Electronically Signed On 11-28-2022 13:02:17 CDT by Pj Jarrett M.D.
[2022-11-28 12:42] LABS: Basophils Percent Auto 0.6 % (0.2-1.2); Eosinophils Absolute Auto 0.3 K/mm3 (0-0.3); Eosinophils Percent Auto 3.5 % (0-4.4); Hemoglobin 10.9 g/dL (12.0-15.0); Immature Granulocyte Absolute 0.03 K/mm3 (0.00-0.031); Immature Granulocyte Percent A 0.4 % (0-0.5); Lymphocytes Absolute Auto 2.14 K/mm3 (0.9-3.2); Lymphocytes Percent Auto 30.3 % (18.3-44.2); Mean Corpuscular HGB Conc 31.1 g/dl (32-36); Mean Corpuscular Hemoglobin 26.3 pg (26-34); Mean Corpuscular Volume 84.5 fl (80-100); Mean Platelet Volume 8.7 fl (7.4-10.4); Monocytes Absolute Auto 0.5 K/mm3 (0.1-0.6); Monocytes Percent Auto 7.4 % (2.6-8.5); Neutrophils Absolute Auto 4.1 K/mm3 (1.3-6.7); Neutrophils Percent Auto 57.8 % (45.5-73.1); Platelet Count Result 322 k/mm3 (150-375); Red Blood Count 4.14 M/mm3 (4.2-5.4); White Blood Count 7.1 K/mm3 (4.5-10.0)
[2022-11-28 12:57] LABS: Alanine Aminotransferase 21 U/L (6-35); Albumin Level 3.8 g/dL (3.5-5.1); Alkaline Phosphatase 88 U/L (38-126); Anion Gap 6 mmol/L (8-16); Aspartate Amino Transferase 43 U/L (14-36); Bilirubin,Total 0.7 mg/dL (0.2-1.3); Blood Urea Nitrogen 12 mg/dL (7-17); Carbon Dioxide 30 mmol/L (22-30); Chloride 107 mmol/L (98-107); Estimated Glomerular Filt Rate > 60; Glucose 83 mg/dL (65-110); Potassium 3.2 mmol/L (3.4-5.0); Sodium 143 mmol/L (137-145)
[2022-11-28] MEDS: SODIUM CHLORIDE 0.9% IV 1,000 ML 999 ML IV CONT (13:30)
--- NOTE | 2022-11-28 15:01 | ED.DIZZY ---
HPI - Dizziness General Chief Complaint: Dizziness Stated Complaint: lethargic Time Seen by Provider: 11/28/22 12:43 History of Present Illness HPI Narrative: 22-year-old female presented to the emergency department for evaluation after having an episode of lightheaded and dizziness. Patient did have a with complications and surgical resection on October 23. Patient is currently getting IV antibiotics through a PICC line. Patient states that last night she was having some increased abdominal pain and ended up taking a [place] for pain control. This morning the patient was getting her IV antibiotics and had an episode of bradycardia and dizziness and lightheadedness. Upon arrival to the emergency department patient states she does feel improved but does still have some generalized weakness. Patient denies any worsening abdominal pain but does have some persistent abdominal tenderness. Related Data Home Medications Medication Instructions Recorded Confirmed omeprazole 20 mg capsule,delayed 20 mg PO DAILY 09/01/22 10/30/22 release vit no.133-ferrous 1 tablet PO DAILY 09/01/22 10/30/22 fumarate 28 mg-folic acid 800 mcg tablet () acetaminophen 500 mg tablet 1,000 mg PO Q6H PRN Pain (Scale 09/30/22 10/30/22 Score 1-3) buspirone 5 mg tablet 5 mg PO BID 09/30/22 10/30/22 levothyroxine 125 mcg tablet 125 mcg PO DAILY 09/30/22 10/30/22 gxldwqvejx-nogrexpuqqcyh-tuuurxkf 1 cap PO PRN headache 10/07/22 10/30/22 50 mg-300 mg-40 mg capsule Allergies Allergy/AdvReac Type Severity Reaction Status Date / Time Sulfa (Sulfonamide Allergy Intermediate Rash Verified 11/28/22 12:40 Antibiotics) Review of Systems Review of Systems: All systems reviewed & are unremarkable except as noted in HPI and below PMFSH Past Medical History Medical History (Updated 11/28/22 @ 18:45 by Panchito Hardwick MD) Anxiety and depression GERD (gastroesophageal reflux disease) GERD (gastroesophageal reflux disease) Hypothyroid Morbid obesity PCOS (polycystic ovarian syndrome) Sepsis Surgical History Surgical History H/O left knee surgery History of strabismus surgery Family History Family History Father Hypertension Mother Hypertension Grandparent Alcoholism Social History Social History Smoking status: Never smoker Alcohol intake: current Drinks per week: 1 Substance use: never Lack of Transportation: No Lack of Food: Never True Current Housing: I Have Housing Concerned About Future Housing: No Difficulty Paying Gas/Electric Bills: No Difficulty Paying for Meds: No Currently Unemployed: No Education: Associate Degree Difficulty w/ Childcare or Family Care: No Spiritual care concerns: No Exam Narrative: APPEARANCE: Well appearing, no pain, no distress, well-nourished. HEAD: normocephalic, atraumatic. EYES: PERRLA/EOMI, conjunctivae clear. NOSE: Normal no drainage NECK: Supple. No adenopathy, no masses. RESPIRATORY: Airway patent, respirations nonlabored. Clear to auscultation bilaterally, no rales, rhonchi, wheezing. CARDIOVASCULAR: Regular rate and rhythm without murmurs rubs or gallops. ABDOMINAL: Soft, nontender, nondistended, normal bowel sounds MUSCULOSKELETAL: Moves all extremities. Strength/ROM intact, No edema, No calf tenderness. NEURO: Alert. Cranial nerves II through XII intact. Grossly intact SKIN: Well-appearing surgical incision. Patient does have some granulated area of the wound that is well-appearing. No active purulent discharge and no significant erythema. Course Course Emergency Course: 22-year-old female with recent surgical complications secondary to a presenting to the ED for complaints of not feeling well. Patient describes a vasovagal episode while she was getting her I
[2022-11-28] MEDS: POTASSIUM CHLORIDE 20 MEQ PACKET (FOR LIQUID) 40 MEQ PO (16:36)
[2022-11-28] MEDS: HYDROmorphone HCL INJ (*CRX) 1 MG/ML SYR 0.5 MG IV PUSH (16:57)
== END 2022-11-28 17:05 | disposition home or self-care (01) ==
PROVIDERS: Emergency Provider Emergency Medicine; PCP Nurse Practitioner Family
DX: O86.03 Infection of obstetric surgical wound, organ and space site (principal); O99.893 Other specified diseases and conditions complicating puerperium; R42 Dizziness and giddiness; R55 Syncope and collapse; E03.9 Hypothyroidism, unspecified; E28.2 Polycystic ovarian syndrome; K21.9 Gastro-esophageal reflux disease without esophagitis; F41.9 Anxiety disorder, unspecified; F32.A Depression, unspecified; E66.01 Morbid (severe) obesity due to excess calories; R94.31 Abnormal electrocardiogram [ECG] [EKG]
CPT/HCPCS: 36415; 74177; 80053; 81025; 85025; 93005; 96361; 96374; 99284; A9270; J1170; J7030; Q9967

== ENCOUNTER 2024-04-12 14:02 | Outpatient (CLI) | payer OTHER, SELFPAY ==
--- NOTE | ~2024-04-12 | MR_ITS ---
EXAMINATION: MR knee LT wo con DATE: 04/12/2024 14:48 INDICATION: S83.005A - Unspecified dislocation of left patella, initi... TECHNIQUE: Magnetic resonance imaging (MRI) of the left knee was performed without intravenous contra st. Sequences included axial PD-weighted FS FSE, coronal PD-weighted FSE and PD-weighted FS FSE, sagi ttal PD-weighted FSE, and sagittal T2-weighted FS FSE. COMPARISON: 04/10/2018. FINDINGS: Medial compartment: Apical blunting of the posterior horn and body of the medial meniscus. Mild medial extrusion. Undersu rface meniscal fraying. Cartilage intact. Lateral compartment: Meniscus intact. Mild cartilage thinning on the LFC. Patellofemoral compartment: Full-thickness cartilaginous fissure along the lateral facet. Cartilage thinning and irregularity on the lateral margin of the lateral femoral groove. Type III patella. Status post medial retinacular re pair. Shallow femoral groove. Mild lateral patellar subluxation. Ligaments and tendons: The ACL, PCL, MCL, and LCL are intact. Remaining flexor and extensor tendons are intact. Fluid: Small Akers's cyst. Osseous/other: No suspicious focal or diffuse marrow signal. IMPRESSION: Apical blunting of the body and posterior horn of the medial meniscus. Mild medial meniscal extrusion . Undersurface fraying. Mild degenerative cartilage loss on the LFC. Mild lateral patellar subluxation of the type III patella, within a shallow femoral groove. 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 Reviewed, dictated and finalized at location K. IMPRESSION: Apical blunting of the body and posterior horn of the medial meniscus. Mild med ial meniscal extrusion. Undersurface fraying. Mild degenerative cartilage loss on the LFC. Mild lateral patellar subluxation of the type III patella, within a shallow fem oral groove. Chondromalacia patella cartilaginous fissure on the lateral facet.
== END 2024-04-12 14:03 | disposition home or self-care (01) ==
LOC: ANHIMG 14:08
PROVIDERS: PCP Physician Assistant; Visit Provider Orthopaedic Surgery
DX: S83.012A Lateral subluxation of left patella, initial encounter (principal); M23.8X2 Other internal derangements of left knee; M22.42 Chondromalacia patellae, left knee; X58.XXXA Exposure to other specified factors, initial encounter
CPT/HCPCS: 73721

== ENCOUNTER 2025-06-25 17:47 | Emergency (ER) | payer OTHER, MEDICAID, SELFPAY ==
--- NOTE | ~2025-06-25 | US_ITS ---
EXAMINATION: US pelvic complete INDICATION: Right lower quadrant pain Comparison:No prior studies for comparison. TECHNIQUE: Multiple transabdominal and endovaginal sonographic images of the pelvis performed. FINDINGS: The uterus measures 8.8 x 2 x 4.6 cm. There is an IUD present in the endometrium. The endometrial complex measures 6 mm. The right ovary measures 2.2 x 1.2 x 1.8 cm and the left ovary measures 2.5 x 1.4 x 2.6 cm. There are small follicles in each ovary. Normal doppler signal in both ovaries. There is no free fluid in the pelvis. There are no abnormal masses seen on either side. IMPRESSION: 1. Unremarkable pelvic ultrasound. Reviewed, dictated and finalized at location O. T OPERATOR
--- NOTE | ~2025-06-25 | CT_ITS ---
CT abdomen pelvis w con Clinical History: RLQ Pain, N/V . Comparison: 11/28/2022 Technique: Axial images lung bases to symphysis pubis 100 mL Omnipaque 350 Coronal, sagittal reformats CT images acquired with automatic exposure control for dose reduction DLP: 1501 mGy-cm Findings: Lung bases: Clear. Visualized heart and pericardium: Unremarkable. Liver: Enlarged. Steatosis. Gallbladder: Unremarkable. Spleen: Unremarkable. Pancreas: Unremarkable. Adrenal glands: Unremarkable. Kidneys: Right kidney- No hydronephrosis. No renal stones. Left kidney- No hydronephrosis. No renal stones. Distal esophagus/stomach: Mild distal esophageal fluid. Small bowel loops: Normal caliber and wall thickness. Colon: Normal caliber and wall thickness. Normal RLQ appendix. Nodes: No enlarged nodes. Peritoneum: No ascites. No free air. Urinary bladder: Unremarkable. Uterus: IUD. Adnexa: No masses. Bones: No acute bony abnormality. Soft tissues: Unremarkable. Aorta: No aneurysm or dissection. IVC: Unremarkable. Main portal vein/SMV/splenic vein: Patent. IMPRESSION: 1. No acute findings. Reviewed, dictated and finalized at location R. IT COLLECTIONS REP IMPRESSION: 1. No acute findings.
--- OUTSIDE RECORDS SUMMARY | 2025-06-25 17:49 | XMS_ITS | Encounter Summary ---
Author Organization [facility] Address [facility] [place] [address] Care Team Providers Care Proofreader Name Role Phone Marianne Aguilar NP Primary Care Provider Yanira MohrC Primary Care Provider [phone]- [phone] Encounter Details Date Type Department Care Team (Late st Contact Info) Description 06/23/2022 AlwaysFashion Message [facility] Patient Accounts [address] [place] [address] [facility], [facility] Provider Monthly Credit Card Payment Social History Tobacco Use Types Packs/Day Years Used Date Smoking Tobacco: Former Cigarettes 0 0 08/03/2020 - 08/03/2020 Smokeless Tobacco: Never Alcohol Use Standard Drinks/Week Comments Yes 0 (1 standard drink = 0.6 oz pur e alcohol) socially AUDIT-C Answer Date Recorded Frequency of Alcohol Consumption Monthly or less 07/20/2018 Average Number of Drinks Not on file 018 Frequency of Binge Drinking Not on file 07/03 PHQ-2 Answer Date Recorded PHQ-2 Score - If the patient scores above 3, please move on to questions 3-9 2 07/16/2021 Comments No Sex and Gender Information Value Date Recorded Sex Assigned at Female 09/19/2024 8:29 AM AUTO ENGINE MECHANIC Legal Sex Female 9:31 PM CDT Gender Identity Not on file Sexual Orientation Not on file documented as of this encounter Plan of Treatment Not on file documented as of this encounter Visit Diagnoses Not on filedocumented in this encounter Additional Health Concerns Infection Onset Date Last Indicated Resolved Time COVID-19 Rule Out 07/01/2023 07/01/202307/0107/01/2023 1:27 PM AUTO ENGINE MECHANIC Assessment Noted Time PHQ-9 Depression Total Score: 2 07/16/20 21 8:14 AM AUTO ENGINE MECHANIC documented as of this encounter Care Teams Proofreader Relationship Specialty Start Date End Date Marianne Aguilar NP PCP - General NURSE PRACTITIONER 04/19/21 12/30/23 Yanira Woo PA-C [address] [place] [address] [phone] PCP - General PHYSICIAN DEMOLITION HAMMER OPERATOR 12/31/23 documented as of this encounter
--- OUTSIDE RECORDS SUMMARY | 2025-06-25 17:49 | XMS_ITS | Encounter Summary ---
Author Organization [facility] Address [facility] [place] [address] Care Team Providers Care Senior Media Buyer Name Role Phone Marianne Aguilar NP Primary Care Provider Yanira MohrC Primary Care Provider [phone]- [phone] Encounter Details Date Type Department Care Team (Late st Contact Info) Description 03/26/2022 Leiyoo Message [facility] Patient Accounts [address] [place] [address] [place] Provider Monthly Credit Card Payment Social [...] Sex Assigned at Female 09/19/2024 8:29 AM VAMP LINER Legal Sex Female 9:31 PM CDT Gender Identity Not on file Sexual Orientation Not on file documented as of this encounter Plan of Treatment Not on file documented as of this encounter Visit Diagnoses Not on filedocumented in this encounter Additional Health Concerns Infection Onset Date Last Indicated Resolved Time COVID-19 Rule Out 07/01/2023 07/01/202307/0107/01/2023 1:27 PM VAMP LINER Assessment Noted Time PHQ-9 Depression Total Score: 2 07/16/20 21 8:14 AM VAMP LINER documented as of this encounter Care Teams Senior Media Buyer Relationship Specialty Start Date End Date Marianne Aguilar NP PCP - General NURSE PRACTITIONER 04/19/21 12/30/23 Yanira Woo PA-C [address] [place] [address] [phone] PCP - General PHYSICIAN MAINTENANCE OF WAY CLERK 12/31/23 documented as of this encounter
--- OUTSIDE RECORDS SUMMARY | 2025-06-25 17:49 | XMS_ITS | Encounter Summary ---
Author Organization [facility] Address [facility] [place] [address] Care Team Providers Care Hedis Analyst Name Role Phone Ora Garcia Primary Care Provider [phone] Modesta Nash Primary Care Provider [phone] Marianne Aguilar NP Primary Care Provider Yanira MohrC Primary Care Provider +- [phone] Encounter Details Date Type Department Care Team (Latest Contact Info) Description 04/10/2018 Abstract [facility] Francisco Pinzon MD Social History Tobacco Use Types Packs/Day Years Used Date Smoking Tobacco: Never Assessed Comments Unknown Sex and Gender Information Value Date Recorded Sex Assigned at Female 09/19/2024 8:29 AM GEOGRAPHIC INFORMATION SYSTEMS ENGINEER Legal Sex Female 9:31 PM CDT Gender Identity Not on file Sexual Orientation Not on file documented as of this encounter Plan of Treatment Not on file documented as of this encounter Visit Diagnoses Not on filedocumented in this encounter Additional Health Concerns Infection Onset Date Last Indicated Resolved Time COVID-19 Rule Out 07/01/2023 07/01/2023 07/01/2023 1:27 PM GEOGRAPHIC INFORMATION SYSTEMS ENGINEER documented as of this encounter Care Teams Hedis Analyst Relationship Specialty Start Date End Date Ora Garcia FNP [address] [place] [address] PCP - General Nurse Practitioner Family 07/20/1809/04 [place] [address] [place] [address] PCP - General PHYSICIAN FORENSIC INVESTIGATOR 09/05/20 04/18/21 [place] [address] [place] [address] PCP - General NURSE PRACTITIONER 04/19/21 12/30/23 Yanira Woo PA-C [address] [place] [address] PCP - General PHYSICIAN FORENSIC INVESTIGATOR 12/31/23 documented as of this encounter
--- OUTSIDE RECORDS SUMMARY | 2025-06-25 17:49 | XMS_ITS | Encounter Summary ---
Author Organization [facility] Address [address] [place] [address] Care Team Providers Care Vice President Of Operations Name Role Phone Marianne Aguilar NP Primary Care Provider Yanira Mohr PA-C Primary Care Provider [phone] Encounter Details Date Type Department Care Team (Latest Contact Info) Description 06/29/2023 MiNeeds Message Enc [facility] Multispecialty Care - [facility] [address] [facility], [address] [place] [id number] Román Butcher MD [address] [place], [place] [id number] Appointment today Social History Tobacco Use Types Packs/Day Years Used Date Smoking Tobacco: Former Cigarettes 0 0 08/03/2020 - 08/03/2020 Passive Smoke Exposure: Past Smokeless Tobacco: Never Alcohol Use Standard Drinks/Week Comments Yes 0 (1 standard drink = 0.6 oz pur e alcohol) Social Humiliation, Afraid, Rape, and Kick questionnair e Answer Date Recorded Within the last year, have y ou been afraid of your partner or ex-partner? No 02/27/2023 Within the last year, have y ou been humiliated or emotionally abused in other ways by your partner or ex-partner? No Within the last year, have y ou been kicked, hit, slapped, or otherwise physically hurt by your partner or ex-partner? No 02/27/2023 Within the last year, have y ou been raped or forced to have any kind of sexual activity by your partner or ex-partner? No 02/27/2023 Social Connection and Isolation Panel Answer Date Recorded In a typical week, how many times do you talk on the phone with family, friends, or neighbors? More than three times a week 12/11/2022 How often do you get togethe r with friends or relatives? More than three times a week 12/11/2022 How often do you attend chur ch or faith services? Never 12/11/2022 Do you belong to any clubs o r organizations such as orthodoxy groups, unions, fraternal or athletic groups, or school groups? No 12/11/2022 How often do you attend meet ings of the clubs or organizations you belong to? Never 12/11/2022 Marital Status Not on file 12/11/2022 AUDIT-C Answer Date Recorded Q1: How often do you have a drink containing alc ohol? Monthly or less 12/11/2022 Q2: How many drinks containi ng alcohol do you have on a typical day when you are drinking? 1 or 2 12/11/2022 Q3: How often do you have si x or more drinks on one occasion? Never 12/11/2022 Overall Financial Resource Strain (CARDIA) Answe r Date Recorded How hard is it for you to pa y for the very basics like food, housing, medical care, and heating? Not hard at all 02/27/2023 PHQ-2 Answer Date Recorded Patient Health Questionnaire-2 Score 3 05/05/2023 [facility] - Occupational Stress Questionnaire Answer Date Recorded Do you feel stress - tense, restless, nervous, or anxious, or unable to sleep at night because your mind is troubled all the time - these days? Only a little 12/11/2022 Exercise Vital Sign Answer Date Recorde d On average, how many days pe r week do you engage in moderate to strenuous exercise (like a brisk walk)? 0 days 12/11/2022 On average, how many minutes do you engage in exercise at this level? 0 min 12/11/2022 Hunger Vital Sign Answer Date Recorded Within the past 12 months, y ou worried that your food would run out before you got the money to buy more. Never true 02/28/20 23 Within the past 12 months, t he food you bought just didn't last and you didn't have money to get more. Never true 02/27/2023 PRAPARE - Transportation Answer Date Re corded In the past 12 months, has l ack of transportation kept you from medical appointments or from getting medications? No 02/01 In the past 12 months, has l ack of transportation kept you from meetings, work, or from getting things needed for daily living? No 02/27/2023 Housing Stability Vital Sign Answer Zac e Recorded In the last 12 months, was t here a time when you were not able to pay the mortgage or rent on time? No 02/27/2023 In the last 12 months, how many places have you lived? 1 02/27/2023 In the last 12 months, was t here a time when you did not have a steady place to sleep or slept in a [place] facility (including now)? No 02/27/2023 Depression Answer Date Recor ded Last EPDS Total Score 25 12/02/2022 Last EPDS Self Harm Result Unrecognized value Comments No Sex and Gender Information Value Date Recorded Sex Assigned at Female 09/19/2024 8:29 AM WHITEWATER RAFTING GUIDE Legal Sex Female 9:31 PM CDT Gender Identity Not on file Sexual Orientation Not on file documented as of this encounter Functional Status * Are you deaf or do you have serious difficulty hearing Answer Date of Assessment Author Status No 03/03/2023 10:00 PM JOELLET Tommy Hale RN Active * Are you blind or do you have serious difficulty seeing, even when wearing glasses? Answer Date of Assessment Author Status No 03/03/2023 10:00 PM JOELLET Tommy Hale RN Active * Do you have serious difficulty walking or climbing stairs? Answer Date of Assessment Author Status No 03/03/2023 10:00 PM Tommy Cardona RN Active * Do you have difficulty dressing or bathing? Answer Date of Assessment Author Status No 03/03/2023 10:00 PM Tommy Cardona RN Active * Because of a physical, mental, or emotional condition, do you have difficulty doing errands alone such as visiting a doctor's office or shopping? Answer Date of Assessment Author Status No 03/03/2023 10:00 PM CDT Tommy Hale RN Active documented as of this encounter Mental Status * Because of a physical, mental, or emotional condition, do you have serious difficulty concentrating, remembering, or making decisions? Answer Entry Date Author Status No 03/03/2023 10:00 PM CDT Tommy Hale RN Active documented in this encounter Plan of Treatment Not on file documented as of this encounter Goals Goal Patient Goal Type Associated Problems Recent Progress Patient-Stated? Author Patient will return to prior living situation and remain independent in ADLs upon discharge from hospital Lifestyle No Kandi Clifton RN documented as of this encounter Visit Diagnoses Not on filedocumented in this encounter Additional Health Concerns Infection Onset Date Last Indicated Resolved Time COVID-19 Rule Out 07/01/2023 07/01/2023 07/01/2023 1:27 PM WHITEWATER RAFTING GUIDE Assessment Noted Time PHQ-9 Depression Total Score: 7 05/05/20 23 7:57 AM CDT documented as of this encounter Care Teams Vice President Of Operations Relationship Specialty Start Date End Date Marianne Aguilar NP PCP - General NURSE PRACTITIONER 04/19/21 12/30/23 Yanira Woo PA-C [address] [place] [address] PCP - General PHYSICIAN FOOD SERVICE 12/31/23 documented as of this encounter
--- OUTSIDE RECORDS SUMMARY | 2025-06-25 17:49 | XMS_ITS | Encounter Summary ---
Author Organization [facility] Address [facility] [place] [address] Care Team Providers Care Transfer Table Operator Helper Name Role Phone Marianne Aguilar APPAREL SALES LEADER Primary Care Provider Yanira Mohr PA-C Primary Care Provider [phone]- [phone] Encounter Details Date Type Department Care Team (Late st Contact Info) Description 02/20/2022 uniRow Message Enc [facility] Family Medicine [facility] [address] [place] [address] Marianne Aguilar, APPAREL SALES LEADER Possible infection from cat scratch Social History Tobacco Use Types Packs/Day Years [...] Sex Assigned at Female 09/19/2024 8:29 AM SILVER DESIGNER Legal Sex Female 9:31 PM CDT Gender Identity Not on file Sexual Orientation Not on file documented as of this encounter Progress Notes * Richard Howard MA - 02/20/2022 11:50 AM CDT Pt is scheduled today for 340PM. * Richard Howard MA - 02/20/2022 9:26 AM CDT Please advise. documented in this encounter Plan of Treatment Not on file documented as of this encounter Visit Diagnoses Not on filedocumented in this encounter Additional Health Concerns Infection Onset Date Last Indicated Resolved Time COVID-19 Rule Out 07/01/2023 07/01/2023 07/01/2023 1:27 PM SILVER DESIGNER Assessment Noted Time PHQ-9 Depression Total Score: 2 07/16/20 21 8:14 AM SILVER DESIGNER documented as of this encounter Care Teams Transfer Table Operator Helper Relationship Specialty Start Date End Date Marianne Aguilar NP PCP - General NURSE PRACTITIONER 04/19/21 12/30/23 Yanira Woo, PAJdC [address] [place] [address] PCP - General PHYSICIAN CHEMICALS FERMENTATION OPERATOR 12/31/23 documented as of this encounter
--- OUTSIDE RECORDS SUMMARY | 2025-06-25 17:49 | XMS_ITS | Encounter Summary ---
Author Organization [facility] Address [facility] [place] [address] Care Team Providers Care Commissary Representative Name Role Phone Marianne Aguilar FILTER TENDER Primary Care Provider Yanira Mohr PA-C Primary Care Provider [phone]- [phone] Encounter Details Date Type Department Care Team (Late st Contact Info) Description 07/05/2023 Joroto Message Enc [facility] Family Medicine [address] [address] Marianne Aguilar NP Return to work letter Social History Tobacco Use Types Packs/Day Years [...] often do you attend chur ch or quaker services? Never 12/11/2022 Do you belong to any clubs o r organizations such as mormonism groups, unions, fraternal or athletic groups, or [...] Recorded Patient Health Questionnaire-2 Score 3 05/05/2023 [facility] Occupat ional Health - Occupational Stress [...] place to sleep or slept in a assisted (including now)? No 02/27/2023 Depression Answer Date Recor ded Last EPDS Total Score 25 12/02/2022 Last EPDS Self Harm Result Unrecognized value Comments No Sex and Gender Information Value Date Recorded Sex Assigned at Female 09/19/2024 8:29 AM SOLAR INSTALLER TECHNICIAN Legal Sex Female 9:31 PM CDT Gender [...] Cardona RN Active * Do you have serious [...] 10:00 PM Tommy Cardona RN Active * Calculated C-SSRS Risk Score (Lifetime/Recent) Answer Date of Assessment Author Status No Risk Indicated 07/05/2023 4:10 PM SOLAR INSTALLER TECHNICIAN Presley Sotomayor RN Active * [place] Suicide Severity Rating Scale (Screener/Recent Self-Report) Question Answer Date of Assessment Author Status 1. Wish to be (Past 1 Month) No 07/05/2023 4:10 PM SOLAR INSTALLER TECHNICIAN Presley Sotomayor RN Active 6. Suicidal Behavior (Lifetime) No 07/05/2023 4:10 PM SOLAR INSTALLER TECHNICIAN Presley Sotomayor RN Active documented as of this encounter Mental Status * Because of a physical, mental, or emotional condition, do you have serious difficulty concentrating, remembering, or making decisions? Answer Entry Date Author Status No 03/03/2023 10:00 PM CDT Tommy Hale RN Active documented in this encounter Progress Notes * Flori Horne RN - 07/06/2023 9:13 AM CST It looks like Charleen has taken care of this. R INSTALLER TECHNICIAN documented in this encounter Plan of Treatment Not on file documented as of this encounter Goals Goal Patient Goal Type Associated Problems Recent Progress Patient-Stated? Author Patient will return to prior living situation and remain independent in ADLs upon discharge from hospital Lifestyle No Kandi Clifton RN documented as of this encounter Visit Diagnoses Not on filedocumented in this encounter Additional Health Concerns Assessment Noted Time PHQ-9 Depression Total Score: 7 05/05/20 23 7:57 AM CDT documented as of this encounter Care Teams Commissary Representative Relationship Specialty Start Date End Date Marianne Aguilar NP PCP - General NURSE PRACTITIONER 04/19/21 12/30/23 Yanira Woo PA-C [address] [place] [address]. [place] [address] PCP - General PHYSICIAN SHOTBLAST EQUIPMENT OPERATOR 12/31/23 documented as of this encounter
--- OUTSIDE RECORDS SUMMARY | 2025-06-25 17:49 | XMS_ITS | Encounter Summary ---
Author Organization [facility] Address [facility] [place] [address] Care Team Providers Care Turner In Name Role Phone Marianne Aguilar SUPERVISOR PAPER COATING Primary Care Provider Yanira MohrC Primary Care Provider [phone]- [phone] Encounter Details Date Type Department Care Team (Late st Contact Info) Description 06/16/2021 Really Simplet Message Enc [facility] Family Medicine [facility] [address] [place] [address] Marianne Aguilar, SUPERVISOR PAPER COATING UTI Social History Tobacco Use Types Packs/Day Years Used Date Smoking Tobacco: Former Cigarettes Q uit: 08/03/2020 Smokeless Tobacco: Never Alcohol Use Standard [...] 3, please move on to questions 3-9 1 05/16/2021 Comments No Sex and Gender Information Value Date Recorded Sex Assigned at Female 09/19/2024 8:[address] GANG SUPERVISOR Legal Sex Female 9:31 PM CDT Gender Identity Not on file Sexual Orientation Not on file COVID-19 Exposure Response Date Recorded In the last month, have you been in contact with someone who was confirmed or suspected to have Coronavirus / COVID-19? No / Unsure 06/03/2021 7:48 AM CDT documented as of this encounter Progress Notes * Richard Howard MA - 06/17/2021 10:28 AM CST Spoke to Marianne and she said to add the pt to Charleen's schedule today. GANG SUPERVISOR documented in this encounter Plan of Treatment Not on file documented as of this encounter Visit Diagnoses Not on filedocumented in this encounter Additional Health Concerns Infection Onset Date Last Indicated Resolved Time COVID-19 Rule Out 07/01/2023 07/01/2023 07/01/2023 1:[address] GANG SUPERVISOR Assessment Noted Time PHQ-9 Depression Total Score: 5 05/16/20 21 3:18 PM CDT documented as of this encounter Care Teams Turner In Relationship Specialty Start Date End Date Marianne Aguilar, ANDREW PCP - General NURSE PRACTITIONER 04/19/21 12/30/23 Yanira Woo, PAJdC [address] [place] [id number] PCP - General PHYSICIAN RIG SITE ENGINEER 12/31/23 documented as of this encounter
--- OUTSIDE RECORDS SUMMARY | 2025-06-25 17:49 | XMS_ITS | Encounter Summary ---
Author Organization [facility] Address [facility] [place] [address] Care Team Providers Care Seed Potato Cutter Name Role Phone Marianne Aguilar SCOUT PROFESSIONAL SPORTS Primary Care Provider Yanira Mohr PA-C Primary Care Provider [phone]- [phone] Encounter Details Date Type Department Care Team (Late st Contact Info) Description 05/15/2023 InPronto Message Enc [facility] Family Medicine [facility] [address] [place] [address] Marianne Aguilar, ANDREW Swelling/pain in neck/jaw area Social History Tobacco Use Types Packs/Day Years [...] often do you attend chur ch or scientologist services? Never 12/11/2022 Do you belong to any clubs o r organizations such as caodaism groups, unions, fraternal or athletic groups, or [...] Recorded Patient Health Questionnaire-2 Score 3 05/05/2023 [facility] of Occupat ional Health - [...] place to sleep or slept in a senior living (including now)? No 02/27/2023 Depression Answer Date Recor ded Last EPDS Total Score 25 12/02/2022 Last EPDS Self Harm Result Unrecognized value Comments No Sex and Gender Information Value Date Recorded Sex Assigned at Female 09/19/2024 8:29 AM SOD CUTTER Legal Sex Female 9:31 PM CDT Gender [...] of Assessment Author Status No Risk Indicated 05/15/2023 5:10 PM CDT Neto Jones RN Active * [place] Suicide Severity Rating Scale (Screener/Recent Self-Report) Question Answer Date of Assessment Author Status 1. Wish to be (Past 1 Month) No 05/15/2023 5:10 PM CDT Veronica Jones, RN Acti ve 2. Non-Specific Active Suicidal Thoughts (Past 1 Month) No 05/15/2023 5:10 PM CDT Veronica Jones, RN Acti ve 6. Suicidal Behavior (Lifetime) No 05/15/2023 5:10 PM CDT Veronica Jones, RN Acti ve documented as of this encounter Mental Status * Because of a physical, mental, or emotional condition, do you have serious difficulty concentrating, remembering, or making decisions? Answer Entry Date Author Status No 03/03/2023 10:00 PM CDT Tommy Hale RN Active documented in this encounter Progress Notes * Richard Howard MA - 05/15/2023 2:33 PM CDT Please advise. documented in this encounter [...] Rule Out 07/01/2023 07/01/2023 07/01/2023 1:27 PM SOD CUTTER Assessment Noted Time PHQ-9 Depression Total Score: 7 05/05/20 23 7:57 AM CDT documented as of this encounter Care Teams Seed Potato Cutter Relationship Specialty Start Date End Date Marianne Aguilar NP PCP - General NURSE PRACTITIONER 04/19/21 12/30/23 Yanira Woo PA-C [address] [place] [id number] PCP - General PHYSICIAN FORGE HEATER 12/31/23 documented as of this encounter
--- OUTSIDE RECORDS SUMMARY | 2025-06-25 17:49 | XMS_ITS | Encounter Summary ---
Author Organization [facility] Address [facility] [place] [address] Care Team Providers Care Car Salesperson Name Role Phone Yanira Woo PA-C Primary Care Provider [phone] Encounter Details Date Type Department Care Team (Late st Contact Info) Description 11/08/2024 MyChart Message Enc [facility] Group Family Medicine - [address] [address] Yanira Woo PA-C [address] [place] [address] UTI Social History Tobacco Use Types Packs/Day Years Used Date Smoking Tobacco: Former Cigarettes 0.2 4.9 S tarted: 08/03/2020 Passive Smoke Exposure: Past Smokeless Tobacco: [...] often do you attend chur ch or advent services? Never 12/11/2022 Do you belong to any clubs o r organizations such as adventist groups, unions, fraternal or athletic groups, or [...] Answer Date Recorded Patient Health Questionnaire-2 Score 0 08/04/2024 [facility] - Occupational Stress Questionnaire Answer Date Recorded [...] place to sleep or slept in a intermediate (including now)? No 02/27/2023 Depression Answer Date Recor ded Last EPDS Total Score 25 12/02/2022 Last EPDS Self Harm Result Unrecognized value Comments No Sex and Gender Information Value Date Recorded Sex Assigned at Female 09/19/2024 8:29 AM SCREEN PRINTING STENCIL PREPARER Legal Sex Female 9:31 PM CDT Gender [...] Author Status No 03/03/2023 10:00 PM CDT Alexia, Tommy, RN Active documented as of this encounter [...] documented as of this encounter Care Teams Car Salesperson Relationship Specialty Start Date End Date Yanira Woo PA-C [address] [place] [address] PCP - General PHYSICIAN PLATFORM ARCHITECT 12/31/23 documented as of this encounter
--- OUTSIDE RECORDS SUMMARY | 2025-06-25 17:49 | XMS_ITS | Data Portability ---
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 Plan of Treatment Reminders Order Date Submit Date Provider Last Modified By Organization Details Last Modified Time Details Appointments None recorded. Lab unlisted lab - sureswab(R) advanced vaginitis plus, tma 2024 025 [facility] [employer] [facility], [address] [place], [address], 5 18:00:56 bacterial vaginosis + vaginitis panel, vaginal 2024 025 [facility], [address] [place], [address], 5 14:03:47 bacterial vaginosis + vaginitis panel, vaginal 2023 024 [employer] Nate, [address] [place], [address], 4 13:59:46 culture, urine 2023 024 [facility] [facility], [address] [place], [address], 5 15:10:02 insulin, serum 2022 023 [email or web address] [employer] [facility], [address] [place], [address], 3 09:30:45 CMP, serum or plasma 2022 023 [facility], [address] [facility], [place], [address], 3 15:26:25 Referral None recorded. Procedures None recorded. Surgeries None recorded. Imaging US, transvagina l 2024 025 HUGO Not available 5 14:14:32 US, transvagina l 2023 024 HUGO Not available 09:16:11 Medication Orders Diflucan 150 mg tablet [address]/Pharmacy #2713, [address], [place], [address], 5 17:24:46 metronidazo le 500 mg tablet 2023 025 [facility]/Pharmacy #2713, [address], [place], [address], 5 19:04:11 fluconazole 150 mg tablet [email or web address]/Pharmacy #2713, [address], [place], [address], 5 17:24:46 phentermine 37.5 mg tablet [email or web address]/Pharmacy #2713, [address], [place], [address], 4 19:15:35 Prometrium 200 mg capsule [email or web address]/Pharmacy #2713, [address], [place], [address], 4 19:15:53 phentermine 37.5 mg tablet 2022 023 [facility]/Pharmacy #2713, [address], [place], [address], 4 19:15:35 Procardia XL 30 mg tablet,exte nded release 2022 023 [facility]/Pharmacy #2713, [address], [place], [address], 4 19:15:11 cyclobenzap rine 10 mg tablet 2022 023 [email or web address]/Pharmacy #2713, [address], [place], [address], 3 14:10:16 metronidazo le 500 mg tablet 2022 023 [facility]/Pharmacy #2713, [address], [place], [address], 5 19:04:08 Patient TargetsNo targets recorded. Patient Instructions Encounter Date Encounter Id Patient Instructions Last Modified By Organization Details Last Modified Time 07/15/2024 [id number] vaginitis: care instructions [email or web address] Not available 07/15/2024 19:11:10 Reason for Referral None Reported. Results Created Date Observation Date Name Description Value Unit Range Abnormal Flag Note LastModifiedBy Organization Detail LastModifiedTime 07/15/20 24 07/20/2024 VAGIN ITIS PLUS STD PANEL bacterial vaginosis BV POS negati ve abnormal Not Available [facility] [address] [place], [address], 07/20/2024 13:59:46 07/15/20 24 07/20/2024 VAGIN ITIS PLUS STD PANEL kristian species C. spp neg negati ve normal Not Available [facility] [address] [place], [address], 07/20/2024 13:59:46 07/15/20 24 07/20/2024 VAGIN ITIS PLUS STD PANEL kristian glabrata C. gla neg negati ve normal Not Available [facility] [address] [place], [address], 07/20/2024 13:59:46 07/15/20 24 07/20/2024 VAGIN ITIS PLUS STD PANEL trichomonas vaginalis CV/TV TRICH neg negati ve normal Not Available [facility] [address] [place] [address], [address], 07/20/2024 13:59:46 07/15/20 24 07/20/2024 VAGIN ITIS PLUS STD PANEL chlamydia trachomatis CT neg negati ve normal This repor t is inten ded for us in clini les monit oring and manag ement of patie nts. It is not inten ded for use in medic al-le gal appli catio n. Not Available [facility] [address] [place] [address], [address], 07/20/2024 13:59:46 07/15/20 24 07/20/2024 VAGIN ITIS PLUS STD PANEL neisseria gonorrhoeae GC neg negati ve normal This repor t is inten ded for us in clini les monit oring and manag ement of patie nts. It is not inten ded for use in medic al-le gal appli catio n. Not Available [facility] [address] [place] [address], [address], 07/20/2024 13:59:46 01/17/20 25 01/18/2025 VAGIN ITIS PLUS STD PANEL bacterial vaginosis BV neg negati ve normal Not Available [facility] [address] [place], [address], 01/18/2025 14:03:47 01/17/20 25 01/18/2025 VAGIN ITIS PLUS STD PANEL kristian species C. spp neg negati ve normal Not Available [facility] [facility] [address] [place], [address], 01/18/2025 14:03:47 01/17/20 25 01/18/2025 VAGIN ITIS PLUS STD PANEL kristian glabrata C. gla neg negati ve normal Not Available [address], [address], 01/18/2025 14:03:47 01/17/20 25 01/18/2025 VAGIN ITIS PLUS STD PANEL trichomonas vaginalis CV/TV TRICH neg negati ve normal Not Available [address], [address], 01/18/2025 14:03:47 01/17/20 25 01/18/2025 VAGIN ITIS PLUS STD PANEL chlamydia trachomatis CT neg negati ve normal This repor t is inten ded for us in clini les monit oring and manag ement of patie nts. It is not inten ded for use in medic al-le gal appli catio n. Not Available [address], [address], 01/18/2025 14:03:47 01/17/20 25 01/18/2025 VAGIN ITIS PLUS STD PANEL neisseria gonorrhoeae GC neg negati ve normal This repor t is inten ded for us in clini les monit oring and manag ement of patie nts. It is not inten ded for use in medic al-le gal appli catio n. Not Available [address], [address], 01/18/2025 14:03:47 01/20/20 25 01/20/2025 MYCOP LASMA GENIT ALIUM , RRNA, TMA mycoplasma genitalium, rrna,tma NOT DETECT ED not detect ed normal Not Available [employer] [facility] [address] [place], [address], 01/20/2025 17:19:35 05/26/20 25 05/27/2025 SURES WAB(R ) ADVAN AMY VAGIN ITIS PLUS, TMA sureswab(R) adv bacterial vaginosis (bv), tma NEGATI VE negati ve normal Not Available [address], [address], 05/27/2025 18:00:56 05/26/2005/27/2025 SURES WAB(R ) ADVAN AMY VAGIN ITIS PLUS, TMA kristian species NOT DETECT ED not detect ed normal Not Available [facility] [address], [address], 05/27/2025 18:00:56 05/26/2005/27/2025 SURES WAB(R ) ADVAN AMY VAGIN ITIS PLUS, TMA kristian glabrata NOT DETECT ED not detect ed normal Radha da speci es C. albic ans, C. tropi calis , C. parap piedad is, and/o r C. dubli niens is can be detec noman, but not diffe renti ated, in the Radha da spp. resul t. Not Available [address], [address], 05/27/2025 18:00:56 05/26/2005/27/2025 SURES WAB(R ) ADVAN AMY VAGIN ITIS PLUS, TMA trichomonas vaginalis (TV), tma NOT DETECT ED not detect ed normal Not Available [address], [address], 05/27/2025 18:00:56 05/26/2005/27/2025 SURES WAB(R ) ADVAN AMY VAGIN ITIS PLUS, TMA chlamydia trachomatis RNA, tma, urogenital NOT DETECT ED not detect ed normal Not Available [facility] [address], [address], 05/27/2025 18:00:56 05/26/2005/27/2025 SURES WAB(R ) ADVAN AMY VAGIN ITIS PLUS, TMA neisseria gonorrhoeae RNA, tma, urogenital NOT DETECT ED not detect ed normal For addit ional infor matio n, pleas e refer to https ://ed ucati on.khadijah [email or web address] com/f aq/FA Q154 (This link is being provi ded for infor hari howard/ jennifer velez ses only. ) Not Available [facility] [employer] [facility] [address] [address], [place], [address], 05/27/2025 18:00:56 07/16/20 24 07/15/2024 US, trans vagin al No observ ation record ed. Suzanne [address], [place], [address], 07/16/2024 13:24:07 05/27/2005/26/2025 US, trans vagin al No observ ation record ed. [email or web address] Suzanne [address], [place], [address], 05/27/2025 20:18:03 Result Notes None recorded. Problems Name Problem SNOMED Code Status Onset Date Resolution Date Notes Provider Name and Address Organization Details Recorded Time Premenstrual dysphoric disorder 195404 Active 022 Kassie aBIZinaBOX null, [facility] IV 3 15:41:05 Problem Notes None recorded. Procedures Surgical History Date Name Laterality Status Provider Name and Address Organization Details Recorded Time 3 procedure on wound completed [facility] 05/06/2023 15:43:03 3 delivery completed Colin Cavazos MD [address] [place], [address], [facility] IV 02/17/2023 17:43:46 2 Date of Last Pap Smear completed [facility] IV 05/06/2023 15:42:03 Imaging Results None recorded. Procedure Notes None recorded. Medical Equipment None Reported. Allergies Allergen ID Allergen Name Allergen Category Reaction Reaction Severity Criticality Documentation Date Start Date Code Code System Note Provider Name and Address Organization Details Recorded Time 253116 Substance with sulfonami de structure and antibacte rial mechanism of action (substanc e) medicatio n Not available Not available Not available 01/01/2022 28516 8003 SNOMED Kassie Gregory [facility], [place] [facility] IV 2 17:22:08 [id number] vancomyci n medicatio n rash Not available high 06/14/20252022 80821 RxNorm Can handl e for a few days with benad ryl Can handl e for a few days with benad ryl Not Available [employer] - 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 06/08 completed Not Available Not Available Not Available methocarbam ol 500 mg tablet 02/17 completed Not Available Not Available Not Available buspirone 5 mg tablet TAKE 1 TABLET BY MOUTH TWICE A DAY 07/15 completed Not Available Not Available Not Available labetalol 200 mg tablet TAKE 1 TABLET BY MOUTH TWICE A DAY 02/17 completed Not Available Not Available Not Available trazodone 50 mg tablet TAKE 1 TABLET BY MOUTH EVERYDAY AT BEDTIME active Not Available Not Available No t Available cefpodoxime 200 mg tablet TAKE 1 TABLET (200 MG TOTAL) BY MOUTH TWICE A DAY FOR 7 DAYS 01/16 completed Not Available Not Available Not Available azithromyci n 250 mg tablet TAKE 2 TABLETS BY MOUTH TODAY, THEN TAKE 1 TABLET DAILY FOR 4 DAYS DIRECTED 07/15 completed Not Available Not Available Not Available ibuprofen 800 mg tablet TAKE 1 TABLET BY MOUTH 3 TIMES A DAY FOR 7 DAYS. active Not Available Not Available No t Available fluconazole 150 mg tablet TAKE 1 TABLET BY MOUTH NOW AND REPEAT DOSE IN 3 DAYS IF SYMPTOMAT IC 05/26 completed Not Available Not Available Not Available benzonatate 200 mg capsule TAKE 1 CAPSULE (200 MG TOTAL) BY MOUTH 3 (THREE) TIMES DAILY NEEDED FOR COUGH. 07/15 completed Not Available Not Available Not Available clarithromy fareed 500 mg tablet TAKE 1 TABLET BY MOUTH TWICE DAILY 02/17 completed Not Available Not Available Not Available hydrocodone 5 mg-acetamin ophen 325 mg tablet TAKE 1 TABLET BY MOUTH EVERY 6 (SIX) HOURS NEEDED FOR PAIN active Not Available Not Available No t Available prazosin 1 mg capsule TAKE 1 CAPSULE BY MOUTH EVERYDAY AT BEDTIME active Not Available Not Available No t Available prednisone 20 mg tablet TAKE 1 TABLET BY MOUTH DAILY FOR 7 DAYS 05/26 completed Not Available Not Available Not Available propranolol ER 60 mg capsule,24 hr,extended release TAKE 1 CAPSULE BY MOUTH EVERY DAY active Not Available Not Available No t Available phentermine 15 mg capsule TAKE 1 CAPSULE BY MOUTH ONCE DAILY 01/01 completed Not Available Not Available Not Available potassium chloride ER 10 mEq tablet,exte nded release PLEASE SEE ATTACHED FOR DETAILED DIRECTION S 02/17 completed Not Available Not Available Not Available metronidazo le 500 mg tablet Take 1 tablet every 12 hours by oral route for 7 days. 01/16 completed Not Available Not Available Not Available nizatidine 150 mg capsule TAKE 1 CAPSULE (150 MG TOTAL) BY MOUTH NIGHTLY AT BEDTIME. 02/17 completed Not Available Not Available Not Available phentermine 37.5 mg tablet Take 0.5 tablets twice a day by oral route. 07/15 completed Not Available Not Available Not Available acetaminoph en 500 mg tablet TAKE 2 (TWO) TABLETS BY MOUTH EVERY 6 HOURS FOR 14 DAYS 02/17 completed Not Available Not Available Not Available butalbital- acetaminoph en-caffeine 50 mg-325 mg-40 mg tablet TAKE 1 TABLET BY MOUTH EVERY 6 HOURS NEEDED FOR PAIN 05/26 completed Not Available Not Available Not Available lamotrigine 25 mg tablet TAKE 2 TABLETS BY MOUTH EVERY DAY 01/16 completed Not Available Not Available Not Available levothyroxi ne 75 mcg tablet TAKE 1 TABLET BY MOUTH EVERY DAY IN THE MORNING 01/16 completed Not Available Not Available Not Available Euthyrox 25 mcg tablet TAKE 1 TABLET BY MOUTH EVERY MORNING 01/01 completed Not Available Not Available Not Available lorazepam 0.5 mg tablet TAKE 1 TABLET BY ORAL ROUTE DAILY NEEDED FOR SEVERE ANXIETY/P ANIC active Not Available Not Available No t Available estradiol 1 mg tablet TAKE 1 TABLET TWICE A DAY BY ORAL ROUTE DIRECTED 07/15 completed Not Available Not Available Not Available doxycycline monohydrate 100 mg capsule TAKE 1 (ONE) CAPSULE BY MOUTH EVERY 12 HOURS FOR 14 DAYS 02/17 completed Not Available Not Available Not Available levothyroxi ne 50 mcg tablet TAKE 1 TABLET BY MOUTH EVERY DAY IN THE MORNING 05/26 completed Not Available Not Available Not Available cephalexin 500 mg capsule TAKE 1 CAPSULE BY MOUTH THREE TIMES A DAY FOR 7 DAYS 07/15 completed Not Available Not Available Not Available pantoprazol e 40 mg tablet,renard yed release TAKE 1 TABLET BY MOUTH EVERY DAY active Not Available Not Available No t Available levothyroxi ne 125 mcg tablet 02/17 completed Not Available Not Available Not Available nystatin 100,000 unit/gram topical cream 05/06 completed Not Available Not Available Not Available progesteron e micronized 200 mg capsule TAKE 1 CAPSULE EVERY 2 MONTHS BY ORAL ROUTE DIRECTED FOR 12 DAYS. 07/15 completed Not Available Not Available Not Available docusate sodium 100 mg capsule TAKE 1 CAPSULE BY MOUTH EVERY DAY 02/17 completed Not Available Not Available Not Available buspirone 7.5 mg tablet TAKE 1 TABLET BY MOUTH EVERY DAY active Not Available Not Available No t Available omeprazole 20 mg capsule,del ayed release TAKE 2 CAPSULES BY MOUTH EVERY DAY 01/16 completed Not Available Not Available Not Available gabapentin 100 mg capsule 02/17 completed Not Available Not Available Not Available ergocalcife rol (vitamin D2) 1,250 mcg (50,000 unit) capsule TAKE 1 CAPSULE BY MOUTH 2 TIMES A WEEK 01/16 completed Not Available Not Available Not Available methylpredn isolone 4 mg tablets in a dose pack TAKE 6 TABLETS ON DAY 1 DIRECTED ON PACKAGE AND DECREASE BY 1 TAB EACH DAY FOR A TOTAL OF 6 DAYS 07/15 completed Not Available Not Available Not Available colchicine 0.6 mg tablet TAKE 1 TABLET (0.6 MG TOTAL) BY MOUTH 2 (TWO) TIMES A DAY FOR 3 DOSES 05/26 completed Not Available Not Available Not Available norethindro ne (contracept sae) 0.35 mg tablet TAKE 1 TABLET BY MOUTH EVERY DAY 02/17 completed Not Available Not Available Not Available propranolol 20 mg tablet TAKE 1 TABLET BY MOUTH THREE TIMES A DAY 07/15 completed Not Available Not Available Not Available nifedipine ER 60 mg tablet,exte nded release TAKE 1 TABLET BY MOUTH EVERY DAY 06/08 completed Not Available Not Available Not Available ondansetron 4 mg disintegrat ing tablet TAKE 1 TABLET BY MOUTH EVERY 8 HOURS NEEDED FOR NAUSEA 01/16 completed Not Available Not Available Not Available fluoxetine 20 mg capsule TAKE 1 CAPSULE BY MOUTH EVERY DAY 02/17 completed Not Available Not Available Not Available lamotrigine 100 mg tablet TAKE 1 TABLET BY MOUTH EVERY DAY active Not Available Not Available No t Available phentermine 37.5 mg capsule TAKE 1 CAPSULE (37.5 MG TOTAL) BY MOUTH BEFORE BREAKFAST . 01/16 completed Not Available Not Available Not Available naproxen 500 mg tablet TAKE 1 TABLET BY MOUTH TWICE A DAY WITH MEALS 05/26 completed Not Available Not Available Not Available metoclopram yasmine 10 mg tablet TAKE 1 TABLET BY MOUTH 4 TIMES A DAY NEEDED 02/17 completed Not Available Not Available Not Available amoxicillin 875 mg-potassiu m clavulanate 125 mg tablet TAKE 1 TABLET BY MOUTH 2 TIMES DAILY FOR 5 DAYS. 07/15 completed Not Available Not Available Not Available oxycodone 5 mg tablet TAKE 1 TABLET BY MOUTH EVERY 6 HOURS NEEDED FOR PAIN 02/17 completed Not Available Not Available Not Available nitrofurant oin monohydrate /macrocryst als 100 mg capsule TAKE 1 CAPSULE BY MOUTH TWICE A DAY FOR 7 DAYS active Not Available Not Available No t Available Multivitami ns 01/16 completed Not Available Not Available Not Available levetiracet am 1,000 mg tablet TAKE 1 TABLET BY MOUTH TWICE A DAY 01/16 completed Not Available Not Available Not Available oxycodone 10 mg tablet 02/17 completed Not Available Not Available Not Available butalbital- acetaminoph en-caffeine 50 mg-300 mg-40 mg capsule TAKE 1-2 CAPSULES BY MOUTH EVERY 4 HOURS NEEDED FOR HEADACHE 05/06 completed Not Available Not Available Not Available sodium,pota ssium,mag sulfates 17.5 gram-3.13 gram-1.6 gram oral soln TAKE 177 MLS BY MOUTH EVERY 12 (TWELVE) HOURS. PER GI INSTRUCTI ONS 07/15 completed Not Available Not Available Not Available Sindy 30 mg tablet 01/01 completed Not Available Not Available Not Available OneTouch Verio test strips USE 1 STRIP TO TEST 4 TIMES A DAY 02/17 completed Not Available Not Available Not Available FC2 Female Condom 05/06 completed Not Available Not Available Not Available OneTouch Delica Plus Lancet 33 gauge USE TO TEST 4 TIMES A DAY 02/17 completed Not Available Not Available Not Available OneTouch Verio Reflect Meter GLUCOMETE R AND LANCETS AND STRIPS TO TEST 4 TIMES A DAY 02/17 completed Not Available Not Available Not Available Nextstellis 3 mg-14.2 mg (28) tablet Take 1 tablet every day by oral route. 06/08 completed Not Available Not Available Not Available Vitals Date Recorded Body height Body mass index (BMI) Body weight Systolic And Diastolic Provider Name and Address Organization Details Last Updated DateTime 01/16/2025 157.48 cm 47.1 kg/m2 370766.39 g 120/80 mm[Hg] [facility] IV 01/16/2025 19:03:05 Date Recorded Body height Body mass index (BMI) Body weight Body temperature Systolic And Diastolic Provider Name and Address Organization Details Last Updated DateTime 05/06/2023 157.48 cm 44.3 kg/m2 747737. 07 g 98.2 [degF] 128/82 mm[Hg] [facility] IV 15:37:27 Date Recorded Body height Provider Name an d Address Organization Details Last Updated DateTime 05/26/2025 157.48 cm [facility] 05/26/2025 17:19:00 Date Recorded Body height Body mass index (BMI) Body weight Body temperature Systolic And Diastolic Provider Name and Address Organization Details Last Updated DateTime 06/08/2023 157.48 cm 43.9 kg/m2 804855. 45 g 97.8 [degF] 126/82 mm[Hg] [facility] IV 14:09:50 Date Recorded Body height Body mass index (BMI) Body weight Systolic And Diastolic Provider Name and Address Organization Details Last Updated DateTime 07/15/2024 157.48 cm 49.2 kg/m2 487371.07 g 130/80 mm[Hg] Geovanni Mckinnon [facility] IV 07/15/2024 19:21:40 Social History Question Answer Notes LastModified by [employer] Details LastModified Time Tobacco Smoking Status Former Smoker Kassie Skinnertracy rosa, [facility] IV 01/01/2022 17:22:08 How Many Years Have You Consumed Alcohol? 2 Information not available 01/01/2022 Are You Blind Or Do You Have Difficulty Seeing? No Information not available 01/01/2022 Are You Deaf Or Do You Have Serious Difficulty Hearing? No Information not available 01/01/2022 What Type Of Diet Are You Following? REGULAR Information not available 01/01/2022 When Did You Quit Smoking? 1-5yearssince lastcigarette Information not available 07/15/2024 How Many Children Do You Have? 1 Information not available 05/06/2023 What Is Your Relationship Status? Information not available 01/01/2022 Are You Sexually Active? Yes Information not available 01/01/2022 How Much Tobacco Do You Smoke? 0.5 PPD Information not available 07/15/2024 Sex: Unknown Functional Status Question Answer Note LastModified by [email or web address] Details LastModified Time How many times per week do you consume alcohol? Less than 1 time per week Information not available 01/16/2025 Do you use any illicit or recreational drugs? No Information not available 01/01/2022 Do you or have you ever used any other forms of tobacco or nicotine? No Information not available 01/01/2022 What is your level of alcohol consumption? Occasional Information not available 01/01/2022 Are you currently employed? 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 Current user of electronic cigarettes Information not available 01/01/2022 What is your exercise level? Occasional Information not available 01/01/2022 Mental Status None recorded. Family History Relationship Description Onset Age of this Age Resolved Age Notes LastModified by Organization Details LastModified Time Maternal Grandmother Depressive disorder [email or web address] Not available 2021 17:22:08 Father Hypercholest erolemia kbritsch Not available 2021 17:22:08 Father Hypertensive disorder [email or web address] Not available 2021 17:22:08 Unspecified Relation Hypothyroidi sm kbritsch Not available 2021 17:22:08 Sister Depressive disorder kbritsch Not available 2021 17:22:08 Medical History Condition Response Anxiety Disorder Y MRSA Y Depression Y Hypothyroidism Y GERD (reflux) Y Gynecological History Statement/Question Response Flow Moderate Frequency of Cycle (Q days) 31 Date of LMP 06/29/2024 HPV Vaccine N Date of Last Pap Smear 01/02/2022 Duration of Flow (days) 9 Current Control Method IUD Age at Menarche 11 Obstetrics History GPAL:G 3 P 1 0 2 1 Type Value Full Term 1 Spontaneous 2 Living 1 Total 3 Past Encounters Encounter ID Performer Location Encounter Start Date Encounter Closed Date Diagnosis/Indication Diagnosis SNOMED-CT Code Diagnosis ICD10 Code Diagnosis IMO Codes Diagnosis Note [id number] LEONIDES Green [facility] [address] [place] [address] 01/01/2022 17:15:20 01/02/2022 10:07:29 Depression screening 934822953 Z13.31 negative Gynecologi c examination 90055545 Z01.419 WWE completedP ap obtainedST I screening today.[employer] 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 Screening includes the Pap test and, for some women, testing for a virus called human papillomav irus (HPV).The main cause of cervical cancer is infection with HPV. There are many types of HPV. Some types have been linked to cancer of the cervix, vulva, vagina, anus, and penis. Some also can cause cancer of the head and neck. These types of HPV are known as h igh-risk types. Most cases of cervical cancer are caused by just two high-risk types of HPV t ype 16 and type 18. Cells that are infected with HPV appear different from normal cells under a microscope . Abnormal changes can be mild, or they can be more serious. The more serious changes can lead to cancer if not treated Surveillan ce of contraception 178712538 Z30.40 Premenstru al dysphoric disorder 545201 F32.81 Discussed treatment options- first-line SSRIs. R/B/ARs of meds explained and timing of administra tion.Expla ined ext. cycle COCPs may be tried if SSRIs not effective, but may cause depression /mood issues in some people.Enc ouraged to keep mood diary.Rosanna watson wants to start an SSRI for PMDD symptoms- take 2 weeks prior to period, during luteal phase of cycle. Rx for Prozac sent.F/U in 3 months. [id number] Colin Cavazos MD [facility] [address] [place] [address] 12/24/2022 15:14:27 12/25/2022 12:40:02 state [id number] Z39.2 discussed breast feeding and control and minipill and also any progestero ne type and will switch to combinatio n pill after breast feedingwil l see in 10-12 months for yearly or sooner if neededalso discussed timing of second and waiting 15 months before atttemptin g to get prgnant for medical reasons which were discussed with the patient Reactive d epression (situational) [id number] F32.A and on buspar and 20 and 40mg prozac and she is seeing a psychiatri st and support system and she lives by herself and mom and GM are close by FOB not involved Contracept ion care management [id number] Z30.9 [id number] Colin Cavazos MD [facility] [address] [place] [address] 02/17/2023 16:34:12 02/17/2023 18:00:44 Irregular periods [id number] N92.6 discussed atrophic bleeding and we can have her try estradiol 1 -2 mg bid x 5 days prn for bleeding more than 5 days and she may take 1 po qd last 7 days of her control pills as well and randall third option is to take 1mg daily while on the control pill and we will try stopping nexstellis and giving estradiol 1 mg bid x 5 days [id number] Colin Cavazos MD [facility] [address] [place] [address] 05/06/2023 15:13:55 05/07/2023 08:51:16 Pain in pelvis [id number] R10.2 Low back pain [id number] M54.50 COUNSELING was provided today regarding the following topics: healthy eating habits. Patient education given on weight management . , regular exercise. Patient handout given on Fitness, and Kegel excercise .RECOMMEND ATIONS given include: heat therapy and discussed anti inflammato luh such as ibuprofen 800mg po q 6hours for three days with food and then 800mg po q 8hours prn(or 1-2 aleve every 8 hours with food for 3 days and then 1-2 pills twice per day) if prescripti ons called in we could try toradol (needs to stop any other antiinflam matories while taking this) and /or we could call in flexeril or other muscle relaxant as well .REFERRALS : Referral initiated to physical therapy ( for evaluation of Lyubov at [facility] physical therapy or one of her female physical therapists especially if significan t piriformit is with dyspareuni a ) . go to Dr Jane goins for 7 si joint pain stretches and exercisesF OLLOW-UP: Advised to call if there is no improvemen t 4 weeks . discussed heat as well as epsom salt baths . Bacterial vaginosis [id number] N76.0 Body mass index 40+ - severely obese [id number] Z68.41 COUNSELING was provided today regarding the following topics: healthy eating habits. Patient education given on weight management ., regular exercise. Patient handout given on Fitness, crossfit exercise emphasized . Instructed to strictly limit food calories to 12 oz/day and processed starches., and Instructed to stop the prescribed medication immediatel y if you experience chest pain or shortness of breath.. RECOMMENDA TIONS given include: a graduated exercise program ( 4-5 days per week ), stress reduction, You should follow the recommenda tions for fluid calories, limit processed starches, and diet caloric intake recommenda tions., and Encouraged at least 6 hours of sleep per night.. stressed importance of weight loss. Download cognitive therapy APPs (CBT Coordinator Of Health Services, Aminah)TANYA OW-UP: Schedule a follow-up visit in 1 month. Past pregn any history of pre-eclampsia [id number] 56065 Z87.59 Menometrorrhagia 8419877 08 N92.1 We will have her stop her control pill and then we will have her do the oral estrogen once a day for 2 weeks and if she is stop bleeding we will have her discontinu e that I think this is just atrophic bleeding and we will manage her expectantl y [id number] Colin Cavazos MD [facility] [address] [place] [address] 06/08/2023 14:03:04 06/08/2023 17:16:42 Pain in pelvis 56192640 R10.2 doing better Body mass index 40+ - severely obese [id number] Z68.41 COUNSELING was provided today regarding the following topics: healthy eating habits. Patient education given on weight management ., regular exercise. Patient handout given on Fitness, crossfit exercise emphasized . Instructed to strictly limit food calories to 12 oz/day and processed starches., and Instructed to stop the prescribed medication immediatel y if you experience chest pain or shortness of breath.. RECOMMENDA TIONS given include: a graduated exercise program ( 4-5 days per week ), stress reduction, You should follow the recommenda tions for fluid calories, limit processed starches, and diet caloric intake recommenda tions., and Encouraged at least 6 hours of sleep per night.. stressed importance of weight loss. Download cognitive therapy APPs (CBT Coordinator Of Health Services, Aminah)TANYA OW-UP: Schedule a follow-up visit in 1 month. Secondary amenorrhea [id number] N91.1 We discussed continuing with the estradiol daily and we will do the Prometrium 200 mg days 1 through 12 on the even months [id number] Jodie Castorena CNM [facility] [address] [place] [address] 07/15/2024 19:04:12 07/15/2024 19:48:17 Vaginal discharge [id number] N89.8 N76.0 Pelvic and perineal pain 768569193 R10.2 [id number] Pt reports pelvic pain for the past week. Right moderately severe tenderness on pelvic exam; mild on left side. Normal US findings. IUD stem appears to be at C/S scar. Will monitor closely for pain resolution . F/u if no improvemen t in pain after antibiotic completion or if experienci ng increased pain. Pt agreeable to plan [id number] LEONIDES EISENBERG [facility] [address] [place] [address] 01/16/2025 18:44:57 01/23/2025 14:24:16 Vaginal discharge [id number] N89.8 [id number] Discussed baking soda soaks to help discharge/ irritation Discussed vulvar hygiene recommenda tions Candidiasis of vagina 72 [id number] B37.31 [id number] Yeast appearing vaginal discharge with itching- vaginitis/ STI swab sent-Rx for Diflucan [id number] Jodie Castorena CNM [facility] [address] [place] [address] 05/26/2025 16:47:07 05/26/2025 19:16:03 Break-through bleeding 95559987 N92.1 Z97.5 [id number] Pt reports intermitte nt spotting and breakthrou gh bleeding for the past 3 wks. Occasional ly bleeding is heavy. Has IUD since 2021.US shows IUD in correct position.D iscussed management option w/short course of estrogen to stabilize bleeding over the next few weeks. Pt willing to try.No absolute or relative contraindi cations to estrogen use were identified .ACHES discussedf /u as needed Health Concerns Section Related Observation LastModified by Organization Detai ls LastModified Time None Recorded Concern Status LastModified by Organization Details LastModified Time None Recorded Advance Directives Directive None Recorded Payers Insurance Date Sequence Insurance Name Policy Number Policy Mckenzie Covered Member ID Mckenzie Member ID Guarantor Name 03/01/2025 2 SIMA (PPO) [id number] Anna [id number] [facility] 09/29/2024 1 [place] [id number] [facility] [id number] [place] 06/14/2025 1 [id number] [facility] 05/09/2025 PAYMENT PLAN [facility] Notes Date Note Type Note Provider Name and Address Organization Details Recorded Time 05/06/2023 text/html Anna states she is having pelvic pain the goes to her backHaving discharge , that will be black in colorShe states rectal bleedingCycles have painful, having fevers on and offThe symptoms have increased last weekthe discharge has been around for months 0 Colin Cavazos MD [address] [place] [address], [place], [address], [facility] IV 05/06/2023 16:46:40 06/08/2023 text/html Anna presents to follow up on having pelvic pain the goes to her backdischarge has approved but states she has been getting yeast infectionsShe states rectal bleedingCycles have painful, cycle has stopped recentlypelvic pain has been about samehad been bleeding 4-6 time s a month and she stopped the bc pill and she is taking estradiol and no bleeding Colin Cavazos MD [address] [place] [address], [place], [address], [employer] [facility] 06/08/2023 14:55:55 07/15/2024 text/html Vaginal/Vulvar ProblemReported by PatientHPIFor location, patient reportsvagina. For duration, patient reportspresent for 1-7 days. For severity, patient reportsmild. For context, patient reportssexually active. For alleviating factors, patient reportsnone. For aggravating factors, patient reportsnone.ROS as noted in the HPI Anna is here for yeast infectionpatient c/o discharge and pain from her right side of her pelvic for 1 week Jodie Castorena CNM [address] [facility], [place], [address], [facility] 07/15/2024 19:48:10 01/16/2025 text/html ROS as noted in the HPI Anna is here for vaginal problems, dx with bv in ER On 01/02 completed treatment then started having yeast symptoms she treated herself with OTC monistat which made symptoms worse LEONIDES EISENBERG [address] [facility], [place], [address], [facility] [employer] [facility] 01/20/2025 15:40:47 05/26/2025 text/html Abnormal BleedingReported by PatientHPIFor quality, patient reportsheavy. For onset/timing, patient reportsnew onset bleeding. For severity, patient reportsrequires double protection.Patient c/o pelvic pain, brown discharge for 3 weeksPatient has the IUD as control useROS as noted in the HPI Jodie Castorena CNM [address] [facility], [place], [address], [facility] [employer] [facility] 05/27/2025 20:10:26 OBGyn Episode Ob Episode Information Episode Created Date Number of Fetuses Patient Bloodtype Patient rh Status Prepregnancy Weight lbs Domestic Partner Domestic Partner Phone Father Name Purchasing Administrator Status 12/25/19 23 1 CLOSED Fetus Data First Name Last Name Admitted to NICU Weight (g) Sex Living Outcome Pediatric Complications Fetus ID Race Codes Race Delivery Type 2806.37 [id number] F Full Term [id number] Primary Phillip Calculation Initial Phillip Date Initial Exam Date Initial Exam Provider Initial Ultrasound Date Last Menstrual Period Date Ultra Sound Weeks Gestation 0 Eighteen To Twenty Week Phillip Update Ultra Sound Date Fundal Height At Umbil Quickening Date Ultra Sound Latest Weeks Gestation Final Phillip Confirmed By Final Phillip Confirmed Date Final Phillip Date Ultra Sound Latest Days Gestation 0 0 Menstrual History Last Menstrual Date Menses Monthly On Bcp Conception Prior Menses Frequency Hcg Plus Date Menarche Onset Age Delivery Information Delivery Date Delivery Type Labor Anesthesia Weeks Gestation Incision Type Labor Labor Length Hrs Delivered By Post Complications Tubal Sterilization Discharge Date Comments 3 Regional-Sp inal 36 true Discharge Information Feeding Method Contraceptive Method Maternal HG B and HCT Levels
--- OUTSIDE RECORDS SUMMARY | 2025-06-25 17:49 | XMS_ITS | Encounter Summary ---
Author Organization [facility] Address [facility] [place] [address] Care Team Providers Care Sliver Lap Tender Name Role Phone Marianne Aguilar PATENT LEGAL ASSISTANT Primary Care Provider Yanira Mohr PA-C Primary Care Provider [phone] Encounter Details Date Type Department Care Team (Late st Contact Info) Description 09/22/2023 [employer] Message Enc [facility] Family Medicine [address] [address] Marianne Aguilar NP Worsened symptoms Social History Tobacco Use Types Packs/Day Years [...] any clubs o r organizations such as synagogue groups, unions, fraternal or athletic groups, or [...] Recorded Patient Health Questionnaire-2 Score 3 05/05/2023 [facility] - [...] place to sleep or slept in a custodial (including now)? 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 Wish to be (Past 1 Month) No 09/22/2023 9:31 AM Yennifer Palacios RN Act sae 2. Non-Specific Active Suicidal Thoughts (Past 1 Month) No 09/22/2023 9:31 AM Yennifer Palacios RN Act sae 6. Suicidal Behavior (Lifetime) No 09/22/2023 9:31 AM Yennifer Palacios RN Act sae documented as of this encounter Mental Status * Because of a physical, mental, or emotional condition, do you have serious difficulty concentrating, remembering, or making decisions? Answer Entry Date Author Status No 03/03/2023 10:00 PM CDT Tommy Hale RN Active documented in this encounter Progress Notes * Marianne Aguilar NP - 09/22/2023 3:06 PM CST Patient was seen in a walk in clinic today. ING MACHINE OPERATOR documented in this encounter Plan of Treatment [...] documented as of this encounter Care Teams Sliver Lap Tender Relationship Specialty Start Date End Date Marianne Aguilar NP PCP - General NURSE PRACTITIONER 04/19/21 12/30/23 Yanira Woo PA-C [address] [place] [address]. [place] [address] PCP - General PHYSICIAN LINE PATROLMAN 12/31/23 documented as of this encounter
--- OUTSIDE RECORDS SUMMARY | 2025-06-25 17:49 | XMS_ITS | Encounter Summary ---
Author Organization [facility] Address [facility] [place] [address] Care Team Providers Care Cross Cut Sawyer Name Role Phone Marianne Aguilar CONVENTION SERVICES DIRECTOR Primary Care Provider Yanira Mohr PA-C Primary Care Provider [phone] Encounter Details Date Type Department Care Team (Late st Contact Info) Description 09/16/2023 [facility] Message Enc [facility] Family Medicine [address] [address] Marianne Aguilar NP Sinus infection Social History Tobacco Use Types Packs/Day Years [...] often do you attend chur ch or taoist services? Never 12/11/2022 Do you belong to any clubs o r organizations such as roman catholic groups, unions, fraternal or athletic groups, or [...] Recorded Patient Health Questionnaire-2 Score 3 05/05/2023 [facility] - Occupational [...] place to sleep or slept in a longterm (including now)? No 02/27/2023 Depression Answer Date Recor ded Last EPDS Total Score 25 12/02/2022 Last EPDS Self Harm Result Unrecognized value Comments No Sex and Gender Information Value Date Recorded Sex Assigned at Female 09/19/2024 8:29 AM STORAGE GARAGE ATTENDANT Legal Sex Female 9:31 PM CDT Gender [...] 03/03/2023 10:00 PM Tommy Cardona RN Active documented as of this encounter [...] documented as of this encounter Care Teams Cross Cut Sawyer Relationship Specialty Start Date End Date Marianne Aguilar NP PCP - General NURSE PRACTITIONER 04/19/21 12/30/23 Yanira Woo, PAJdC [address] [place] [id number] PCP - General PHYSICIAN CAN RECONDITIONER 12/31/23 documented as of this encounter
--- OUTSIDE RECORDS SUMMARY | 2025-06-25 17:49 | XMS_ITS | Clinical Summary ---
Author Organization [facility] Address [address] [place] [address] Care Team Providers Care Neonatal Icu Coordinator Name Role Phone Yanira Woo Primary Care Provider [phone] Allergies Active Allergy Reactions Criticality Noted Date Comments Sulfa (Sulfonamide Antibiotics) Hives,Shortness of breath High 08/29/2022 Vancomycin Other (See comments) Low 04/15/2023 Red man's Medications busPIRone (BUSPAR) 5 mg tablet Take 1.5 tablets (7.5 mg total) by mouth 2 (two) times a day 3 Active ergocalciferol (VITAMIN D) 50,000 unit capsule Take 1 capsule (50,000 Units total) by mouth 2 (two) times a week 3 Active FLUoxetine (PROzac) 40 mg capsule Take 1 capsule (40 mg total) by mouth daily 3 Active levothyroxine (SYNTHROID) 75 mcg tablet Take 1 tablet (75 mcg total) by mouth bartacker before breakfast 3 Active propranolol LA (INDERAL LA) 60 mg 24 hr capsule Take by mouth daily 3 Active lamoTRIgine (LaMICtal) 100 mg tablet Take 1 tablet (100 mg total) by mouth daily Active traZODone (DESYREL) 50 mg tablet Take 1 tablet (50 mg total) by mouth nightly as needed for sleep Active colchicine (COLCRYS) 0.6 mg tablet Take 1 tablet (0.6 mg total) by mouth 2 (two) times a day for 3 doses 3 tablet [address] (PROTONIX) 40 mg EC tabletIndication s:Mucositis Prophylaxis Take 1 tablet (40 mg total) by mouth daily 30 tablet 5 03/22/20 26 Active Hospital, Clinic, or Other Facility Administered Medication Ordered Dose Route Frequency Start Date End Date Status levonorgestreL (MIRENA) 21 mcg/24 hours (8 yrs) 52 mg IUDIndications:Preg mikey Contraception intrauterine Continuous (implanted device) 07/22/2023 8 Active Active Problems Problem Noted Date Diagnosed Date Acute chest pain 03/20/2025 Chronic pelvic pain in female 11/19/2023 Dysmenorrhea, unspecified 11/19/2023 Abnormal uterine bleeding (AUB) 11/19/2023 Anemia of acute infection 11/13/2022 Cough 11/13/2022 Abdominal infection 11/05/2022 Pneumonia due to infectious organism 11/05/2022 Wound infection after surgery 11/05/2022 Preeclampsia, severe, third trimester 09/01/2022 Premenstrual dysphoric disorder 01/01/2022 Surgical History Surgery Date Site/Laterality Comments EYE SURGERY KNEE ARTHROCENTESIS 02/25/2019 Left ASPIRATION OF ABSCESS HEMATOMA CYST 1999 fluid removed from hydrocepalis CYST REMOVAL 12/20/2015 Left left leg SECTION 08/03/2022 - 08/02/2023 Medical History Medical History Date Comments Seizures (HCC) Family History Medical History Relation Name Comments Hypertension Father Breast cancer Neg Hx Ovarian cancer Neg Hx Uterine cancer Neg Hx Relation Name Status Comments Father Alive Mother Alive Social History Tobacco Use Types Packs/Day Years Used Date Smoking Tobacco: Former Cigarettes Comments:Smoked from 2016- 18 Social Connection and Isolation Panel Answer Date Recorded In a typical week, how many times do you talk on the phone with family, friends, or neighbors? More than three times a week 09/03/2022 How often do you get togethe r with friends or relatives? More than three times a week 09/03/2022 How often do you attend chur or orthodoxy services? Never 09/03/2022 Do you belong to any clubs o r organizations such as catholic groups, unions, fraternal or athletic groups, or school groups? No 09/03/2022 How often do you attend meet ings of the clubs or organizations you belong to? Never 09/03/2022 Are you , , di vorced, , never , or living with a partner? Never 09/03/2022 AUDIT-C Answer Date Recorded Q1: How often do you have a drink containing alc ohol? 2-4 times a month 07/16/2023 Q2: How many drinks containi ng alcohol do you have on a typical day when you are drinking? 1 or 2 07/16/2023 Q3: How often do you have si x or more drinks on one occasion? Never 07/16/2023 Overall Financial Resource Strain (CARDIA) Answe r Date Recorded How hard is it for you to pa y for the very basics like food, housing, medical care, and heating? Not very hard 09/03/2022 Hunger Vital Sign Answer Date Recorded Within the past 12 months, y ou worried that your food would run out before you got the money to buy more. Never true 09/03/19 23 Within the past 12 months, t he food you bought just didn't last and you didn't have money to get more. Never true 09/03/2022 PRAPARE - Transportation Answer Date Re corded In the past 12 months, has l ack of transportation kept you from medical appointments or from getting medications? No 08/2022 In the past 12 months, has l ack of transportation kept you from meetings, work, or from getting things needed for daily living? No 09/03/2022 Housing Stability Vital Sign Answer Zac e Recorded In the last 12 months, was t here a time when you were not able to pay the mortgage or rent on time? No 09/03/2022 In the last 12 months, how many places have you lived? 1 09/03/2022 In the last 12 months, was t here a time when you did not have a steady place to sleep or slept in a [place] [facility] [place] (including now)? No 09/03/2022 Personal Safety Answer Date Recorded Have you ever been in or are you currently in a harmful physical or emotional relationship or is someone making you feel afraid or unsafe? 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 Gender Identity Not on file Sexual Orientation Not on file Obstetrics History Para Term AB IAB SAB Ectopic Multiple Livin g Live Births 4 1 1 3 3 1 1 Date Outcome GA Total Labor Labor/2nd/3rd Weight Sex Type Anes PTL Arminda A1 A5 Name Clin 2017 SAB 2021 36w 0d F CS-Un spec Living 2022 SAB Last Filed Vital Signs Vital Sign Reading Time Taken Comments Blood Pressure 125/95 03/22/2025 7:23 AM CDT Pulse 80 03/22/2025 9:54 AM CDT Temperature 36.8 C (98.2 F) 03/22/2025 7:23 AM CDT Respiratory Rate 18 03/22/2025 7:23 AM CDT Oxygen Saturation 96% 03/22/2025 7:23 AM CDT Inhaled Oxygen Concentration - - Weight 116.2 kg (256 lb 2.8 oz) 03/20/2025 8:47 PM CDT Height 157.5 cm (5' 2) 03/20/2025 8:47 PM CDT Body Mass Index 46.85 03/20/2025 8:47 PM CDT Plan of Treatment Health Maintenance Due Date Last Done Comments Depression Screening 1999 Hepatitis C Screening 1999 Varicella Vaccines (2 of 2 - 2-dose childhood series) 2003 05/11/2000 DTaP/Tdap/Td Vaccine (5 - Tdap) 2010 01/12/2001, 1999, 1999, Additional history exists Regular Well Visit/Exam 18-64 2017 HPV Vaccines (3 - 3-dose series) 08/12/2018 03/15/2018, 02/09/2018 Cervical Cancer Screening 06/08/2024 06/08/2023 Covid-19 Vaccine ( season) 2025 06/17/2021, 05/27/2021 Influenza Vaccine (#1) 2025 , 04/24/2020, 07/06/2018, Additional history exists Hepatitis B Screening Completed 01/23/2000 , 1999, 1999 Pneumococcal vaccine <65 Aged Out 01/12/2001 No longer eligible based on patient's age to complete this topic Procedures Procedure Name Priority Date/Time Associated Diagnosis Comments PAP WITH REFLEX TO HIGH RISK HPV Routine 06/08/2023 3:25 PM WILDLIFE CONSERVATION PROFESSOR Cervical cancer screening from Last 3 Months or Most Recently Relevant to Health Maintenance Results * Pap with reflex to High Risk HPV and Genotyping (Cytology Component) (06/08/2023 3:25 PM WILDLIFE CONSERVATION PROFESSOR) Thin prep (Pap test) 06/08/2023 3:25 PM WILDLIFE CONSERVATION PROFESSOR 06/11/2023 11:22 AM WILDLIFE CONSERVATION PROFESSOR Narrative PATHOLOGY [facility] - 06/17/2023 3:31 PM WILDLIFE CONSERVATION PROFESSOR EPIC results best viewed via link to PDF [facility] [place] [address] Note to Patients: This report may contain a detailed description of human tissue sent by a health care provider to the laboratory for pathologic evaluation. The content of this report is essential for diagnosis and may provide important critical findings. This information may be unfamiliar to patients to review without a medical professional present. It is advised that the patient review this report in the presence of a health care provider who can answer questions and explain the details. CYTOPATHOLOGY REPORT FINAL Patient Name: ANNA SALGUERO Gender: F : 2000 (Age: 23) Address: [address] [place] [address] Hospital #: [id number] Service: DEFAULT Location: Patient Type: [facility] SPECIMEN Taken: 06/08/2023 Received: 06/11/2023 Accessioned: 06/11/2023 Reported: 06/17/2023 Physician(s): Darline Ordonez M.D. FINAL INTERPRETATION SOURCE OF SPECIMEN Liquid based Thin Prep pap with HPV: STATEMENT OF ADEQUACY - Satisfactory for evaluation - Endocervical cells/transformation zone sample absent GENERAL CATEGORIZATION: - Negative for squamous intraepithelial lesion or malignancy ml/06/17/2023 15:31 Andria Nieto MS, CT (ASCP) Report Electronically Reviewed and Signed Out By Andria Nieto MS, CT (ASCP) 06/17/2023 15:31:48 Cervicovaginal Cytology (Pap Test) Disclaimer: The Pap test is a screening test used to detect cervical cancer and its precursors; it is not a diagnostic procedure. False negative and false positive results do occur. Pap test results should be interpreted in the context of pertinent clinical information and biopsy results as indicated. [facility] Clinical Laboratory Improvement Amendments (CLIA) mandate that cytologic and histologic results be correlated for laboratory supplier quality & improvement standards. FOR ALL HIGH-GRADE CASES we request submission of follow-up histological material and/or reports that have not been previously provided so that we may fulfill said required standards. Gross Description A. Liquid based Thin Prep pap with reflex HPV: Cervical/vaginal - Screening ThinPrep Clinical Diagnosis and History Last Menstrual Period: irregular Menstrual History: Irregular Cycles The patient is a 23 year old female with screening. Report Images and scanned documents, if included only viewable in PDF version The performance characteristics of some immunohistochemical stains, in-situ hybridization and fluorescence in-situ hybridization tests and immunophenotyping by flow cytometry cited in this report (if any) were determined by the Surgical Pathology Department at [facility] as part of an ongoing clinical quality manager program and in compliance with federally mandated regulations drawn from the Clinical Laboratory Improvement Act of 1988 (CLIA '88). Some of these tests rely on the use of analyte specific reagents and are subject to specific labeling requirements by the US Food and Drug Administration. Such diagnostic tests may only be performed in a facility that is certified by the Department of Health and Human Services as a high complexity laboratory under CLIA '88. The FDA has determined that such clearance or approval is not necessary. This test is used for clinical purposes. It should not be regarded as investigational or for research. Nevertheless, federal rules concerning the medical use of analyte specific reagents require that the following disclaimer be attached to the report: This test was developed and its performance characteristics determined by the Surgical Pathology Department of [facility]. It has not been cleared or approved by the U. S. Food and Drug Administration. Darline Ordonez MD LAB CYTOLOGY ORDERABLES F inal Result PATHOLOGY [facility] from Last 3 Months or Most Recently Relevant to Health Maintenance Insurance BLUE ACCESS OOS [employer] [facility] CHOICE PLUS [facility] HMO/PPO Address: [address] [address] [place] [address] [facility] [address] [place] [address] Member Subscriber Plan / Payer (Ef fective 2024-Present) Name:Anna Salguero Member ID:[id number] Relation to Subscriber:Self Name:Anna Salguero Subscriber ID:[id number] Payer ID:[id number] (NAIC) Type:AETNA HMO/PPO Address: [place] [phone] Advance Directives For more information, please contact: [phone] * Full Code (Latest Code Status on File) Date Activated Date Inactivated Comments 03/20/2025 9:00 PM 03/22/2025 3:11 PM * Full Code Date Activated Date Inactivated Comments 09/01/2022 9:37 PM 09/04/2022 6:54 PM Care Teams Neonatal Icu Coordinator Relationship Specialty Start Date End Date Yanira Woo PA [address] [place] [id number] PCP - General Physician Management Assistant 03/20/25
--- OUTSIDE RECORDS SUMMARY | 2025-06-25 17:50 | XMS_ITS | Clinical Summary ---
Author Organization [facility] Address [address] [place] [address] Care Team Providers Care Mail Agent Name Role Phone Yanira Woo PA-C Primary Care Provider [phone]- [phone] Allergies Active Allergy Reactions Criticality Noted Date Comments Sulfa Antibiotics Hives,Rash High 04/09/2016 Vancomycin Rash Low 11/13/2022 Can handle for a few days with benadryl Medications FLUoxetine (PROZAC) 40 MG capsuleIndications :Anxiety and depression TAKE 1 CAPSULE (40 MG TOTAL) BY MOUTH DAILY FOR DEPRESSION 90 capsule 06/09/20 23 Active propranolol LA (INDERAL LA) 60 MG 24 hr capsule Take 1 capsule (60 mg total) by mouth daily. 09/29/19 24 Active Multiple Vitamin (MULTIVITAMINS OR) A ctive pantoprazole EC (PROTONIX) 40 MG tabletIndications: Gastroesophageal reflux disease, unspecified whether esophagitis present,Dysphagia, unspecified type Take 1 tablet (40 mg total) by mouth daily. 30 tablet 2 10/11/19 25 Active levothyroxine (SYNTHROID) 50 MCG tabletIndications: Acquired hypothyroidism Take 1 tablet (50 mcg total) by mouth every morning. 90 tablet 1 02/24/20 25 Active Additional Information Patient not taking.Reported on 03/29/2025 lamoTRIgine (LAMICTAL) 100 MG tablet Take 1 tablet (100 mg total) by mouth daily. Active busPIRone (BUSPAR) 7.5 MG tablet Take 1 tablet (7.5 mg total) by mouth 2 (two) times daily. Active colchicine 0.6 MG tablet Take 1 tablet (0.6 mg total) by mouth 2 (two) times daily. 03/22/20 25 Active levonorgestrel (MIRENA) 20 MCG/DAY IUD 1 Intra Uterine Device by Intrauterine route once. Active Active Problems Problem Noted Date Diagnosed Date History of seizure 03/29/2025 Thyroid nodule 03/17/2025 Family history of gastric cancer 02/17/2024 Acquired hypothyroidism 02/01/2024 Current moderate episode of major depressive disorder without prior episode 02/01/2024 PCOS (polycystic ovarian syndrome) 02/01/2024 Vitamin D deficiency, unspecified 02/01/2024 Difficulty swallowing 02/09/2018 Dysmenorrhea 02/09/2018 Obesity, morbid, BMI 40.0-49.9 05/04/2017 Anxiety 04/28/2017 GERD (gastroesophageal reflux disease) 7 Irregular menses 04/28/2017 Resolved Problems Problem Noted Date Diagnosed Date Resolved Date Hypomagnesemia 03/20/2025 03/29/2025 Hematochezia 02/17/2024 03/29/2025 Seizures 02/27/2023 02/01/2024 Surgical site infection 12/12/2022 07/0 08/2023 Pre-eclampsia in period 12/02/2022 02/01/2024 Suicidal ideation 12/02/2022 02/01/2024 Wound infection following ce sarean section, 12/02/2022 02/01/2024 Encounter for physical exami nation related to employment 09/05/2020 09/10/2020 Encounters Date Type Department Care Team Description 03/29/2025 1:40 PM CDT Office Visit [address] [address] Yanira Woo PA-C TCM (Pericarditis ) 03/29/2025 Travel 03/29/[address] [address] Yanira Woo PA-C Medication 03/28/2025 9:34 AM CDT - 03/28/2025 11:59 PM CDT Hospital Encounter [facility] [place] [place] [address] Yanira Woo PA-C Discharge Disposition: Home or Self Care (Routine Discharge) 03/28/2025 Travel from Last 3 Months Immunizations Immunization Administration Dates Next Due DTaP/Hib (TriHIbit) 01/12/2001, 0,1999,1999 Dtap 01/12/2001, 0,1999,1999 Fluzone Adult - >Age 3 (Pref illed Syringe) 07/06/2018 HPV GARDASIL 9-VALENT 09/16/2018,03/15/2018,01/31 Hepatitis B Pediatric 01/23/2000,1999,09/04 Hib (Generic) 01/12/2001, 0,1999,1999 Influenza (Generic) 07/06/2018 Influenza Adult (Generic) 05/27/2021,,04/28/2017,2016 MMR 05/11/2000 Menactra 04/28/2017 PFIZER COVID-19 (ORIGINAL FORMULATION, PURPLE CAP) mRNA, LNP-S, PF, 30 MCG/0.3 ML DOSE 06/17/2021,05/27/2021 Pneumococcal(Pcv 7)Aka Prevnar 7 01/12/2001 Polio IPV (Ipol) 01/12/2001,1999, 0 Polio Ipv (Generic) 01/12/2001,1999,1999 Tdap (Boostrix) 02/10/2025 Varicella Vaccine 05/11/2000 Family History Medical History Relation Comments Hyperlipidemia Father Hypertension Father Anxiety Mother Stomach cancer Paternal Grandmother Diabetes Neg Hx Relation Status Comments Father Alive Mother Alive Paternal Grandmother Social History Tobacco Use Types Packs/Day Years Used Date Smoking Tobacco: Former Cigarettes 0.2 4.9 S tarted: 08/03/2020 Passive Smoke Exposure: Past Smokeless Tobacco: Never Tobacco Cessation:Counseling Given: No Alcohol Use Standard Drinks/Week Comments Not Currently 0 (1 standard drink = 0.6 oz [...] week 12/11/2022 How often do you attend [facility] or muslim services? Never 12/11/2022 Do you belong to any clubs o r organizations such as mu-ism groups, unions, fraternal or athletic groups, or [...] Answer Date Recorded Patient Health Questionnaire-2 Score 2 02/23/2025 [facility] - Occupational Stress [...] place to sleep or slept in a usp (including now)? No 02/27/2023 Depression Answer Date Recor ded Last EPDS Total Score 25 12/02/2022 Last EPDS Self Harm Result Unrecognized value Comments No Sex and Gender Information Value Date Recorded Sex Assigned at Female 09/19/2024 8:29 AM INFORMATION SECURITY MANAGER Legal Sex Female 9:31 PM CDT Gender Identity Not on file Sexual Orientation Not on file Last Filed Vital Signs Vital Sign Reading Time Taken Comments Blood Pressure 110/80 03/29/2025 1:42 PM CDT Pulse 74 03/29/2025 1:42 PM CDT Temperature 36.6 C (97.9 F) 03/29/2025 1:42 PM CDT Respiratory Rate 15 03/20/2025 1:34 PM CDT Oxygen Saturation 97% 03/29/2025 1:42 PM CDT Inhaled Oxygen Concentration - - Weight 117.6 kg (259 lb 3.2 oz) 03/29/2025 1:42 PM CDT Height 160 cm (5' 3) 03/29/2025 1:42 PM CDT Body Mass Index 45.92 03/29/2025 1:42 PM CDT Plan of Treatment Health Maintenance Due Date Last Done Comments Annual Physical 2002 Cervical Cancer Screening Pap Smear (Age 21 to 29) Every 3 Years 01/02/2025 01/02/2022 Cervical Cancer Screening 01/02/2025 COVID-19 Vaccine ( season) 2025 06/17/2021, 05/27/2021 Influenza Adult (#1) 2025 05/27/2021, 04/24/2020, 07/06/2018, Additional history exists DTaP, Tdap and Td Vaccines (6 - Td or Tdap) 02/10/2035 02/10/2025, 01/12/2001, 01/12/2001, Additional history exists Hepatitis B Vaccines Completed 01/23/2000, 1999, 1999 Pneumococcal Vaccine: Pediatrics (0 to 5 Years) and At-Risk Patients (6 to 49 Years) Aged Out 01/12/2001 No longer eligible based on patient's age to complete this topic Meningococcal Vaccine Completed 04/28/2017 HPV Vaccines Completed 09/16/2018, 03/03, 02/09/2018 Hepatitis C Completed 10/21/2023 Chlamydia Screening Females ages 16-24 Discontinued 01/02/2025, 10/21/2023 PHQ-2 (Physician [place]) Completed 02/23/2025 Hepatitis A Vaccines Aged Out No long er eligible based on patient's age to complete this topic Meningococcal B Vaccine Aged Out No l onger eligible based on patient's age to complete this topic RSV Immunizations Under 20 Months Aged Out No longer eligible based on patient's age to complete this topic Goals Goal Patient Goal Type Associated Problems Recent Progress Patient-Stated? Author Patient will return to prior living situation and remain independent in ADLs upon discharge from hospital Lifestyle No Kandi Clifton RN Medical Devices Implanted Type Area Room Service Attendant Device Identifier Shelf Expiration Date Model / Serial / Lot Knee-02/11/2019 Implanted:2018 (Quantity not on file) Procedures Procedure Name Priority Date/Time Associated Diagnosis Comments HC MAGNESIUM Routine 03/28/2025 9:38 AM CDT Hypomagnesemia HC VITAMIN D 25 OH Routine 03/28/2025 9: 38 AM CDT Vitamin D deficiency, unspecified HC CBC AUTO W/AUTO DIFF Routine 03/28/2025 9:38 AM CDT Elevated hemoglobin HC T4 FREE Routine 03/28/2025 9:38 AM CDT Acquired hypothyroidism HC THYROID STIMULATING HORM Routine 03/28/2025 9:38 AM CDT Acquired hypothyroidism HC COMPREHENSIVE METABOLIC PANEL Routine 03/28/2025 9:38 AM CDT Screening for diabetes mellitus CHLAMYDIA GC RNA STAT 01/02/2025 1:14 PM CDT HEPATITIS C ANTIBODY Routine 10/21/2023 4:53 PM CDT Suprapubic pain Screen for STD (sexually transmitted disease) OUTSIDE CYTOPATH CERV/VAG INTERPRET (PAP) (SCAN ORDER) 01/02/2022 from Last 3 Months or Most Recently Relevant to Health Maintenance Results * (ABNORMAL) COMPREHENSIVE METABOLIC PANEL (03/28/2025 9:38 AM CDT) GLUCOSE 90 70 - 99 MG/DL 03/28/2025 10:31 AM CDT [facility] BUN 9 7 - 18 MG/DL 03/28/2025 10:31 AM CDT [facility] CREATININE S/P/B 0.78 0.55 - 1.02 MG/DL 03/28/2025 10:31 AM CDT [facility] SODIUM S/P/B 137 136 - 145 MMOL/L 03/28/2025 10:31 AM CDT [facility] POTASSIUM S/P/B 4.1 3.5 - 5.1 MMOL/L 03/28/2025 10:31 AM CDT [facility] CHLORIDE S/P/B 106 97 - 115 MMOL/L 03/28/2025 10:31 AM CDT [facility] CO2 27.1 21 - 32 MMOL/L 03/28/2025 10:31 AM CDT [facility] CALCIUM S/P/B 9.2 8.5 - 10.1 MG/DL 03/28/2025 10:31 AM CDT [facility] BILIRUBIN TOTAL S/P/B 0.6 0.2 - 1.2 MG/DL 03/28/2025 10:31 AM CDT [facility] Comment: THIS ASSAY IS NOT RECOMMENDED FOR PATIENTS UNDERGOING TREATMENT WITH ELTROMBOPAG DUE TO THE POTENTIAL FOR FALSELY ELEVATED RESULTS. TOTAL PROTEIN S/P/B 7.2 6.4 - 8.2 G/DL 03/28/2025 10:31 AM CDT [facility] ALBUMIN S/P/B 3.5 3.4 - 5.0 G/DL 03/28/2025 10:31 AM CDT [facility] AST 18 15 - 37 U/L 03/28/2025 10:31 AM CDT [facility] ALT 33 14 - 55 U/L 03/28/2025 10:31 AM CDT [facility] ALKALINE PHOSPHATASE S/P/B 87 50 - 136 U/L 03/28/2025 10:31 AM CDT [facility] ANION GAP 3.9 2 - 10 MMOL/L 03/28/2025 10:31 AM CDT [facility] BUN CREATININE RATIO 11.6 6 - 26 03/28/2025 10:31 AM CDT [facility] A/G RATIO 0.9(L) 1.0 - 2.0 RATIO 03/28/2025 10:31 AM CDT [facility] GFR ESTIMATE >90 >90 ML/MIN/1.7 3 M2 03/28/2025 10:31 AM CDT [facility] Comment: NOTE: eGFR is not calculated for patients <18 years of age or gender unknown. This is an estimated GFR calculation using the new CKD EPI creatinine equation without race and so does not require a correction factor for race. This estimated GFR should not be used for calculating drug doses. 03/28/2025 9:38 AM CDT us Yanira Woo PA-C LABORATORY Final Resu lt [facility] [address] [place] [address], * (ABNORMAL) CBC W/DIFF AUTOMATED (03/28/2025 9:38 AM CDT) WBC 6.81 4.5 - 11.0 x10'3/uL 03/28/2025 10:07 AM CDT [facility] RBC 5.13 4.20 - 5.40 x10'6/uL 03/28/2025 10:07 AM CDT [facility] HGB 14.0 12.0 - 16.0 G/DL 03/28/2025 10:07 AM CDT [facility] HCT 42.0 38.0 - 48.0 % 03/28/2025 10:07 AM CDT [facility] MCV 81.9 81.0 - 99.0 FL 03/28/2025 10:07 AM CDT [facility] MCH 27.3 27.0 - 31.0 PG 03/28/2025 10:07 AM CDT [facility] MCHC 33.3 32.0 - 36.0 G/DL 03/28/2025 10:07 AM CDT [facility] RDW 12.5 11.5 - 14.5 % 03/28/2025 10:07 AM CDT [facility] PLT 237 130 - 400 x10'3/uL 03/28/2025 10:07 AM CDT [facility] MPV 8.9(L) 9.3 - 12.2 FL 03/28/2025 10:07 AM CDT [facility] DIFFERENTIAL TYPE AUTOMATED DIFFERENTIAL 03/28/2025 10:07 AM CDT [facility] NEUTROPHILS % 59.2 % 03/28/2025 10:07 AM T [facility] LYMPHOCYTES % 31.3 % 03/28/2025 10:07 AM CDT [facility] MONOCYTES % 7.8 % 03/28/2025 10:07 AM CDT [facility] EOSINOPHILS 1.0 % 03/28/2025 10:07 AM CDT [facility] BASOPHILS 0.4 % 03/28/2025 10:07 AM CDT [facility] IMMATURE GRANS % 0.3 % 03/28/20 10:07 AM CDT [facility] ABS. NEUTROPHILS 4.03 1.80 - 7.70 x10'3/uL 03/28/2025 10:07 AM CDT [facility] ABS. LYMPHOCYTES 2.13 1.00 - 4.80 x10'3/uL 03/28/2025 10:07 AM CDT [facility] ABS. MONOCYTES 0.53 0.24 - 0.86 x10'3/uL 03/28/2025 10:07 AM CDT [facility] ABS. EOSINOPHILS 0.07 0.04 - 0.36 x10'3/uL 03/28/2025 10:07 AM CDT [facility] ABS. BASOPHILS 0.03 0.01 - 0.08 x10'3/uL 03/28/2025 10:07 AM CDT [facility] ABS. IMMATURE GRANULOCYTES 0.02 0.00 - 0.49 x10'3/uL 03/28/2025 10:07 AM CDT [facility] 03/28/2025 9:38 AM CDT Yanira Woo PA-C LABORATORY Final Resu lt [facility] [address] [place] [address], [place] [phone] * THYROXINE, FREE (FT4) (03/28/2025 9:38 AM CDT) FREE T4 1.13 0.76 - 1.46 NG/DL 03/28/2025 10:31 AM CDT [facility] 03/28/2025 9:38 AM CDT Yanira Woo PA-C LABORATORY Final Resu lt [facility] [address] [place] [address], [place] [phone] * (ABNORMAL) THYROID STIM HORMONE TSH (03/28/2025 9:38 AM CDT) TSH 0.116(L) 0.358 - 3.74 uIU/ML 03/28/2025 10:31 AM CDT [facility] Comment: HIGH DOSES OF BIOTIN MAY INTERFERE WITH THIS TEST RESULT. CORRELATION TO CLINICAL HISTORY AND PRESENTATION RECOMMENDED. 03/28/2025 9:38 AM CDT Yanira Woo PA-C LABORATORY Final Resu lt Performing Organization Address City/[facility]/ZIP Co de Phone Number [facility] [address] [place] [address], [place] [phone] * VITAMIN D, 25 OH (03/28/2025 9:38 AM CDT) VITAMIN D 25 HYDROXY S/P/B 33 30 - 100 NG/ML 03/28/2025 10:26 AM CDT [facility] Comment: INTERPRETATION DEFICIENT <20 INSUFFICIENT 20-29 SUFFICIENT 30-100 03/28/2025 9:38 AM CDT Yanira Woo PA-C LABORATORY Final Resu lt Performing Organization Address City/[facility]/ZIP Co de Phone Number [facility] [address] [place] [address], [place] [phone] * MAGNESIUM (03/28/2025 9:38 AM CDT) MAGNESIUM 2.0 1.8 - 2.4 MG/DL 03/28/2025 10:31 AM CDT [facility] 03/28/2025 9:38 AM CDT Yanira Woo PA-C LABORATORY Final Resu lt [facility] [address] [place] [address], [place] [phone] * CHLAMYDIA GC RNA (01/02/2025 1:14 PM CDT) SPEC DESCRIPTION CERVIX 06/02/20 25 1:28 PM CDT [facility] CHLAMYDIA RNA TMA NEGATIVE NEGATIVE 025 1:50 PM CDT [facility] Comment:PERFORMED BY NUCLEIC ACID AMPLIFICATION N.GONORRHOEAE RNA TMA NEGATIVE NEGATIVE 01/03/2025 1:50 PM CDT [facility] Comment:PERFORMED BY NUCLEIC ACID AMPLIFICATION VAGINAL STRUCTURE / Unknown 01/02/2025 1:14 PM CDT Moe BLUNT MICROBIOLOGY - GENERAL ORD ERABLES Final Result [facility] [address] [place] [address], [place] [phone] [facility] [address] [place] [address], [place] [phone] * HEPATITIS C ANTIBODY (10/21/2023 4:53 PM CDT) HEPATITIS C AB NON-REACTI VE NON-REACTI VE 10/21/2023 6:29 PM CDT [facility] 10/21/2023 4:53 PM CDT Charleen Cedillo NP LABORATORY Final Result [facility] [address] [place] [address], [place] [phone] * PAP SMEAR (01/02/2022) 01/02/2022 [facility] Scanned SCANNING Final Resu lt from Last 3 Months or Most Recently Relevant to Health Maintenance Insurance MEDICAID [place] Advance Directives * Full Code (Latest Code Status on File) Date Activated Date Inactivated Comments 03/03/2023 8:49 PM 03/05/2023 3:25 PM * Full Code Date Activated Date Inactivated Comments 02/27/2023 4:16 PM 03/03/2023 8:48 PM * Full Code Date Activated Date Inactivated Comments 12/11/2022 6:42 PM 12/15/2022 1:56 PM * Full Code Date Activated Date Inactivated Comments 12/02/2022 4:57 PM 12/05/2022 5:56 PM * Full Code Date Activated Date Inactivated Comments 12/02/2022 4:16 PM 12/02/2022 4:57 PM Care Teams Mail Agent Relationship Specialty Start Date End Date Yanira Woo PA-C [address] [place] [id number] PCP - General PHYSICIAN SPORTS TEACHER 12/31/23
--- OUTSIDE RECORDS SUMMARY | 2025-06-25 17:50 | XMS_ITS | Encounter Summary ---
Author Organization [facility] Address [address] [place] [address] Care Team Providers Care Tire Stripper Name Role Phone Yanira Woo PA-C Primary Care Provider +1- [phone] Encounter Details Date Type Department Care Team (Late st Contact Info) Description 02/21/2025 MyChart Message Enc [facility] Family Medicine - [place] [address] Yanira Woo PA-C [address] [place] [address] [phone] Low thyroid hormone Social History Tobacco Use Types Packs/Day Years [...] often do you attend chur ch or rastafari services? Never 12/11/2022 Do you belong to any clubs o r organizations such as christian groups, unions, fraternal or athletic groups, or [...] Recorded Patient Health Questionnaire-2 Score 2 02/23/2025 [facility] - Occupational Stress Questionnaire Answer Date Recorded [...] place to sleep or slept in a skilled nursing (including now)? No 02/27/2023 Depression Answer Date Recor ded Last EPDS Total Score 25 12/02/2022 Last EPDS Self Harm Result Unrecognized value Comments No Sex and Gender Information Value Date Recorded Sex Assigned at Female 09/19/2024 8:29 AM MANAGER HARBOR Legal Sex Female 9:31 PM CDT Gender [...] 10:00 PM Tommy Cardona RN Active * Over the past 2 weeks, how often have you been bothered by any of the following problems? Question Answer Date of Assessment Author Status Little interest or pleasure in doing things More than half the days 02/23/2025 8:55 AM JOELLET Azeb Martinez MA Active Feeling down, depressed, or hopeless Not at all 02/23/2025 8:55 AM JOELLET Azeb Martinez MA Active Patient Health Questionnaire-2 Score 2 02/23/2025 8:55 AM CDT Azeb Martinez MA Active * Question Answer Date of Assessment Author Status Trouble falling or staying asleep, or sleeping too much Not at all 02/23/2025 8:55 AM JOELLET Azeb Martinez MA Active Feeling tired or having little energy Nearly every day 02/23/2025 8:55 AM JOELLET Azeb Martinez MA Active Poor appetite or overeating Not at all 02/23/2025 8:55 AM CDT Azeb Martinez MA Active Feeling bad about yourself - or that you are a failure or have let yourself or your family down Several days 02/23/2025 8:55 AM JOELLET Azeb Martinez MA Active Trouble concentrating on things, such as reading the newspaper or watching television Several days 02/23/2025 8:55 AM JOELLET Azeb Martinez MA Active Moving or speaking so slowly that other people could have noticed? Or the opposite - being so fidgety or restless that you have been moving around a lot more than usual. Not at all 02/23/2025 8:55 AM Azeb Rivera MA Active Thoughts that you would be better off or hurting yourself in some way Not at all 02/23/2025 8:55 AM JOELLET Azeb Martinez MA Active Patient Health Questionnaire-9 Score 7 02/23/2025 8:55 AM Azeb Rivera MA Active * If you checked off any problems on this questionnaire so far, Question Answer Date of Assessment Author Status How difficult have these problems made it for you to do your work, take care of things at home, or get along with other people? Somewhat difficult 02/23/2025 8:55 AM CDT Azeb Martinez MA Active documented as of this encounter Mental [...] documented as of this encounter Care Teams Tire Stripper Relationship Specialty Start Date End Date Yanira Woo PA-C [address] [place] [id number] PCP - General PHYSICIAN BUSINESS CENTER REPRESENTATIVE 12/31/23 documented as of this encounter
--- OUTSIDE RECORDS SUMMARY | 2025-06-25 17:50 | XMS_ITS | Clinical Summary ---
Author Organization [facility] Address [address] [facility] [place] [address] Care Team Providers Care Stile Ripsaw Operator Name Role Phone Marianne Aguilar FLIGHT DECK OFFICER-GUN STOCK MAKER Primary Care Provider +1 -[phone] Source Comments [facility],non-owned Affiliates and Associated Physician Practices is amultiple site organization consisting of ambulatory clinics and hospital sitesin [place], [place], [place] and [place]. This disclosure is being madepursuant to the Care Everywhere program and may not contain all information available regarding this patient. Last updated 18.[facility] Allergies Active Allergy Reactions Criticality Noted Date Comments Sulfa Antibiotics Rash High 07/05/2018 Sulfa Drugs Rash Medium 04/09/2016 Vancomycin Rash Medium 11/13/2022 Can handle for a few days with benadryl Can handle for a few days with benadryl Medications * Be aware that medications may not be up to date on this document. Alwaysverify current medications with the patient. FLUoxetine (PROzac) 40 MG capsule fluoxetine 40 mg capsule TAKE 1 CAPSULE (40 MG TOTAL) BY MOUTH DAILY FOR DEPRESSION 3 Active ibuprofen (Motrin) 600 MG tablet Take 1 (one) tablet by mouth every 8 hours as needed 3 Active levothyroxine (Synthroid) 75 MCG tablet levothyroxine 75 mcg tablet TAKE 1 TABLET BY MOUTH EVERY DAY IN THE MORNING 2 Active lamoTRIgine (LaMICtal) 25 MG tablet Take 2 (two) tablets by mouth once daily Active propranolol ER 24hr (Inderal LA) 60 MG capsule Take 1 (one) capsule by mouth once daily Active traZODone (Desyrel) 50 MG tablet Take 1 (one) tablet by mouth Active busPIRone (Buspar) 7.5 MG tablet Take 1 (one) tablet by mouth once daily Active omeprazole (PriLOSEC) 20 MG capsule Take 2 (two) capsules by mouth once daily Active levonorgestrel (Mirena) 20 MCG/DAY IUD by Intrauterine route as directed Active gabapentin (Neurontin) 300 MG capsule Take 1 (one) capsule by mouth at bedtime 60 capsule 2 Active Active Problems Problem Noted Date Diagnosed Date Seizures 02/28/2023 Open abdominal wall wound, subsequent encounter 01/27/2023 Family History Medical History Relation Name Comments Bipolar Disorder Sister Schizophrenia Sister Relation Name Status Comments Brother Alive Father Alive Mother Alive Sister Alive Social History Tobacco Use Types Packs/Day Years Used Date Smoking Tobacco: Never Tobacco Cessation:Counseling Given: Not Answered Alcohol Use Standard Drinks/Week Comments Yes 0 (1 standard drink = 0.6 oz pur e alcohol) PHQ-2 Answer Date Recorded Patient Health Questionnaire-2 Score 2 02/09/2025 Comments No Sex and Gender Information Value Date Recorded Sex Assigned at Female 01/19/2023 10:01 PM CDT Legal Sex Female 5:39 AM SPECIAL SERVICES SUPERVISOR Gender Identity Female 01/19/2023 10:01 PM CDT Sexual Orientation Not on file Last Filed Vital Signs Vital Sign Reading Time Taken Comments Blood Pressure 124/82 01/19/2025 3:30 PM CDT Pulse 56 02/10/2023 2:35 PM CDT Temperature 36.5 C (97.7 F) 02/04/2023 11:23 AM CDT Respiratory Rate 18 01/28/2023 12:50 PM CDT Oxygen Saturation 96% 02/10/2023 2:35 PM CDT Inhaled Oxygen Concentration - - Weight 117 kg (258 lb) 01/19/2025 3:30 PM CDT Height 154.9 cm (5' 1) 01/19/2025 3:30 PM CDT Body Mass Index 48.75 01/19/2025 3:30 PM CDT Plan of Treatment Upcoming Encounters Date Type Department Care Team (Late st Contact Info) Description 08/18/2025 8:20 AM SPECIAL SERVICES SUPERVISOR Office Visit [facility] - Endocrinology [address] [facility], [place] [address] Raymond Beckford MD [address] [facility] 2L [place] [id number] Health Maintenance Due Date Last Done Comments HIV SCREENING 2014 HPV VACCINE (1 - 3-dose series) 2014 DTAP/TDAP/TD VACCINES (1 - Tdap) 2018 HEPATITIS B VACCINE (1 of 3 - 19+ 3-dose series) 2018 PAP SMEAR 2020 COVID-19 VACCINE (3 - season) 2025 06/17/2021, 05/27/2021 INFLUENZA VACCINE (#1) 2025 , 04/24/2020, 07/06/2018, Additional history exists ZOSTER VACCINE (1 of 2) 2049 HEPATITIS C SCREENING Completed 10/21/2023 DEPRESSION SCREENING Completed 01/19/2025 HIB VACCINE Aged Out No longer eligi ble based on patient's age to complete this topic MENINGOCOCCAL (Group B) VACCINE SHARED DECISION-MAKING Aged Out No longer eligible based on patient's age to complete this topic MENINGOCOCCAL GROUPS A/C/Y/W VACCINE Aged Out No longer eligible based on patient's age to complete this topic PNEUMOCOCCAL VACCINE Aged Out No long er eligible based on patient's age to complete this topic Insurance [facility] MEDICA[facility] - [place] * Guarantor: X,Y Account Type Relation to Patient Date of Phone Billing Address Personal/Family Mother Advance Directives * Full Code (Latest Code Status on File) Date Activated Date Inactivated Comments 01/27/2023 5:13 PM 01/28/2023 2:52 PM Care Teams Stile Ripsaw Operator Relationship Specialty Start Date End Date Marianne Aguilar, FLIGHT DECK OFFICER-GUN STOCK MAKER [address] [place] [address] PCP - General 11/17/22
[2025-06-25 17:58] VITALS: BP 129/57; PULSE 84; RESP 16; TEMP 36.8; O2SAT 97
[2025-06-25 18:34] LABS: Add Urine Microscopic? YES; Appearance Urine Clear (Clear); Glucose Urine UA Negative (Negative); Leukocyte Esterase Ur Trace LEU/UL (Negative); Nitrate Urine Negative (Negative); Non Pathogenic Casts 0-2; Specific Grav Ur 1.018 (1.001-1.035)
[2025-06-25 18:51] LABS: Hematocrit 44.1 % (37.0-47.0); Hemoglobin 14.5 g/dL (12.0-15.0); Immature Granulocyte Percent A 0.5 % (0-0.5); Lymphocytes Absolute Auto 2.96 K/mm3 (0.9-3.2); Mean Corpuscular HGB Conc 32.9 g/dl (32-36); Mean Corpuscular Hemoglobin 27.4 pg (26-34); Mean Corpuscular Volume 83.2 fl (80-100); Nucleated Red Blood Cells Absolute Auto 0.000 K/mm3 (0.0-0.012); Nucleated Red Blood Cells Perc 0.0 % (0.0-0.2); Platelet Count Result 279 k/mm3 (150-375); Red Blood Count 5.30 M/mm3 (4.2-5.4); White Blood Count 7.7 K/mm3 (4.5-10.0)
--- OUTSIDE RECORDS SUMMARY | 2025-06-25 19:00 | XMS_ITS | Encounter Summary ---
Author Organization [facility] Address Critical access hospital[address] [place] [address] Care Team Providers Care Restoration Technician Name Role Phone Marianne Aguilar NP Primary Care Provider Yanira MohrC Primary Care Provider +1- [phone] Encounter Details Date Type Department Care Team (Late st Contact Info) Description 06/23/2022 BlackBamboozStudio Message [facility] Patient Accounts [address] [place] [address] [facility], [facility] Provider Monthly Credit Card Payment Social History [...] Sex Assigned at Female 09/19/2024 8:29 AM SUPERVISOR PRODUCTION DEPARTMENT Legal Sex Female 9:31 PM CDT Gender Identity Not on file Sexual Orientation Not on file documented as of this encounter Plan of Treatment Not on file documented as of this encounter Visit Diagnoses Not on filedocumented in this encounter Additional Health Concerns Infection Onset Date Last Indicated Resolved Time COVID-19 Rule Out 07/01/2023 07/01/202307/0107/01/2023 1:27 PM SUPERVISOR PRODUCTION DEPARTMENT Assessment Noted Time PHQ-9 Depression Total Score: 2 07/16/20 21 8:14 AM SUPERVISOR PRODUCTION DEPARTMENT documented as of this encounter Care Teams Restoration Technician Relationship Specialty Start Date End Date Marianne Aguilar NP PCP - General NURSE PRACTITIONER 04/19/21 12/30/23 Yanira Woo PA-C [address] [place] [address] [phone] PCP - General PHYSICIAN RECREATIONAL LEADER 12/31/23 documented as of this encounter
--- OUTSIDE RECORDS SUMMARY | 2025-06-25 19:00 | XMS_ITS | Encounter Summary ---
Author Organization [facility] Address [facility] [place] [address] Care Team Providers Care Chainstitch Felled Seam Operator Name Role Phone Marianne Aguilar NP Primary Care Provider Yanira MohrC Primary Care Provider +1- [phone] Encounter Details Date Type Department Care Team (Late st Contact Info) Description 03/26/[email or web address] [facility] Patient Accounts [address] [place] [address] [facility], [facility] Provider Monthly Credit Card Payment Social History [...] Sex Assigned at Female 09/19/2024 8:29 AM POTATO CHIP PACKAGING MACHINE OPERATOR Legal Sex Female 9:31 PM CDT Gender Identity Not on file Sexual Orientation Not on file documented as of this encounter Plan of Treatment Not on file documented as of this encounter Visit Diagnoses Not on filedocumented in this encounter Additional Health Concerns Infection Onset Date Last Indicated Resolved Time COVID-19 Rule Out 07/01/2023 07/01/202307/0107/01/2023 1:27 PM POTATO CHIP PACKAGING MACHINE OPERATOR Assessment Noted Time PHQ-9 Depression Total Score: 2 07/16/20 21 8:14 AM POTATO CHIP PACKAGING MACHINE OPERATOR documented as of this encounter Care Teams Chainstitch Felled Seam Operator Relationship Specialty Start Date End Date Marianne Aguilar NP PCP - General NURSE PRACTITIONER 04/19/21 12/30/23 Yanira Woo PA-C [address] [place] [address] [phone] PCP - General PHYSICIAN RESIDENTIAL CHILD CARE COUNSELOR 12/31/23 documented as of this encounter
--- OUTSIDE RECORDS SUMMARY | 2025-06-25 19:00 | XMS_ITS | Encounter Summary ---
Author Organization [facility] Address [facility] [place] [address] Care Team Providers Care Commercial Lines Underwriter Name Role Phone Marianne Aguilar COMMISSIONING SPECIALIST Primary Care Provider Yanira Mohr PA-C Primary Care Provider +1- [phone] Encounter Details Date Type Department Care Team (Late st Contact Info) Description 02/20/2022 TiqIQ Message Enc [facility] Medical Group Family Medicine [facility] [address] [place] [address] Marianne Aguilar, COMMISSIONING SPECIALIST Possible infection from cat scratch Social History [...] Sex Assigned at Female 09/19/2024 8:29 AM NAIL WELTER Legal Sex Female 9:31 PM CDT Gender [...] Rule Out 07/01/2023 07/01/2023 07/01/2023 1:27 PM NAIL WELTER Assessment Noted Time PHQ-9 Depression Total Score: 2 07/16/20 21 8:14 AM NAIL WELTER documented as of this encounter Care Teams Commercial Lines Underwriter Relationship Specialty Start Date End Date Marianne Aguilar NP PCP - General NURSE PRACTITIONER 04/19/21 12/30/23 Yanira Woo, PAJdC [address] [place] [id number] PCP - General PHYSICIAN TRAFFIC AGENT 12/31/23 documented as of this encounter
--- OUTSIDE RECORDS SUMMARY | 2025-06-25 19:01 | XMS_ITS | Encounter Summary ---
Author Organization [facility] Address [address] [place] [address] Care Team Providers Care Government Employee Name Role Phone Yanira Woo PA-C Primary Care Provider +1- [phone] Encounter Details Date Type Department Care Team (Late st Contact Info) Description 02/21/2025 MyChart Message Enc [facility] Medical Group Family Medicine - [place] [address] Yanira Woo PA-C [address] [place] [address] [phone] Low thyroid hormone Social History Tobacco Use [...] often do you attend chur ch or yazidism services? Never 12/11/2022 Do you belong to any clubs o r organizations such as temple groups, unions, fraternal or athletic groups, or [...] Recorded Patient Health Questionnaire-2 Score 2 02/23/2025 [facility] of Occupat ional [facility] - Occupational Stress Questionnaire Answer Date [...] place to sleep or slept in a mcc (including now)? No 02/27/2023 Depression Answer Date Recor ded Last EPDS Total Score 25 12/02/2022 Last EPDS Self Harm Result Unrecognized value Comments No Sex and Gender Information Value Date Recorded Sex Assigned at Female 09/19/2024 8:29 AM MULCHER OPERATOR Legal Sex Female 9:31 PM CDT [...] documented as of this encounter Care Teams Government Employee Relationship Specialty Start Date End Date Yanira Woo PA-C [address] [place] [id number] PCP - General PHYSICIAN HIGH SCHOOL TEACHER 12/31/23 documented as of this encounter
--- OUTSIDE RECORDS SUMMARY | 2025-06-25 19:01 | XMS_ITS | Encounter Summary ---
Author Organization [facility] Address [facility] [place] [address] Care Team Providers Care Infant Caregiver Name Role Phone Yanira Woo PA-C Primary Care Provider +1- [phone] Encounter Details Date Type Department Care Team (Late st Contact Info) Description 11/08/2024 MyChart Message Enc [facility] Medical Group Family Medicine - [place] [address] Yanira Woo PA-C [address] [place] [phone] UTI Social History Tobacco Use Types [...] often do you attend chur ch or jain services? Never 12/11/2022 Do you belong to any clubs o r organizations such as tenriism groups, unions, fraternal or athletic groups, or [...] Recorded Patient Health Questionnaire-2 Score 0 08/04/2024 [facility] - Occupational Stress Questionnaire Answer Date [...] to sleep or slept in a senior care (including now)? No 02/27/2023 Depression Answer Date Recor ded Last EPDS Total Score 25 12/02/2022 Last EPDS Self Harm Result Unrecognized value Comments No Sex and Gender Information Value Date Recorded Sex Assigned at Female 09/19/2024 8:29 AM BANK OFFICER Legal Sex Female 9:31 PM CDT Gender [...] documented as of this encounter Care Teams Infant Caregiver Relationship Specialty Start Date End Date Yanira Woo PA-C [address] [place] [phone] PCP - General PHYSICIAN RADAR OPERATOR 12/31/23 documented as of this encounter
--- OUTSIDE RECORDS SUMMARY | 2025-06-25 19:01 | XMS_ITS | Clinical Summary ---
Author Organization [facility] Address [address] [place] [address] Care Team Providers Care Internal Review And Audit Compliance Name Role Phone Yanira Woo PA-C Primary Care Provider +1- [phone] Allergies Active Allergy Reactions Criticality Noted Date [...] Description 03/29/2025 1:40 PM CDT Office Visit [address] [address] Ynaira Woo PA-C TCM (Pericarditis ) 03/29/2025 Travel 03/29/[address] [address] Yanira Woo PA-C Medication 03/28/2025 9:34 AM CDT - 03/28/2025 11:59 PM CDT Hospital Encounter [facility] [place] [address] Yanira Woo PA-C Discharge Disposition: Home or [...] week 12/11/2022 How often do you attend [facility] or pentecostal services? Never 12/11/2022 Do you belong to any clubs o r organizations such as mandaen groups, unions, fraternal or athletic groups, or [...] Recorded Patient Health Questionnaire-2 Score 2 02/23/2025 [facility] of Occupat ional Health - [...] Sex Assigned at Female 09/19/2024 8:29 AM CALIBRATION TECHNICIAN Legal Sex Female 9:31 PM CDT [...] ages 16-24 Discontinued 01/02/2025, 10/21/2023 PHQ-2 (Physician [place]) Completed 02/23/2025 Hepatitis A Vaccines Aged Out [...] Clifton RN Medical Devices Implanted Type Area Oncology Rep Device Identifier Shelf Expiration Date Model / [...] - 99 MG/DL 03/28/2025 10:31 AM CDT [facility] BUN 9 7 - 18 MG/DL 03/28/2025 10:31 AM CDT [facility] CREATININE S/P/B 0.78 0.55 - 1.02 MG/DL 03/28/2025 10:31 AM CDT [facility] SODIUM S/P/B 137 136 - 145 MMOL/L 03/28/2025 10:31 AM CDT [facility] POTASSIUM S/P/B 4.1 3.5 - 5.1 MMOL/L 03/28/2025 10:31 AM CDT [facility] CHLORIDE S/P/B 106 97 - 115 MMOL/L 03/28/2025 10:31 AM CDT [facility] CO2 27.1 21 - 32 MMOL/L 03/28/2025 10:31 AM CDT [facility] CALCIUM S/P/B 9.2 8.5 - 10.1 MG/DL 03/28/2025 10:31 AM CDT [facility] BILIRUBIN TOTAL S/P/B 0.6 0.2 - 1.2 MG/DL 03/28/2025 10:31 AM CDT [facility] Comment: THIS ASSAY IS NOT RECOMMENDED FOR PATIENTS UNDERGOING TREATMENT WITH ELTROMBOPAG DUE TO THE POTENTIAL FOR FALSELY ELEVATED RESULTS. TOTAL PROTEIN S/P/B 7.2 6.4 - 8.2 G/DL 03/28/2025 10:31 AM CDT [facility] ALBUMIN S/P/B 3.5 3.4 - 5.0 G/DL 03/28/2025 10:31 AM CDT [facility] AST 18 15 - 37 U/L 03/28/2025 10:31 AM CDT [facility] ALT 33 14 - 55 U/L 03/28/2025 10:31 AM CDT [facility] ALKALINE PHOSPHATASE S/P/B 87 50 - 136 U/L 03/28/2025 10:31 AM CDT [facility] ANION GAP 3.9 2 - 10 MMOL/L 03/28/2025 10:31 AM CDT [facility] BUN CREATININE RATIO 11.6 6 - 26 03/28/2025 10:31 AM CDT [facility] A/G RATIO 0.9(L) 1.0 - 2.0 RATIO 03/28/2025 10:31 AM CDT [facility] GFR ESTIMATE >90 >90 ML/MIN/1.7 3 M2 03/28/2025 10:31 AM CDT [facility] Comment: NOTE: eGFR is not calculated [...] Yanira Woo PA-C LABORATORY Final Resu lt [facility] [address] [place] [address], * (ABNORMAL) CBC W/DIFF AUTOMATED (03/28/2025 9:38 AM CDT) WBC 6.81 4.5 - 11.0 x10'3/uL 03/28/2025 10:07 AM CDT [facility] RBC 5.13 4.20 - 5.40 x10'6/uL 03/28/2025 10:07 AM CDT [facility] HGB 14.0 12.0 - 16.0 G/DL 03/28/2025 10:07 AM CDT [facility] HCT 42.0 38.0 - 48.0 % 03/28/2025 10:07 AM CDT [facility] MCV 81.9 81.0 - 99.0 FL 03/28/2025 10:07 AM CDT [facility] MCH 27.3 27.0 - 31.0 PG 03/28/2025 10:07 AM CDT [facility] MCHC 33.3 32.0 - 36.0 G/DL 03/28/2025 10:07 AM CDT [facility] RDW 12.5 11.5 - 14.5 % 03/28/2025 10:07 AM CDT [facility] PLT 237 130 - 400 x10'3/uL 03/28/2025 10:07 AM CDT [facility] MPV 8.9(L) 9.3 - 12.2 FL 03/28/2025 10:07 AM CDT [facility] DIFFERENTIAL TYPE AUTOMATED DIFFERENTIAL 03/28/2025 10:07 AM CDT [facility] NEUTROPHILS % 59.2 % 03/28/2025 10:07 AM T [facility] LYMPHOCYTES % 31.3 % 03/28/2025 10:07 AM CDT [facility] MONOCYTES % 7.8 % 03/28/2025 10:07 AM CDT [facility] EOSINOPHILS 1.0 % 03/28/2025 10:07 AM CDT [facility] BASOPHILS 0.4 % 03/28/2025 10:07 AM CDT [facility] IMMATURE GRANS % 0.3 % 03/28/20 10:07 AM CDT [facility] ABS. NEUTROPHILS 4.03 1.80 - 7.70 x10'3/uL 03/28/2025 10:07 AM CDT [facility] ABS. LYMPHOCYTES 2.13 1.00 - 4.80 x10'3/uL 03/28/2025 10:07 AM CDT [facility] ABS. MONOCYTES 0.53 0.24 - 0.86 x10'3/uL 03/28/2025 10:07 AM CDT [facility] ABS. EOSINOPHILS 0.07 0.04 - 0.36 x10'3/uL 03/28/2025 10:07 AM CDT [facility] ABS. BASOPHILS 0.03 0.01 - 0.08 x10'3/uL 03/28/2025 10:07 AM CDT [facility] ABS. IMMATURE GRANULOCYTES 0.02 0.00 - 0.49 x10'3/uL 03/28/2025 10:07 AM CDT [facility] 03/28/2025 9:38 AM CDT Yanira Woo PA-C LABORATORY Final Resu lt [facility] [address] [place] [address], [place] [phone] * THYROXINE, FREE (FT4) (03/28/2025 9:38 AM CDT) FREE T4 1.13 0.76 - 1.46 NG/DL 03/28/2025 10:31 AM CDT [facility] 03/28/2025 9:38 AM CDT Yanira Woo PA-C LABORATORY Final Resu lt [facility] [address] [place] [address], [place] [phone] * (ABNORMAL) THYROID STIM HORMONE TSH (03/28/2025 9:38 AM CDT) TSH 0.116(L) 0.358 - 3.74 uIU/ML 03/28/2025 10:31 AM CDT [facility] Comment: HIGH DOSES OF BIOTIN MAY INTERFERE WITH THIS TEST RESULT. CORRELATION TO CLINICAL HISTORY AND PRESENTATION RECOMMENDED. 03/28/2025 9:38 AM CDT Yanira Woo PA-C LABORATORY Final Resu lt Performing Organization Address City/[facility]/ZIP Co de Phone Number [facility] [address] [place] [address], [place] [phone] * VITAMIN D, 25 [place] (03/28/2025 9:38 AM CDT) VITAMIN D 25 HYDROXY S/P/B 33 30 - 100 NG/ML 03/28/2025 10:26 AM CDT [facility] Comment: INTERPRETATION DEFICIENT <20 INSUFFICIENT 20-29 SUFFICIENT 30-100 03/28/2025 9:38 AM CDT Yanira Woo PA-C LABORATORY Final Resu lt Performing Organization Address City/[facility]/ZIP Co de Phone Number [facility] [address] [place] [address], [place] [phone] * MAGNESIUM (03/28/2025 9:38 AM CDT) MAGNESIUM 2.0 1.8 - 2.4 MG/DL 03/28/2025 10:31 AM CDT [facility] 03/28/2025 9:38 AM CDT Yanira Woo PA-C LABORATORY Final Resu lt [facility] [address] [place] [address], [place] [phone] * CHLAMYDIA GC RNA (01/02/2025 1:14 PM CDT) SPEC DESCRIPTION CERVIX 06/02/20 25 1:28 PM CDT [facility] CHLAMYDIA RNA TMA NEGATIVE NEGATIVE 025 1:50 PM CDT [facility] Comment:PERFORMED BY NUCLEIC ACID AMPLIFICATION N.GONORRHOEAE RNA TMA NEGATIVE NEGATIVE 01/03/2025 1:50 PM CDT [facility] Comment:PERFORMED BY NUCLEIC ACID AMPLIFICATION VAGINAL STRUCTURE / Unknown 01/02/2025 1:14 PM CDT Moe BLUNT MICROBIOLOGY - GENERAL ORD ERABLES Final Result [facility] [address] [place] [address], [place] [phone] [facility] [address] [place] [address], [place] [phone] * HEPATITIS C ANTIBODY (10/21/2023 4:53 PM CDT) HEPATITIS C AB NON-REACTI VE NON-REACTI VE 10/21/2023 6:29 PM CDT [facility] 10/21/2023 4:53 PM CDT Charleen Cedillo NP LABORATORY Final Result [facility] [address] [place] [address], [place] [phone] * PAP SMEAR (01/02/2022) 01/02/2022 Doc Med [...] 4:16 PM 12/02/2022 4:57 PM Care Teams Internal Review And Audit Compliance Relationship Specialty Start Date End Date Yanira Woo PA-C [address] [place] [id number] PCP - General PHYSICIAN COUTURE DRESSMAKER 12/31/23
--- OUTSIDE RECORDS SUMMARY | 2025-06-25 19:01 | XMS_ITS | Encounter Summary ---
Author Organization [facility] Address [facility] [place] [address] Care Team Providers Care Reserves Clerk Name Role Phone Marianne Aguilar HYDRO EXCAVATION OPERATOR Primary Care Provider Yanira MohrC Primary Care Provider +1- [phone] Encounter Details Date Type Department Care Team (Late st Contact Info) Description 06/16/2021 iDoneThist Message Enc [facility] Medical Group Family Medicine [facility] [address] [place] [address] Marianne Aguilar, HYDRO EXCAVATION OPERATOR UTI Social History Tobacco Use Types Packs/Day [...] Sex Assigned at Female 09/19/2024 8:29 AM QUALITY TECHNICIAN Legal Sex Female 9:31 PM CDT [...] add the pt to Charleen's schedule today. ITY TECHNICIAN documented in this encounter Plan of Treatment Not on file documented as of this encounter Visit Diagnoses Not on filedocumented in this encounter Additional Health Concerns Infection Onset Date Last Indicated Resolved Time COVID-19 Rule Out 07/01/2023 07/01/2023 07/01/2023 1:27 PM QUALITY TECHNICIAN Assessment Noted Time PHQ-9 Depression Total Score: 5 05/16/20 21 3:18 PM CDT documented as of this encounter Care Teams Reserves Clerk Relationship Specialty Start Date End Date Marianne Aguilar, ANDREW PCP - General NURSE PRACTITIONER 04/19/21 12/30/23 Yanira Woo, PAJdC [address] [place] [id number] PCP - General PHYSICIAN NCA CERTIFIED CONCIERGE 12/31/23 documented as of this encounter
--- OUTSIDE RECORDS SUMMARY | 2025-06-25 19:01 | XMS_ITS | Encounter Summary ---
Author Organization [facility] Address [facility] [place] [address] Care Team Providers Care Radar Systems Engineer Name Role Phone Ora Garcia Primary Care Provider [phone] Modesta Nash Primary Care Provider [phone] Marianne Aguilar NP Primary Care Provider Yanira MohrC Primary Care Provider [phone]- [phone] Encounter Details Date Type Department Care Team (Latest Contact Info) Description 04/10/2018 Abstract [facility] Medical Group Francisco Pinzon MD Social History Tobacco Use Types Packs/Day Years Used Date Smoking Tobacco: Never Assessed Comments Unknown Sex and Gender Information Value Date Recorded Sex Assigned at Female 09/19/2024 8:29 AM LAYOUT FORMER Legal Sex Female 9:31 PM CDT Gender Identity Not on file Sexual Orientation Not on file documented as of this encounter Plan of Treatment Not on file documented as of this encounter Visit Diagnoses Not on filedocumented in this encounter Additional Health Concerns Infection Onset Date Last Indicated Resolved Time COVID-19 Rule Out 07/01/2023 07/01/2023 07/01/2023 1:27 PM LAYOUT FORMER documented as of this encounter Care Teams Radar Systems Engineer Relationship Specialty Start Date End Date Ora Garcia FNP [address] [place] [address] PCP - General Nurse Practitioner Family 07/20/1809/04 [place] [address] [place] [address] PCP - General PHYSICIAN MEDICAL IMAGING TECHNOLOGIST 09/05/20 04/18/21 [place] [address] [place] [address] PCP - General NURSE PRACTITIONER 04/19/21 12/30/23 Yanira Woo PA-C [address] [place] [address] PCP - General PHYSICIAN MEDICAL IMAGING TECHNOLOGIST 12/31/23 documented as of this encounter
--- OUTSIDE RECORDS SUMMARY | 2025-06-25 19:01 | XMS_ITS | Encounter Summary ---
Author Organization [facility] Address [address] [place] [address] Care Team Providers Care Regulatory Auditor Name Role Phone Marianne Aguilar NP Primary Care Provider Yanira Mohr PA-C Primary Care Provider [phone] Encounter Details Date Type Department Care Team (Latest Contact Info) Description 06/29/2023 [employer] Message Enc [facility] Medical Group Multispecialty Care - [facility] [address] [facility], [address] [place] [id number] Román Butcher MD [address] [place], [place] [id number] Appointment today Social History Tobacco Use Types [...] often do you attend chur ch or bahai services? Never 12/11/2022 Do you belong to any clubs o r organizations such as sabianist groups, unions, fraternal or athletic groups, or [...] Recorded Patient Health Questionnaire-2 Score 3 05/05/2023 [facility] of Occupat ional Health - Occupational [...] place to sleep or slept in a snf (including now)? No 02/27/2023 Depression Answer Date Recor ded Last EPDS Total Score 25 12/02/2022 Last EPDS Self Harm Result Unrecognized value Comments No Sex and Gender Information Value Date Recorded Sex Assigned at Female 09/19/2024 8:29 AM CHARGE ACCOUNT IDENTIFICATION CLERK Legal Sex Female 9:31 PM CDT Gender [...] Rule Out 07/01/2023 07/01/2023 07/01/2023 1:27 PM CHARGE ACCOUNT IDENTIFICATION CLERK Assessment Noted Time PHQ-9 Depression Total Score: 7 05/05/20 23 7:57 AM CDT documented as of this encounter Care Teams Regulatory Auditor Relationship Specialty Start Date End Date Marianne Aguilar NP PCP - General NURSE PRACTITIONER 04/19/21 12/30/23 Yanira Woo PA-C [address] [place] [address] PCP - General PHYSICIAN MANAGER FINANCIAL PLANNING 12/31/23 documented as of this encounter
--- OUTSIDE RECORDS SUMMARY | 2025-06-25 19:01 | XMS_ITS | Encounter Summary ---
Author Organization [facility] Address [facility] [place] [address] Care Team Providers Care Civil Drafter Name Role Phone Marianne Aguilar PUSHER OPERATOR Primary Care Provider Yanira Mohr PA-C Primary Care Provider [phone]- [phone] Encounter Details Date Type Department Care Team (Late st Contact Info) Description 09/16/2023 [employer] Message Enc [facility] Medical Group Family Medicine [address] [address] Marianne Aguilar NP Sinus infection [...] often do you attend chur ch or druze services? Never 12/11/2022 Do you belong to any clubs o r organizations such as gnosticist groups, unions, fraternal or athletic groups, or [...] Recorded Patient Health Questionnaire-2 Score 3 05/05/2023 [facility] of Occupat [...] Sex Assigned at Female 09/19/2024 8:29 AM SENIOR MEDICAL DIRECTOR Legal Sex Female 9:31 PM CDT Gender [...] documented as of this encounter Care Teams Civil Drafter Relationship Specialty Start Date End Date Marianne Aguilar NP PCP - General NURSE PRACTITIONER 04/19/21 12/30/23 Yanira Woo, PAJdC [address] [place] [address] PCP - General PHYSICIAN HYDRAULIC ROCK DRILL OPERATOR 12/31/23 documented as of this encounter
--- OUTSIDE RECORDS SUMMARY | 2025-06-25 19:01 | XMS_ITS | Clinical Summary ---
Author Organization [facility] Address [address] [place] [address] Care Team Providers Care Motorcycle Service Technician Name Role Phone Marianne Aguilar FLASH DEVELOPER-SHOE SALESMAN Primary Care Provider [phone] Source Comments [facility],non-owned Affiliates and Associated Physician Practices is amultiple site organization consisting of ambulatory clinics and hospital sitesin [place], [place], [place] and [place]. This disclosure is being madepursuant to the Care Everywhere program and may not contain all information available regarding this patient. Last updated 18.[facility] Allergies Active Allergy Reactions Criticality Noted Date [...] PM CDT Legal Sex Female 5:39 AM SAWING AND ASSEMBLY SUPERVISOR Gender Identity Female 01/19/2023 10:01 PM [...] st Contact Info) Description 08/18/2025 8:20 AM SAWING AND ASSEMBLY SUPERVISOR Office Visit [facility] - Endocrinology [address] [facility], [place] [address] Raymond Beckford MD [address] [facility] [address] [place] [id number] Health Maintenance Due Date Last Done Comments [...] patient's age to complete this topic Insurance [facility] MED[facility] - [place] * Guarantor: [id number] Account Type Relation to Patient Date of Phone Billing Address Personal/Family Mother Advance Directives * Full Code (Latest Code Status on File) Date Activated Date Inactivated Comments 01/27/2023 5:13 PM 01/28/2023 2:52 PM Care Teams Motorcycle Service Technician Relationship Specialty Start Date End Date Marianne Aguilar, FLASH DEVELOPER-SHOE SALESMAN [address] [place] [address] PCP - General 11/17/22
--- OUTSIDE RECORDS SUMMARY | 2025-06-25 19:01 | XMS_ITS | Clinical Summary ---
Author Organization [facility] Address [address] [place] [address] Care Team Providers Care Heel Seat Flap Stapler Name Role Phone Yanira Woo Primary Care Provider [phone] Allergies Active Allergy Reactions Criticality Noted Date [...] 1 tablet (75 mcg total) by mouth supervisor coffee before breakfast 3 Active propranolol [place] (INDERAL [...] How often do you attend chur or jain services? Never 09/03/2022 Do you belong to any clubs o r organizations such as restorationist groups, unions, fraternal or athletic groups, or [...] place to sleep or slept in a retirement (including now)? No 09/03/2022 Personal Safety Answer Date Recorded Have you ever been in or are you currently in a harmful physical or emotional relationship or is someone making you feel afraid or unsafe? Denies 03/21/2025 Comments No Sex and Gender Information Value Date Recorded Sex Assigned at Not on file Legal Sex Female 6:59 PM BLUE LINE HANGER Gender Identity Not on file Sexual Orientation [...] HIGH RISK HPV Routine 06/08/2023 3:25 PM BLUE LINE HANGER Cervical cancer screening from Last 3 Months or Most Recently Relevant to Health Maintenance Results * Pap with reflex to High Risk HPV and Genotyping (Cytology Component) (06/08/2023 3:25 PM BLUE LINE HANGER) Thin prep (Pap test) 06/08/2023 3:25 PM BLUE LINE HANGER 06/11/2023 11:22 AM BLUE LINE HANGER Narrative PATHOLOGY [facility] - 06/17/2023 3:31 PM BLUE LINE HANGER EPIC results best viewed via link to PDF [facility] [place] [address] Note to Patients: This report may contain [...] Gender: F : 2000 (Age: 23) Address: [address] [place] [address] Hospital #: [id number] Service: DEFAULT Location: Patient Type: [facility] Taken: 06/08/2023 Received: 06/11/2023 Accessioned: 06/11/2023 [...] clinical information and biopsy results as indicated. [facility] Clinical Laboratory Improvement Amendments (CLIA) mandate that cytologic and histologic results be correlated for laboratory quality control tech raw materials & improvement standards. FOR ALL HIGH-GRADE CASES [...] determined by the Surgical Pathology Department at [facility] as part of an ongoing quality assurance inspector program and in compliance with federally mandated [...] determined by the Surgical Pathology Department of [facility]. It has not been cleared or approved by the U. S. Food and Drug Administration. Darline Ordonez MD LAB CYTOLOGY ORDERABLES F inal Result PATHOLOGY [facility] from Last 3 Months or Most Recently Relevant to Health Maintenance Insurance BLUE ACCESS OOS [facility] CHOICE PLUS [facility] HMO/PPO Address: [address] [address] [place] [address] [facility] [address] [place] [address] Member Subscriber Plan / Payer (Ef fective 2024-Present) Name:Anna Salguero Member ID:[id number] Relation to Subscriber:Self Name:Anna Salguero Subscriber ID:[id number] Payer ID:[id number] (NAIC) Type:AETNA HMO/PPO Address: [place] [id number] Advance Directives For more information, please contact: [phone] * Full Code (Latest Code Status on File) Date Activated Date Inactivated Comments 03/20/2025 9:00 PM 03/22/2025 3:11 PM * Full Code Date Activated Date Inactivated Comments 09/01/2022 9:37 PM 09/04/2022 6:54 PM Care Teams Heel Seat Flap Stapler Relationship Specialty Start Date End Date Yanira Woo PA [address] [place] [address] PCP - General Physician Date Puller 03/20/25
--- OUTSIDE RECORDS SUMMARY | 2025-06-25 19:01 | XMS_ITS | Encounter Summary ---
Author Organization [facility] Address [facility] [place] [address] Care Team Providers Care Poultry Killer Name Role Phone Marianne Aguilar HUMAN RESOURCES PSYCHOLOGIST Primary Care Provider Yanira Mhor PA-C Primary Care Provider [phone] Encounter Details Date Type Department Care Team (Late st Contact Info) Description 09/22/2023 [employer] Message Enc [facility] Medical Group Family Medicine [address] [address] Marianne Aguilar NP Worsened symptoms [...] often do you attend chur ch or yarsanism services? Never 12/11/2022 Do you belong to any clubs o r organizations such as faith groups, unions, fraternal or athletic groups, or [...] Recorded Patient Health Questionnaire-2 Score 3 05/05/2023 [facility] of Occupat ional Health - Occupational Stress [...] place to sleep or slept in a fci (including now)? No 02/27/2023 Depression Answer Date Recor ded Last EPDS Total Score 25 12/02/2022 Last EPDS Self Harm Result Unrecognized value Comments No Sex and Gender Information Value Date Recorded Sex Assigned at Female 09/19/2024 8:29 AM COMMUNICATIONS ATTENDANT Legal Sex Female 9:31 PM CDT [...] Status No Risk Indicated 09/22/2023 9:31 AM COMMUNICATIONS ATTENDANT Maddie Montemayor RN Active * [place] Suicide Severity Rating Scale (Screener/Recent Self-Report) Question [...] seen in a walk in clinic today. UNICATIONS ATTENDANT documented in this encounter Plan of Treatment [...] documented as of this encounter Care Teams Poultry Killer Relationship Specialty Start Date End Date Marianne Aguilar NP PCP - General NURSE PRACTITIONER 04/19/21 12/30/23 Yanira Woo PA-C [address] [place] [address]. [place] [address] PCP - General PHYSICIAN SPECIAL EFFECTS MAKEUP ARTIST 12/31/23 documented as of this encounter
--- OUTSIDE RECORDS SUMMARY | 2025-06-25 19:01 | XMS_ITS | Encounter Summary ---
Author Organization [facility] Address [facility] [place] [address] Care Team Providers Care Maintainer Plant Name Role Phone Marianne Aguilar DRIVER SUPERVISOR Primary Care Provider Yanira Mohr PA-C Primary Care Provider [phone] Encounter Details Date Type Department Care Team (Late st Contact Info) Description 07/05/2023 [employer] Message Enc [facility] Medical Group Family Medicine [address] [address] Marianne Aguilar NP Return to [...] often do you attend chur ch or sikhism services? Never 12/11/2022 Do you belong to any clubs o r organizations such as zoroastrian groups, unions, fraternal or athletic groups, or [...] Recorded Patient Health Questionnaire-2 Score 3 05/05/2023 [facility] of Occupat ional Health - Occupational [...] place to sleep or slept in a residential (including now)? No 02/27/2023 Depression Answer Date Recor ded Last EPDS Total Score 25 12/02/2022 Last EPDS Self Harm Result Unrecognized value Comments No Sex and Gender Information Value Date Recorded Sex Assigned at Female 09/19/2024 8:29 AM HOSE INSPECTOR AND PATCHER Legal Sex Female 9:31 PM CDT Gender [...] Assessment Author Status No 03/03/2023 10:00 PM oTmmy Cardona RN Active * Because of a physical, mental, or emotional condition, do you have difficulty doing errands alone such as visiting a doctor's office or shopping? Answer Date of Assessment Author Status No 03/03/2023 10:00 PM Tommy Cardona RN Active * Calculated C-SSRS Risk Score (Lifetime/Recent) Answer Date of Assessment Author Status No Risk Indicated 07/05/2023 4:10 PM HOSE INSPECTOR AND PATCHER Presley Sotomayor RN Active * [place] Suicide Severity Rating Scale (Screener/Recent Self-Report) Question Answer Date of Assessment Author Status 1. Wish to be (Past 1 Month) No 07/05/2023 4:10 PM HOSE INSPECTOR AND PATCHER Presley Sotomayor RN Active 6. Suicidal Behavior (Lifetime) No 07/05/2023 4:10 PM HOSE INSPECTOR AND PATCHER Presley Sotomayor RN Active documented as of [...] like Charleen has taken care of this. INSPECTOR AND PATCHER documented in this encounter Plan of Treatment [...] documented as of this encounter Care Teams Maintainer Plant Relationship Specialty Start Date End Date Marianne Aguilar NP PCP - General NURSE PRACTITIONER 04/19/21 12/30/23 Yanira Woo PA-C [address] [place] [address]. [place] [address] PCP - General PHYSICIAN FBI INVESTIGATOR 12/31/23 documented as of this encounter
--- OUTSIDE RECORDS SUMMARY | 2025-06-25 19:01 | XMS_ITS | Encounter Summary ---
Author Organization [facility] Address [facility] [place] [address] Care Team Providers Care Transcription Typist Name Role Phone Marianne Aguilar COMPO CASTER Primary Care Provider Yanira Mohr PA-C Primary Care Provider [phone]- [phone] Encounter Details Date Type Department Care Team (Late st Contact Info) Description 05/15/2023 [employer] Message Enc [facility] Medical Group Family Medicine [facility] [address] [place] [address] Marianne Aguilar, ANDREW Swelling/pain in [...] any clubs o r organizations such as taoism groups, unions, fraternal or athletic groups, or [...] Recorded Patient Health Questionnaire-2 Score 3 05/05/2023 [facility] of Occupat ional Health - Occupational [...] Sex Assigned at Female 09/19/2024 8:29 AM TOOL AND DIE TECHNICIAN Legal Sex Female 9:31 PM CDT Gender Identity Not on file Sexual Orientation Not on file documented as of this encounter Functional Status * Are you deaf or do you have serious difficulty hearing Answer Date of Assessment Author Status No 03/03/2023 10:00 PM JOELLET Tomym Hale RN Active * Are you blind [...] PM CDT Neto Jones RN Active * [place] Suicide Severity Rating Scale (Screener/Recent Self-Report) Question [...] Rule Out 07/01/2023 07/01/2023 07/01/2023 1:27 PM TOOL AND DIE TECHNICIAN Assessment Noted Time PHQ-9 Depression Total Score: 7 05/05/20 23 7:57 AM CDT documented as of this encounter Care Teams Transcription Typist Relationship Specialty Start Date End Date Marianne Aguilar NP PCP - General NURSE PRACTITIONER 04/19/21 12/30/23 Yanira Woo PA-C [address] [place] [address] PCP - General PHYSICIAN PHYSICAL SCIENCE PROFESSOR 12/31/23 documented as of this encounter
[2025-06-25 19:06] LABS: Alanine Aminotransferase 42 U/L (6-35); Albumin Level 4.5 g/dL (3.5-5.1); Alkaline Phosphatase 95 U/L (38-126); Anion Gap 8 mmol/L (4-12); Aspartate Amino Transferase 32 U/L (14-36); Bilirubin,Total 0.4 mg/dL (0.2-1.3); Blood Urea Nitrogen 15 mg/dL (7-17); Calcium 9.9 mg/dL (8.4-10.2); Carbon Dioxide 29 mmol/L (22-30); Chloride 99 mmol/L (98-107); Estimated CRCL calculation 119 ml/min; Estimated Glomerular Filt Rate > 60; Glucose 84 mg/dL (65-110); Lipase 71 U/L (23-300); Potassium 4.1 mmol/L (3.4-5.0); Sodium 136 mmol/L (137-145); Total Protein 7.9 g/dL (6.3-8.2)
[2025-06-25] MEDS: MORPHINE SULFATE (*CRX) 4 MG/ML INJ IV PUSH (19:55)
[2025-06-25] MEDS: ONDANSETRON INJ 4 MG/2 ML VIAL IV PUSH (19:55)
--- NOTE | 2025-06-25 20:22 | ED.ABDPAIN ---
HPI - Abdominal Pain General Chief Complaint: Abdominal Pain Stated Complaint: abd pain, n/v Time Seen by Provider: 06/25/25 18:04 Source: patient Mode of arrival: ambulatory Limitations: no limitations History of Present Illness HPI narrative: Patient is a 25-year-old female who presents to the ED with c/o RLQ pain. Patient reports having pain for the past 3 days. States it began in her umbilical region and has since localized more to her RLQ. Denies aggravating or relieving factors to the pain. Has tried taking Tylenol and ibuprofen without improvement. Reports N/V. Denies diarrhea, constipation, fevers, dysuria, hematuria. Does report hx of ovarian cyst a few years ago. Related Data Home Medications ?Medication ?Instructions ?Recorded ?Confirmed ?Last Taken ?Type omeprazole 20 mg capsule,delayed 20 mg PO DAILY 09/01/22 04/14/24 10/22/22 05:00 History release Held on 11/04/22. Instructions: Resume on 11/30/22. vits no.133-ferrous 1 tablet PO DAILY 09/01/22 04/14/24 10/06/22 07:30 History fumarate 28 mg-folic acid 800 mcg tablet () Held on 11/04/22. Instructions: Resume on 11/30/22. acetaminophen 500 mg tablet 1,000 mg PO Q6H PRN Pain (Scale 09/30/22 04/14/24 10/06/22 23:00 History Held on 11/04/22. Score 1-3) Instructions: Resume on 11/30/22. buspirone 5 mg tablet 5 mg PO BID 09/30/22 04/14/24 10/22/22 05:00 History Held on 11/04/22. Instructions: Resume on 11/30/22. levothyroxine 125 mcg tablet 125 mcg PO DAILY 09/30/22 04/14/24 10/22/22 05:00 History Held on 11/04/22. Instructions: Resume on 11/30/22. qiiorlvked-zufhjeebntwpr-wemukrak 1 cap PO PRN headache 10/07/22 04/14/24 10/06/22 10:00 History 50 mg-300 mg-40 mg capsule Held on 11/04/22. Instructions: Resume on 11/30/22. Allergies Allergy/AdvReac Type Severity Reaction Status Date / Time Sulfa (Sulfonamide Allergy Intermediate Rash Verified 06/25/25 19:54 Antibiotics) Sulfonamides Allergy Intermediate Unknown Uncoded 04/14/24 11:53 Review of Systems Review of Systems: All systems reviewed & are unremarkable except as noted in HPI. All systems reviewed & are unremarkable except as noted in HPI and below PMFSH Past Medical History Medical History Seizure disorder 1998 GERD (gastroesophageal reflux disease) PCOS (polycystic ovarian syndrome) Sepsis GERD (gastroesophageal reflux disease) Anxiety and depression Hypothyroid Morbid obesity Surgical History Surgical History History of H/O eye surgery 2012 History of strabismus surgery H/O left knee surgery Family History Family History Father Hypertension Mother Hypertension Grandparent Alcoholism Social History Social History Social History: caffeine use Smoking status: Never smoker Second hand tobacco smoke exposure: No Alcohol intake: current Drinks per week: 1 Substance use: never Lack of Transportation: No Lack of Food: Never True Current Housing: I Have Housing Concerned About Future Housing: No Difficulty Paying Gas/Electric Bills: No Difficulty Paying for Meds: No Currently Unemployed: No Education: Associate Degree Difficulty w/ Childcare or Family Care: No Occupation/Education: occupation Additional occupation/education comments: [employer] Gender identity (if verbalized by the patient): Female Spiritual care concerns: No Exam Narrative: GENERAL: Well appearing, morbidly obese with BMI of 49.2, non-toxic, in no acute distress. HEAD: Normocephalic, atraumatic. RESPIRATORY: Airway patent, respirations nonlabored. Clear to auscultation bilaterally, no rales, rhonchi, wheezing. CARDIOVASCULAR: Regular rate and rhythm without murmurs, rubs, or gallops. ABDOMINAL: Soft, mild diffuse tenderness in periumbilical region, RLQ, R mid abdomen, no rebound, nondistended. Normoactive BS. MUSCULOSKELETAL: Moves all extremities. No gross deformities. SKIN: Warm, dry, normal color. NEURO: A&O X3. Speech clear. Cranial nerves II-XII grossly intact. Steady gait. No ataxic movements. PSYCHIATRIC: Appropriate mood and affect. Normal interaction. Course Vital Signs Vital signs: Vital Signs Temperature 98.2 F 06/25/25 17:58 Pulse Rate 84 06/25/25 17:58 Respiratory Rate 16 06/25/25 17:58 Blood Pressure 129/57 L 06/25/25 17:58 Pulse Oximetry 97 06/25/25 17:58 Temperature 98.2 F 06/25/25 17:58 Pulse Rate 84 06/25/25 17:58 Respiratory Rate 16 06/25/25 17:58 Blood Pressure 129/57 L 06/25/25 17:58 Pulse Oximetry 97 06/25/25 17:58 MDM - Abdominal Pain MDM Narrative Medical decision making narrative: Patient presented to ED with 3 day hx of RLQ pain. Associated with N/V. Hx ovarian cysts. Vital signs are stable upon arrival. Patient in no acute distress. Laboratory studies are grossly unremarkable. Cbc without leukocytosis or anemia. CMP with stable kidney function, stable electrolytes. UA without evidence of infection. CT scan of abdomen/pelvis was obtained and unremarkable, does show moderate stool burden. Pelvic ultrasound obtained to rule out torsion, also negative. No evidence of torsion, no adnexal abnormality or free fluid. Discussed lab and imaging findings with patient. Discussed possibility of constipation/gas pains causing sx's. Reviewed imaging with patient to show large amount of stool on R colon. She states her last bowel movement was yesterday but smaller than usual. She does note that she had a GI bug with diarrhea a couple weeks ago. Patient is still reporting persistent R sided abd pain at this time. Given Toradol and Bentyl. On re-evaluation, she does report pain is improved. Prior to discharge, patient ambulated to the bathroom unassisted. She reports she had a brief episode of dizziness in the bathroom when she stood up from the toilet. She states she had to lower herself to the ground to avoid falling. She did not fall. She did not lose consciousness or pass out. Denied hitting her head or having any pain/injury from this. Was assisted in the bathroom by ED nurse and tech. Able to ambulate back to her room unassisted immediately afterwards. I checked on patient upon return to her room and she stated that she does occasionally get dizzy when standing up too fast. Denies feeling dizzy currently. Fluids are ongoing. Patient then began feeling very anxious and having panic symptoms/hyperventilating/tearful. She reports hx of anxiety and is on several medications for this, including Ativan 0.5mg p.r.n. for panic type symptoms. She was given 0.5 mg Ativan p.o. here and reported improvement in anxiety symptoms. On re-evaluation, she is remaining hemodynamically stable. Vital signs are stable. Pain is tolerable at this time. Feel she is safe for discharge home given otherwise reassuring workup. She does feel comfortable going home. I discussed further constipation management, strict return precautions. Will be discharged with bentyl/zofran. Patient in agreement with plan. Discharged in stable condition. Medical Records Attestation: I reviewed the patient's medical records. Lab Data Attestation: I reviewed the patient's lab results. 06/25/25 18:45 06/25/25 18:45 Labs: Lab Results 06/25/25 06/25/25 Range/Units 18:20 18:45 WBC 7.7 (4.5-10.0) K/mm3 RBC 5.30 (4.2-5.4) M/mm3 Hgb 14.5 D (12.0-15.0) g/dL Hct 44.1 (37.0-47.0) % MCV 83.2 (80-100) fl MCH 27.4 (26-34) pg MCHC 32.9 (32-36) g/dl RDW 13.4 (11.5-14.5) % Plt Count 279 (150-375) k/mm3 MPV 8.5 (7.4-10.4) fl Immature Gran % (Auto) 0.5 (0-0.5) % Neut % (Auto) 53.9 (45.5-73.1) % Lymph % (Auto) 38.5 (18.3-44.2) % Early % (Auto) 5.5 (2.6-8.5) % Eos % (Auto) 1.2 (0-4.4) % Baso % (Auto) 0.4 (0.2-1.2) % Lymph # (Auto) 2.96 (0.9-3.2) K/mm3 Early # (Auto) 0.4 (0.1-0.6) K/mm3 Eos # (Auto) 0.1 (0-0.3) K/mm3 Baso # (Auto) 0.0 (0.0-0.1) K/mm3 Abs Immat Gran (auto) 0.04 H (0.00-0.031) K/mm3 Absolute Neuts (auto) 4.2 (1.3-6.7) K/mm3 Absolute Nucleated RBC 0.000 (0.0-0.012) K/mm3 Nucleated RBC % 0.0 (0.0-0.2) % Sodium 136 L (137-145) mmol/L Potassium 4.1 (3.4-5.0) mmol/L Chloride 99 (98-107) mmol/L Carbon Dioxide 29 (22-30) mmol/L Anion Gap 8 (4-12) mmol/L BUN 15 (7-17) mg/dL Creatinine 0.74 (0.7-1.0) mg/dL Estim Creat Clear Calc 119 ml/min Estimated GFR > 60 (59 - ) Glucose 84 (65-110) mg/dL Calcium 9.9 (8.4-10.2) mg/dL Total Bilirubin 0.4 (0.2-1.3) mg/dL AST 32 (14-36) U/L ALT 42 H (6-35) U/L Alkaline Phosphatase 95 (38-126) U/L Total Protein 7.9 (6.3-8.2) g/dL Albumin 4.5 (3.5-5.1) g/dL Lipase 71 (23-300) U/L Urine Color Yellow (Yellow) Urine Appearance Clear (Clear) Urine pH 7.0 (5.0-9.0) Ur Specific [place] 1.018 (1.001-1.035) Urine Protein Negative (Negative) mg/dL Urine Glucose (UA) Negative (Negative) mg/dL Urine Ketones Negative (Negative) mg/dL Ur Blood (Man) 2+ H (Negative) Urine Nitrate Negative (Negative) Urine Bilirubin Negative (Negative) Urine Urobilinogen 1.0 (<2.0) mg/dL Leukocyte Esterase Rfl Trace H (Negative) MAKENZIE/UL Urine RBC 0-2 (0-2) /hpf Urine WBC 0-5 (0-3) /hpf Ur Squamous Epith Cells Occasional (Few) /hpf Urine Bacteria 1+ H /hpf Urine Casts 0-2 Urine Test Negative Imaging Data Attestation: I personally reviewed and interpreted this imaging study as follows: Radiologist's impression: STAT RAD CT abd/pelvis: Impression: No acute intra-abdominal abnormality. No bowel obstruction or inflammation. Normal appendix. Moderate stool burden. No hydronephrosis or renal calculus. Hepatic steatosis and hepatomegaly. Indwelling IUD. STAT RAD US pelvis: Impression: No evidence of ovarian torsion. No adnexal abnormality or pelvic free fluid. Indwelling IUD in appropriate position. Discharge Plan Discharge Clinical Impression: Right lower quadrant abdominal pain, Anxiety Constipation Qualifiers: Constipation type: unspecified constipation type Qualified Code(s): K59.00 - Constipation, unspecified Patient Disposition: Home Condition: Stable Instructions: Antibiotic Form, Constipation (ED), High Fiber Diet (ED), Abdominal Pain (ED) Additional Instructions: Continue Tylenol, ibuprofen, Bentyl as needed for further abdominal discomfort. Utilize zofran as needed for further nausea. Recommend high-fiber diet, MiraLax/Dulcolax as needed up to twice daily for constipation. Increase fluid intake. Recommend electrolyte rich fluids, gatorade, pedialyte, body armour. Recommend clear liquids or bland diet until symptoms improve, such as bananas, rice, applesauce, toast, or crackers. Follow up with your primary care doctor for further evaluation. Return to the ED if you experience worsening or severe symptoms, unable to keep down food or drink, severe pain, fevers, rectal bleeding, vomiting blood, or any other symptoms of concern. Patient Language: Mauritanian Prescriptions: New dicyclomine 20 mg tablet 20 mg PO TID PRN (Reason: Abdominal Discomfort) Qty: 15 0RF ondansetron 4 mg tablet,disintegrating 4 mg PO Q8H PRN (Reason: nausea and vomiting) Qty: 15 0RF No Action hydrocodone-acetaminophen 5-325 mg tablet 1 tablet PO Q4H PRN (Reason: pain) Qty: 14 0RF omeprazole 20 mg Capsule,Delayed Release(Dr/Ec) 20 mg PO DAILY 28-800 mg-mcg Tablet 1 tablet PO DAILY buspirone 5 mg tablet 5 mg PO BID acetaminophen 500 mg Tablet 1,000 mg PO Q6H PRN (Reason: Pain (Scale Score 1-3)) levothyroxine 125 mcg tablet 125 mcg PO DAILY gjppxrhqoy-ntkwroqawhpzr-ddvb 50-300-40 mg capsule 1 cap PO PRN hydrocodone-acetaminophen 5-325 mg Tablet 1 tab PO Q4H PRN (Reason: Pain Rated 1-3) Qty: 0 0RF imipenem-cilastatin 500 mg Recon Soln 1,000 mg IV Q6HR Qty: 0 0RF doxycycline hyclate [Doxy-100] 100 mg Recon Soln 100 mg IV BID@0000,1200 Qty: 0 0RF clindamycin in 5 % dextrose 900 mg/50 mL Piggyback 900 mg IV Q8HR Qty: 0 0RF buspirone 10 mg Tablet 10 mg PO Q12HR Qty: 0 0RF hydroxyzine pamoate 25 mg Capsule 25 mg PO Q4H PRN (Reason: Anxiety) Qty: 0 0RF enoxaparin [Lovenox] 40 mg/0.4 mL Syringe 40 mg subcut DAILY Qty: 0 0RF hydromorphone 1 mg/mL Syringe 1 mg IV PUSH Q2H PRN (Reason: Pain Rated 7-10) Qty: 0 0RF hydromorphone 1 mg/mL Syringe 1 mg IV PUSH Q5M PRN (Reason: Pain) Qty: 0 0RF hydromorphone 1 mg/mL Syringe 0.5 mg IV PUSH Q2H PRN (Reason: Pain Rated 4-6) Qty: 0 0RF polyethylene glycol 3350 [Miralax] 17 gram Powder In Packet 17 g PO QAM Qty: 0 0RF pantoprazole 40 mg Tablet,Delayed Release (Dr/Ec) 40 mg PO QAM Qty: 0 0RF levothyroxine [Synthroid] 125 mcg Tablet 125 mcg PO DAILY@0630 Qty: 0 0RF ondansetron HCl (PF) 4 mg/2 mL Solution 4 mg IV PUSH Q4H PRN (Reason: Nausea) Qty: 0 0RF Dakin's Solution 0.125 % Solution 1 applic irrigation PRN PRN (Reason: Veraflo Wound Vac) Qty: 0 0RF vancomycin in 0.9 % sodium chl 2 gram/500 mL Solution 2,000 mg IV Q12H Qty: 0 0RF sodium chloride 0.9 % Syringe 10 ml IV PUSH Q8HR Qty: 0 0RF Follow-up/Referrals: Amna,STACIA MetzgerC [Primary Care Provider] Time of Disposition: 01:42
[2025-06-25] MEDS: HYDROmorphone HCL INJ (*CRX) 1 MG/ML SYR 0.5 MG IV PUSH ×2 (20:30→22:16)
[2025-06-25 21:09] LABS: Pregnancy On Board Control Positive
[2025-06-25] MEDS: SODIUM CHLORIDE 0.9% IV 1,000 ML 999 ML IV CONT (22:40)
[2025-06-25] MEDS: DICYCLOMINE HCL 10 MG CAPSULE 20 MG PO (23:54)
[2025-06-25] MEDS: KETOROLAC 30 MG/ML VIAL (*BKC) IV PUSH (23:54)
[2025-06-26] MEDS: LORazepam (*CRX) 0.5 MG TABLET PO (00:52)
[2025-06-26 02:02] VITALS: BP 120/73; PULSE 93; RESP 16; O2SAT 97
[2025-06-26 11:50] LABS: BEDSIDEPREGUCG Negative (Negative)
== END 2025-06-26 02:06 | disposition home or self-care (01) ==
PROVIDERS: Emergency Provider Physician Assistant; PCP Physician Assistant
DX: R10.31 Right lower quadrant pain (principal); F41.9 Anxiety disorder, unspecified; G40.909 Epilepsy, unspecified, not intractable, without status epilepticus; E28.2 Polycystic ovarian syndrome; E03.9 Hypothyroidism, unspecified; E66.01 Morbid (severe) obesity due to excess calories; Z68.42 Body mass index [BMI] 45.0-49.9, adult; K21.9 Gastro-esophageal reflux disease without esophagitis; F32.A Depression, unspecified; Z79.899 Other long term (current) drug therapy
CPT/HCPCS: 36415; 74177; 76856; 80053; 81001; 81025; 83690; 85025; 96361; 96374; 96375; 96376; 99284; A9270; J1171; J1885; J2270; J2405; J7030; Q9967